=== PATIENT | female | born 1985 | race Caucasian/White ===

== ENCOUNTER → 2017-09-14 14:41 | Outpatient (CLI) | payer OTHER, SELFPAY ==
[2017-09-14 15:27] LABS: hCG Titer Quant., Serum 1 mIU/mL (<9 non-preg)
== END ==
PROVIDERS: Family Provider Family Medicine; PCP Family Medicine; Visit Provider Obstetrics & Gynecology
DX: Z32.00 Encounter for pregnancy test, result unknown (principal); N92.6 Irregular menstruation, unspecified
CPT/HCPCS: 36415; 84702

== ENCOUNTER → 2017-09-17 08:20 | Outpatient (CLI) | payer OTHER, SELFPAY ==
[2017-09-17 09:43] LABS: hCG Titer Quant., Serum 28 mIU/mL (<9 non-preg)
== END ==
PROVIDERS: Family Provider Family Medicine; PCP Family Medicine; Visit Provider Obstetrics & Gynecology
DX: Z34.90 Encounter for supervision of normal pregnancy, unspecified, unspecified trimester (principal)
CPT/HCPCS: 36415; 84702

== ENCOUNTER → 2017-09-19 07:56 | Outpatient (CLI) | payer OTHER, SELFPAY ==
[2017-09-19 08:54] LABS: hCG Titer Quant., Serum 65 mIU/mL (<9 non-preg)
== END ==
PROVIDERS: Family Provider Family Medicine; PCP Family Medicine; Visit Provider Obstetrics & Gynecology
DX: O20.0 Threatened abortion (principal); Z3A.00 Weeks of gestation of pregnancy not specified
CPT/HCPCS: 36415; 84702

== ENCOUNTER → 2017-09-21 10:42 | Outpatient (CLI) | payer OTHER, SELFPAY ==
[2017-09-21 11:10] LABS: hCG Titer Quant., Serum 155 mIU/mL (<9 non-preg)
== END ==
PROVIDERS: Family Provider Family Medicine; PCP Family Medicine; Visit Provider Obstetrics & Gynecology
DX: O20.0 Threatened abortion (principal); Z3A.00 Weeks of gestation of pregnancy not specified
CPT/HCPCS: 36415; 84702

== ENCOUNTER → 2017-10-16 18:34 | Outpatient (CLI) | payer OTHER, SELFPAY ==
[2017-10-16 22:02] LABS: Chlamydia Trachomatis by PCR Negative (Negative); Neisserai gonorrhoeae by PCR Negative (Negative); Probe Check PASS; Sample Adequacy Control PASS; Specimen Processing Control PASS
[2017-10-22 14:04] LABS: HPV APTIMA, High Risk Negative (Negative)
== END ==
PROVIDERS: Family Provider Family Medicine; PCP Family Medicine; Visit Provider Obstetrics & Gynecology
DX: Z34.90 Encounter for supervision of normal pregnancy, unspecified, unspecified trimester (principal); Z12.4 Encounter for screening for malignant neoplasm of cervix
CPT/HCPCS: 87086; 87491; 87591; 88175; G0145

== ENCOUNTER → 2017-10-17 08:15 | Outpatient (CLI) | payer OTHER, SELFPAY | PROVIDERS: Family Provider Family Medicine; PCP Family Medicine; Visit Provider Obstetrics & Gynecology | DX: Z34.90 Encounter for supervision of normal pregnancy, unspecified, unspecified trimester (principal) ==

== ENCOUNTER → 2017-10-19 13:10 | Outpatient (CLI) | payer OTHER, SELFPAY ==
[2017-10-19 14:34] LABS: Absolute Lymphocyte Count 1.97 X10^3/ul (0.83-4.51); Basophil# 0.02 X10^3/uL; Basophil% 0.2 % (0-1); Eosinophil# 0.06 X10^3/uL; Eosinophils% 0.7 % (0-5); Hematocrit 37.3 % (37-47); Lymphocyte # 1.97 X10^3/ul (4.0); Lymphocyte % 22.8 % (19-41); Mean Corp Hgb Conc 34.9 g/gl (32-36); Mean Corpuscular Hgb 31.3 pg (27.0-32.0); Mean Corpuscular Volume 89.9 fL (81-99); Mean Platelet Vol. 9.9 fl (6.2-12.0); Monocyte% 6.9 % (0-10); Neutrophil # 5.99 X10^3/uL (2.7-7.7); Neutrophil % 69.3 % (47-70); Platelet Count 306 K/mm3 (150-450); RBC Distribution Width CV 12.2 % (11.6-14.6); RBC Distribution Width SD 39.6 fl (35.1-43.9); Red Blood Count 4.15 M/mm3 (4.2-5.4); White Blood Count 8.7 K/mm3 (4.4-11.0)
[2017-10-19 15:40] LABS: HIV - WCH Non-Reactive (Nonreactive); Rubella IgG 266.2 IU/mL
[2017-10-19 15:50] LABS: POSITIVE COUNT NO; POSITIVE DIFFERENTIAL NO; POSITIVE MORPHOLOGY NO
[2017-10-20 13:38] LABS: HEPATITIS B SURFACE AG Negative (Negative)
[2017-10-26 02:33] LABS: Rapid Plasmin Reagin (RPR) NONREACTIVE (NONREACTIVE)
== END ==
PROVIDERS: Family Provider Family Medicine; PCP Family Medicine; Visit Provider Obstetrics & Gynecology
DX: Z34.90 Encounter for supervision of normal pregnancy, unspecified, unspecified trimester (principal)
CPT/HCPCS: 36415; 85025; 86592; 86703; 86762; 86850; 86900; 87340

== ENCOUNTER → 2018-01-09 08:45 | Outpatient (CLI) | payer OTHER, SELFPAY ==
--- NOTE | 2018-01-09 08:47 | US_ITS ---
STUDY: SECOND AND THIRD TRIMESTER OBSTETRICAL ULTRASOUND REASON FOR EXAM: Female, 32 years old. Routine survey. LMP: August 22, 2017. TECHNIQUE: Transabdominal PRIOR ULTRASOUND: None. FINDINGS: There is a single intrauterine fetus. The fetus is in a variable presentation. There is demonstrated cardiac activity with a heart rate of 147 bpm. There is a normal amniotic fluid volume. The largest amniotic fluid pocket measures 8.2 cm x 3.4 cm. The amniotic fluid index (WILD) is within normal limits. The placenta is anterior in location and is not low lying. There are Grade 0 placental changes. The cervix measures 3.7 cm in length. The bilateral adnexal regions are normal. BIOMETRY: BPD: 4.41 cm: 19 weeks, 3 days HC: 17.08 cm: 19 weeks, 5 days AC: 15.32 cm: 20 weeks, 4 days FL: 3.3 cm: 20 weeks, 3 days CI: 72% FL/BPD: 75% FL/HC: FL/AC: 22% HC/AC: 1.11 age by current US: 20 weeks, 1 days. PRACHI by current US: May 28, 2018. Estimated weight: 346 grams, +/- 51 grams, 64 %. Age by LMP: 20 weeks, 0 days. PRACHI by LMP: May 29, 2018. ANATOMY: Gender: Female Cranium: Normal lateral ventricles. Normal choroid plexus. Normal cerebellum. Normal cisterna magna. Normal face, nose and lips. Chest: Normal 4-chamber heart. Abdomen/Pelvis: Normal diaphragm. Normal stomach. Normal abdominal wall. Normal cord insertion. Normal 3 vessel cord. Normal kidneys. Normal bladder. Spine: Normal cervical spine. Normal thoracic spine. Normal lumbar spine. Normal sacrum. Extremities: Normal bilateral upper extremities. Normal bilateral lower extremities. US/OB Anatomy Scan IMPRESSION: Single live intrauterine gestation with a mean gestational age of 20 weeks and 1 day. Electronically Signed: Min Orellana MD at 11:02 EDT Tel [phone], Service support ,
== END ==
PROVIDERS: Family Provider Family Medicine; PCP Family Medicine; Visit Provider Obstetrics & Gynecology
DX: Z36.89 Encounter for other specified antenatal screening (principal)
CPT/HCPCS: 76805

== ENCOUNTER → 2018-02-21 09:55 | Outpatient (CLI) | payer OTHER, SELFPAY ==
[2018-02-21 10:49] LABS: Absolute Lymphocyte Count 1.68 X10^3/ul (0.83-4.51); Absolute Neutrophil Count 9.1 X10^3/uL (2.0-7.7); Basophil# 0.02 X10^3/uL; Basophil% 0.2 % (0-1); Eosinophil# 0.07 X10^3/uL; Eosinophils% 0.6 % (0-5); Hematocrit 35.6 % (37-47); Hemoglobin 12.3 g/dl (12.0-15.0); Lymphocyte # 1.68 X10^3/ul (4.0); Lymphocyte % 14.3 % (19-41); Mean Corp Hgb Conc 34.6 g/gl (32-36); Mean Corpuscular Hgb 31.9 pg (27.0-32.0); Mean Corpuscular Volume 92.5 fL (81-99); Mean Platelet Vol. 9.8 fl (6.2-12.0); Monocyte# 0.77 X10^3/uL; Monocyte% 6.6 % (0-10); Neutrophil # 9.11 X10^3/uL (2.7-7.7); Neutrophil % 77.6 % (47-70); Platelet Count 267 K/mm3 (150-450); RBC Distribution Width CV 12.7 % (11.6-14.6); RBC Distribution Width SD 41.6 fl (35.1-43.9); Red Blood Count 3.85 M/mm3 (4.2-5.4); White Blood Count 11.7 K/mm3 (4.4-11.0)
[2018-02-21 10:52] LABS: POSITIVE COUNT NO; POSITIVE DIFFERENTIAL NO; POSITIVE MORPHOLOGY NO
[2018-02-21 11:13] LABS: Glucose Challenge Gest 1H 50g 131 mg/dL (70-140)
== END ==
PROVIDERS: Family Provider Family Medicine; PCP Family Medicine; Visit Provider Obstetrics & Gynecology
DX: Z34.90 Encounter for supervision of normal pregnancy, unspecified, unspecified trimester (principal)
CPT/HCPCS: 36415; 82950; 85025

== ENCOUNTER → 2018-03-01 16:12 | Outpatient (CLI) | payer OTHER, SELFPAY | PROVIDERS: Visit Provider Nurse Practitioner Women's Health | DX: R30.0 Dysuria (principal) | CPT/HCPCS: 87086 ==

== ENCOUNTER → 2018-05-03 18:11 | Outpatient (CLI) | payer OTHER, SELFPAY ==
[2018-05-03 19:56] LABS: Group B Strep DNA By PCR Negative (Negative); Internal Control PASS; Probe Check PASS; Specimen Processing Control PASS
== END ==
PROVIDERS: Family Provider Family Medicine; PCP Family Medicine; Visit Provider Obstetrics & Gynecology
DX: Z34.90 Encounter for supervision of normal pregnancy, unspecified, unspecified trimester (principal)
CPT/HCPCS: 87081; 87653

== ENCOUNTER 2018-05-05 21:14 | Outpatient (CLI) | payer OTHER, SELFPAY ==
[2018-05-05 21:29] VITALS: BMI 27.6
[2018-05-05 22:30] LABS: Hematocrit 31.7 % (37-47); Hemoglobin 10.5 g/dl (12.0-15.0); Mean Corp Hgb Conc 33.1 g/gl (32-36); Mean Corpuscular Hgb 29.6 pg (27.0-32.0); Mean Corpuscular Volume 89.3 fL (81-99); Platelet Count 227 K/mm3 (150-450); RBC Distribution Width CV 13.1 % (11.6-14.6); RBC Distribution Width SD 41.9 fl (35.1-43.9); Red Blood Count 3.55 M/mm3 (4.2-5.4); White Blood Count 9.9 K/mm3 (4.4-11.0)
[2018-05-05 22:32] LABS: Scan Indicated on CBC? Y/N NO
[2018-05-05 22:38] LABS: International Normalized Ratio 0.9; Prothrombin Time (Protime)PT. 12.4 SECONDS (11.7-14.9)
[2018-05-05 22:39] LABS: Protein, Urine (Random) 22.8 mg/dL (<11.9); Protein:Creat Ratio 357 mg/g CRE (0-200)
[2018-05-05 22:47] LABS: AST(SGOT) 24 U/L (15-37); Alanine Aminotransfer ALT/SGPT 22 U/L (13-56); Creatinine, Serum 0.56 mg/dL (0.55-1.02); EST Glomerular Filtration Rate 136 mL/min (>60); Est Glom Filt Rate - Afr Amer 164 mL/min (>60); Estimated Creatinine Clearance 116.18 ml/min; Uric Acid 5.9 mg/dL (2.6-6.0)
[2018-05-06] MEDS: proMETHazine 25 MG Tablet 12.5 MG PO (00:06)
--- NOTE | 2018-05-13 21:21 | OB.TRI.NOTE ---
- Problem List (1) Proteinuria affecting Status: Acute History of Present Illness Date of Service: 05/05/18 Was patient seen by the physician?: Yes Reason For Visit: RULE OUT LABOR History of Present Illness: patient admitted overnight for monitoring or bps due to initial elevation and feeling headache. no blurry vision, denies any visual changes. tylenol didn't relieve eadache but phenergan did. denies any vaginal bleeding or regular ctx. Allergies morphine Allergy (Verified 05/08/18 16:08) Shortness of breath - Pertinent Past Medical History Medical History: Past Medical History (Last Reviewed 05/03/18 @ 15:56 by Vianca Reis) Anxiety and depression IBS (irritable bowel syndrome) Surgical History: Past Surgical History (Last Updated 05/03/18 @ 15:56 by Vianca Reis) History of appendectomy [place] teeth removed Laboratory Studies: Laboratory Tests 05/05/18 05/05/18 05/05/18 Range/Units 22:05 22:05 22:05 WBC (4.4-11.0) K/mm3 RBC (4.2-5.4) M/mm3 Hgb (12.0-15.0) g/dl Hct (37-47) % MCV (81-99) fL MCH (27.0-32.0) pg MCHC (32-36) g/gl RDW (11.6-14.6) % RDW Differential (35.1-43.9) fl Plt Count (150-450) K/mm3 MPV (6.2-12.0) fl PT 12.4 (11.7-14.9) SECONDS INR 0.9 APTT 26.0 (24.1-36.2) Seconds Creatinine 0.56 (0.55-1.02) mg/dL Estim Creat Clear Calc 116.18 ml/min Est GFR (MDRD) Af Amer 164 (>60) mL/min Est GFR (MDRD) Non-Af 136 (>60) mL/min Uric Acid 5.9 (2.6-6.0) mg/dL AST 24 (15-37) U/L ALT 22 (13-56) U/L U Random Total Protein 22.8 H (<11.9) mg/dL Urine Creatinine 63.80 (NO RANGE EST.) mg/dL Protein/Creatinin Ratio 357 H (0-200) mg/g CRE 05/05/18 Range/Units 22:05 WBC 9.9 (4.4-11.0) K/mm3 RBC 3.55 L (4.2-5.4) M/mm3 Hgb 10.5 L (12.0-15.0) g/dl Hct 31.7 L (37-47) % MCV 89.3 (81-99) fL MCH 29.6 (27.0-32.0) pg MCHC 33.1 (32-36) g/gl RDW 13.1 (11.6-14.6) % RDW Differential 41.9 (35.1-43.9) fl Plt Count 227 (150-450) K/mm3 MPV 12.0 (6.2-12.0) fl PT (11.7-14.9) SECONDS INR APTT (24.1-36.2) Seconds Creatinine (0.55-1.02) mg/dL Estim Creat Clear Calc ml/min Est GFR (MDRD) Af Amer (>60) mL/min Est GFR (MDRD) Non-Af (>60) mL/min Uric Acid (2.6-6.0) mg/dL AST (15-37) U/L ALT (13-56) U/L U Random Total Protein (<11.9) mg/dL Urine Creatinine (NO RANGE EST.) mg/dL Protein/Creatinin Ratio (0-200) mg/g CRE Review of Systems Constitutional: Denies: Fever, Malaise Eyes: Denies: Blurred vision, Vision Change HEENT: Reports: Head Aches. Denies: Visual Changes Cardiovascular: Denies: Chest Pain, Palpitations Respiratory: Denies: Cough, Shortness of Breath, Wheezing Gastrointestinal: Denies: Abdominal Pain, Diarrhea, Nausea, Vomiting Genitourinary: Denies: Dysuria, Hematuria Musculoskeletal: Denies: Joint Pain, Muscle pain Skin: Denies: Lesions, Rash Neurological: Reports: Headaches. Denies: Blurred vision, Focal weakness Psychiatric: Denies: Anxiety, Depression Endocrine: Denies: Heat/ Cold Intolerance Hematologic/ Lymphatic: Denies: Easy Bruising, Easy Bleeding Physical Exam General: Alert, Cooperative, No apparent distress HEENT: Atraumatic, Normocephalic. Negative for: Thyromegaly, Lymphadenopathy Cardiovascular: Regular rate Lungs: Normal air movement Abdomen: Soft, Non Tender, Gravid Neurological: Deep Tendon Reflexes 2+/4 and Symmetrical, Neuro grossly intact. 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 Negative for: Vulvar lesions Estimated gestational size: Appropriate for gestational size Presentation: Cephalic Impression/Plan 32 yo @ 36 weeks with proteinuria s/p monitoring for STO for proteinuria rule out preeclampsia- patient stable and bps reassuring, labs normal. recommend close fu as outpatient to monitor bps and urine culture sent due to elevate dprotein.
== END 2018-05-06 08:30 | disposition home or self-care (01) ==
LOC: WPOUT 21:27 → WP 21:27
PROVIDERS: Family Provider Family Medicine; PCP Family Medicine; Referring Provider Obstetrics & Gynecology; Visit Provider Obstetrics & Gynecology
DX: O12.13 Gestational proteinuria, third trimester (principal); O99.89 Other specified diseases and conditions complicating pregnancy, childbirth and the puerperium; R51 Headache; O99.343 Other mental disorders complicating pregnancy, third trimester; F32.9 Major depressive disorder, single episode, unspecified; F41.9 Anxiety disorder, unspecified; Z3A.36 36 weeks gestation of pregnancy
CPT/HCPCS: 36415; 59025; 59050; 82565; 82570; 84156; 84450; 84460; 84550; 85027; 85610; 85730; 87086; 87088; 99218; G0378

== ENCOUNTER → 2018-05-08 12:33 | Outpatient (CLI) | payer OTHER, SELFPAY ==
[2018-05-08 12:58] LABS: Protein, Urine (Random) 9.8 mg/dL (<11.9); Protein:Creat Ratio 311 mg/g CRE (0-200)
== END ==
PROVIDERS: Family Provider Family Medicine; PCP Family Medicine; Visit Provider Nurse Practitioner Women's Health
DX: O16.3 Unspecified maternal hypertension, third trimester (principal); Z3A.00 Weeks of gestation of pregnancy not specified
CPT/HCPCS: 82570; 84156

== ENCOUNTER 2018-05-08 14:54 | Inpatient (IN) | payer OTHER, SELFPAY ==
[2018-05-08] MEDS: Lactated Ringers 1,000 ML 50 ML IV ×2 (15:45→23:47)
[2018-05-08 16:05] VITALS: BMI 27.8
[2018-05-08 16:07] LABS: Hematocrit 30.4 % (37-47); Hemoglobin 10.2 g/dl (12.0-15.0); Mean Corp Hgb Conc 33.6 g/gl (32-36); Mean Corpuscular Hgb 29.9 pg (27.0-32.0); Mean Corpuscular Volume 89.1 fL (81-99); Platelet Count 192 K/mm3 (150-450); RBC Distribution Width CV 12.8 % (11.6-14.6); Red Blood Count 3.41 M/mm3 (4.2-5.4); White Blood Count 8.4 K/mm3 (4.4-11.0)
[2018-05-08 16:08] LABS: Scan Indicated on CBC? Y/N NO
[2018-05-08 16:19] LABS: AST(SGOT) 21 U/L (15-37); Alanine Aminotransfer ALT/SGPT 22 U/L (13-56); Creatinine, Serum 0.51 mg/dL (0.55-1.02); EST Glomerular Filtration Rate 150 mL/min (>60); Est Glom Filt Rate - Afr Amer 182 mL/min (>60); Estimated Creatinine Clearance 127.57 ml/min; Uric Acid 5.7 mg/dL (2.6-6.0)
[2018-05-08 16:27] LABS: International Normalized Ratio 0.9; Partial Thromboplast Time 28.6 Seconds (24.1-36.2); Prothrombin Time (Protime)PT. 12.6 SECONDS (11.7-14.9)
[2018-05-08] MEDS: 0.9% Normal Saline 100 ML IV.SOLN. INTRA-UTER (17:20)
[2018-05-08] MEDS: Oxytocin 30 units/NS 500 ml 30 UNITS/500 ML IV.SOLN IV (17:32)
--- NOTE | 2018-05-08 17:44 | PCM.HP.OB ---
- Problem List (1) Status: Acute Qualifiers: (2) History of prior with IUGR Status: Acute Comment: third trimester growth us (3) Supervision of normal Status: Acute Qualifiers: Comment: PRR PRACHI 05/29/18 PC Milla Altaf History Date of Admission: 11/19/12 Final PRACHI: 05/29/18 Gestational age: 37 Weeks and 0 Days History of this : This is a 32 year-old, , at 37 weeks gestational age presents for induction of labor secondary to pre-clampsia with mild features. Patient presented over the weekend with headache and elevated pressures that resolved but protein was noted to be elevated in the urine. After managing expectantly patient developed elevated pressures in the 140s-150s over 80s throughout the morning and therefore the decision was made for induction of labor secondary to preeclampsia with mild features. She complains of some intermittent headache that has resolved right now and is also had some nausea throughout the morning. She denies any vaginal bleeding or loss of fluid and admits good movement and denies any regular contractions. Medical History: Medical History (Last Reviewed 05/03/18 @ 15:56 by Vianca Reis) Anxiety and depression F41.8 IBS (irritable bowel syndrome) K58.9 Surgical History: Surgical History (Last Updated 05/03/18 @ 15:56 by Vianca Reis) History of appendectomy Z98.890, Z90.49 [place] teeth removed K08.499 Allergies morphine Allergy (Verified 05/08/18 16:08) Shortness of breath Home Medications: Home Medications Vya006/FA/Omega3/Dha/Fish Oil [ Gummies] 1 tab PO DAILY 12/03/16 ranitidine 150 mg tablet 150 mg PO QDAY 02/13/18 Sertraline HCl [Zoloft] 50 mg PO QDAY 05/08/18 Smoking Status: Never smoker Alcohol: None Number of Fetus(es): 1 Heart Tracins moderate variability reactive no decelerations category 1 tracing TOCO Analysis: Irregular contractions History Past Pregnancies: Past Pregnancies previous term vaginal delivery uncomplicated at 37-week induction of labor IUGR Labs: Mom's Labs & Results 05/08/18 05/08/18 05/08/18 15:45 15:45 15:45 WBC 8.4 RBC 3.41 L Hgb 10.2 L Hct 30.4 L MCV 89.1 MCH 29.9 MCHC 33.6 RDW 12.8 RDW Differential 40.0 Plt Count 192 MPV 12.0 PT 12.6 INR 0.9 APTT 28.6 Creatinine Estim Creat Clear Calc Est GFR (MDRD) Af Amer Est GFR (MDRD) Non-Af Uric Acid AST ALT Blood Type A POSITIVE Antibody Screen NEGATIVE 05/08/18 15:45 WBC RBC Hgb Hct MCV MCH MCHC RDW RDW Differential Plt Count MPV PT INR APTT Creatinine 0.51 L Estim Creat Clear Calc 127.57 Est GFR (MDRD) Af Amer 182 Est GFR (MDRD) Non-Af 150 Uric Acid 5.7 AST 21 ALT 22 Blood Type Antibody Screen Course Did the patient receive Yes care? Labs Blood Type: A RH: POSITIVE RPR/VDRL/Syphilis Nonreactive Rubella status Immune HbSAg Negative Date Done: 10/16/17 Chlamydia Negative Gonorrhea Negative HIV/AIDS Non-Reactive Group B Strep: Negative Current Obstetrical History Gestational Diabetes No Incompetent Cervix No Infertility No IUGR No Macrosomia No Hypertension/Pre-eclampsia No Placenta Previa/Abruption No PTL/PROM No Uterine anomaly No Oligohydramnios No Polyhydramnios No Multiple gestation No Past Medical History Asthma No Diabetes No Hypertension No Heart disease No Mitral valve prolapse No Neurologic/Seizure disorder/ No Migraines Kidney disease No Liver disease No Varicosities No Clotting disorders/Hx of DVT No Thyroid Dysfunction No Other medical diseases No Psychiatric disorders Yes: anxiety, depression Major trauma No Abnormal PAP smear Yes: hx colposcopy neg, repeat negative Sleep apnea No Mammogram in the last 2 years No Social History Marital Status: Alleged father Altaf Prabhakar Hx Smoking No Smoking Status Never smoker How long have you used n/a substances (years)? What date/time did you last n/a use any of the above? Have you had any previous n/a inpatient or outpatient treatment Expected Delivery Method: Spontaneous Vaginal Review of Systems Constitutional: Denies: Fever, Malaise Eyes: Denies: Blurred vision, Vision Change HEENT: Reports: Head Aches. Denies: Visual Changes Cardiovascular: Denies: Chest Pain, Palpitations Respiratory: Denies: Cough, Shortness of Breath, Wheezing Gastrointestinal: Denies: Abdominal Pain, Diarrhea, Nausea, Vomiting Genitourinary: Denies: Dysuria, Hematuria Musculoskeletal: Denies: Joint Pain, Muscle pain Skin: Denies: Lesions, Rash Neurological: Reports: Headaches. Denies: Blurred vision, Focal weakness Psychiatric: Denies: Anxiety, Depression Endocrine: Denies: Heat/ Cold Intolerance Hematologic/ Lymphatic: Denies: Easy Bruising, Easy Bleeding Physical Exam General: Alert, Cooperative, No apparent distress HEENT: Atraumatic, Normocephalic. Negative for: Thyromegaly, Lymphadenopathy Cardiovascular: Regular rate Lungs: Normal air movement Abdomen: Soft, Non Tender, Gravid Neurological: Deep Tendon Reflexes 2+/4 and Symmetrical, Neuro grossly intact. 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 Negative for: Vulvar lesions Estimated gestational size: Appropriate for gestational size Presentation: Cephalic Cervix Dilation (cm): 1.5 Station: -1 Effacement (%): 60 Assessment/Plan All Active Problems (Last Reviewed 05/03/18 @ 15:56 by Vianca Reis) (Acute) History of prior with IUGR (Acute) Supervision of normal (Acute) Irregular menses (Resolved) Secondary female infertility (Resolved) This is a 32 year-old, at 37 weeks gestational age presents IOL preeclampsia with mild features. Patient presents IOL, plan expectant management for , pitocin/AROM. Pain management: plans epidural GBS neg. Management of any complications: preeclampsia with mild features I have reviewed the [facility] and made any clinically relevant updates.
--- NOTE | 2018-05-08 17:48 | HP.PCM_ITS ---
- Problem List (1) Status: Acute Qualifiers: (2) History of prior with IUGR Status: Acute Comment: third trimester growth us (3) Supervision of normal Status: Acute Qualifiers: Comment: PRR PRACHI 05/29/18 PC Milla Altaf History Date of Admission: 11/19/12 Final PRACHI: 05/29/18 Gestational age: 37 Weeks and 0 Days History of this : This is a 32 year-old, , at 37 weeks gestational age presents for induction of labor secondary to pre-clampsia with mild features. Patient presented over the weekend with headache and elevated pressures that resolved but protein was noted to be elevated in the urine. After managing expectantly patient developed elevated pressures in the 140s-150s over 80s throughout the morning and therefore the decision was made for induction of labor secondary to preeclampsia with mild features. She complains of some intermittent headache that has resolved right now and is also had some nausea throughout the morning. She denies any vaginal bleeding or loss of fluid and admits good movement and denies any regular contractions. Medical History: Medical History (Last Reviewed 05/03/18 @ 15:56 by Vianca Reis) Anxiety and depression F41.8 IBS (irritable bowel syndrome) K58.9 Surgical History: Surgical History (Last Updated 05/03/18 @ 15:56 by Vianca Reis) History of appendectomy Z98.890, Z90.49 [place] teeth removed K08.499 Allergies morphine Allergy (Verified 05/08/18 16:08) Shortness of breath Home Medications: Home Medications Lfm712/FA/Omega3/Dha/Fish Oil [ Gummies] 1 tab PO DAILY 12/03/16 ranitidine 150 mg tablet 150 mg PO QDAY 02/13/18 Sertraline HCl [Zoloft] 50 mg PO QDAY 05/08/18 Smoking Status: Never smoker Alcohol: None Number of Fetus(es): 1 Heart Tracins moderate variability reactive no decelerations category 1 tracing TOCO Analysis: Irregular contractions History Past Pregnancies: Past Pregnancies previous term vaginal delivery uncomplicated at 37-week induction of labor IUGR Labs: Mom's Labs & Results 05/08/18 05/08/18 05/08/18 15:45 15:45 15:45 WBC 8.4 RBC 3.41 L Hgb 10.2 L Hct 30.4 L MCV 89.1 MCH 29.9 MCHC 33.6 RDW 12.8 RDW Differential 40.0 Plt Count 192 MPV 12.0 PT 12.6 INR 0.9 APTT 28.6 Creatinine Estim Creat Clear Calc Est GFR (MDRD) Af Amer Est GFR (MDRD) Non-Af Uric Acid AST ALT Blood Type A POSITIVE Antibody Screen NEGATIVE 05/08/18 15:45 WBC RBC Hgb Hct MCV MCH MCHC RDW RDW Differential Plt Count MPV PT INR APTT Creatinine 0.51 L Estim Creat Clear Calc 127.57 Est GFR (MDRD) Af Amer 182 Est GFR (MDRD) Non-Af 150 Uric Acid 5.7 AST 21 ALT 22 Blood Type Antibody Screen Course Did the patient receive Yes care? Labs Blood Type: A RH: POSITIVE RPR/VDRL/Syphilis Nonreactive Rubella status Immune HbSAg Negative Date Done: 10/16/17 Chlamydia Negative Gonorrhea Negative HIV/AIDS Non-Reactive Group B Strep: Negative Current Obstetrical History Gestational Diabetes No Incompetent Cervix No Infertility No IUGR No Macrosomia No Hypertension/Pre-eclampsia No Placenta Previa/Abruption No PTL/PROM No Uterine anomaly No Oligohydramnios No Polyhydramnios No Multiple gestation No Past Medical History Asthma No Diabetes No Hypertension No Heart disease No Mitral valve prolapse No Neurologic/Seizure disorder/ No Migraines Kidney disease No Liver disease No Varicosities No Clotting disorders/Hx of DVT No Thyroid Dysfunction No Other medical diseases No Psychiatric disorders Yes: anxiety, depression Major trauma No Abnormal PAP smear Yes: hx colposcopy neg, repeat negative Sleep apnea No Mammogram in the last 2 years No Social History Marital Status: Alleged father Altaf Prabhakar Hx Smoking No Smoking Status Never smoker How long have you used n/a substances (years)? What date/time did you last n/a use any of the above? Have you had any previous n/a inpatient or outpatient treatment Expected Delivery Method: Spontaneous Vaginal Review of Systems Constitutional: Denies: Fever, Malaise Eyes: Denies: Blurred vision, Vision Change HEENT: Reports: Head Aches. Denies: Visual Changes Cardiovascular: Denies: Chest Pain, Palpitations Respiratory: Denies: Cough, Shortness of Breath, Wheezing Gastrointestinal: Denies: Abdominal Pain, Diarrhea, Nausea, Vomiting Genitourinary: Denies: Dysuria, Hematuria Musculoskeletal: Denies: Joint Pain, Muscle pain Skin: Denies: Lesions, Rash Neurological: Reports: Headaches. Denies: Blurred vision, Focal weakness Psychiatric: Denies: Anxiety, Depression Endocrine: Denies: Heat/ Cold Intolerance Hematologic/ Lymphatic: Denies: Easy Bruising, Easy Bleeding Physical Exam General: Alert, Cooperative, No apparent distress HEENT: Atraumatic, Normocephalic. Negative for: Thyromegaly, Lymphadenopathy Cardiovascular: Regular rate Lungs: Normal air movement Abdomen: Soft, Non Tender, Gravid Neurological: Deep Tendon Reflexes 2+/4 and Symmetrical, Neuro grossly intact. 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 Negative for: Vulvar lesions Estimated gestational size: Appropriate for gestational size Presentation: Cephalic Cervix Dilation (cm): 1.5 Station: -1 Effacement (%): 60 Assessment/Plan All Active Problems (Last Reviewed 05/03/18 @ 15:56 by Vianca Reis) (Acute) History of prior with IUGR (Acute) Supervision of normal (Acute) Irregular menses (Resolved) Secondary female infertility (Resolved) This is a 32 year-old, at 37 weeks gestational age presents IOL preeclampsia with mild features. Patient presents IOL, plan expectant management for , pitocin/AROM. Pain management: plans epidural GBS neg. Management of any complications: preeclampsia with mild features I have reviewed the [facility] and made any clinically relevant updates.
[2018-05-09] MEDS: fentaNYL-bupivacaine (epidural) 100 ML BAG EPIDURAL ×2 (00:29→04:24)
[2018-05-09] MEDS: Lactated Ringers 1,000 ML 50 ML IV (04:23)
[2018-05-09] MEDS: Oxytocin 30 units/NS 500 ml 30 UNITS/500 ML IV.SOLN 334 UNITS IV (06:16)
--- NOTE | 2018-05-09 06:45 | PCM.OB.VAG ---
- Problem List (1) Status: Acute Qualifiers: (2) History of prior with IUGR Status: Acute Comment: third trimester growth us (3) Supervision of normal Status: Acute Qualifiers: Comment: PRR PRACHI 05/29/18 PC Milla Altaf Vaginal Delivery Maternal Presentation: Medically Indicated Induction 32-year-old at 37 weeks presents for induction of labor secondary to preeclampsia with mild features Method of Induction: Pitocin, [facility] Reason for Induction: Preeclampsia, eclampsia Amniotic Membrane Rupture Type: Artificial Amniotic Fluid Description: Clear Final PRACHI: 05/29/18 Gestational age: 37 Weeks and 1 Days Date of Procedure: 05/09/18 Pre-Operative Diagnosis: Induction of labor preeclampsia Post-Operative Diagnosis: Name Surgery/ Procedure Performed: Spontaneous Vaginal Delivery Type of Anesthesia: Epidural Description of Procedure: Patient began pushing and delivered the head in the JENNIFER presentation. The head was delivered atraumatically. The anterior and posterior shoulders delivered without complication followed by the rest of the and the infant was placed on the maternal abdomen. Delayed cord clamping was employed for approximately 60 seconds. Cord was clamped and cut and gentle traction was applied to the cord and the placenta delivered spontaneously immediately following it was noted to be intact with three-vessel cord. The perineum and vagina were inspected and noted to have no laceration. EBL was 100 cc. Patient and tolerated delivery well. Presentation: JENNIFER Placental Delivery Description: Spontaneous Placenta Disposition: [facility] Cord Vessel Description: 3 Vessels Cord Entanglement: None Estimated Blood Loss: 100 Infant A gender: Female Episiotomy Description: None Laceration: None Medications given after delivery: IV Pitocin Complications: None
[2018-05-09] MEDS: Oxytocin 30 units/NS 500 ml 30 UNITS/500 ML IV.SOLN 167 UNITS IV (06:46)
[2018-05-09] MEDS: Acetaminophen 325 MG Tablet PO (07:33)
[2018-05-09 08:45] VITALS: BP 129/65; PULSE 70; RESP 18; TEMP 36.9
[2018-05-09 16:05] VITALS: BP 138/81; PULSE 81; RESP 20; TEMP 37.4; O2SAT 99
[2018-05-09] MEDS: Naproxen 250 MG Tablet PO (16:06)
[2018-05-09] MEDS: Prenatal Vits Tablet 1 TABLET PO (16:06)
[2018-05-09] MEDS: Famotidine 20 MG Tablet PO (16:06)
[2018-05-09] MEDS: Sertraline 50 MG Tablet PO (16:07)
[2018-05-09] MEDS: Acetaminophen 500 MG Tablet 1000 MG PO (20:17)
[2018-05-09 20:21] VITALS: BP 147/65; PULSE 68; RESP 16; TEMP 37.1; O2SAT 96
[2018-05-10] MEDS: Naproxen 250 MG Tablet PO (00:24)
[2018-05-10 00:29] VITALS: BP 127/80; PULSE 69; RESP 16; TEMP 36.5; O2SAT 99
[2018-05-10 03:45] VITALS: BP 128/69; PULSE 70; RESP 16; TEMP 36.7; O2SAT 97
--- NOTE | 2018-05-10 08:05 | PN.OBGYN_ITS ---
Subjective: doing well no complaints - Physical Exam General: Alert, Oriented x3 Vital Signs Temp Pulse Resp BP Pulse Ox 98.1 F 70 16 128/69 H 97 05/10/18 03:45 05/10/18 03:45 05/10/18 03:45 05/10/18 03:45 05/10/18 03:45 Oxygen Delivery Method Room Air Weight: 152 lb 9.6 oz Body Mass Index (BMI) 27.8 Intake and Output for Last 24 Hours 05/08/18 05/09/18 05/10/18 23:59 23:59 23:59 Intake Total 2848 / 2848 Output Total 1250 / 1250 Balance 1598 / 1598 Medical Necessity - Tobacco Use Smoking Status: Never smoker Assessment/Plan All Active Problems (Last Reviewed 05/03/18 @ 15:56 by Vianca Reis) (Acute) History of prior with IUGR (Acute) Supervision of normal (Acute) Irregular menses (Resolved) Secondary female infertility (Resolved) s/p routine care [facility]
--- NOTE | 2018-05-10 08:07 | DCINST_ITS ---
Discharge Diet: No Restrictions Discharge Activity: Return to Normal Activity, May not drive while taking narcotic pain medications., May Shower May resume sexual activity in: 4-6 weeks Call your doctor if your incision/area has: Continuous Slow Oozing, Sudden Increased Bleeding, Increased Pain/ Swelling, Increased Redness, Foul Smelling Discharge Additional Instructions: If you experience any of the following, contact your healthcare provider. * Bleeding that soaks a pad every hour for 2 hours * Fever 100.4 or higher * Unrelieved incision or abdominal pain * Swelling, redness, discharge or bleeding from your incision or episiotomy site * Your incision begins to separate * Problems urinating (including inability to urinate or burning while urinating). * Visual changes * Severe headache * Flu-like symptoms * Pain or redness in one of both of your breasts * Pain, warmth, tenderness or swelling in your legs, especially the calf area * Frequent nausea and vomiting * Symptoms of depression or anxiety If you experience any of the following, call 911 or go to the nearest Emergency Room. * Chest pain * Problems breathing * Seizure activity * Partial or complete paralysis of a body part, slurred speech, weakness or drooping of the face, or a sudden inability to walk or hold your balance Allergies/Adverse Reactions: Allergies morphine Allergy (Verified 05/08/18 16:08) Shortness of breath Medications to take at Discharge Qwi978/FA/Omega3/Dha/Fish Oil [ Gummies] 1 tab PO DAILY 12/03/16 ranitidine 150 mg tablet 150 mg PO QDAY 02/13/18 Sertraline HCl [Zoloft] 50 mg PO DAILY 05/08/18 Naproxen [Naprosyn] 250 - 500 mg PO Q8H PRN PRN #30 tablet 05/10/18 The following prescriptions were given: Naproxen [Naprosyn] 250 - 500 mg PO Q8H PRN PRN #30 tablet PRN Reason: MILD PAIN Please Follow Up With: Tatyana Hubbard MD - [phone] When: Call to make an appointment with your doctor in 6 weeks. If you had elevated Blood pressure or 4th degree laceration you will need to be seen in 2 weeks. Primary Care Physician: Sharad Sellers MD [Primary Care Provider] - Test Results: Test results from this visit will be discussed in further detail at your follow- up appointment, if applicable.
[2018-05-10 08:22] VITALS: BP 123/64; PULSE 84; RESP 16; TEMP 37
[2018-05-10] MEDS: Famotidine 20 MG Tablet PO (09:50)
[2018-05-10] MEDS: Sertraline 50 MG Tablet PO (09:50)
[2018-05-10] MEDS: Prenatal Vits Tablet 1 TABLET PO (09:50)
[2018-05-10 14:36] VITALS: BP 145/68; PULSE 66; RESP 16; TEMP 37.1
--- NOTE | 2018-05-15 17:33 | NURSING ---
Follow up phone call made and left a voicemail. Izabela BEAVERS
== END 2018-05-10 18:00 | disposition home or self-care (01) | DRG 807 ==
PROVIDERS: Admitting Provider Obstetrics & Gynecology; Family Provider Family Medicine; PCP Family Medicine; Referring Provider Obstetrics & Gynecology; Visit Provider Obstetrics & Gynecology
DX: O14.03 Mild to moderate pre-eclampsia, third trimester (principal); Z37.0 Single live birth; O99.344 Other mental disorders complicating childbirth; F32.9 Major depressive disorder, single episode, unspecified; F41.9 Anxiety disorder, unspecified; O99.62 Diseases of the digestive system complicating childbirth; K21.9 Gastro-esophageal reflux disease without esophagitis; Z3A.37 37 weeks gestation of pregnancy; Z87.59 Personal history of other complications of pregnancy, childbirth and the puerperium
CPT/HCPCS: 59025; 59050; 82565; 84450; 84460; 84550; 85027; 85610; 85730; 86850; 86900; 99218; J7120; G0378

== ENCOUNTER → 2018-08-12 16:28 | Outpatient (CLI) | payer OTHER, SELFPAY | PROVIDERS: Family Provider Internal Medicine; PCP Internal Medicine; Referring Provider Nurse Practitioner Women's Health; Visit Provider Nurse Practitioner Women's Health | DX: N89.8 Other specified noninflammatory disorders of vagina (principal) | CPT/HCPCS: 87070; 87205 ==

== ENCOUNTER → 2018-10-04 08:56 | Outpatient (CLI) | payer OTHER, SELFPAY ==
[2018-09-05 17:31] VITALS: BMI 22.8
--- NOTE | 2018-10-04 09:09 | RAD_ITS ---
STUDY: X-RAY - LUMBAR SPINE REASON FOR EXAM: Female, 33 years old. Back pain. TECHNIQUE: 3 view(s) of the lumbar spine were obtained. COMPARISON: None FINDINGS: Normal lumbar lordosis. There is no substantial scoliosis. There is a normal alignment of the vertebrae. Normal vertebral bodies and endplates. Normal disc space heights. The soft tissue structures are unremarkable. RAD/Lumbar Spine 2 or 3 Views IMPRESSION: Normal x-ray examination of the lumbar spine. Electronically Signed: Min Orellana, at 15:19 EDT , Service support ,
--- NOTE | 2018-10-04 09:19 | RAD_ITS ---
STUDY: X-RAY - PELVIS REASON FOR EXAM: Female, 33 years old. Pain. TECHNIQUE: One view of the pelvis was obtained. COMPARISON: None. FINDINGS: There is a non-specific bowel gas pattern. Normal visualized soft tissue structures. Normal bilateral iliac wings, sacroiliac joints and visualized sacrum. Normal visualized bilateral superior and inferior pubic rami. Normal pubic symphysis. Normal ischial tuberosities. Normal visualized right femoral head. Normal right acetabulum. Normal right hip joint. Normal visualized left femoral head. Normal left acetabulum. Normal left hip joint. RAD/Pelvis 1 or 2 Views IMPRESSION: Normal x-ray examination of the pelvis. Electronically Signed: Min Orellana, at 15:20 EDT , Service support ,
== END ==
PROVIDERS: Family Provider Internal Medicine; PCP Internal Medicine; Referring Provider Obstetrics & Gynecology; Visit Provider Obstetrics & Gynecology
DX: M54.9 Dorsalgia, unspecified (principal)
CPT/HCPCS: 72100; 72170

== ENCOUNTER → 2018-10-17 13:56 | Outpatient (CLI) | payer OTHER, SELFPAY ==
[2018-09-05 17:31] VITALS: BMI 22.8
[2018-10-17 14:28] LABS: Absolute Lymphocyte Count 1.04 X10^3/ul (0.83-4.51); Absolute Neutrophil Count 10.5 X10^3/uL (2.0-7.7); Basophil# 0.01 X10^3/uL; Basophil% 0.1 % (0-1); Eosinophil# 0.05 X10^3/uL; Eosinophils% 0.4 % (0-5); Hematocrit 37.9 % (37-47); Lymphocyte # 1.04 X10^3/ul (4.0); Lymphocyte % 8.4 % (19-41); Mean Corp Hgb Conc 34.3 g/gl (32-36); Mean Corpuscular Hgb 30.1 pg (27.0-32.0); Mean Corpuscular Volume 87.7 fL (81-99); Mean Platelet Vol. 9.7 fl (6.2-12.0); Monocyte# 0.89 X10^3/uL; Monocyte% 7.1 % (0-10); Neutrophil # 10.45 X10^3/uL (2.7-7.7); Neutrophil % 83.9 % (47-70); Platelet Count 266 K/mm3 (150-450); RBC Distribution Width CV 12.5 % (11.6-14.6); RBC Distribution Width SD 40.3 fl (35.1-43.9); Red Blood Count 4.32 M/mm3 (4.2-5.4); White Blood Count 12.5 K/mm3 (4.4-11.0)
[2018-10-17 14:33] LABS: POSITIVE COUNT NO; POSITIVE DIFFERENTIAL NO; POSITIVE MORPHOLOGY NO
[2018-10-17 14:50] LABS: T4 Free Direct 1.03 ng/dL (0.76-1.46); Thyroid Stim Hormone (TSH) 0.58 uIU/mL (0.358-3.74)
== END ==
PROVIDERS: Family Provider Internal Medicine; PCP Internal Medicine; Referring Provider Nurse Practitioner Women's Health; Visit Provider Nurse Practitioner Women's Health
DX: R53.83 Other fatigue (principal)
CPT/HCPCS: 36415; 84439; 84443; 85025

== ENCOUNTER → 2018-11-06 12:24 | Outpatient (CLI) | payer OTHER, SELFPAY ==
[2018-10-17 16:24] VITALS: BMI 22.6
--- NOTE | 2018-11-06 12:26 | US_ITS ---
STUDY: ABDOMINAL ULTRASOUND - RIGHT UPPER QUADRANT REASON FOR VISIT: Female, 33 years old. Right upper quadrant pain. TECHNIQUE: Ultrasound evaluation of the right upper quadrant was performed with real-time and static rose-scale imaging. TECHNICAL QUALITY: Adequate. COMPARISON: None. FINDINGS: Liver: The liver measures 14.6 cm. There is normal echogenicity of the liver. The bile ducts are within normal limits. There is hepatic color flow. The direction of portal flow is hepatopetal. There is no demonstrated mass lesion. Gallbladder: Normal distended gallbladder. The gallbladder wall measures 3 mm. There is a negative sonographic Silver's sign. There is no pericholecystic fluid. There are no gallstones. Common Bile Duct (C.B.D.): The common bile duct measures 2 mm. Pancreas: Normal size of the head, body and tail of the pancreas. There is normal echogenicity of the pancreas. There is no demonstrated pancreatic mass or cyst. Right Kidney: Normal size of the right kidney. The right kidney measures 9.7 cm. Normal renal cortex. The right cortex measures 1.5 cm. There is no demonstrated renal mass or cyst. There is no right hydronephrosis. US/Abdomen Limited IMPRESSION: Normal abdominal ultrasound. Unremarkable features of the gallbladder, liver and biliary tree. The technologist notes that the patient's tenderness was along the region of the ascending colon. No specific sonographic abnormality was observed in that distribution. Limited characterization. Electronically Signed: Misael Barlow MD at 14:41 EDT Tel , Service support ,
== END ==
PROVIDERS: Family Provider Internal Medicine; PCP Internal Medicine; Referring Provider Nurse Practitioner Women's Health; Visit Provider Nurse Practitioner Women's Health
DX: R10.11 Right upper quadrant pain (principal)
CPT/HCPCS: 76705

== ENCOUNTER → 2019-03-21 13:38 | Outpatient (CLI) | payer OTHER, SELFPAY ==
[2019-01-28 16:58] VITALS: BMI 21.9
--- NOTE | 2019-03-21 13:40 | CT_ITS ---
STUDY: CT BRAIN WITH AND WITHOUT CONTRAST REASON FOR EXAM: Female, 33 years old. Headaches RADIATION DOSAGE (If Supplied By Facility): DLP = ( 1479.73 ) mGycm TECHNIQUE: Transaxial CT imaging of the brain was performed pre and post contrast administration. The examination was performed with intravenous administration of 50ml ml of Isovue 370 contrast material. Individualized dose optimization techniques were used for this CT. COMPARISON: None. FINDINGS: There is no acute bleed or infarct. There are normal white matter tracts. There is no abnormal enhancement following contrast administration. There are no intracranial masses identified. The ventricles are normal in configuration. There is no hydrocephalus. The visualized paranasal sinuses are clear. The mastoid air cells are well aerated. There is no skull fracture. CT/Brain/Head W/WO Contrast IMPRESSION: No acute intracranial abnormality. Electronically Signed: Moshe Peña, at 17:36 EDT Tel , Service support ,
== END ==
PROVIDERS: Family Provider Internal Medicine; PCP Internal Medicine; Referring Provider Nurse Practitioner Family; Visit Provider Nurse Practitioner Family
DX: G43.909 Migraine, unspecified, not intractable, without status migrainosus (principal); R42 Dizziness and giddiness
CPT/HCPCS: 70470; Q9967

== ENCOUNTER → 2019-07-10 13:17 | Outpatient (CLI) | payer OTHER, SELFPAY ==
[2019-07-10 08:36] VITALS: BMI 21.2
[2019-07-15 10:00] LABS: HPV APTIMA, High Risk Negative (Negative)
== END ==
PROVIDERS: Family Provider Internal Medicine; PCP Internal Medicine; Referring Provider Obstetrics & Gynecology; Visit Provider Obstetrics & Gynecology
DX: Z12.4 Encounter for screening for malignant neoplasm of cervix (principal)
CPT/HCPCS: 87624; 88175; G0145

== ENCOUNTER → 2019-07-15 08:16 | Outpatient (CLI) | payer OTHER, SELFPAY ==
[2019-07-10 08:36] VITALS: BMI 21.2
[2019-07-15 09:10] LABS: ALB/GLOB Ratio 0.9 RATIO (0.9-2.4); AST(SGOT) 12 U/L (15-37); Alanine Aminotransfer ALT/SGPT 24 U/L (13-56); Albumin, Serum 3.7 g/dL (3.2-5.0); Alkaline Phosphatase 50 U/L (45-117); Anion Gap 5 (5-15); BUN 9 mg/dL (7-18); BUN/Creat Ratio 12.8 RATIO (10-20); Calcium,Total 8.9 mg/dL (8.5-10.1); Chloride 109 mmol/L (98-107); Cholesterol 214 mg/dL (200); EST Glomerular Filtration Rate 103 mL/min (>60); Est Glom Filt Rate - Afr Amer 124 mL/min (>60); Globulin 4.1 g/dL (2.2-4.2); Glucose 81 mg/dL (74-106); High Density Lipoprotein 77 mg/dL; Potassium 3.9 mmol/L (3.5-5.1); Protein, Total 7.8 g/dL (6.4-8.2); Sodium Level 141 mmol/L (136-145); Triglycerides 140 mg/dL; Very Low Density Lipoprotein 28 mg/dL (5-40)
[2019-07-15 09:18] LABS: Vitamin D,25 Hydroxy 14.4 ng/mL (29.95-100.01)
== END ==
PROVIDERS: Family Provider Internal Medicine; PCP Internal Medicine; Referring Provider Obstetrics & Gynecology; Visit Provider Obstetrics & Gynecology
DX: Z13.220 Encounter for screening for lipoid disorders (principal); Z13.1 Encounter for screening for diabetes mellitus; Z13.21 Encounter for screening for nutritional disorder
CPT/HCPCS: 36415; 80053; 80061; 82306

== ENCOUNTER 2019-08-18 06:57 | Outpatient (RCR) | payer OTHER, SELFPAY ==
[2019-08-07 14:13] VITALS: BMI 21.2
--- NOTE | 2019-08-18 08:09 | HP.PTEVAL ---
Patient's Visit Information BHARAT RICHARD is a 34 year old F referred to Physical Therapy by ISAIAH Kay with a diagnosis of Lumbar Radiculopathy. Date of Evaluation: 08/18/19 Physical Therapist: Michaela Flores DPT - Visit Plan Frequency: 2x /Week Duration: 4 Weeks Plan: Focus on LE and core strength/stabilization- modality of US and dry needling- - Subjective Findings: Has been seeing Dr. Galan since June- threw out back last September and its been on/off since. Had x-rays done and everything was okay. Got a little bit better with chiro but feels its more muscular. Went and saw Ortho- and he thinks she has entrapment from piriformis. Gave her a prednisone dose pack but she did not take it due to reaction to meds- so she has been using ice. Pain is located along the belt line to the hip and to the back of the knee. The pain radiates to the knee. Does have N/T. When she is up and moving it does not hurt. When she is sitting and laying on her side is when it is sharp and shooting. She does not lay on her belly. Has not had an MRI. No change in bowel or bladder- no radiating pain up the back. 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 Sleep: disturbed- wakes her up if she rolls over on it. Is pretty active up and about- 2 kids (8 and 1)- does still carry a kid- left side. Right hand dominate. PMHx: none Meds: control, buspar. - Objective Posture: poor- FH, RS- can correct with verbal and tactile cues but does not maintain. Gait: no deviaton noted- good arm swing and trunk rotation. SLS: 15 sec then LOB bilaterally. ROM: Lumbar: hands to knees, Extn:WNL with pain, SB: WFL painful to the right, Rot: WNL no pain either direction. Hip: left: WNL, Right: flexion: decreased by 25% with pain. Knee: bilaterally WNL, Ankle: WNL. Sensation: WNL Reflex: WNL patellar 2+. Special Test: Dural signs: positive right, SIENNA: positive, Figure 4: positive. Strength: core: poor, Hip: 4-/5 throughout bilaterally, Knee: left: 5/5, Right: 4/5, Ankle: 5/5. Palpation: tender along paraspinals- palpatoin to right gluts recreated symptoms to the right knee - Goals Goal 1:: Patient will be I with HEP and progression Goal Time Frame: 4-6 Weeks Goal 2:: Patient will maintain proper posture t/o tx session to demo increased core s/s Goal Time Frame: 4-6 Weeks Goal 3:: Patient will report no pain down the right left for 1 week. Goal Time Frame: 4-6 Weeks - Rehabilitation Potential Physical Therapy Diagnosis: Patient presents with hypomobility- she has decreased ROM, strength, flex and muscular endurance leading to poor posture and increased pain with ADL's. Rehabilitation Potential: Fair - Anticipated Interventions Patient/Client Instruction: Educate patient on: Benefits of Fitness Program Therapeutic Exercise to Include: Strength training, Endurance training, Body mechanics, Postural training, Flexibilty training, Gait and locomotor training, Neuromotor development, Passive ROM, Active ROM, Dynamic Lumbar Stabilization, John Exercises, Scapular Strength/Stabilization For the Purpose of:: To improve muscle performance and motor function TENS: Yes Cryotherapy (ice pack, ice massage): Yes Thermo therapy (hot pack): Yes Ultrasound (thermal/non thermal): Yes Thank you for the opportunity to evaluate your patient. For Medicare and Medicare HMO plans, please review the plan of care and approve it. It will need to be FAXED BACK to us at [phone] for Medicare purposes. For Medicare only, by signing this I certify the plan of care. Please let me know if there are questions or concerns regarding this plan of care. Physician Signature: Date:
--- NOTE | 2019-11-11 11:18 | HP.PT.NRP ---
BHARAT RICHARD was seen in my office for initial evaluation on 08/18/19. The following Plan of Care was established for this patient: Initial Frequency: 2x /Week Initial Duration: 4 Weeks Patient/Client Instruction: Educate patient on: Benefits of Fitness Program Therapeutic Exercise to Include: Strength training, Endurance training, Body mechanics, Postural training, Flexibilty training, Gait and locomotor training, Neuromotor development, Passive ROM, Active ROM, Dynamic Lumbar Stabilization, John Exercises, Scapular Strength/Stabilization For the Purpose of:: To improve muscle performance and motor function TENS: Yes Cryotherapy (ice pack, ice massage): Yes Thermo therapy (hot pack): Yes Ultrasound (thermal/non thermal): Yes This patient was last seen in our office . Pertinent comments regarding their Physical therapy will appear below: Self Pay DN-dc At this point I will be discontinuing this patient from physical therapy. I would be happy to see this patient again in the future if found appropriate by the physician. Thank you! JENI CarpioT
== END 2019-08-18 19:00 | disposition home or self-care (01) ==
LOC: PT 06:57
PROVIDERS: PCP Internal Medicine; Referring Provider Physician Assistant; Visit Provider Physician Assistant
DX: M54.5 Low back pain (principal); M54.16 Radiculopathy, lumbar region
CPT/HCPCS: 97035; 97162

== ENCOUNTER → 2020-02-09 | Outpatient (CLI) | payer OTHER, SELFPAY ==
[2019-11-12 11:04] VITALS: BMI 21.2
== END | disposition home or self-care (01) ==
PROVIDERS: PCP Internal Medicine; Referring Provider Obstetrics & Gynecology; Visit Provider Obstetrics & Gynecology
DX: R30.0 Dysuria (principal)
CPT/HCPCS: 87086

== ENCOUNTER → 2020-02-19 12:39 | Outpatient (CLI) | payer OTHER, SELFPAY ==
[2019-11-12 11:04] VITALS: BMI 21.2
[2020-02-19 13:13] LABS: hCG Titer Quant., Serum < 1 mIU/mL (1-3)
== END ==
PROVIDERS: PCP Internal Medicine; Referring Provider Obstetrics & Gynecology; Visit Provider Obstetrics & Gynecology
DX: Z32.00 Encounter for pregnancy test, result unknown (principal)
CPT/HCPCS: 36415; 84702

== ENCOUNTER → 2020-03-22 08:19 | Outpatient (CLI) | payer OTHER, SELFPAY ==
[2019-11-12 11:04] VITALS: BMI 21.2
[2020-03-22 08:58] LABS: hCG Titer Quant., Serum 30 mIU/mL (1-3)
[2020-03-22 09:08] LABS: T4 Free Direct 0.92 ng/dL (0.76-1.46); Thyroid Stim Hormone (TSH) 1.73 uIU/mL (0.358-3.74)
== END ==
PROVIDERS: Obstetrics & Gynecology; PCP Internal Medicine; Referring Provider Nurse Practitioner Women's Health; Visit Provider Nurse Practitioner Women's Health
DX: L65.9 Nonscarring hair loss, unspecified (principal); N93.9 Abnormal uterine and vaginal bleeding, unspecified; N92.6 Irregular menstruation, unspecified; R53.83 Other fatigue
CPT/HCPCS: 36415; 84439; 84443; 84702

== ENCOUNTER → 2020-03-24 08:19 | Outpatient (CLI) | payer OTHER, SELFPAY ==
[2019-11-12 11:04] VITALS: BMI 21.2
[2020-03-24 08:43] LABS: Internal QC Validated? YES +Cl - CLEAR BKGD; Pregnancy, Serum, hCG Quali. POSITIVE Negative
[2020-03-24 09:18] LABS: hCG Titer Quant., Serum 94 mIU/mL (1-3)
== END ==
PROVIDERS: PCP Internal Medicine; Referring Provider Nurse Practitioner Women's Health; Visit Provider Nurse Practitioner Women's Health
DX: Z34.90 Encounter for supervision of normal pregnancy, unspecified, unspecified trimester (principal); N91.2 Amenorrhea, unspecified
CPT/HCPCS: 36415; 84702; 84703

== ENCOUNTER → 2020-03-26 08:20 | Outpatient (CLI) | payer OTHER, SELFPAY ==
[2019-11-12 11:04] VITALS: BMI 21.2
[2020-03-26 08:57] LABS: hCG Titer Quant., Serum 272 mIU/mL (1-3)
== END ==
PROVIDERS: Nurse Practitioner Women's Health; PCP Internal Medicine; Referring Provider Obstetrics & Gynecology; Visit Provider Obstetrics & Gynecology
DX: Z34.90 Encounter for supervision of normal pregnancy, unspecified, unspecified trimester (principal)
CPT/HCPCS: 36415; 84702

== ENCOUNTER → 2020-03-29 09:33 | Outpatient (CLI) | payer OTHER, SELFPAY ==
[2019-11-12 11:04] VITALS: BMI 21.2
[2020-03-29 10:35] LABS: hCG Titer Quant., Serum 1133 mIU/mL (1-3)
== END ==
PROVIDERS: PCP Internal Medicine; Referring Provider Obstetrics & Gynecology; Visit Provider Obstetrics & Gynecology
DX: Z34.90 Encounter for supervision of normal pregnancy, unspecified, unspecified trimester (principal)
CPT/HCPCS: 36415; 84702

== ENCOUNTER → 2020-04-22 | Outpatient (CLI) | payer OTHER, SELFPAY ==
[2020-04-22 13:59] VITALS: BMI 21.7
[2020-04-22 18:18] LABS: Amphetamine Urine VISTA NEGATIVE (<1000 ng/mL); Barbiturate Urine VISTA NEGATIVE (< 200 ng/mL); Benzodiazepine Urine VISTA NEGATIVE (< 200 ng/mL); Cocaine Urine VISTA NEGATIVE (< 300 ng/mL); Ecstacy Urine VISTA NEGATIVE (< 500 ng/mL); Methadone Urine VISTA NEGATIVE (< 300 ng/mL); PCP Urine VISTA NEGATIVE (< 25 ng/mL); THC Urine VISTA NEGATIVE (< 50 ng/mL); Vista UDS pH Range 6
[2020-04-27 03:06] LABS: Chlamydia By Nucleic Acid AMP Negative (Negative)
[2020-04-27 12:06] LABS: Gonococcus By Nucleic Acid AMP Negative (Negative)
== END | disposition home or self-care (01) ==
LOC: LABSPEC 16:46
PROVIDERS: PCP Internal Medicine; Referring Provider Obstetrics & Gynecology; Visit Provider Obstetrics & Gynecology
DX: Z34.90 Encounter for supervision of normal pregnancy, unspecified, unspecified trimester (principal); Z11.3 Encounter for screening for infections with a predominantly sexual mode of transmission
CPT/HCPCS: 80307; 87086; 87491; 87591

== ENCOUNTER → 2020-04-26 12:43 | Outpatient (CLI) | payer OTHER, SELFPAY ==
[2020-04-22 13:59] VITALS: BMI 21.7
[2020-04-26 13:05] LABS: Absolute Lymphocyte Count 2.22 X10^3/uL (0.83-4.51); Absolute Neutrophil Count 6.8 X10^3/uL (2.0-7.7); Basophil# 0.03 X10^3/uL; Basophil% 0.3 % (0-1); Eosinophil# 0.04 X10^3/uL; Eosinophils% 0.4 % (0-5); Hemoglobin 13.3 g/dL (12.0-15.0); Lymphocyte # 2.22 X10^3/ul (4.0); Lymphocyte % 22.4 % (19-41); Mean Corpuscular Hgb 31.7 pg (27.0-32.0); Mean Corpuscular Volume 90.7 fL (81-99); Mean Platelet Vol. 9.3 fl (6.2-12.0); Monocyte# 0.81 X10^3/uL; Monocyte% 8.2 % (0-10); NRBC Flagged by Analyzer 0 % (0-5); Neutrophil % 68.4 % (47-70); Platelet Count 350 K/mm3 (150-450); RBC Distribution Width CV 11.9 % (11.6-14.6); RBC Distribution Width SD 39.7 fl (35.1-43.9); Red Blood Count 4.19 M/mm3 (4.2-5.4); White Blood Count 9.9 K/mm3 (4.4-11.0)
[2020-04-26 14:40] LABS: HIV - WCH Non-Reactive (Nonreactive); Hepatitis B Surface Antigen Non-Reactive (Nonreactive); Hepatitis C Antibody Non-Reactive (Nonreactive); Rubella IgG 245.5 IU/mL
[2020-04-29 01:11] LABS: Rapid Plasmin Reagin (RPR) NONREACTIVE (NONREACTIVE)
== END ==
PROVIDERS: PCP Internal Medicine; Referring Provider Obstetrics & Gynecology; Visit Provider Obstetrics & Gynecology
DX: Z34.90 Encounter for supervision of normal pregnancy, unspecified, unspecified trimester (principal)
CPT/HCPCS: 36415; 85025; 86592; 86703; 86762; 86803; 86850; 86900; 86901; 87340

== ENCOUNTER → 2020-05-20 | Outpatient (CLI) | payer OTHER, SELFPAY ==
[2020-05-20 09:05] VITALS: BMI 21.7
[2020-05-20 12:50] LABS: Protein, Urine (Random) 15.5 mg/dL (<11.9); Protein:Creat Ratio 157 mg/g CRE (0-200)
== END | disposition home or self-care (01) ==
LOC: LABSPEC 12:09
PROVIDERS: PCP Internal Medicine; Visit Provider Nurse Practitioner Women's Health
DX: Z34.90 Encounter for supervision of normal pregnancy, unspecified, unspecified trimester (principal); Z87.59 Personal history of other complications of pregnancy, childbirth and the puerperium
CPT/HCPCS: 82570; 84156

== ENCOUNTER → 2020-05-25 11:37 | Outpatient (CLI) | payer OTHER, SELFPAY ==
[2020-05-20 09:05] VITALS: BMI 21.7
[2020-05-25 12:36] LABS: ALB/GLOB Ratio 0.8 RATIO (0.9-2.4); AST(SGOT) 13 U/L (15-37); Alanine Aminotransfer ALT/SGPT 22 U/L (13-56); Albumin, Serum 3.5 g/dL (3.2-5.0); Alkaline Phosphatase 49 U/L (45-117); Anion Gap 7 (5-15); BUN 8 mg/dL (7-18); BUN/Creat Ratio 13.5 RATIO (10-20); Calcium,Total 9.3 mg/dL (8.5-10.1); Chloride 104 mmol/L (98-107); Creatinine, Serum 0.59 mg/dL (0.55-1.02); EST Glomerular Filtration Rate 124 mL/min (>60); Est Glom Filt Rate - Afr Amer 150 mL/min (>60); Globulin 4.3 g/dL (2.2-4.2); Glucose 84 mg/dL (74-106); Potassium 3.4 mmol/L (3.5-5.1); Protein, Total 7.8 g/dL (6.4-8.2); Sodium Level 137 mmol/L (136-145)
== END ==
PROVIDERS: PCP Internal Medicine; Referring Provider Nurse Practitioner Women's Health; Visit Provider Nurse Practitioner Women's Health
DX: Z34.90 Encounter for supervision of normal pregnancy, unspecified, unspecified trimester (principal); Z87.59 Personal history of other complications of pregnancy, childbirth and the puerperium
CPT/HCPCS: 36415; 80053

== ENCOUNTER → 2020-06-18 08:57 | Outpatient (CLI) | payer OTHER, SELFPAY ==
[2020-06-16 11:27] VITALS: BMI 21.9
--- NOTE | 2020-06-18 09:00 | US_ITS ---
STUDY: ABDOMINAL ULTRASOUND - RIGHT UPPER QUADRANT REASON FOR VISIT: Female, 35 years old RUQ PAIN TECHNIQUE: Ultrasound evaluation of the right upper quadrant was performed with real-time and static rose-scale imaging. TECHNICAL QUALITY: Adequate. COMPARISON: Comparison is made with prior examination dated 11/06/2018. FINDINGS: Liver: The liver measures 14.9 cm. There is normal echogenicity of the liver. The bile ducts are within normal limits. There is hepatic color flow. The direction of portal flow is hepatopetal. There is no demonstrated mass lesion. Gallbladder: Normal distended gallbladder. The gallbladder wall measures 2 mm. There is a negative sonographic Silver''s sign. There is no pericholecystic fluid. There are no gallstones. Common Bile Duct (C.B.D.): The common bile duct measures 3 mm. Pancreas: Normal size of the head, body and tail of the pancreas. There is normal echogenicity of the pancreas. There is no demonstrated pancreatic mass or cyst. Right Kidney: Normal size of the right kidney. The right kidney measures 10.1 cm x 5.2 cm x 4.7 cm. Normal renal cortex. The right cortex measures 1.5 cm. There is no demonstrated renal mass or cyst. There is no right hydronephrosis. US/Gallbladder IMPRESSION: Normal right upper quadrant ultrasound examination. Electronically Signed: Min Orellana, at 10:05 EST , Service support ,
== END ==
PROVIDERS: PCP Internal Medicine; Referring Provider Nurse Practitioner Women's Health; Visit Provider Nurse Practitioner Women's Health
DX: O99.891 Other specified diseases and conditions complicating pregnancy (principal); R10.11 Right upper quadrant pain; Z3A.00 Weeks of gestation of pregnancy not specified
CPT/HCPCS: 76705

== ENCOUNTER → 2020-06-30 13:49 | Outpatient (CLI) | payer OTHER, SELFPAY ==
[2020-04-22 13:59] VITALS: BMI 21.7
[2020-06-16 11:27] VITALS: BMI 21.9
--- NOTE | 2020-06-30 13:51 | US_ITS ---
STUDY: SECOND AND THIRD TRIMESTER OBSTETRICAL ULTRASOUND REASON FOR EXAM: Female, 35 years old. Anatomy. LMP: 02/21/2020. TECHNIQUE: Transabdominal TECHNICAL QUALITY: Adequate. PRIOR ULTRASOUND: None. FINDINGS: There is a single intrauterine fetus. The fetus is in a transverse lie with the head on the maternal right side. There is demonstrated cardiac activity with a heart rate of 16 bpm. There is a normal amniotic fluid volume. The largest amniotic fluid pocket measures 4.33 cm. The placenta is anterior in location and is not low lying. There are Grade 0 placental changes. The cervix measures 3.3 cm in length. The adnexal regions are not visualized. BIOMETRY: BPD: 4.02 cm: 18 weeks, 1 days HC: 15.15 cm: 18 weeks, 1 days AC: 13.1 cm: 18 weeks, 4 days FL: 2.83 cm: 18 weeks, 4 days CI: 76.05 FL/BPD: 70.3 FL/HC: 18.65 FL/AC: 21.57 HC/AC: 1.17 age by current US: 18 weeks, 2 days. PRACHI by current US: 2020. Estimated weight: 247 grams, +/- 37 grams, 37 %. Age by LMP: 18 weeks, 4 days. PRACHI by LMP: 11/27/2020. ANATOMY: Gender: Male Cranium: Normal lateral ventricles. Normal choroid plexus. Normal cerebellum. Normal cisterna magna. Normal face, nose and lips. Chest: Normal 4-chamber heart. Abdomen/Pelvis: Normal diaphragm. Normal stomach. Normal abdominal wall. Normal cord insertion. Normal 3 vessel cord. Normal kidneys. Normal bladder. Spine: Normal cervical spine. Normal thoracic spine. Normal lumbar spine. Normal sacrum. Extremities: Normal bilateral upper extremities. Normal bilateral lower extremities. US/OB Anatomy Scan IMPRESSION: 1. Live single intrauterine at 18 weeks, 2 days. PRACHI is 11/29/2020. 2. EFW of 247 g. 3. Adequate amniotic fluid. 4. Anterior grade 0 placenta. 5. Transverse lie with head to the maternal right. 6. No visualized anatomic abnormality. Electronically Signed: Kameron Lott DO at 22:40 EST Tel [phone], Service support ,
== END ==
PROVIDERS: PCP Internal Medicine; Referring Provider Obstetrics & Gynecology; Visit Provider Obstetrics & Gynecology
DX: Z34.92 Encounter for supervision of normal pregnancy, unspecified, second trimester (principal)
CPT/HCPCS: 76805

== ENCOUNTER → 2020-07-08 | Outpatient (CLI) | payer OTHER, SELFPAY ==
[2020-06-16 11:27] VITALS: BMI 21.9
== END | disposition home or self-care (01) ==
LOC: LABSPEC 13:20
PROVIDERS: PCP Internal Medicine; Visit Provider Nurse Practitioner Women's Health
DX: N94.9 Unspecified condition associated with female genital organs and menstrual cycle (principal); R30.9 Painful micturition, unspecified
CPT/HCPCS: 87070; 87086; 87205

== ENCOUNTER → 2020-08-30 11:21 | Outpatient (CLI) | payer OTHER, SELFPAY ==
[2020-08-12 11:40] VITALS: BMI 23.8
[2020-08-30 11:47] LABS: Absolute Lymphocyte Count 2.12 X10^3/uL (0.83-4.51); Absolute Neutrophil Count 7.4 X10^3/uL (2.0-7.7); Basophil# 0.03 X10^3/uL; Basophil% 0.3 % (0-1); Eosinophil# 0.06 X10^3/uL; Eosinophils% 0.6 % (0-5); Hematocrit 34.8 % (37-47); Hemoglobin 11.9 g/dL (12.0-15.0); Lymphocyte # 2.12 X10^3/ul (4.0); Lymphocyte % 20.2 % (19-41); Mean Corp Hgb Conc 34.2 g/dL (32-36); Mean Corpuscular Hgb 32.3 pg (27.0-32.0); Mean Corpuscular Volume 94.6 fL (81-99); Mean Platelet Vol. 9.5 fl (6.2-12.0); Monocyte# 0.76 X10^3/uL; Monocyte% 7.2 % (0-10); NRBC Flagged by Analyzer 0 % (0-5); Neutrophil # 7.43 X10^3/uL (2.7-7.7); Neutrophil % 70.7 % (47-70); Platelet Count 260 K/mm3 (150-450); RBC Distribution Width CV 12.3 % (11.6-14.6); RBC Distribution Width SD 42.7 fl (35.1-43.9); Red Blood Count 3.68 M/mm3 (4.2-5.4); White Blood Count 10.5 K/mm3 (4.4-11.0)
[2020-08-30 11:57] LABS: Glucose Challenge Gest 1H 50g 137 mg/dL (70-140)
== END ==
PROVIDERS: PCP Internal Medicine; Referring Provider Obstetrics & Gynecology; Visit Provider Obstetrics & Gynecology
DX: Z34.90 Encounter for supervision of normal pregnancy, unspecified, unspecified trimester (principal)
CPT/HCPCS: 36415; 82950; 85025

== ENCOUNTER → 2020-10-12 08:59 | Outpatient (CLI) | payer OTHER, SELFPAY ==
[2020-10-07 16:10] VITALS: BMI 25.9
[2020-10-12 09:14] LABS: Absolute Lymphocyte Count 2.51 X10^3/uL (0.83-4.51); Absolute Neutrophil Count 6.8 X10^3/uL (2.0-7.7); Basophil# 0.03 X10^3/uL; Basophil% 0.3 % (0-1); Eosinophil# 0.07 X10^3/uL; Eosinophils% 0.7 % (0-5); Hematocrit 34.1 % (37-47); Hemoglobin 11.3 g/dL (12.0-15.0); Lymphocyte # 2.51 X10^3/ul (4.0); Lymphocyte % 24.1 % (19-41); Mean Corp Hgb Conc 33.1 g/dL (32-36); Mean Corpuscular Hgb 30.9 pg (27.0-32.0); Mean Corpuscular Volume 93.2 fL (81-99); Mean Platelet Vol. 9.9 fl (6.2-12.0); Monocyte# 0.92 X10^3/uL; Monocyte% 8.8 % (0-10); NRBC Flagged by Analyzer 0 % (0-5); Neutrophil # 6.83 X10^3/uL (2.7-7.7); Neutrophil % 65.4 % (47-70); Platelet Count 294 K/mm3 (150-450); RBC Distribution Width SD 41.2 fl (35.1-43.9); Red Blood Count 3.66 M/mm3 (4.2-5.4); White Blood Count 10.4 K/mm3 (4.4-11.0)
[2020-10-12 09:32] LABS: ALB/GLOB Ratio 0.6 RATIO (0.9-2.4); AST(SGOT) 17 U/L (15-37); Alanine Aminotransfer ALT/SGPT 19 U/L (13-56); Albumin, Serum 2.7 g/dL (3.2-5.0); Alkaline Phosphatase 193 U/L (45-117); Anion Gap 8 (5-15); BUN 4 mg/dL (7-18); BUN/Creat Ratio 7.7 RATIO (10-20); Calcium,Total 8.9 mg/dL (8.5-10.1); Chloride 105 mmol/L (98-107); Creatinine, Serum 0.52 mg/dL (0.55-1.02); EST Glomerular Filtration Rate 145 mL/min (>60); Est Glom Filt Rate - Afr Amer 175 mL/min (>60); Globulin 4.2 g/dL (2.2-4.2); Glucose 104 mg/dL (74-106); Potassium 3.7 mmol/L (3.5-5.1); Protein, Total 6.9 g/dL (6.4-8.2); Sodium Level 137 mmol/L (136-145)
[2020-10-12 14:08] LABS: Protein, Urine (Random) 9.8 mg/dL (<11.9); Protein:Creat Ratio 415 mg/g CRE (0-200)
== END ==
PROVIDERS: PCP Internal Medicine; Referring Provider Obstetrics & Gynecology; Visit Provider Obstetrics & Gynecology
DX: R60.9 Edema, unspecified (principal)
CPT/HCPCS: 36415; 80053; 82570; 84156; 85025

== ENCOUNTER → 2020-10-14 12:28 | Outpatient (CLI) | payer OTHER, SELFPAY ==
[2020-10-07 16:10] VITALS: BMI 25.9
[2020-10-14 08:06] VITALS: BMI 26.2
--- NOTE | 2020-10-14 12:32 | US_ITS ---
STUDY: SECOND AND THIRD TRIMESTER OBSTETRICAL ULTRASOUND - LIMITED REASON FOR EXAM: Female, 35 years old history oligo with past - abnormal glucose LMP: 02/21/2020. PRIOR ULTRASOUND: Comparison is made with prior study dated 06/30/2020. TECHNIQUE: Transabdominal TECHNICAL QUALITY: Adequate. FINDINGS: There is a single intrauterine fetus. The fetus is in a footling breech presentation. There is demonstrated cardiac activity with a heart rate of 162 bpm. There is a normal amniotic fluid volume. The largest amniotic fluid pocket measures 5.2 cm. The amniotic fluid index (WILD) is 14.8 cm. The placenta is anterior in location and is not low lying. There are Grade 3 placental changes. The cervix measures 3.3 cm in length. BIOMETRY: BPD: 8.5 cm: 34 weeks, 0 days HC: 31.7 cm: 35 weeks, 4 days AC: 29.7 cm: 33 weeks, 4 days FL: 6.6 cm: 34 weeks, 0 days Age by LMP: 33 weeks, 5 days. PRACHI by LMP: 11/27/2020. age by prior US: 33 weeks, 3 days. PRACHI by prior US: 11/29/2020. age by current US: 34 weeks, 3 days. PRACHI by current US: 11/22/2020. Estimated weight: 2322 grams, +/- 348 grams, 51 percentile. US/OB Limited With Biometrics IMPRESSION: Single intrauterine gestation with a mean gestational age of 33 weeks and 3 days. The measurements obtained today fall within the normal expected range. Electronically Signed: Min Orellana MD at 15:40 EDT , Service support ,
== END ==
PROVIDERS: PCP Internal Medicine; Referring Provider Obstetrics & Gynecology; Visit Provider Obstetrics & Gynecology
DX: O99.810 Abnormal glucose complicating pregnancy (principal); Z3A.33 33 weeks gestation of pregnancy; Z87.59 Personal history of other complications of pregnancy, childbirth and the puerperium
CPT/HCPCS: 76816

== ENCOUNTER → 2020-10-25 10:49 | Outpatient (CLI) | payer OTHER, SELFPAY ==
[2020-10-25 10:49] VITALS: BMI 21.7
[2020-10-25 11:01] LABS: Absolute Neutrophil Count 7.3 X10^3/uL (2.0-7.7); Basophil# 0.04 X10^3/uL; Basophil% 0.4 % (0-1); Eosinophil# 0.05 X10^3/uL; Eosinophils% 0.4 % (0-5); Hematocrit 35.7 % (37-47); Hemoglobin 11.6 g/dL (12.0-15.0); Lymphocyte % 25.1 % (19-41); Mean Corp Hgb Conc 32.5 g/dL (32-36); Mean Corpuscular Hgb 29.7 pg (27.0-32.0); Mean Corpuscular Volume 91.5 fL (81-99); Mean Platelet Vol. 10.6 fl (6.2-12.0); Monocyte# 0.89 X10^3/uL; NRBC Flagged by Analyzer 0 % (0-5); Neutrophil # 7.29 X10^3/uL (2.7-7.7); Neutrophil % 65.4 % (47-70); Platelet Count 324 K/mm3 (150-450); RBC Distribution Width CV 12.3 % (11.6-14.6); RBC Distribution Width SD 40.9 fl (35.1-43.9); White Blood Count 11.2 K/mm3 (4.4-11.0)
[2020-10-25 11:10] LABS: Creatinine, Urine (random) < 13.00 mg/dL (NO RANGE EST.); Protein, Urine (Random) < 6.0 mg/dL (<11.9)
[2020-10-25 11:29] LABS: ALB/GLOB Ratio 0.6 RATIO (0.9-2.4); AST(SGOT) 20 U/L (15-37); Alanine Aminotransfer ALT/SGPT 22 U/L (13-56); Albumin, Serum 2.9 g/dL (3.2-5.0); Alkaline Phosphatase 245 U/L (45-117); Anion Gap 11 (5-15); BUN 4 mg/dL (7-18); Calcium,Total 9.3 mg/dL (8.5-10.1); Chloride 106 mmol/L (98-107); Creatinine, Serum 0.58 mg/dL (0.55-1.02); EST Glomerular Filtration Rate 128 mL/min (>60); Est Glom Filt Rate - Afr Amer 155 mL/min (>60); Globulin 4.5 g/dL (2.2-4.2); Glucose 57 mg/dL (74-106); Potassium 3.6 mmol/L (3.5-5.1); Protein, Total 7.4 g/dL (6.4-8.2); Sodium Level 139 mmol/L (136-145)
== END ==
PROVIDERS: PCP Internal Medicine; Referring Provider Obstetrics & Gynecology; Visit Provider Obstetrics & Gynecology
DX: O16.3 Unspecified maternal hypertension, third trimester (principal); Z3A.00 Weeks of gestation of pregnancy not specified
CPT/HCPCS: 36415; 80053; 82570; 84156; 85025

== ENCOUNTER 2020-10-31 09:50 | Outpatient (CLI) | payer OTHER, SELFPAY ==
[2020-10-28 17:17] VITALS: BMI 21.7
[2020-10-31 09:59] VITALS: BP 129/82; PULSE 109
[2020-10-31 10:02] VITALS: BMI 27.6
[2020-10-31 10:05] VITALS: TEMP 37
[2020-10-31] MEDS: Acetaminophen 500 MG Tablet 1000 MG PO (10:22)
[2020-10-31 10:34] LABS: ROM Internal Control Test YES-OK TO RESULT pt. (Internal QC); ROM Patient Test Negative (Negative)
--- NOTE | 2020-10-31 15:01 | OB.TRI.PN ---
Progress Notes Date of Service: 10/31/20 Progress Note: Patient presents for triage evaluation secondary to vaginal discharge quesitonsable ROM FHT: 140 Moderate variability reactive no decelerations category I tracing [place]: no regular Contractions Assessment and plan: mambranes intact neg rom plus Reactive NST, reassuring maternal and status patient discharged to home to follow-up as scheudled. See problem list details for additional plan information. Laboratory Studies: Laboratory Tests 10/31/20 Range/Units 10:05 Vag Amniotic Fld Detect Negative (Negative) Assessment & Plan Assessment/Plan (1) Intact amniotic membranes: Status: Acute Code(s): Z34.90 - Encounter for supervision of normal , unspecified, unspecified trimester
== END 2020-10-31 10:42 | disposition home or self-care (01) ==
LOC: WPOUT 09:54 → WP 09:55
PROVIDERS: PCP Internal Medicine; Visit Provider Obstetrics & Gynecology
DX: Z34.90 Encounter for supervision of normal pregnancy, unspecified, unspecified trimester (principal)
CPT/HCPCS: 59025; 84112; 99218; G0378

== ENCOUNTER 2020-11-02 09:35 | Outpatient (CLI) | payer OTHER, SELFPAY ==
[2020-11-02] VITALS (13 sets, daily range): BP systolic 128–176; BP diastolic 72–101; PULSE 83–100; BMI 27.6
[2020-11-02] MEDS: Lactated Ringers 1,000 ML 125 ML IV (10:33)
[2020-11-02 10:44] LABS: Hematocrit 33.6 % (37-47); Mean Corp Hgb Conc 32.7 g/dL (32-36); Mean Corpuscular Hgb 29.3 pg (27.0-32.0); Mean Corpuscular Volume 89.6 fL (81-99); Mean Platelet Vol. 10.9 fl (6.2-12.0); Platelet Count 289 K/mm3 (150-450); RBC Distribution Width CV 12.4 % (11.6-14.6); RBC Distribution Width SD 40.3 fl (35.1-43.9); Red Blood Count 3.75 M/mm3 (4.2-5.4); White Blood Count 9.5 K/mm3 (4.4-11.0)
[2020-11-02] MEDS: Terbutaline 1 MG/ML Vial 0.25 MG SC (10:58)
[2020-11-02 10:59] LABS: Protein, Urine (Random) 14.2 mg/dL (<11.9); Protein:Creat Ratio 451 mg/g CRE (0-200)
[2020-11-02] MEDS: Ondansetron 4 MG/2 ML Vial IV (10:59)
[2020-11-02 11:06] LABS: AST(SGOT) 17 U/L (15-37); Alanine Aminotransfer ALT/SGPT 20 U/L (13-56); Creatinine, Serum 0.55 mg/dL (0.55-1.02); EST Glomerular Filtration Rate 135 mL/min (>60); Est Glom Filt Rate - Afr Amer 163 mL/min (>60); Estimated Creatinine Clearance 115.07 ml/min; Uric Acid 5.9 mg/dL (2.6-6.0)
--- NOTE | 2020-11-02 12:23 | OB.TRI.HP_ITS ---
HPI - General HPI Narrative BHARAT RICHARD, is a 35 F who presents due to elevated blood pressures, nausea vomiting and intermittent headache. Patient has had proteinuria and has been monitored and then has also been breech presentation. [facility] Medical History (Updated 11/02/20 @ 14:[address] Tatyana Hubbard MD) Anxiety and depression Bilateral headaches IBS (irritable bowel syndrome) Home Medications valacyclovir 1 gram tablet 1,000 mg PO DAILY #90 tab 02/11/20 [Rx Last Taken 11/02/20 06:00] sertraline 50 mg tablet 50 mg PO QDAY #30 tab 04/22/20 [Rx Last Taken 11/02/20 06:00] vitamin#30 30 mg iron-10 mg iron-folic acid 1 mg-omg3 capsule cap PO 08/12/20 [History Last Taken 11/01/20 06:00] aspirin 81 mg tablet,delayed release 81 mg PO DAILY 10/07/20 [History Last Taken 11/02/20 06:00] cetirizine [Zyrtec] 10 mg PO DAILY PRN 11/02/20 [History Last Taken Unknown] famotidine [Pepcid] 20 mg PO BID 11/02/20 [History Last Taken Unknown] Allergy/AdvReac Type Severity Reaction Status Date / Time morphine Allergy Shortness Verified 11/02/20 09:56 of breath Family History Mother Diabetes Depression Cancer Father Hypertension Grandfather Myocardial infarction Grandfather CVA (cerebral vascular accident) Brother Mental disorder Seizures Surgical History History of appendectomy [place] teeth removed Social History Smoking Status: Never smoker alcohol intake: current details: social substance use type: does not use what type of physical activity do you participate in: none seatbelt use: always do you feel safe at home: Yes additional social history: [employer] at [employer] Patient works at [employer] [employer] History 3 Elective abortions Hx Para 2 Spontaneous abortions Hx # Term Pregnancies Ectopic pregnancies Hx # Pregnancies Multiple births # of living children 2 ROS Constitutional Constitutional: Reports systems reviewed and no addt'l complaints, except as documented, fatigue, headache(s) and malaise Cardiovascular Cardiovascular: Reports systems reviewed and no addt'l complaints, except as documented Respiratory/Chest Respiratory/Chest: Reports systems reviewed and no addt'l complaints, except as documented Gastrointestinal Gastrointestinal: Reports systems reviewed and no addt'l complaints, except as documented, nausea and vomiting Genitourinary Genitourinary: Reports systems reviewed and no addt'l complaints, except as documented Physical Exam Const alert, oriented x3 and no apparent distress HEENT Head and Scalp: normocephalic and atraumatic Eyes EOMs intact bilaterally Neck full ROM Resp normal respiratory effort Cardio regular rate and regular rhythm NST FHR Rate Baby A Baseline: 140 Variability:: Moderate Accelerations:: 15 x 15 Decelerations:: None NST Reactive:: Yes FHR Category:: Category I Uterine Activity:: no regular Assessment & Plan Assessment/Plan (1) Breech presentation: Status: Acute Code(s): O32.1XX0 - Maternal care for breech presentation, not applicable or unspecified Qualifiers: Fetus number: single or unspecified fetus Qualified Code(s): O32.1XX0 - Maternal care for breech presentation, not applicable or unspecified Plan: Attempted external cephalic version on 11/02. Unsuccessful. Consider reattempt after evaluation on 11/04. Plan delivery via primary low transverse at 37 weeks due to preeclampsia unless conversion. (2) Pre-eclampsia: Status: Acute Code(s): O14.90 - Unspecified pre-eclampsia, unspecified trimester
--- NOTE | 2020-11-02 12:23 | OP.PCM_ITS ---
Operative Report Date of Procedure: 11/02/20 Preprocedure diagnosis: Breech presentation Post procedure diagnosis: Persistent breech presentation Procedure: Attempted external cephalic version Surgeon: Tatyana Hubbard EBL: None Complications: None Anesthesia: None Special medications: Terbutaline Seizure details: The fetus was found to be in breech presentation informed by ultrasound. Patient had an IV in place, normal amniotic fluid, no contraindications to a vaginal delivery, and reactive nonstress test prior to the procedure. Patient was placed in the dorsal supine position after the terbutaline was given. Ultrasound gel was applied to the patient's abdomen and using constant upward pressure to elevate the buttocks out of the pelvic inlet constant pressure was applied to the buttocks and to the area behind the back of the neck and head to encourage a forward roll of the fetus. After this was unsuccessful multiple attempts were made at a backwards roll as well as an additional forward roll of which all were unsuccessful due to the head being impacted underneath the right rib cage and the legs also being p ersistently extended. WILD was grossly within normal limits. Was also felt that due to shortened maternal torso this contributed to the unsuccessful attempt. Bedside ultrasound was used to confirm persistent breech presentation and reassuring heart rate. Patient was replaced on the NST and monitored to assure reassuring status. She had 2 isolated severely elevated blood pressures after the procedure that resolved spontaneously. no complications. Procedures Urinary/Genital [id number]: [id number] ECV (Modifier for unsuccessful version. attempted)
[2020-11-02] MEDS: Betamethasone/Betamethasone 30 MG/5 ML Vial 12 MG IM (12:29)
[2020-11-02 13:27] LABS: Group B Strep DNA By PCR Negative (Negative); Internal Control PASS; Probe Check PASS; Specimen Processing Control PASS
== END 2020-11-02 13:45 ==
LOC: WPOUT 09:40 → WP 09:41
PROVIDERS: PCP Internal Medicine; Referring Provider Obstetrics & Gynecology; Visit Provider Obstetrics & Gynecology
DX: O32.1XX0 Maternal care for breech presentation, not applicable or unspecified (principal); O14.90 Unspecified pre-eclampsia, unspecified trimester; O99.619 Diseases of the digestive system complicating pregnancy, unspecified trimester; K58.9 Irritable bowel syndrome, unspecified; O99.340 Other mental disorders complicating pregnancy, unspecified trimester; F32.9 Major depressive disorder, single episode, unspecified; F41.9 Anxiety disorder, unspecified; Z3A.00 Weeks of gestation of pregnancy not specified; Z79.82 Long term (current) use of aspirin; Z79.899 Other long term (current) drug therapy
CPT/HCPCS: 96360; 96361 ×2; 96374; 59025; 59050; 59412; 82565; 82570; 84156; 84450; 84460; 84550; 85027; 87081; 87653; 96372; 99218; J7120; G0378; J0702; J2405

== ENCOUNTER 2020-11-03 12:15 | Outpatient (CLI) | payer OTHER, SELFPAY ==
[2020-11-02 09:54] VITALS: BMI 27.6
[2020-11-03] MEDS: Betamethasone/Betamethasone 30 MG/5 ML Vial 12 MG IM (12:58)
--- NOTE | 2020-11-05 12:19 | OB.TRI.PN ---
Progress Notes Date of Service: 11/03/20 Progress Note: celestone given for prematurity Assessment & Plan Assessment/Plan (1) Pre-eclampsia:
== END 2020-11-03 13:00 ==
LOC: WPOUT 12:20 → WP 12:21
PROVIDERS: PCP Internal Medicine; Referring Provider Obstetrics & Gynecology; Visit Provider Obstetrics & Gynecology
DX: O60.00 Preterm labor without delivery, unspecified trimester (principal); O14.90 Unspecified pre-eclampsia, unspecified trimester; Z3A.00 Weeks of gestation of pregnancy not specified
CPT/HCPCS: 96372; 99218; G0378; J0702

== ENCOUNTER 2020-11-08 10:00 | Inpatient (IN) | payer OTHER, SELFPAY ==
[2020-11-02 09:54] VITALS: BMI 27.6
[2020-11-04 13:55] VITALS: BMI 27.6
--- NOTE | 2020-11-05 12:20 | HP.PCM.OB_ITS ---
HPI - General HPI Narrative BHARAT RICHARD, is a 35 F who presents for primary due to breech presentation and preclampsia with mild features [facility] [place] Medical History (Updated 11/05/20 @ 12:[address] Tatyana Hubbard MD) Anxiety and depression Bilateral headaches IBS (irritable bowel syndrome) Home Medications valacyclovir 1 gram tablet 1,000 mg PO DAILY #90 tab 02/11/20 [Rx Last Taken 11/02/20 06:00] sertraline 50 mg tablet 50 mg PO QDAY #30 tab 04/22/20 [Rx Last Taken 11/02/20 06:00] vitamin#30 30 mg iron-10 mg iron-folic acid 1 mg-omg3 capsule cap PO 08/12/20 [History Last Taken 11/01/20 06:00] aspirin 81 mg tablet,delayed release 81 mg PO DAILY 10/07/20 [History Last Taken 11/02/20 06:00] cetirizine [Zyrtec] 10 mg PO DAILY PRN 11/02/20 [History Last Taken Unknown] famotidine [Pepcid] 20 mg PO BID 11/02/20 [History Last Taken Unknown] Allergy/AdvReac Type Severity Reaction Status Date / Time morphine Allergy Shortness Verified 11/02/20 09:56 of breath Family History Mother Diabetes Depression Cancer Father Hypertension Grandfather Myocardial infarction Grandfather CVA (cerebral vascular accident) Brother Mental disorder Seizures Surgical History History of appendectomy [place] teeth removed Social History Smoking Status: Never smoker alcohol intake: current details: social substance use type: does not use what type of physical activity do you participate in: none seatbelt use: always do you feel safe at home: Yes additional social history: Altaf- [employer] at [employer] Patient works at [employer] History 3 Elective abortions Hx Para 2 Spontaneous abortions Hx # Term Pregnancies Ectopic pregnancies Hx # Pregnancies Multiple births # of living children 2 Past Pregnancies Del. Date Name GA/Weeks Outcome Route Bth Weight Gen Labor Lgth Anes th esia Del Locatn Provider FOB Unknown 2010 [place] 5 lbs Female [facility] Giovanna ll Unknown 05/09/2018 Hay 37 live - full term 5lbs 1 3.5oz Female epidural [facility] Altaf Delivery Date: iugr and oligo Tatyana Hubbard Delivery Date: No notes to display Visit Details Expected Delivery Route/Plan Labor Preferences- CB/BF classes: no labor support person: Altaf labor intervention preferences: [] pain management options preferred: epidural cut cord/dad catch: yes : yes PP control planned: BTO discussed possible routes of delivery and associated risks: [] special requests: [] Plans flu vaccine: given tdap vaccine: yes rhogam: na LARC form signed: yes Problem list reviewed and updated with the most current plan of care details and appropriate orders placed. Relevant counseling for the gestational age provided. Continue routine care and follow up unless otherwise noted in visit notes/problem list details OB Flowsheet Initial Weight: 119 lb Date -?-?-?-?-?-?-?-?-?-?-?-?- EGA Weight BP Urine Prot -?-?-?-?-?-?-?-?-?-?-?-?- Glucose FHR FuHt Pres Dilation -?-?-?-?-?-?--?-?-?-?-?-?- Effaced St Visit Note 04/22/20 -?-?-?-?-?-?-?-?-?-?-?-?- 8w 5d 119 lb (+0 oz) 120/68 -?-?-?-?-?-?-?-?-?-?-?-?- 165 -?-?-?-?-?-?-?-?-?-?-?-?- SM- no vb crampi ng some nausea and anxiety. CRL 1.6cm cons with lmp 05/20/20 -?-?-?-?-?-?-?-?-?-?-?-?- 12w 5d 119 lb 2 oz (+2 oz) 110/70 Negative -?-?-?-?-?-?-?-?-?-?-?-?- Negative 163 -?-?-?-?-?-?-?-?-?-?-?-?- MH-nausea improv ed, was worse with zoloft so holding that for now. Anxiety also better. NO VB, lof. Will get prelabs today. Anatomy US 06/3006/16/20 -?-?-?-?-?-?-?-?-?-?-?-?- 16w 4d 120 lb 2 oz (+1 lb 2 oz) 108/66 Negative -?-?-?-?-?-?-?-?-?-?-?-?- Negative 161 -?-?-?-?-?-?-?-?-?-?-?-?- MH-Doing better, restarted zoloft and now tolerated. No VB, LOF. Anatomy US 06/3007/15/20 -?-?-?-?-?-?-?-?-?-?-?-?- 20w 5d 126 lb (+7 lb) 96/60 Negative -?-?-?-?-?-?-?-?-?-?-?-?- Negative 161 -?-?-?-?-?-?-?-?-?-?-?-?- MH-No VB, LOF. S table mood. Good FM. Normal US. 08/12/20 -?-?-?-?-?-?-?-?-?-?-?-?- 24w 5d 130 lb 4 oz (+11 lb 4 oz) 122/60 -?-?-?-?-?-?-?-?-?-?-?-?- 150 25 -?-?-?-?-?-?-?-?-?-?-?-?- SM- no vb lof go od fm no regular ctx. 09/08/20 -?-?-?-?-?-?-?-?-?-?-?-?- 28w 4d 134 lb 4 oz (+15 lb 4 oz) 100/62 Negative -?-?-?-?-?-?-?-?-?-?-?-?- Negative 154 27 -?-?-?-?-?-?-?-?-?-?-?-?- MH-No VB, LOF. G ood FM. Reviewed normal glucose readings last week after abnormal 1 hr GCT. No further intervention needed. Larc, tdap. 09/23/20 -?-?-?-?-?-?-?-?-?-?-?-?- 30w 5d 139 lb (+20 lb) 108/66 Negative -?-?-?-?-?-?-?-?-?-?-?-?- Negative 145 30 Oblique -?-?-?-?-?-?-?-?-?-?-?-?- SM- no vb lof go od fm no regular ctx. 10/07/20 -?-?-?-?-?-?-?-?-?-?--?-?- 32w 5d 144 lb (+25 lb) 118/58 Negative -?-?-?-?-?-?-?-?-?-?-?-?- Negative 140 32 Oblique -?-?-?-?-?-?-?-?-?-?-?-?- SM SM- no vb lof good fm nor eg ular ctx 10/14/20 -?-?-?-?-?-?-?-?-?-?-?-?- 33w 5d 146 lb (+27 lb) -?-?-?-?-?-?-?-?-?-?-?-?- -?-?-?-?-?-?-?-?-?-?-?-?- 10/22/20 -?-?-?-?-?-?-?-?-?-?-?-?- 34w 6d Negative -?-?-?-?-?-?-?-?-?-?-?-?- 100 g/dL 155 Breech -?-?-?-?-?-?-?-?-?-?-?-?- GP - no LOF, VB, DFM, ctx. Denies complaints. 10/28/20 -?-?-?-?-?-?-?-?-?-?-?-?- 35w 5d 151 lb (+32 lb) 112/72 Negative -?-?-?-?-?-?-?-?-?-?-?-?- 100 g/dL 140 -?-?-?-?-?-?-?-?-?-?-?-?- 11/02/20 -?-?-?-?-?-?-?-?-?-?-?-?- 36w 3d 132/100 Trace -?-?-?-?-?-?-?-?-?-?-?-?- Negative 148 36 Breech 0 -?-?-?-?-?-?-?-?-?-?-?-?- -work in for v evelioon changes. GBS collected. Consult and to L&D for further eval and possible version. 11/04/20 -?-?-?-?-?-?-?-?-?-?-?-?- 36w 5d 152/86 -?-?-?-?-?-?-?-?-?-?-?-?- -?-?-?-?-?-?-?-?-?-?-?-?- 11/08/20 -?-?-?-?-?-?-?-?-?-?-?-?- 37w 2d -?-?-?-?-?-?-?-?-?-?-?-?- -?-?-?-?-?-?-?-?-?-?-?-?- NST FHR Rate Baby A Baseline: 140 ROS Review of Systems ROS Unobtainable: due to mental status and other Constitutional Constitutional: Reports systems reviewed and no addt'l complaints, except as documented; Denies as per HPI, change in weight, fatigue, fever(s), malaise, weakness or other Eyes Eyes: Reports systems reviewed and no addt'l complaints, except as documented; Denies as per HPI, change in vision or other ENT HEENT: Reports as per HPI; Denies dizziness, dry mouth, headache(s), loss taste/smell, nasal congestion, nasal discharge, neck pain, sore throat or other Respiratory/Chest Respiratory/Chest: Reports systems reviewed and no addt'l complaints, except as documented Gastrointestinal Gastrointestinal: Reports systems reviewed and no addt'l complaints, except as documented; Denies abdominal pain, nausea or vomiting Musculoskeletal Musculoskeletal: Reports systems reviewed and no addt'l complaints, except as documented; Denies back pain or joint pain Integumentary Integumentary: Reports systems reviewed and no addt'l complaints, except as documented Neurologic Neurologic: Reports systems reviewed and no addt'l complaints, except as documented Psychiatric Psychiatric: Reports systems reviewed and no addt'l complaints, except as documented Endocrine Endocrinology: Reports systems reviewed and no addt'l complaints, except as documented Hematologic/Lymphatic Hematologic/Lymphatic: Reports systems reviewed and no addt'l complaints, except as documented Physical Exam Const alert, oriented x3 and no apparent distress HEENT normocephalic Head and Scalp: atraumatic Eyes EOMs intact bilaterally and conjunctivae normal Neck full ROM, no lymphadenopathy, supple and thyroid normal General: trachea midline Lymph Lymphatic: no lymphadenopathy noted Chest inspection of chest normal, palpation of chest normal, inspection of breasts normal and palpation of breasts normal Breast/Axilla Inspection: normal inspection of the axillae Breast/Axilla Palpation: normal palpation of the axillae and no axillary lymphadenopathy Resp normal respiratory effort, no retractions, no use of accessory muscles and clear to auscultation bilaterally Cardio regular rate and regular rhythm GI normal to inspection, nondistended, normoactive bowel sounds, soft to palpation, non-tender, non-distended and no masses external exam normal, appearance of the vagina normal, appearance of the cervix normal, bimanual exam normal, adnexae non-tender and no adnexal masses Manual OB Exam: estimated gestational size appropriate and presentation breech Back/Spine no CVA tenderness Extremity normal to inspection Skin no rashes or lesions noted Neuro moves all extremities and deep tendon reflexes 2+ bilaterally Motor Exam: clonus absent Psych mental status grossly normal Assessment & Plan (1) Pre-eclampsia: COMMENT: Blood pressure is mildly elevated on , plan delivery at 37 weeks. Betamethasone given 5?4 and plan on 5?5 (2) Breech presentation: QUALIFIERS: Fetus number: single or unspecified fetus Qualified Code(s): O32.1XX0 - Maternal care for breech presentation, not applicable or unspecified COMMENT: failed ECV plan Primary LTCS at 37 weeks, scheduled 11/08/20 (3) Supervision of normal : QUALIFIERS: Normal : other normal Trimester: third trimester Qualified Code(s): Z34.83 - Encounter for supervision of other normal , third trimester COMMENT: PRR PRACHI 11/27/20 jenny Haque STAN Hay, Milla Altaf (4) : QUALIFIERS: Weeks of gestation: 36 weeks Qualified Code(s): Z3A.36 - 36 weeks gestation of COMMENT: genetic, carrier, and ntd screening declined. nl anatomy (5) Anxiety: COMMENT: zoloft, stable (6) Abnormal glucose affecting : COMMENT: abnl 1 hr. home glucose monitoring normal (7) 32 weeks gestation of : COMMENT: COVID test ordered on 10/06/20 (8) History of tetanus, diphtheria, and acellular pertussis booster vaccination (Tdap): COMMENT: 09/08/20
[2020-11-08] VITALS (14 sets, daily range): BP systolic 90–141; BP diastolic 35–91; PULSE 55–72; RESP 14–18; TEMP 36.1–36.8; O2SAT 96–100; BMI 27.8
[2020-11-08] MEDS: Lactated Ringers 1,000 ML 999 ML IV (10:25)
[2020-11-08 10:57] LABS: Absolute Lymphocyte Count 2.99 X10^3/uL (0.83-4.51); Absolute Neutrophil Count 7.4 X10^3/uL (2.0-7.7); Basophil# 0.03 X10^3/uL; Basophil% 0.3 % (0-1); Eosinophil# 0.06 X10^3/uL; Eosinophils% 0.5 % (0-5); Hematocrit 32.5 % (37-47); Hemoglobin 10.8 g/dL (12.0-15.0); Lymphocyte # 2.99 X10^3/ul (0.83-4.51); Lymphocyte % 26.2 % (19-41); Mean Corp Hgb Conc 33.2 g/dL (32-36); Mean Corpuscular Hgb 29.3 pg (27.0-32.0); Mean Corpuscular Volume 88.3 fL (81-99); Mean Platelet Vol. 11.4 fl (6.2-12.0); Monocyte% 7.9 % (0-10); NRBC Flagged by Analyzer 0 % (0-5); Neutrophil # 7.35 X10^3/uL (2.7-7.7); Neutrophil % 64.3 % (47-70); Platelet Count 331 K/mm3 (150-450); RBC Distribution Width CV 12.5 % (11.6-14.6); RBC Distribution Width SD 40.3 fl (35.1-43.9); Red Blood Count 3.68 M/mm3 (4.2-5.4); White Blood Count 11.4 K/mm3 (4.4-11.0)
[2020-11-08 11:17] LABS: AST(SGOT) 20 U/L (15-37); Alanine Aminotransfer ALT/SGPT 20 U/L (13-56); Creatinine, Serum 0.64 mg/dL (0.55-1.02); EST Glomerular Filtration Rate 114 mL/min (>60); Est Glom Filt Rate - Afr Amer 137 mL/min (>60); Estimated Creatinine Clearance 98.88 ml/min
[2020-11-08] MEDS: Lactated Ringers 1,000 ML 150 ML IV (11:24)
[2020-11-08] MEDS: Sodium Citrate/Citric Acid 30 ML UDC PO (11:57)
[2020-11-08] MEDS: Acetaminophen 500 MG Tablet 1000 MG PO ×2 (11:58→18:24)
[2020-11-08] MEDS: Cefazolin 2 GM in 0.9% Normal Saline 100 ML IV (12:16)
--- NOTE | 2020-11-08 12:21 | FALS_PTH ---
PATIENT: BHARAT RICHARD LOC: [facility] U#:[id number] AGE/SX: 35/F ROOM: WP007 RE11/08/[address]: Dr. Tatyana Hubbard MD : 1985 BED: 1 DIS: 11/10/2020 SPEC #: [id number] RECD: 11/08/20 14:16 STATUS: LEATHA KAMARA #: [id number] RADHA: 11/08/20 12:[address]: Tatyana Hubbard DEPT: SURGICAL PATHOLOGY RECD BY: Shannan Valenzuela ENTERED: 11/09/20 08:32 SP TYPE: FALL TUBES OTHR DR: Dr. Ebony Flores MD Tissues: Fallopian tube Procedures: Surgery Specimen Level II HEADER OPERATION: Tubal ligation PRE-OP DIAGNOSIS: Sterilization TISSUE SUBMITTED: Fallopian tubes MICROSCOPIC DIAGNOSIS Bilateral fallopian tubes, salpingectomy: Bilateral fallopian tubes including fimbrial ends, no pathologic diagnosis. SJ:krishan 11/10/2020 MICROSCOPIC DESCRIPTION Slides are reviewed. GROSS DESCRIPTION Received in fixative is one container labeled with the patient's name and designated bilateral fallopian tubes, right - no suture, left - suture. The specimen consists of bilateral fallopian tubes including fimbrial ends. The right fallopian tube measures 6 cm in length and 0.5 cm in diameter and the left fallopian tube measures 6.5 cm in length and 0.5 cm in diameter. Sections reveal unremarkable cut surfaces. Mc Kay Stitcher sections are submitted in two cassettes as follows: 1 ? right fallopian tube, 2 ? left fallopian tube. / MARITZA:krishan 11/09/20 TC:5 CPT: 18678 x2
[2020-11-08] MEDS: Oxytocin 30 units/NS 500 ml 30 UNITS/500 ML IV.SOLN 167 UNITS IV (13:05)
--- NOTE | 2020-11-08 13:19 | OP.PCM_ITS ---
Maternal Data Information PRACHI Calculator Estimated Delivery Date Method Current WG Current Estimate 11/27/20 LMP (Certain) 37w 2d Other Estimates 11/30/20 Ultrasound #1 36w 6d Final PRACHI Source: LMP Details Operative Information Date of Procedure: 11/08/20 Pre-Operative Diagnosis: breech preeclampsia sterilization request Post-Operative Diagnosis: same Indications for : Desires elective sterilization and Breech Classification: Scheduled Procedure Type: bilateral salpingectomy personnel representative #1: Michel Frias Type of Anesthesia: Spinal Special Medications: none Antibiotic Given: Ancef 2 grams IV x1 Drain: Mckeon to straight drain Estimated Blood Loss: 600 Fluids Replaced: crystalloid Findings Description of Procedure: Spinal anesthesia was placed without difficulty. Mckeon catheter was placed. The patient was placed in the dorsal supine position with leftward tilt. Patient was prepped and draped in the normal sterile fashion. Pfannenstiel skin incision was made with the scalpel and carried through to the underlying layer of fascia with the scalpel. Fascia was nicked in the midline and the incision extended laterally. The rectus bellies were dissected off superiorly and inferiorly with out complication both sharply and bluntly. The peritoneum was entered digitally. The incision was stretched and a low transverse uterine incision was made with the scalpel. The infant's head was delivered atraumatic ally followed by the anterior and posterior shoulders without complication the rest of the infant delivered. The cord was clamped and cut and the infant was handed off to awaiting nurse. The placenta was delivered spontaneously immediately following and was noted to be intact and have a three-vessel cord. The uterus was exteriorized cleared of all clots and debris, and the incision was closed in a single layer closure using #1 Monocryl. The ovaries and fallopian tubes were noted to be within normal limits. Patient had desired sterilization and was counseled preoperatively regarding irreversibility and permanency. Therefore bilateral fallopian tubes were elevated and transected across using a LigaSure device starting proximally to distally without complication the entire fallopian tubes were removed. .The uterus was returned to the maternal abdomen and gutters were cleared of all clots and debris. The peritoneum was closed with 3-0 Monocryl in a running fashion. Gloves were sahra nged prior to fascial closure. Fascia was closed with 0 PDS in a running fashion. Subcutaneous tissue was copiously irrigated and the skin was closed with 3-0 Monocryl in a subcuticular fashion. Mepilex dressing was applied without complication. Patient was taken to recovery in stable condition. Presentation: Positive for Complete Breech Amniotic Membrane Rupture Type: Artificial Amniotic Fluid Description: Clear Placental Delivery Description: Spontaneous Placenta Disposition: [facility] Cord Vessel Description: 3 Vessels Cord Entanglement: None A Gender: Male Delayed Cord Clamping: Yes Complications Risks of Surgery Discussed w/Patient: Bleeding, Infection, Need for Future C- Sections and Injury to surrounding structure(s) including bowel and bladder Admit VTE Documentation VTE Present on Admission: No VTE Mechan Device Prophylaxis: SCD's Procedures Urinary/Genital [id number]: [id number] Delivery global pkg (salpingectomy bilateral)
[2020-11-08] MEDS: Ketorolac 30 MG/ML Syringe IV ×2 (13:45→20:13)
[2020-11-08] MEDS: fentaNYL 100 MCG/2 ML Ampul IV (14:22)
[2020-11-08] MEDS: Lactated Ringers 1,000 ML 100 ML IV (16:26)
[2020-11-08] MEDS: oxyCODONE 5 MG Tablet PO (18:29)
[2020-11-08] MEDS: 0.9% Saline Lock 10 ML Syringe IV (20:13)
[2020-11-08] MEDS: Famotidine 20 MG Tablet PO (21:18)
[2020-11-09] MEDS: oxyCODONE 5 MG Tablet PO ×3 (00:30→08:48)
[2020-11-09] MEDS: Acetaminophen 500 MG Tablet 1000 MG PO ×5 (00:31→23:35)
[2020-11-09 00:35] VITALS: BP 134/79; PULSE 66; RESP 18
[2020-11-09] MEDS: Ketorolac 30 MG/ML Syringe IV ×2 (02:04→07:56)
[2020-11-09] MEDS: 0.9% Saline Lock 10 ML Syringe IV ×2 (02:04→07:56)
[2020-11-09 04:46] VITALS: BP 121/66; PULSE 64; RESP 16; TEMP 36.1
[2020-11-09 05:16] LABS: Hematocrit 29.9 % (37-47); Hemoglobin 9.8 g/dL (12.0-15.0); Mean Corp Hgb Conc 32.8 g/dL (32-36); Mean Corpuscular Hgb 29.3 pg (27.0-32.0); Mean Corpuscular Volume 89.3 fL (81-99); Mean Platelet Vol. 11.1 fl (6.2-12.0); Platelet Count 297 K/mm3 (150-450); RBC Distribution Width CV 12.5 % (11.6-14.6); RBC Distribution Width SD 40.9 fl (35.1-43.9); Red Blood Count 3.35 M/mm3 (4.2-5.4); White Blood Count 16.3 K/mm3 (4.4-11.0)
[2020-11-09 07:47] VITALS: BP 120/76; PULSE 60; RESP 16; TEMP 36.2; O2SAT 97
--- NOTE | 2020-11-09 07:48 | PCM.PN.OB ---
Subjective Subjective: Patient doing well without complaints. Tolerating PO. Ambulating and voiding without difficulty. Breast feeding well. Denies chest pain, shortness of breath, calf pain/swelling, fevers, chills, lightheadedness. Objective Data Objective Data Vital Signs: Vital Signs Temp Pulse Resp BP Pulse Ox 97 F L 64 16 121/66 H 98 11/09/20 04:46 11/09/20 04:46 11/09/20 04:46 11/09/20 04:46 11/08/20 18:58 Oxygen Delivery Method Room Air Weight: 152 lb Body Mass Index (BMI) 27.8 Intake & Output: Intake and Output for Last 24 Hours 11/07/20 11/08/20 11/09/20 23:59 23:59 23:59 Intake Total 2864.17 / 2864.17 0 / 0 Output Total 2024 / 2024 1000 / 1000 Balance 839.17 / 839.17 -1000 / -1000 Lab / Micro Data Result Diagrams: 11/09/20 05:05 11/08/20 10:25 Labs: Laboratory Results - last 24 hr 11/08/20 11/08/20 11/08/20 10:25 10:25 10:25 WBC 11.4 H RBC 3.68 L Hgb 10.8 L Hct 32.5 L MCV 88.3 MCH 29.3 MCHC 33.2 RDW Std Deviation 40.3 RDW Coeff of Myriam 12.5 Plt Count 331 MPV 11.4 Immature Gran % (Auto) 0.800 Neut % (Auto) 64.3 Lymph % (Auto) 26.2 [place] % (Auto) 7.9 Eos % (Auto) 0.5 Baso % (Auto) 0.3 Absolute Neuts (auto) 7.4 Absolute Lymphs (auto) 2.99 Nucleated RBC % 0 Creatinine 0.64 Estim Creat Clear Calc 98.88 Est GFR (MDRD) Af Amer 137 Est GFR (MDRD) Non-Af 114 AST 20 ALT 20 Blood Type A POSITIVE Antibody Screen NEGATIVE 11/09/20 05:05 WBC 16.3 H RBC 3.35 L Hgb 9.8 L Hct 29.9 L MCV 89.3 MCH 29.3 MCHC 32.8 RDW Std Deviation 40.9 RDW Coeff of Myriam 12.5 Plt Count 297 MPV 11.1 Immature Gran % (Auto) Neut % (Auto) Lymph % (Auto) [place] % (Auto) Eos % (Auto) Baso % (Auto) Absolute Neuts (auto) Absolute Lymphs (auto) Nucleated RBC % Creatinine Estim Creat Clear Calc Est GFR (MDRD) Af Amer Est GFR (MDRD) Non-Af AST ALT Blood Type Antibody Screen Micro: Microbiology 11/08/20 10:55 Mucosa - Nose SARS-CoV-2 Antigen (Rapid) - Final ROS Constitutional Constitutional: Reports systems reviewed and no addt'l complaints, except as documented Cardiovascular Cardiovascular: Reports as per HPI Respiratory/Chest Respiratory/Chest: Reports as per HPI Genitourinary Genitourinary: Reports as per HPI Physical Exam Const alert and oriented x3 HEENT normocephalic Eyes PERRL Neck full ROM Resp normal respiratory effort GI soft to palpation GI Narrative: FF below U. Dressing dry and intact Palpation: tender other (appropriately) Assessment & Plan (1) delivery delivered: (2) Breech presentation: QUALIFIERS: Fetus number: single or unspecified fetus Qualified Code(s): O32.1XX0 - Maternal care for breech presentation, not applicable or unspecified COMMENT: failed ECV plan Primary LTCS at 37 weeks, scheduled 11/08/20 (3) Pre-eclampsia: QUALIFIERS: Trimester: third trimester Qualified Code(s): O14.93 - Unspecified pre-eclampsia, third trimester COMMENT: Blood pressure is mildly elevated on , plan delivery at 37 weeks. Betamethasone given 5?4 and plan on 5?5 PLAN: s/p LTCS PPD # 1 1. routine post care 2. breast feeding- support given 3. rh positive 4. rubella immune 5. BP normalized since delivery
[2020-11-09] MEDS: Famotidine 20 MG Tablet PO ×2 (08:48→21:15)
[2020-11-09] MEDS: Senna/Docusate Sodium 1 Tablet PO (08:48)
[2020-11-09] MEDS: Sertraline 50 MG Tablet PO (08:49)
[2020-11-09 12:23] VITALS: BP 117/73; PULSE 72; RESP 16; TEMP 36.2; O2SAT 98
[2020-11-09] MEDS: Naproxen 250 MG Tablet 500 MG PO ×2 (15:27→23:35)
[2020-11-09 15:39] VITALS: BP 128/66; PULSE 67; RESP 16; O2SAT 98
[2020-11-09 21:10] VITALS: BP 142/76; PULSE 74; RESP 16; TEMP 36.4
[2020-11-10 02:35] VITALS: BP 123/69; PULSE 70; RESP 14; TEMP 36.3
--- NOTE | 2020-11-10 05:19 | DS.PCM_ITS ---
Providers Date of Admission: 11/08/20 Primary Care Physician: Dr. Ebony Flores MD Reason For Visit: PRIMARY /DELIVERY Diagnosis Discharge Diagnosis (1) delivery delivered: Status: Resolved Code(s): O82 - Encounter for delivery without indication (2) Breech presentation: Status: Resolved Code(s): O32.1XX0 - Maternal care for breech presentation, not applicable or unspecified Qualifiers: Fetus number: single or unspecified fetus Qualified Code(s): O32.1XX0 - Maternal care for breech presentation, not applicable or unspecified (3) Pre-eclampsia: Status: Resolved Code(s): O14.90 - Unspecified pre-eclampsia, unspecified trimester Qualifiers: Trimester: third trimester Qualified Code(s): O14.93 - Unspecified pre- eclampsia, third trimester Medications at Discharge Home Medications vitamin#30 30 mg iron-10 mg iron-folic acid 1 mg-omg3 capsule cap PO 08/12/20 Zyrtec 10 mg PO DAILY PRN 11/02/20 famotidine [Pepcid] 20 mg PO BID 11/02/20 sertraline [Zoloft] 50 mg PO QDAY 11/08/20 acetaminophen 1,000 mg PO Q6 #0 tab 11/10/20 naproxen 250 - 500 mg PO Q8H PRN PRN #30 tab 11/10/20 oxycodone 5 mg PO Q6H PRN 7 Days #15 cap 11/10/20 Hospital Course Operations section and hysterectomy Summary of Care Provided Hospital Course: Patient presented with preeclampsia and breech presentation therefore was recommended to proceed with a primary low transverse and patient also desired sterilization so bilateral salpingectomy was performed. Postoperatively patient had return of bowel and bladder function and was ambulating well, tolerating adequate p.o., and was stable for discharge to home on postop day #2. Discharge medications naproxen and Percocet. Follow-up in office in 2 weeks for incision check in 6 weeks for visit. Routine post section diet and activity instructions. ABG / Lab / Microbiology Data Result Diagrams: 11/09/20 05:05 11/08/20 10:25 Microbiology: Microbiology 11/08/20 10:55 Mucosa - Nose SARS-CoV-2 Antigen (Rapid) - Final D/C Instructions Discharge Diet: No restrictions Discharge Activity: May Not Drive (for 2 weeks), May not drive while taking narcotic pain medications., May Shower and May Take a Tub Bath (in 7 days) May shower in (days): 0 May resume sexual activity in: 4-6 weeks Weight Bearing Status: Full weight bearing Call your doctor if your incision/area has: Continuous Slow Oozing, Sudden Increased Bleeding, Increased Pain/ Swelling, Increased Redness and Foul Smelling Discharge Call your doctor if you observe: Fever of 101 or Higher and Using more than one pad per hour (for 2 hours) Suture Line Care: Avoid Pulling/Pushing and Avoid Pinching/Bending Cleanse incision/area with: Soap & Water and Keep Dressing Clean & Dry Please Follow Up With: Tatyana Hubbard MD When: Call [phone] to make an appointment for an incision check in 1-2 weeks. Meaningful Use Info Meaningful Use Diagnoses (Choose all that apply): None applicable Discharge Plan Admission Admit Date/Time: 11/08/20 10:00 Primary Reason for Your Visit: Attending Provider: Tatyana Hubbard Primary Care Provider: Ebony Flores Instructions Patient Instructions: After a Discharge Orders/Prescriptions Prescriptions: New naproxen 250 MG tablet 250 - 500 mg PO Q8H PRN PRN (Reason: MILD PAIN) Qty: 30 RF: 1 oxycodone 5 mg capsule 5 mg PO Q6H PRN (Reason: pain) 7 Days Qty: 15 RF: 0 acetaminophen 500 mg Tablet 1,000 mg PO Q6 Qty: 0 RF: 0 Continued vitamin#30 30 mg iron-10 mg iron-folic acid 1 mg-omg3 capsule 30 mg iron-10 mg iron-1 mg capsule PO RF: 0 famotidine [Pepcid] 20 mg Tablet 20 mg PO BID RF: 0 Zyrtec 10 mg Capsule 10 mg PO DAILY PRN (Reason: Allergy Symptoms) RF: 0 sertraline [Zoloft] 50 mg tablet 50 mg PO QDAY RF: 0 Discontinued aspirin [Adult Aspirin Regimen] 81 mg tablet,delayed release (DR/EC) 81 mg PO DAILY RF: 0 valacyclovir 1 gram tablet 1,000 mg PO DAILY RF: 0 Referrals / Follow Up: Ebony Flores MD [Primary Care Provider] - Disposition Disposition (needs filled in before D/C Order can be placed): Home, self care
[2020-11-10] MEDS: Naproxen 250 MG Tablet 500 MG PO (06:34)
[2020-11-10] MEDS: Acetaminophen 500 MG Tablet 1000 MG PO (06:34)
--- NOTE | 2020-11-10 07:57 | PCM.PN.OB ---
Subjective Subjective Patient doing well without complaints. Tolerating PO. Ambulating and voiding without difficulty. Breast feeding well. Denies chest pain, shortness of breath, calf pain/swelling, fevers, chills, lightheadedness. Objective Data Objective Data Vital Signs: Vital Signs Temp Pulse Resp BP Pulse Ox 97.4 F L 70 14 123/69 H 98 11/10/20 02:35 11/10/20 02:35 11/10/20 02:35 11/10/20 02:35 11/09/20 15:39 Oxygen Delivery Method Room Air Weight: 152 lb Body Mass Index (BMI) 27.8 Intake & Output: Intake and Output for Last 24 Hours 11/08/20 11/09/20 11/10/20 23:59 23:59 23:59 Intake Total 2864.17 / 2864.17 0 / 0 800 / 800 Output Total 2024 / 2024 1000 / 1000 Balance 839.17 / 839.17 -1000 / -1000 800 / 800 Lab / Micro Data Result Diagrams: 11/09/20 05:05 11/08/20 10:25 Micro: Microbiology 11/08/20 10:55 Mucosa - Nose SARS-CoV-2 Antigen (Rapid) - Final ROS Constitutional Constitutional: Reports systems reviewed and no addt'l complaints, except as documented Cardiovascular Cardiovascular: Reports as per HPI Respiratory/Chest Respiratory/Chest: Reports as per HPI Genitourinary Genitourinary: Reports as per HPI Physical Exam Const alert and oriented x3 HEENT normocephalic Eyes PERRL Neck full ROM Resp normal respiratory effort GI soft to palpation GI Narrative: FF below U. Dressing dry and intact Palpation: tender other (appropriately) Assessment & Plan (1) delivery delivered: (2) Breech presentation: QUALIFIERS: Fetus number: single or unspecified fetus Qualified Code(s): O32.1XX0 - Maternal care for breech presentation, not applicable or unspecified COMMENT: failed ECV plan Primary LTCS at 37 weeks, scheduled 11/08/20 PLAN: s/p LTCS PPD # 2 1. routine post care 2. breast feeding- support given 3. rh positive 4. rubella immune 5. Considering home later today
[2020-11-10 09:46] VITALS: BP 132/76; PULSE 96; RESP 16; TEMP 36.5; O2SAT 97
[2020-11-10] MEDS: Sertraline 50 MG Tablet PO (10:52)
[2020-11-10] MEDS: Senna/Docusate Sodium 1 Tablet PO (10:52)
--- NOTE | 2020-11-10 14:06 | PCM.DC ---
Discharge Instructions Diet Discharge Diet: No restrictions Activity Discharge Activity: May Not Drive (for 2 weeks), May not drive while taking narcotic pain medications., May Shower and May Take a Tub Bath (in 7 days) May shower in (days): 0 May resume sexual activity in: 4-6 weeks Weight Bearing Status: Full weight bearing Dressing / Incision Call your doctor if your incision/area has: Continuous Slow Oozing, Sudden Increased Bleeding, Increased Pain/ Swelling, Increased Redness and Foul Smelling Discharge Call your doctor if you observe: Fever of 101 or Higher and Using more than one pad per hour (for 2 hours) Suture Line Care: Avoid Pulling/Pushing and Avoid Pinching/Bending Cleanse incision/area with: Soap & Water and Keep Dressing Clean & Dry Follow Up Care Please Follow Up With: Tatyana Hubbard MD When: 2 weeks Test Results: Test results from this visit will be discussed in further detail at your follow-up appointment, if applicable. Discharge Plan Admission Admit Date/Time: 11/08/20 10:00 Primary Reason for Your Visit: Attending Provider: Tatyana Hubbard Primary Care Provider: Ebony Flores Instructions Patient Instructions: After a Discharge Orders/Prescriptions Prescriptions: New naproxen 250 MG tablet 250 - 500 mg PO Q8H PRN PRN (Reason: MILD PAIN) Qty: 30 RF: 1 oxycodone 5 mg capsule 5 mg PO Q6H PRN (Reason: pain) 7 Days Qty: 15 RF: 0 acetaminophen 500 mg Tablet 1,000 mg PO Q6 Qty: 0 RF: 0 Continued vitamin#30 30 mg iron-10 mg iron-folic acid 1 mg-omg3 capsule 30 mg iron-10 mg iron-1 mg capsule PO RF: 0 famotidine [Pepcid] 20 mg Tablet 20 mg PO BID RF: 0 Zyrtec 10 mg Capsule 10 mg PO DAILY PRN (Reason: Allergy Symptoms) RF: 0 sertraline [Zoloft] 50 mg tablet 50 mg PO QDAY RF: 0 Discontinued aspirin [Adult Aspirin Regimen] 81 mg tablet,delayed release (DR/EC) 81 mg PO DAILY RF: 0 valacyclovir 1 gram tablet 1,000 mg PO DAILY RF: 0 Referrals / Follow Up: Ebony Flores MD [Primary Care Provider] - Disposition Disposition (needs filled in before D/C Order can be placed): Home, self care
[2020-11-10 15:06] LABS: Pathology Specimen OB SEE PATHOLOGY REPORT
== END 2020-11-10 13:25 | disposition home or self-care (01) | DRG 785 ==
PROVIDERS: Admitting Provider Obstetrics & Gynecology; PCP Internal Medicine; Visit Provider Obstetrics & Gynecology
PROC: 10D00Z1 Extraction of Products of Conception, Low, Open Approach (ICD-10-PCS; CPT 59514; principal; 2020-11-08 11:45)
DX: O32.1XX0 Maternal care for breech presentation, not applicable or unspecified (principal); O14.04 Mild to moderate pre-eclampsia, complicating childbirth; O99.810 Abnormal glucose complicating pregnancy; O99.344 Other mental disorders complicating childbirth; F32.9 Major depressive disorder, single episode, unspecified; F41.9 Anxiety disorder, unspecified; Z90.49 Acquired absence of other specified parts of digestive tract; Z3A.37 37 weeks gestation of pregnancy; Z37.0 Single live birth; Z79.82 Long term (current) use of aspirin; Z30.2 Encounter for sterilization; Z87.59 Personal history of other complications of pregnancy, childbirth and the puerperium
CPT/HCPCS: 82565; 84450; 84460; 85025; 85027; 86850; 86900; 86901; 87426; 88302; 99218; 99251; J7120; A4216; G0378; G0463; J2405

== ENCOUNTER 2020-11-25 08:00 | Outpatient (RCR) | payer OTHER, SELFPAY ==
[2020-11-08 10:21] VITALS: BMI 27.8
== END 2020-12-30 23:59 ==
LOC: IMMUN 08:00
PROVIDERS: PCP Internal Medicine; Visit Provider Family Medicine
DX: Z23 Encounter for immunization (principal)
CPT/HCPCS: 0001A; 0002A; 91300

== ENCOUNTER 2021-05-31 13:55 | Emergency (ER) | payer OTHER, SELFPAY ==
[2021-05-31 13:56] VITALS: BP 107/73; PULSE 109; RESP 18; TEMP 36.6; O2SAT 100; BMI 22.3
--- NOTE | 2021-05-31 13:59 | EKG12_ITS ---
Test Reason : CP Blood Pressure : / mmHG Vent. Rate : 101 BPM Atrial Rate : 101 BPM P-R Int : 130 ms QRS Dur : 078 ms QT Int : 346 ms P-R-T Axes : 038 049 030 degrees QTc Int : 448 ms Sinus tachycardia Nonspecific ST abnormality Abnormal ECG Confirmed by JERRI RIOS, HARISH ([id number]), film editor supervisor MIGDALIA WREN ([id number]) on 06/02/2021 8:21:45 AM Referred By: FRANCO Confirmed By:HARISH GUTHRIE MD
--- NOTE | 2021-05-31 13:59 | RAD_ITS ---
STUDY: X-RAY CHEST REASON FOR EXAM: Female, 35 years old. Chest pain TECHNIQUE: Single AP portable view of the chest. COMPARISON: None. FINDINGS: The lungs are clear and expanded. There is no demonstrated pleural abnormality. Normal size heart. Normal mediastinum and anton. Normal visualized pulmonary arteries. Normal visualized aortic arch and descending thoracic aorta. Normal visualized thoracic spine. Normal visualized ribs, clavicles, and shoulders. There is no demonstrated abnormality of the visualized soft tissue structures of the upper abdomen. RAD/Chest 1 View (Portable) IMPRESSION: Normal x-ray examination of the chest. Electronically Signed: Min Orellana MD at 14:22 EST , Service support ,
--- NOTE | 2021-05-31 15:40 | EDS_ITS ---
HPI History of Present Illness Chief Complaint: Chest Pain Narrative Narrative: 35-year-old female presenting with chest tightness which is been present for a couple of hours. She admits to a little bit of lightheadedness. She states that it does not feel like pressure or sharp. She states she has a history of anxiety but does not feel anxious. She is unsure why she is having chest pain. She denies fever, chills, change in taste or smell. She does admit to having body aches this morning and took some Aleve. Patient does not have any cardiac risk factors. She states she is not on control. No history of DVT/PE. She did recently fly in March. Patient does not have any nausea or vomiting. No constipation or diarrhea. No urinary complaints. [facility] Medical History (Updated 05/31/21 @ 15:50 by Palmer Nazario) Anxiety and depression Bilateral headaches delivery delivered Depression Generalized anxiety disorder with panic attacks History of prior with IUGR IBS (irritable bowel syndrome) Oligohydramnios depression Pre-eclampsia Home Medications vitamin#30 30 mg iron-10 mg iron-folic acid 1 mg-omg3 capsule cap PO 08/12/20 [History Last Taken 11/08/20] valacyclovir 500 mg tablet 500 mg PO DAILY 11/22/20 [History Last Taken Unknown] buspirone 5 mg tablet 5 mg PO BID #60 tab 03/31/21 [Rx Last Taken Unknown] fluoxetine 20 mg capsule 20 mg PO DAILY #30 cap 05/03/21 [Rx Last Taken Unknown] medroxyprogesterone 10 mg tablet 10 mg PO QDAY #5 tab 05/03/21 [Rx Last Taken Unknown] methylprednisolone 4 mg tablets in a dose pack See Rx Instructions PO PER PKG DIR #21 tab 05/05/21 [Rx Last Taken Unknown] Allergy/AdvReac Type Severity Reaction Status Date / Time morphine Allergy Shortness Verified 05/31/21 13:58 of breath Family History Mother Diabetes Depression Cancer Father Hypertension Grandfather Myocardial infarction Grandfather CVA (cerebral vascular accident) Brother Mental disorder Seizures Surgical History Delivery by section History of appendectomy Kelley teeth extracted Social History Smoking Status: Never smoker alcohol intake: current details: social substance use type: does not use what type of physical activity do you participate in: none seatbelt use: always do you feel safe at home: Yes 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[employer] Patient works at [employer] [facility] ROS ED Constitutional Constitutional ED: Denies fever(s) or subjective Eyes Eyes: Denies blurry vision or change in vision ENT ENT ED: Denies rhinorrhea or sore throat Cardiovascular Cardiovascular: Reports chest pain and palpitations Respiratory/Chest Respiratory/Chest: Denies cough, dyspnea or dyspnea on exertion Gastrointestinal Gastrointestinal: Denies abdominal pain, nausea or vomiting Genitourinary Genitourinary ED: Denies dysuria or hematuria Musculoskeletal Musculoskeletal: Reports myalgias; Denies arthralgias, back pain or neck pain Integumentary Denies rash Neurologic Neurologic: Denies headache(s) or paresthesias Psychiatric Psychiatric: Denies anxiety or depression EXAM Physical Exam Const Vital Signs: 05/31/21 13:56 05/31/21 15:48 05/31/21 16:03 Temperature 98 F Temperature Source Temporal Pulse Rate 109 H 98 Respiratory Rate 18 16 Blood Pressure 107/73 122/72 H Blood Pressure Mean 84 88 Pulse Ox 100 100 Oxygen Delivery Method Room Air Room Air Room Air 05/31/21 18:19 Temperature Temperature Source Pulse Rate 102 H Respiratory Rate 19 H Blood Pressure 117/80 Blood Pressure Mean 92 Pulse Ox 99 Oxygen Delivery Method Room Air Positive well nourished General Appearance ED: NAD; Negative for pallor HEENT normocephalic Eyes PERRL and EOMs intact bilaterally General Eye ED: Negative for pale conjunctiva Chest Wall inspection of chest normal and palpation of chest normal Resp normal respiratory effort and clear to auscultation bilaterally Auscultation: Negative for rales, rhonchi or wheezes Cardio regular rhythm Rate: tachycardic Neuro oriented x3, CN's II-XII intact bilaterally and no sensory deficits noted Sensorium / Orientation: awake and alert Motor Exam: strength 5/5 throughout Psych mental status grossly normal Skin General Skin Exam: Negative for jaundice or pallor Heart Score History: Slightly/Non-Suspicious ECG: Normal Age: </= 45 years Risk Factors: No Risk Factors Troponin: </= Normal Limit Score: 0 MDM MDM MDM Narrative Medical decision making narrative: Patient presenting with chest tightness for the last couple of hours. EKG is obtained and shows a sinus tachycardia with a ventricular rate of 100 bpm without obvious sign of ischemic change on my interpretation. There is a lot of artifact in leads II, 3, aVF. CBC, BMP unremarkable. D-dimer is elevated at 0.58. In addition to recent travel patient did give 2 months ago. I will obtain a CTA of the chest. Initial high-sensitivity troponin is 4. The delta troponin is 3. Chest x-ray on my interpretation shows no acute cardiopulmonary process and radiologist does agree. CTA of the chest is performed and is negative for PE or dissection. There appears to be in no acute findings on the CTA either. Patient's Covid testing is negative. Patient ultimately has a negative work-up for cardiac source and for PE. I feel she is safe to be discharged home at this time. She is given return precautions. Impression: 1. Chest pain noncardiac Lab Data Labs: Laboratory Results - last 24 hr 05/31/21 05/31/21 05/31/21 15:30 15:30 16:10 WBC 7.6 RBC 4.43 Hgb 13.1 Hct 38.1 MCV 86.0 MCH 29.6 MCHC 34.4 RDW Std Deviation 40.3 RDW Coeff of Myriam 12.9 Plt Count 249 MPV 9.6 Immature Gran % (Auto) 0.300 Neut % (Auto) 86.7 H Lymph % (Auto) 6.5 L Dickinson % (Auto) 6.3 Eos % (Auto) 0.1 Baso % (Auto) 0.1 Absolute Neuts (auto) 6.6 Absolute Lymphs (auto) 0.49 L Nucleated RBC % 0 Differential Comment SCANNED D-Dimer Quant (PE/DVT) 0.58 H* Sodium 138 Potassium 3.6 Chloride 106 Carbon Dioxide 27.0 Anion Gap 5 BUN 11 Creatinine 0.63 Estim Creat Clear Calc 95.84 Est GFR (MDRD) Af Amer 139 Est GFR (MDRD) Non-Af 115 BUN/Creatinine Ratio 17.5 Glucose 97 Calcium 9.2 Troponin I High Sens 4 05/31/21 19:00 WBC RBC Hgb Hct MCV MCH MCHC RDW Std Deviation RDW Coeff of Myriam Plt Count MPV Immature Gran % (Auto) Neut % (Auto) Lymph % (Auto) Dickinson % (Auto) Eos % (Auto) Baso % (Auto) Absolute Neuts (auto) Absolute Lymphs (auto) Nucleated RBC % Differential Comment D-Dimer Quant (PE/DVT) Sodium Potassium Chloride Carbon Dioxide Anion Gap BUN Creatinine Estim Creat Clear Calc Est GFR (MDRD) Af Amer Est GFR (MDRD) Non-Af BUN/Creatinine Ratio Glucose Calcium Troponin I High Sens 3 Radiography Diagnostic Testing: Clinical Impression(s) from Imaging Studies Chest X-Ray 05/31/21 13:59 IMPRESSION: Normal x-ray examination of the chest. Electronically Signed: Min Orellana MD at 14:22 EST , Service support , Chest CTA 05/31/21 16:57 IMPRESSION: Negative CTA chest. Individualized dose optimization techniques were used for this CT. at 1733 Reported and signed by: Hector Pride MD Electronically Signed: Hector Pride MD at 17:32 EST Tel , Service support , Discharge Plan Triage Chief Complaint: Chest Pain ED Provider: Kiran Guido Dx/Rx/DC Orders Instructions: ED Chest Pain, Noncardiac Prescriptions: No Action vitamin#30 30 mg iron-10 mg iron-folic acid 1 mg-omg3 capsule 30 mg iron-10 mg iron-1 mg capsule PO RF: 0 valacyclovir [Valtrex] 500 mg tablet 500 mg PO DAILY RF: 0 buspirone 5 mg tablet 5 mg PO BID Qty: 60 RF: 1 medroxyprogesterone [Provera] 10 mg tablet 10 mg PO QDAY Qty: 5 RF: 9 fluoxetine [Prozac] 20 mg capsule 20 mg PO DAILY Qty: 30 RF: 12 methylprednisolone [Medrol (Chase)] 4 mg tablets,dose pack See Rx Instructions PO PER PKG DIR Qty: 21 RF: 0 Primary Care Provider: Ebony Flores Referrals: Ebony Flores MD [Primary Care Provider] - Disposition Disposition: Home, Self Care
[2021-05-31 15:42] LABS: Absolute Lymphocyte Count 0.49 X10^3/uL (0.83-4.51); Absolute Neutrophil Count 6.6 X10^3/uL (2.0-7.7); Basophil# 0.01 X10^3/uL; Basophil% 0.1 % (0-1); Eosinophil# 0.01 X10^3/uL; Eosinophils% 0.1 % (0-5); Hematocrit 38.1 % (37-47); Hemoglobin 13.1 g/dL (12.0-15.0); Lymphocyte # 0.49 X10^3/ul (0.83-4.51); Lymphocyte % 6.5 % (19-41); Mean Corp Hgb Conc 34.4 g/dL (32-36); Mean Corpuscular Hgb 29.6 pg (27.0-32.0); Mean Platelet Vol. 9.6 fl (6.2-12.0); Monocyte# 0.48 X10^3/uL; Monocyte% 6.3 % (0-10); NRBC Flagged by Analyzer 0 % (0-5); Neutrophil # 6.55 X10^3/uL (2.7-7.7); Neutrophil % 86.7 % (47-70); POSITIVE DIFFERENTIAL YES; Platelet Count 249 K/mm3 (150-450); RBC Distribution Width CV 12.9 % (11.6-14.6); RBC Distribution Width SD 40.3 fl (35.1-43.9); Red Blood Count 4.43 M/mm3 (4.2-5.4); White Blood Count 7.6 K/mm3 (4.4-11.0)
[2021-05-31 15:48] LABS: Differential Indicated SCAN CRITERIA MET
[2021-05-31 15:52] LABS: Anion Gap 5 (5-15); BUN 11 mg/dL (7-18); BUN/Creat Ratio 17.5 RATIO (10-20); Calcium,Total 9.2 mg/dL (8.5-10.1); Chloride 106 mmol/L (98-107); Creatinine, Serum 0.63 mg/dL (0.55-1.02); EST Glomerular Filtration Rate 115 mL/min (>60); Est Glom Filt Rate - Afr Amer 139 mL/min (>60); Estimated Creatinine Clearance 95.84 ml/min; Glucose 97 mg/dL (74-106); Potassium 3.6 mmol/L (3.5-5.1); Sodium Level 138 mmol/L (136-145); Troponin-I HS 4 pg/mL (3.0-54.0)
[2021-05-31 16:03] VITALS: BP 122/72; PULSE 98; RESP 16; O2SAT 100
[2021-05-31 16:19] LABS: Differential Comment SCANNED
[2021-05-31 16:37] LABS: D-Dimer Quantitative (DVT/PE) 0.58 FEU/ug/m (0.27-0.49)
--- NOTE | 2021-05-31 16:57 | CT_ITS ---
EXAM: CT ANGIOGRAPHY CHEST WITHOUT AND WITH INTRAVENOUS CONTRAST : 1985 CLINICAL INDICATION: chest pain TECHNIQUE: Helically acquired angiography images were obtained of the chest without and with intravenous contrast. This CT exam was performed using one or more of the following dose reduction techniques: automated exposure control, adjustment of the mA and/or kV according to patient size, and/or use of iterative reconstruction technique. This report was created using [employer] report generation technology. MIP reconstructed images were created and reviewed. CONTRAST: IV 100mL Isovue-370 COMPARISON: None. FINDINGS: PULMONARY ARTERIES: Unremarkable. Normal in caliber. No evidence of pulmonary embolism. AORTA: Unremarkable. Normal in caliber. No evidence of dissection. GREAT VESSELS OF AORTIC ARCH: Unremarkable. Normal in caliber. No evidence of dissection. LUNGS AND PLEURAL SPACES: Unremarkable. No mass. No consolidation or edema. No pleural effusion or thickening. No pneumothorax. HEART: Unremarkable. Heart size is normal. No pericardial effusion. No signs of right heart strain, ratio of right ventricle to left ventricle measures less than 1. MEDIASTINUM: Unremarkable. No mediastinal or hilar adenopathy. Esophagus is unremarkable. No hiatal hernia. THYROID: Unremarkable. No thyroid lesions. BONES/JOINTS: Unremarkable. No suspicious lytic or blastic abnormality. CT/CTA Chest W/WO Contrast IMPRESSION: Negative CTA chest. Individualized dose optimization techniques were used for this CT. at 1733 Reported and signed by: Hector Pride MD Electronically Signed: Hector Pride MD at 17:32 EST Tel , Service support ,
[2021-05-31 18:19] VITALS: BP 117/80; PULSE 102; RESP 19; O2SAT 99
[2021-05-31 19:26] LABS: Troponin-I HS 3 pg/mL (3.0-54.0)
== END 2021-05-31 19:47 | disposition home or self-care (01) ==
PROVIDERS: Emergency Provider Student in an Organized Health Care Education/Training Program; PCP Internal Medicine
DX: R07.89 Other chest pain (principal); Z87.59 Personal history of other complications of pregnancy, childbirth and the puerperium
CPT/HCPCS: 71045; 71275; 80048; 84484; 85025; 85379; 87426; 93005; 99285; Q9967; A4216

== ENCOUNTER 2021-10-13 08:13 | Outpatient (CLI) | payer OTHER, SELFPAY ==
[2021-10-13 12:36] LABS: Anion Gap 5 (5-15); BUN 9 mg/dL (7-18); BUN/Creat Ratio 12.4 RATIO (10-20); Calcium,Total 8.6 mg/dL (8.5-10.1); Chloride 108 mmol/L (98-107); Creatinine, Serum 0.72 mg/dL (0.55-1.02); EST Glomerular Filtration Rate 98 mL/min (>60); Est Glom Filt Rate - Afr Amer 118 mL/min (>60); Glucose 73 mg/dL (74-106); Potassium 3.9 mmol/L (3.5-5.1); Sodium Level 138 mmol/L (136-145); Thyroid Stim Hormone (TSH) 1.64 uIU/mL (0.358-3.74)
== END 2021-10-13 23:59 | disposition home or self-care (01) ==
LOC: BIMLAB 08:14
PROVIDERS: PCP Internal Medicine; Referring Provider Nurse Practitioner Family; Visit Provider Nurse Practitioner Family
DX: Z00.00 Encounter for general adult medical examination without abnormal findings (principal); L70.9 Acne, unspecified
CPT/HCPCS: 36415; 80048; 84443

== ENCOUNTER → 2022-01-06 | Outpatient (CLI) | payer OTHER, SELFPAY ==
[2022-01-11 16:13] LABS: HPV APTIMA, High Risk Negative (Negative)
== END | disposition home or self-care (01) ==
LOC: LAB 16:39 → LABSPEC 16:43
PROVIDERS: PCP Internal Medicine; Visit Provider Obstetrics & Gynecology
DX: Z12.4 Encounter for screening for malignant neoplasm of cervix (principal)
CPT/HCPCS: 87624; 88175; G0145

== ENCOUNTER → 2022-03-29 | Outpatient (CLI) | payer OTHER, SELFPAY ==
[2022-03-29 15:37] LABS: Troponin-I HS 3 pg/mL (3.0-54.0)
== END | disposition home or self-care (01) ==
LOC: BIMLAB 13:57
PROVIDERS: PCP Internal Medicine; Referring Provider Nurse Practitioner Family; Visit Provider Nurse Practitioner Family
DX: R07.9 Chest pain, unspecified (principal)
CPT/HCPCS: 36415; 84484

== ENCOUNTER → 2022-03-29 | Outpatient (CLI) | payer OTHER, SELFPAY ==
--- NOTE | 2022-03-29 14:12 | EKG12_ITS ---
Test Reason : ABD EKG Blood Pressure : / mmHG Vent. Rate : 084 BPM Atrial Rate : 084 BPM P-R Int : 120 ms QRS Dur : 096 ms QT Int : 402 ms P-R-T Axes : 039 053 019 degrees QTc Int : 475 ms Normal sinus rhythm Normal ECG Confirmed by ANDREA RIOS, ANABELLE ([id number]), staff editor MIGDALIA WREN ([id number]) on 03/30/2022 9:49:17 AM Referred By: Peterson Mir Confirmed By:ANABELLE MENDEZ MD
== END | disposition home or self-care (01) ==
LOC: PSN 14:11
PROVIDERS: PCP Internal Medicine; Referring Provider Nurse Practitioner Family; Visit Provider Nurse Practitioner Family
DX: R07.9 Chest pain, unspecified (principal)
CPT/HCPCS: 93005

== ENCOUNTER → 2022-11-08 | Outpatient (CLI) | payer OTHER, SELFPAY ==
--- NOTE | 2022-11-08 09:49 | RAD_ITS ---
STUDY: X-RAY - LUMBAR SPINE REASON FOR EXAM: Female, 37 years old. CHRONIC BACK PAIN TECHNIQUE: 2 view(s) of the lumbar spine were obtained. COMPARISON: 10/04/2018 FINDINGS: Normal lumbar lordosis. There is no substantial scoliosis. There is a normal alignment of the vertebrae. Normal vertebral bodies and endplates. Since prior exam patient has developed moderate narrowing of the disc at L4-L5. Otherwise unremarkable disc space heights. There is no demonstrated fracture. The soft tissue structures are unremarkable. RAD/Lumbar Spine 2 or 3 Views IMPRESSION: Degenerative disc disease at L4-L5 which was not present previously. No acute abnormalities. Electronically Signed: Prabhakar Carreon MD at 17:38 EDT ,
[2022-11-08 12:50] LABS: Vitamin B12 449 pg/mL (211-911); Vitamin D,25 Hydroxy 30.1 ng/mL
== END | disposition home or self-care (01) ==
PROVIDERS: PCP Internal Medicine; Referring Provider Nurse Practitioner Family; Visit Provider Nurse Practitioner Family
DX: E56.9 Vitamin deficiency, unspecified (principal); M51.36 Other intervertebral disc degeneration, lumbar region; G89.29 Other chronic pain
CPT/HCPCS: 36415; 72100; 82306; 82607

== ENCOUNTER → 2023-06-27 | Outpatient (CLI) | payer OTHER, SELFPAY ==
[2023-06-27 11:06] LABS: AST(SGOT) 13 U/L (15-37); Alanine Aminotransfer ALT/SGPT 23 U/L (13-56); Cholesterol 178 mg/dL (200); High Density Lipoprotein 65 mg/dL; Triglycerides 91 mg/dL; Very Low Density Lipoprotein 18 mg/dL (5-40)
== END | disposition home or self-care (01) ==
LOC: LAB 09:50
PROVIDERS: PCP Internal Medicine; Visit Provider Physician Assistant Medical
DX: L70.0 Acne vulgaris (principal); Z79.899 Other long term (current) drug therapy
CPT/HCPCS: 36415; 80061; 84450; 84460

== ENCOUNTER → 2023-09-07 | Outpatient (CLI) | payer OTHER, SELFPAY ==
--- OUTSIDE RECORDS SUMMARY | 2023-09-07 09:48 | XMS RPT_ITS | CCD ---
Author Name Unknown Address [address] [place] [address] Organization [facility] Care Team Providers Care Dock Operations Supervisor Name Role Phone Tatyana Hubbard MD Unavailable [phone] Esther Elias Unavailable Unavailable Amarilys Isaac LPN Unavailable Unavailab dia Dunn ARMHOLE FELLER HANDSTITCHING MACHINE, Lizzy S Unavailable [phone] Amarilys Isaac LPN Unavailable Unavailab Esther Howard Unavailable Unavailable Tatyana Hubbard MD Unavailable [phone] Allergies Allergy Classification Reported Allergen(s) Allergy Type Date of Onset Reaction(s) Facility (17 sources) morphine drug allergy 10-19-2016 [facility] Work Phone: Medications Completed/Discontinued Medications Medication Drug Class(es) Dates Sig (Normalized) Sig (Original) amoxicillin 500 mg oral capsule (20 sources) Penicillin-class Antibacterial Start: 10-19-2016 End: 01-31-2017 AMOXICILLIN 500 MG CAPS 1 capsule 3 times a day AMOXICILLIN [id number] Rangel COLON citalopram 20 mg oral tablet (4 sources) Serotonin Reuptake Inhibitor Start: 04-05-2017 take 1 tablet by mouth once daily CELEXA 20 MG TABS One tablet by mouth daily CITALOPRAM HYDROBROMIDE [id number] Tatyana Hubbard MD DESOGESTREL-ETHINY L ESTRADIOL (20 sources) Progestin, Estrogen Start: 10-19-2016 APRI 0.15-30 MG-MCG TABS take as directed DESOGESTREL-ETHINY L ESTRADIOL [id number] Sis Larson LPN Problems Active Problems Problem Classification Problem Date Documented Da te Episodic/Chronic Menstrual disorders (15 sources) Irregular periods; Translations: [Irregular menstruation, unspecified] Onset: 02-01-2017 02-01-2017 Chronic Other upper respiratory disease (13 sources) Allergic rhinitis; Translations: [Allergic rhinitis, unspecified] Onset: 03-14-2017 03-15-2017 Chronic Past or Other Problems Problem Classification Problem Date Documented Date Episodic/Chronic Abdominal pain (13 sources) Flank pain; Translations: [Unspecified abdominal pain] Onset: 03-14-2017 03-14-2017 Episodic Genitourinary symptoms and ill-defined conditions (20 sources) Blood in urine; Translations: [Dysuria] Onset: 01-31-2017 03-15-2017 Episodic Other female genital disorders (11 sources) Vaginal discharge; Translations: [Other specified noninflammatory disorders of vagina] Onset: 03-16-2017 03-16-2017 Episodic Otitis media and related conditions (17 sources) Otitis media; Translations: [Otitis media, unspecified, unspecified ear] Onset: 10-19-2016 10-19-2016 Episodic Urinary tract infections (17 sources) Urinary tract infectious disease; Translations: [Urinary tract infection, site not specified] Onset: 01-31-2017 01-31-2017 Episodic Results Test Name Value Interpretation Reference Range Facil ity Vital Signs Date Time Vital Sign Value Performing Clinician Gaudencio zendejas 03-14-2017 15:29-0400 BMI (Body Mass Index) 20.85 kg/m2 Esther Cason [facility] Work Phone: 03-14-2017 15:29-0400 Body Temperature 98 [degF] Esther [facility] Work Phone: 03-14-2017 15:29-0400 BP Diastolic 66 mm[Hg] Esther [facility]ason [facility] Work Phone: 03-14-2017 15:29-0400 BP Systolic 106 mm[Hg] Esther [facility]ason [facility] Work Phone: 03-14-2017 15:29-0400 Height 157.48 cm Esther [facility]ason [facility] Work Phone: 03-14-2017 15:29-0400 Pulse (Heart Rate) 80 /min [facility] Work Phone: 03-14-2017 15:29-0400 [facility] 51.71 [facility]: 01-31-2017 07:33-0400 BMI (Body Mass Index) 21.65 kg/m2 Amarilys Isaac LPN [facility] Work Phone: 01-31-2017 07:33-0400 Body Temperature 98.3 [degF] Amarilys Isaac LPN [facility] Work Phone: 01-31-2017 07:33-0400 BP Diastolic 68 mm[Hg] Amarilys Isaac LPN [facility] Work Phone: 01-31-2017 07:33-0400 BP Systolic 104 mm[Hg] Amarilys Isaac LPN [facility] Work Phone: 01-31-2017 07:33-0400 Height 154.94 cm Amarilys Isaac LPN [facility] Work Phone: 01-31-2017 07:33-0400 Pulse (Heart Rate) 84 /min Amarilys Isaac LPN [facility] Work Phone: 01-31-2017 07:33-0400 Respiratory Rate 12 /min Amarilys Isaac LPN [facility] Work Phone: 01-31-2017 07:33-0400 Weight 51.98 kg Amarilys Isaac LPN [facility] Work Phone: Procedures Date Procedure Procedure Detail Performing Clinician Start: 03-16-2017 End: 06-13-2017 Bacteria genital culture Tatyana henao MD Work Phone: Start: 03-15-2017 End: 03-15-2017 Urinalysis Esther Elias Start: 03-14-2017 End: 03-15-2017 Ct abdomen & pelvis w/o contrast material Peterson Mir PLANT PROPAGATOR-C Start: 03-14-2017 End: 03-15-2017 Culture bacterial quanttative colony count urine Peterson A Mir [employer]ANT PROPAGATOR-C Start: 03-14-2017 End: 03-15-2017 Follow Up Appt 1 month Peterson A Mir PLANT PROPAGATOR- C Start: 03-14-2017 End: 03-15-2017 Urinalysis complete panel - Urine Peterson A Mir PLANT PROPAGATOR-C Start: 03-14-2017 End: 03-15-2017 Urography antegrade rs&i Peterson A Mir FN P-C Start: 03-14-2017 End: 03-15-2017 Contrst x-ray, urinary tract Peterson A Mir [employer]ANT PROPAGATOR-C Start: 03-14-2017 End: 03-15-2017 Ct abd & pelvis w/o contrast Peterson A Mir [employer]ANT PROPAGATOR-C Start: 03-14-2017 End: 03-15-2017 Culture bacterial quanttative colony count urine Peterson A Mir [employer] PROP[employer]-C Start: 03-14-2017 End: 03-15-2017 Follow Up Appt 1 month Peterson A Mir PLANT PROPAGATOR- C Start: 03-14-2017 End: 03-15-2017 Urinalysis complete panel - Urine Peterson A Mir [employer]ANT PROP[employer]-C Start: 03-14-2017 End: 03-15-2017 Urine culture, bacteria Peterson A Mir [employer]ANT PROP[employer]ATOR -C Start: 02-01-2017 End: 02-07-2017 Follitropin [Units/volume] in Serum or Plasma Tatyana Hubbard MD Work Phone: Start: 02-01-2017 End: 02-07-2017 Prolactin [Mass/volume] in Serum or Plasma Tatyana Hubbard MD Work Phone: Start: 02-01-2017 End: 02-07-2017 Thyrotropin [Units/volume] in Serum or Plasma Tatyana Hubbard MD Work Phone: Start: 02-01-2017 End: 06-13-2017 Follitropin (FSH) Tatyana Hubbard MD Work Phone: Start: 02-01-2017 End: 06-13-2017 Prolactin Tatyana Hubbard MD Work Phone: Start: 02-01-2017 End: 06-13-2017 Thyroid stimulating hormone (TSH) Tatyana Hubbard MD Work Phone: Start: 01-31-2017 End: 01-31-2017 Urinalysis Amarilys Isaac LPN Plan of Treatment Date Care Activity Detail Author Start: 06-29-2017 End: 06-29-[address] [facility] Start: 06-22-2017 End: 06-22-2017 Appointment Appointment [facility] Start: 03-16-2017 End: 03-16-2017 Bacteria genital culture *CUV - Culture, VAG/CX [facility] Start: 03-16-2017 End: 06-13-2017 Bacteria genital culture *CUV - Culture, VAG/CX [facility] Start: 03-14-2017 End: 03-15-2017 Ct abdomen & pelvis w/o contrast material CT Abdomen and pelvis; without contrast material [facility] Start: 03-14-2017 End: 03-15-2017 Follow Up Appt 1 month Follow Up Appt 1 month [facility] Start: 03-14-2017 End: 03-15-2017 Urinalysis complete panel - Urine *UAC- Urinalysis, Complete w/ Micro [facility] Start: 03-14-2017 End: 03-15-2017 Urine culture, bacteria Urine Culture [facility] Start: 03-14-2017 End: 03-15-2017 Urography antegrade rs&i X-Ray, KUB [facility] Start: 03-14-2017 End: 03-15-2017 Contrst x-ray, urinary tract X-Ray, KUB [facility] Work Phone: Start: 03-14-2017 End: 03-15-2017 Ct abd & pelvis w/o contrast CT Abdomen and pelvis; without contrast material [facility] Work Phone: Start: 03-14-2017 End: 03-15-2017 Follow Up Appt 1 month Follow Up Appt 1 month [facility] Work Phone: Start: 03-14-2017 End: 03-15-2017 Urinalysis complete panel - Urine *UAC- Urinalysis, Complete w/ Micro [facility] Work Phone: Start: 03-14-2017 End: 03-15-2017 Urine culture, bacteria Urine Culture [facility] Work Phone: Start: 02-01-2017 End: 02-07-2017 Follitropin (FSH) *FSH Level [facility] Start: 02-01-2017 End: 02-07-2017 Prolactin *PROL Prolactin [facility] Start: 02-01-2017 End: 02-07-2017 Thyroid stimulating hormone (TSH) *TSH [facility] Start: 02-01-2017 End: 02-07-2017 Follitropin (FSH) *FSH Level [facility] Start: 02-01-2017 End: 02-07-2017 Prolactin *PROL Prolactin [facility] Start: 02-01-2017 End: 02-07-2017 Thyroid stimulating hormone (TSH) *TSH [facility] Start: 01-31-2017 End: 02-06-2017 *UA - Urinalysis w/o Micro *UA - Urinalysis w/o Micro [facility] Start: 01-31-2017 End: 01-31-2017 Appointment Appointment [facility] Work Phone: Start: 01-31-2017 End: 02-06-2017 *UA - Urinalysis w/o Micro *UA - Urinalysis w/o Micro [facility] Work Phone: Patient Education [facility] Work Phone: Additional Source Comments FOR RECORDS PERTAINING TO PATIENTS WHO ARE OR HAVE BEEN ENROLLED IN A CHEMICAL DEPENDENCY/SUBSTANCEABUSE PROGRAM, SOME INFORMATION MAY BE OMITTED. This clinical summary was aggregated from multiple sources. Caution should be exercised in using it in the provision of clinical care. This summary normalizes information from multiple sources, and as a consequence, information in this document may materially change the coding, format and clinical context of patient data. In addition, data may be omitted in some cases. CLINICAL DECISIONS SHOULD BE BASED ON THE PRIMARY CLINICAL RECORDS. [facility]. provides no warranty or guarantee of the accuracy or completeness of information in this document.
[2023-09-07 12:01] LABS: Absolute Lymphocyte Count 2.02 X10^3/uL (0.83-4.51); Absolute Neutrophil Count 2.5 X10^3/uL (2.0-7.7); Basophil# 0.03 X10^3/uL; Basophil% 0.6 % (0-1); Eosinophil# 0.04 X10^3/uL; Eosinophils% 0.8 % (0-5); Hematocrit 38.8 % (37-47); Hemoglobin 13.4 g/dL (12.0-15.0); Lymphocyte # 2.02 X10^3/ul (0.83-4.51); Lymphocyte % 40.2 % (19-41); Mean Corp Hgb Conc 34.5 g/dL (32-36); Mean Corpuscular Hgb 30.3 pg (27.0-32.0); Mean Corpuscular Volume 87.8 fL (81-99); Mean Platelet Vol. 9.6 fl (6.2-12.0); Monocyte# 0.42 X10^3/uL; Monocyte% 8.4 % (0-10); NRBC Flagged by Analyzer 0 % (0-5); Neutrophil % 49.8 % (47-70); Platelet Count 339 K/mm3 (150-450); RBC Distribution Width CV 12.3 % (11.6-14.6); RBC Distribution Width SD 39.7 fl (35.1-43.9); Red Blood Count 4.42 M/mm3 (4.2-5.4)
[2023-09-07 12:18] LABS: Vitamin B12 714 pg/mL (211-911)
[2023-09-07 12:36] LABS: AST(SGOT) 24 U/L (15-37); Alanine Aminotransfer ALT/SGPT 25 U/L (13-56); Alkaline Phosphatase 71 U/L (45-117); Bilirubin, Direct 0.14 mg/dL (0.00-0.30); Cholesterol 229 mg/dL (200); High Density Lipoprotein 73 mg/dL; T4 Free Direct 0.91 ng/dL (0.76-1.46); Thyroid Stim Hormone (TSH) 1.03 uIU/mL (0.358-3.74); Triglycerides 85 mg/dL; Very Low Density Lipoprotein 17 mg/dL (5-40)
[2023-09-07 13:31] LABS: hCG Titer Quant., Serum < 1 mIU/mL (1-3)
== END | disposition home or self-care (01) ==
LOC: MTLAB 09:16
PROVIDERS: PCP Internal Medicine; Referring Provider Nurse Practitioner; Visit Provider Nurse Practitioner
DX: L70.0 Acne vulgaris (principal); Z79.899 Other long term (current) drug therapy
CPT/HCPCS: 36415; 80061; 80076; 82607; 84439; 84443; 84702; 85025

== ENCOUNTER 2024-03-14 18:21 | Emergency (ER) | payer OTHER, SELFPAY ==
[2024-03-14 18:24] VITALS: BP 133/92; PULSE 94; RESP 18; TEMP 36.6; O2SAT 100; BMI 22.7
[2024-03-14] MEDS: 0.9% Normal Saline (1000mL) 1,000 ML 200 ML IV ×2 (18:56→20:49)
[2024-03-14] MEDS: Ondansetron 4 MG/2 ML Vial IV ×2 (18:56→20:49)
[2024-03-14] MEDS: Ketorolac 30 MG/ML Syringe IV (18:56)
[2024-03-14 18:58] LABS: Absolute Lymphocyte Count 3.18 X10^3/uL (0.83-4.51); Absolute Neutrophil Count 3.9 X10^3/uL (2.0-7.7); Basophil# 0.06 X10^3/uL; Basophil% 0.8 % (0-1); Eosinophils% 1.3 % (0-5); Hematocrit 41.2 % (37-47); Lymphocyte # 3.18 X10^3/ul (0.83-4.51); Lymphocyte % 40.5 % (19-41); Mean Corpuscular Volume 88.4 fL (81-99); Mean Platelet Vol. 9.6 fl (6.2-12.0); Monocyte# 0.64 X10^3/uL; Monocyte% 8.2 % (0-10); NRBC Flagged by Analyzer 0 % (0-5); Neutrophil # 3.87 X10^3/uL (2.7-7.7); Neutrophil % 49.2 % (47-70); Platelet Count 332 K/mm3 (150-450); RBC Distribution Width CV 12.2 % (11.6-14.6); RBC Distribution Width SD 39.5 fl (35.1-43.9); Red Blood Count 4.66 M/mm3 (4.2-5.4); White Blood Count 7.9 K/mm3 (4.4-11.0)
[2024-03-14 19:11] LABS: Internal QC Validated? YES +Cl - CLEAR BKGD; Pregnancy, Serum, hCG Quali. NEGATIVE Negative
[2024-03-14 19:12] LABS: Record Kit Lot#, Serum Preg. 772476
[2024-03-14 19:16] LABS: ALB/GLOB Ratio 0.9 RATIO (0.9-2.4); AST(SGOT) 16 U/L (15-37); Alanine Aminotransfer ALT/SGPT 25 U/L (13-56); Albumin, Serum 3.9 g/dL (3.2-5.0); Alkaline Phosphatase 58 U/L (45-117); Anion Gap 7 (5-15); BUN 12 mg/dL (7-18); BUN/Creat Ratio 16.9 RATIO (10-20); Calcium,Total 9.9 mg/dL (8.5-10.1); Chloride 107 mmol/L (98-107); Creatinine, Serum 0.71 mg/dL (0.55-1.02); EST Glomerular Filtration Rate 99 mL/min (>60); Est Glom Filt Rate - Afr Amer 120 mL/min (>60); Estimated Creatinine Clearance 82.66 ml/min; Globulin 4.2 g/dL (2.2-4.2); Glucose 88 mg/dL (74-106); Lipase 65 U/L (13-75); Potassium 3.7 mmol/L (3.5-5.1); Protein, Total 8.1 g/dL (6.4-8.2); Sodium Level 140 mmol/L (136-145)
--- NOTE | 2024-03-14 19:36 | US_ITS ---
INDICATION: pain, n/v EXAMINATION: US Gallbladder (abdomen limited) TECHNIQUE: Vernon-scale and color Doppler imaging was performed of the right upper abdominal quadrant. COMPARISON: None. Findings: The liver is coarse in echotexture, however is homogenous and normal in echogenicity. There is moderate contour nodularity consistent with cirrhosis. No focal hepatic mass is identified. The main portal vein is normal in size and patent demonstrating hepatopetal flow. The gallbladder is unremarkable without evidence of stones, wall thickening or pericholecystic fluid. Sonographic Silver''s tenderness is not appreciated. There is no evidence of intrahepatic biliary ductal dilatation. The CBD is nondilated measuring 2 mm at the level of the pavan hepatis. The visualized portions of the pancreas are unremarkable without evidence of focal or diffuse enlargement. Specifically, the tail is obscured by overlying bowel gas. Right kidney measures 9.4 cm in length. It is normal in echogenicity. No focal renal lesion is identified. There is no evidence of hydronephrosis. US/Gallbladder IMPRESSION: Coarse liver without evidence of contour nodularity. Findings are suggestive of cirrhosis. No evidence of focal hepatic mass. Portal venous hypertension is not manifested on this exam. Remainder of the exam is otherwise unremarkable. . Electronically Signed: Fred Jones MD at 21:01 EDT ,
--- NOTE | 2024-03-14 20:23 | EDS_ITS ---
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 It started to become worse throughout the night and today, has been colicky, radiating to her right shoulder, associated with nausea and vomiting, no fevers, chills, jaundice, confusion. History of appendectomy in the past and a C- section as well as a tubal. No urinary symptoms. The pain is lateral in the right upper quadrant mostly. Never had this before. She has had a very poor appetite all day today because of this. [facility] Medical History Pain of left great toe Injury of left great toe Encounter for preventative adult health care examination Chronic back pain Vitamin deficiency Chest pain Acne Depression Generalized anxiety disorder with panic attacks delivery delivered History of prior with IUGR Oligohydramnios depression Pre-eclampsia Bilateral headaches IBS (irritable bowel syndrome) Anxiety and depression Home Medications ?Medication ?Instructions ?Recorded ?Last Taken ?Type ondansetron 8 mg disintegrating 8 mg PO Q8H PRN nausea and 02/18/24 Unknown Rx tablet vomiting #30 tabs venlafaxine 150 mg 150 mg PO DAILY #30 caps 02/18/24 Unknown Rx capsule,extended release 24 hr desogestrel 0.15 mg-ethinyl 1 tab PO QDAY #28 tabs 03/12/24 Unknown Rx estradiol 0.03 mg tablet (Apri) dicyclomine 20 mg tablet 20 mg PO Q6H PRN PRN abdominal 03/14/24 Unknown Rx discomfort #20 tabs pantoprazole 40 mg tablet,delayed 40 mg PO DAILY #14 tabs 03/14/24 Unknown Rx release promethazine 25 mg tablet 25 mg PO Q6H PRN PRN Nausea #20 03/14/24 Unknown Rx TABLETS Allergy/AdvReac Type Severity Reaction Status Date / Time morphine Allergy Shortness Verified 03/14/24 18:24 of breath Family History Mother Diabetes Depression Cancer Father Hypertension Grandfather Myocardial infarction Grandfather CVA (cerebral vascular accident) Brother Mental disorder Seizures Surgical History Delivery by section Mcgrath teeth extracted History of appendectomy Social History Smoking Status: Never smoker alcohol intake: current details: social substance use type: does not use what type of physical activity do you participate in: none seatbelt use: always do you feel safe at home: Yes additional social history: [employer] at [employer] 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 ROS ROS ED Constitutional Constitutional ED: Denies chills or fever(s) Eyes Eyes: Denies change in vision or diplopia ENT ENT ED: Denies rhinorrhea or sore throat Cardiovascular Cardiovascular: Denies chest pain or palpitations Respiratory/Chest Respiratory/Chest: Denies cough or dyspnea Gastrointestinal Gastrointestinal: Reports abdominal pain, nausea and vomiting; Denies diarrhea or melena Genitourinary Genitourinary ED: Denies dysuria, hematuria or urinary frequency Musculoskeletal Musculoskeletal: Reports back pain; Denies neck pain Integumentary Denies abscess or rash Neurologic Neurologic: Denies headache(s), paresthesias or weakness Psychiatric Psychiatric: Denies anxiety or suicidal thoughts EXAM Physical Exam Const Vital Signs: 03/14/24 18:24 Temperature 97.8 F Temperature Source Temporal Pulse Rate 94 Respiratory Rate 18 Blood Pressure 133/92 H Blood Pressure Mean 105 Pulse Ox 100 Oxygen Delivery Method Room Air Positive well nourished and well developed General Appearance ED: well developed and NAD HEENT Reports moist mucous membranes normocephalic and atraumatic Eyes PERRL and EOMs intact bilaterally Neck full ROM and supple Resp normal respiratory effort and clear to auscultation bilaterally Cardio regular rate, regular rhythm and no murmurs GI non-distended GI Narrative: Right upper quadrant tenderness with Silver's. No other areas of tenderness. Auscultation: normoactive bowel sounds Palpation: soft Back/Spine Back/Spine Narrative: Normal inspection no rash General Back: CVA tenderness right and other FROM Extremity normal to inspection General Extremety ED: Negative for edema, pulses abnormal or tenderness General Extremity: Negative for edema or pulses abnormal Neuro oriented x3, CN's II-XII intact bilaterally and no sensory deficits noted Sensorium / Orientation: awake and alert Motor Exam: strength 5/5 throughout Skin no rashes or lesions noted and no wounds MDM MDM MDM Narrative Medical decision making narrative: Differential here includes biliary colic as well as renal colic, so before ordering imaging testing I did a bedside screening ultrasound. I do not see any hydronephrosis on the right, but she does have a positive sonographic Silver over the gallbladder, which appears to have a thickened wall, possibly some shadowing but difficult to tell if it is a stone in the neck or shadowing from the fraction at the edge of the gallbladder. I see no other signs of stones or shadowing. However, this makes it more suspicious that this is biliary colic. She was given Toradol and Zofran and feels much better on reevaluation. She was sent for an official ultrasound as well as obtaining labs which I reviewed. I reviewed the images and the result which I agree with, it is essentially normal, but the radiologist mentioned that the echogenicity of her liver is consistent with cirrhosis. I do not believe this patient has cirrhosis based on her labs and history. She has a normal bilirubin and normal liver enzymes and normal lipase. I am adding coags to verify that those are normal. Patient is feeling a lot better. The etiology of her pain is unknown. She does not have a leukocytosis. Is possible this is intraluminal intestinal etiology. I offered a CT, she prefers follow-up with her doctor which I think is totally reasonable. Still possible this could be biliary in etiology without stones, for which she would need a HIDA scan. For now are going to treat intraluminal disease with PPI, dicyclomine, prn Phenergan. Lab Data Attestation: I reviewed the patient's lab results. Labs: Laboratory Results - last 24 hr 03/14/24 03/14/24 03/14/24 18:50 21:10 21:26 WBC 7.9 RBC 4.66 Hgb 14.0 Hct 41.2 MCV 88.4 MCH 30.0 MCHC 34.0 RDW Std Deviation 39.5 RDW Coeff of Myriam 12.2 Plt Count 332 MPV 9.6 Immature Gran % (Auto) 0.000 Neut % (Auto) 49.2 Lymph % (Auto) 40.5 [place] % (Auto) 8.2 Eos % (Auto) 1.3 Baso % (Auto) 0.8 Absolute Neuts (auto) 3.9 Absolute Lymphs (auto) 3.18 Nucleated RBC % 0 Sodium 140 Potassium 3.7 Chloride 107 Carbon Dioxide 26.0 Anion Gap 7 BUN 12 Creatinine 0.71 Estim Creat Clear Calc 82.66 Est GFR (MDRD) Af Amer 120 Est GFR (MDRD) Non-Af 99 BUN/Creatinine Ratio 16.9 Glucose 88 Calcium 9.9 Total Bilirubin 0.60 AST 16 ALT 25 Alkaline Phosphatase 58 Total Protein 8.1 Albumin 3.9 Globulin 4.2 Albumin/Globulin Ratio 0.9 Lipase 65 Serum , Qual NEGATIVE Urine Color Cancelled Yellow Urine Clarity Cancelled Clear Urine pH Cancelled 6.5 Ur Specific [place] Cancelled 1.015 U Specif Grav (Refrac) Cancelled Urine Protein Cancelled Negative Urine Glucose (UA) Cancelled Normal Urine Ketones Cancelled 5 H Urine Occult Blood Cancelled 50 H Urine Nitrite Cancelled Negative Urine Bilirubin Cancelled Negative Urine Urobilinogen Cancelled Normal Ur Leukocyte Esterase Cancelled Negative Urine RBC Cancelled Urine WBC Cancelled Ur Squamous Epith Cells Cancelled Ur Transition Epith Cell Cancelled Ur Renal Epithelial Cell Cancelled Calcium Oxalate Crystal Cancelled Uric Acid Crystals Cancelled Triple Phos Crystals Cancelled Other Crystals Cancelled Amorphous Sediment Cancelled Urine Bacteria Cancelled Hyaline Casts Cancelled Fine Granular Casts Cancelled Coarse Granular Casts Cancelled Waxy Casts Cancelled RBC Casts Cancelled WBC Casts Cancelled Urine Mucus Cancelled Urine Trichomonas Cancelled Urine Yeast Cancelled Radiography Diagnostic Testing: Clinical Impression(s) from Imaging Studies Gallbladder Ultrasound 03/14/24 19:36 IMPRESSION: Coarse liver without evidence of contour nodularity. Findings are suggestive of cirrhosis. No evidence of focal hepatic mass. Portal venous hypertension is not manifested on this exam. Remainder of the exam is otherwise unremarkable. . Electronically Signed: Fred Jones MD at 21:01 EDT , Discharge Plan Triage Chief Complaint: Abd Pain ED Provider: Misha Madsen Dx/Rx/DC Orders Clinical Impression: Right upper quadrant abdominal pain Instructions: Abdominal Pain Prescriptions: New pantoprazole 40 mg tablet,delayed release (DR/EC) 40 mg PO DAILY Qty: 14 0RF dicyclomine 20 mg tablet 20 mg PO Q6H PRN PRN (Reason: abdominal discomfort) Qty: 20 0RF promethazine 25 mg tablet 25 mg PO Q6H PRN PRN (Reason: Nausea) Qty: 20 0RF No Action ondansetron 8 mg tablet,disintegrating 8 mg PO Q8H PRN (Reason: nausea and vomiting) Qty: 30 4RF venlafaxine 150 mg capsule,extended release 24hr 150 mg PO DAILY Qty: 30 12RF desogestrel-ethinyl estradiol [Apri] 0.15-0.03 mg tablet 1 tab PO QDAY Qty: 28 12RF Rx Instructions: take only active pills discard inactive start new pack immediately Primary Care Provider: Ebony Flores Referrals: Ebony Flores MD [Primary Care Provider] - As soon as possible Print Language: [place] Verdean Disposition Disposition: Home, Self Care
[2024-03-14 21:35] LABS: Bacteria 0 SEEN /hpf (None Seen); Mucous, Urine 0 SEEN /hpf (<or=2+); White Blood Cells 0 SEEN /hpf (0-5)
[2024-03-14 21:53] LABS: Color, Urine Yellow (Yellow); Glucose, Dipstick Normal (Normal); Ketone-Dipstick 5 mg/dl (Negative); Leukocyte Esterase-Dipstick Negative /ul (Negative); Nitrite-Dipstick Negative (Negative); Occult Blood-Urine 50 /ul (Negative); Protein-Dipstick Negative (Negative); Specific Gravity, Urine 1.015 (1.002-1.030); Urine Bilirubin Dipstick Negative (Negative); Urine Clarity Clear (Clear); Urine Urobilinogen Normal (Normal); Urine pH 6.5 (5.0 - 8.0)
[2024-03-14 22:01] LABS: Red Blood Cells-Urine 0-5 SEEN /hpf (0-5); Squamous Epithelial Cells - UA 0-5 SEEN /hpf (5-10)
[2024-03-14] MEDS: Pantoprazole Sodium 40 MG Tablet PO (22:05)
[2024-03-14 22:09] LABS: Prothrombin Time (Protime)PT. 13.2 SECONDS (11.7-14.9)
== END 2024-03-14 22:16 | disposition home or self-care (01) ==
PROVIDERS: Emergency Provider Emergency Medicine; PCP Internal Medicine; Visit Provider Emergency Medicine
DX: R10.11 Right upper quadrant pain (principal)
CPT/HCPCS: 76705; 80053; 81001; 83690; 84703; 85025; 85610; 85730; 96361; 96374; 96375; 96376; 99283; J7030; J2405

== ENCOUNTER → 2024-04-02 | Outpatient (CLI) | payer OTHER, SELFPAY ==
--- NOTE | 2024-04-02 07:52 | NM_ITS ---
CLINICAL: 38-year-old female with history of right upper quadrant abdominal pain. RADIONUCLIDE HEPATOBILIARY SCINTIGRAPHY COMPARISON: Gallbladder ultrasound report 03/14/2024 FINDINGS: Following the intravenous administration of 5.8 mCi of 99m Tc Mebrofenin, hepatobiliary images reveal: 1. Relatively prompt and homogeneous radiopharmaceutical concentration is noted by a normal sized liver. No parenchymal defects are identified. 2. Gallbladder activity is identified at 10 minutes post radiopharmaceutical administration. 3. Small intestinal tract is observed at 45 minutes following tracer injection. 4. Washout of the radiopharmaceutical by the hepatic parenchyma appears qualitatively normal. Cholecystokinin (0.02 ug/kg) was administered intravenously over a 30-minute period. The post CCK gallbladder ejection fraction calculated at 20 minutes following Cholecystokinin administration was noted to be 50.0 % (normal greater than 35%). During 30 minutes of post CCK imaging, there is no scintigraphic evidence of reflux of the radiotracer into the common hepatic duct or refilling of the gallbladder. GA/Hepatobilliary Img w/Pharm Int IMPRESSION: 1. NORMAL 99m Tc Mebrofenin hepatobiliary imaging examination with Cholecystokinin. A. A gallbladder ejection fraction calculated to be greater than 35% following the administration of Cholecystokinin makes the probability of functional hepatobiliary disease (gallbladder and/or sphincter of Oddi dyskinesia) and/or organic hepatobiliary disease (chronic acalculous cholecystitis and/or cystic duct syndrome) to be low. (Choco Warner et al, Journal of Nuclear Medicine 32:1695, 1991). Electronically Signed: Misael Garcia DO at 11:28 EDT ,
== END | disposition home or self-care (01) ==
LOC: NM 07:52
PROVIDERS: PCP Internal Medicine; Referring Provider Surgery; Visit Provider Surgery
DX: R10.11 Right upper quadrant pain (principal)
CPT/HCPCS: 78227; A9537; J2805

== ENCOUNTER 2025-01-29 21:57 | Outpatient (REF) | payer SELFPAY ==
[2025-01-29 22:03] VITALS: BP 124/72; PULSE 70; RESP 22; TEMP 37.1; O2SAT 99; BMI 23.3
[2025-01-29 22:07] VITALS: BP 124/72; PULSE 70; RESP 22; TEMP 37.1; O2SAT 99
--- OUTSIDE RECORDS SUMMARY | 2025-01-29 22:22 | XMS RPT_ITS | CCD ---
Author Organization [facility] Care Team Providers Care Manager Image Name Role Phone YISSEL PINO Unavailable Unavailable TATYANA AMAYA Unavailable UnavailZENAIDA Seals Unavailable Unavailable Dr. Ebony Flores Primary Care Provider [phone] Dr. Ebony Flores Referring Provider [phone] Clarke BAR TURNER, BAR TURNER-C Peterson Attending Provider [phone] Dr. Ebony Flores Primary Care Provider [phone] Dr. Ebony Flores Referring Provider [phone] Dr. Cherelle Galan Attending Provider [phone] Dr. Tatyana Amaya Attending Provider [phone] Dr. Ebony Flores Primary Care Provider [phone] Dr. Ebony Flores Referring Provider [phone] Dr. Cherelle Galan Attending Provider [phone] ISAIAH Hester Attending Provider Clarke BAR TURNER, BAR TURNER-C Peterson Attending Provider [phone] Dr. Ebony Flores Primary Care Provider [phone] Dr. Ebony Flores Referring Provider Clarke BAR TURNER, BAR TURNER-C Peterson Attending Provider [phone] ISAIAH Iqbal Attending Provider ISAIAH Hester Attending Provider Sarah, Dr. Tokio Attending Provider Dr. Ebony Flores Primary Care Provider [phone] Dr. Ebony Flores Referring Provider [phone] DEBBIE Owens Attending Provider [phone] Oleghe, Efewongbe Primary Care Unavailable Robotham, Nicolasa Attending Unavailable Robotham, Nicolasa Referring Unavailable Oleghe, Efewongbe Primary Care Unavailable Oleghe, Efewongbe Referring Unavailable Robotham, Nicolasa Attending Unavailable Sow, Sraah Attending Unavailable Oleghe, Efewongbe Primary Care Unavailable SowSarah Attending Unavailable Oleghe, Efewongbe Primary Care Unavailable Gia Keller Attending Unavail able Oleghe, Efewongbe Referring Unavailable Oleghe, Efewongbe Primary Care Unavailable Nj Enriquez Attending Unavailable Oleghe, Efewongbe Referring Unavailable Oleghe, Efewongbe Primary Care Unavailable Oleghe, Efewongbe Primary Care Unavailable Oleghe, Efewongbe Referring Unavailable Tatyana Amaya Attending Unavailable Oleghe, Efewongbe Primary Care Unavailable Robotham, Nicolasa Attending Unavailable Robotham, Nicolasa Referring Unavailable Oleghe, Efewongbe Primary Care Unavailable Misha Madsen Attending Unavailable Assessment, Health Risk Referring Unavaila ble Oleghe, Efewongbe Primary Care Unavailable Assessment, Health Risk Attending Unavaila ble Allergies Allergy Classification Reported Allergen(s) Allergy Type Date of Onset Reaction(s) Facility (1 source) MORPHINE AND RELATED; Translations: [MORPHINE AND RELATED] Propensity to adverse reactions to drug (disorder) 6 [facility] (7 sources) Morphine Drug Allergy 2 Shortness of breath [facility] (1 source) Morphine Drug Allergy 5 [facility] Medications Current Medications Medication Drug Class(es) Dates Sig (Normalized) Sig (Original) ISOtretinoin 40 mg oral capsule (1 source) Retinoid Start: 08-14-2023 Isotretinoin (Zenatane) 40 mg capsule Active MG PO August 14, 2023 1:00am omeprazole 20 mg delayed release oral capsule (11 sources) Proton Pump Inhibitor Start: 03-29-2022 End: 08-14-2023 take 20 mg by mouth once daily Omeprazole Active 20 MG PO DAILY August 14, 2023 10:29am ondansetron 8 mg disintegrating oral tablet (2 sources) Serotonin-3 Receptor Antagonist Start: 04-02-2023 take 8 mg by mouth every eight hours Ondansetron Active 8 MG PO Q8H April 02, 2023 12:00am 24 hr venlafaxine 150 mg extended release oral capsule (11 sources) Serotonin and Norepinephrine Reuptake Inhibitor Start: 02-27-2023 take 150 mg by mouth once daily Venlafaxine Active 150 MG PO DAILY February 27, 2023 8:03am Start: 01-29-2023 End: 02-27-2023 take 1 capsule by mouth once daily Venlafaxine (Effexor Xr) 75 mg capsule,extended release 24hr Discontinued 75 MG PO DAILY January 29, 2023 12:00am February 27, 2023 8:04am Start: 02-10-2019 End: 03-30-2019 take 1 capsule by mouth once daily Venlafaxine (Effexor Xr) 37.5 mg capsule,extended release 24hr Discontinued 37.5 MG PO DAILY February 10, 2019 12:00am March 30, 2019 1:24pm Completed/Discontinued Medications Medication Drug Class(es) Dates Sig (Normalized) Sig (Original) acetaminophen 500 mg oral tablet (7 sources) Start: 11-10-2020 End: 11-22-2020 take 1000 mg by mouth every six hours Acetaminophen Discontinued 1000 MG PO EVERY 6 HOURS November 10, 2020 12:00am November 22, 2020 10:13am acetaminophen 300 mg / butalbital 50 mg / caffeine 40 mg oral capsule (14 sources) Barbiturate, Central Nervous System Stimulant, Methylxanthine Start: 03-18-2019 End: 03-30-2019 take 1 capsule by mouth every eight hours Butalbital-Acetami nophen-Caff (Fioricet) 50-300-40 mg capsule Discontinued 1 CAP PO Q8H March 18, 2019 12:00am March 30, 2019 1:24pm Start: 10-02-2018 End: 01-28-2019 take 1 capsule by mouth three times daily Kzbqgrbvmw-Pypxdrgsqbobh-Ghco (Fioricet) 50-300-40 mg capsule Discontinued 1 CAP PO THREE TIMES A DAY October 02, 2018 12:00am January 28, 2019 5:02pm acetaminophen 325 mg / oxyCODONE hydrochloride 5 mg oral tablet (7 sources) Opioid Agonist Start: 10-04-2018 End: 10-09-2018 take 1 tablet by mouth every four hours Oxycodone-Acetaminophen (Percocet) 5-325 mg tablet Discontinued 1 TABLET PO Q4H 14 5 October 04, 2018 October 09, 2018 12:09am amoxicillin 500 mg oral capsule (20 sources) Penicillin-class Antibacterial Start: 02-17-2023 End: 08-14-2023 take 500 mg by mouth twice daily Amoxicillin Discontinued 500 MG PO TWICE A DAY February 17, 2023 12:00am August 14, 2023 10:06am Start: 02-15-2021 End: 02-25-2021 take 500 mg by mouth twice daily Amoxicillin Discontinued 500 MG PO TWICE A DAY 20 04February 15, 2021 12:00am February 25, 2021 12:01am Start: 10-17-2018 End: 10-27-2018 take 1000 mg by mouth twice daily Amoxicillin Discontinued 1000 MG PO TWICE A DAY 40 October 17, 2018 12:00am October 27, 2018 12:07am Start: 08-14-2018 End: 08-24-2018 take 1000 mg by mouth twice daily Amoxicillin Discontinued 1000 MG PO TWICE A DAY 40 August 14, 2018 1:00am August 24, 2018 1:09am aspirin 81 mg delayed release oral tablet (7 sources) Platelet Aggregation Inhibitor, Nonsteroidal Anti-inflammatory Drug Start: 10-07-2020 End: 11-10-2020 take 1 tablet by mouth once daily Aspirin (Adult Aspirin Regimen) 81 mg tablet,delayed release (DR/EC) Discontinued 81 MG PO DAILY October 07, 2020 12:00am November 10, 2020 2:07pm biotin 10 mg oral capsule (7 sources) Start: 12-03-2016 End: 06-29-2017 take 20389 ug by mouth once daily Biotin Discontinued 80186 MCG PO DAILY December 03, 2016 12:00am June 29, 2017 12:15pm Blood-Glucose Meter ([employer] Blood Glucose System) kit (7 sources) Start: 08-30-2020 End: 09-23-2020 Blood-Glucose Meter ([employer] Blood Glucose System) kit Discontinued 0 .ROUTE .MEDSUPPLY August 30, 2020 1:44pm September 23, 2020 11:19am As directed Start: 08-30-2020 End: 09-23-2020 Blood-Glucose Meter ([employer]k Blood Glucose System) kit Discontinued 0 .ROUTE .MEDSUPPLY August 30, 2020 12:00am September 23, 2020 10:19am As directed Start: 08-30-2020 End: 09-23-2020 Blood-Glucose Meter ([employer] ck Blood Glucose System) kit Discontinued 0 .ROUTE .MEDSUPPLY August 30, 2020 1:00am September 23, 2020 11:19am As directed busPIRone hydrochloride 5 mg oral tablet (20 sources) Start: 03-31-2021 End: 09-06-2021 take 5 mg by mouth twice daily Buspirone Discontinued 5 MG PO TWICE A DAY 60 March 31, 2021 12:00am September 06, 2021 5:56pm Start: 01-29-2020 End: 04-22-2020 take 10 mg by mouth once daily Buspirone Discontinued 10 MG PO DAILY 90 January 29, 2020 12:00am April 22, 2020 2:26pm Start: 08-05-2019 End: 01-29-2020 take 7.5 mg by mouth twice daily Buspirone Discontinued 7.5 MG PO TWICE A DAY 180 August 05, 2019 1:00am January 29, 2020 10:34am Start: 07-10-2019 End: 08-05-2019 take 5 mg by mouth twice daily Buspirone Discontinued 5 MG PO TWICE A DAY 60 July 10, 2019 1:00am August 05, 2019 1:08pm cetirizine hydrochloride 10 mg oral capsule (7 sources) Histamine-1 Receptor Antagonist Start: 11-02-2020 End: 11-22-2020 take 1 capsule by mouth once daily Cetirizine (Zyrtec) 10 mg Capsule Discontinued 10 MG PO DAILY November 02, 2020 12:00am November 22, 2020 10:13am ciprofloxacin 500 mg oral tablet (7 sources) Quinolone Antimicrobial Start: 12-03-2016 End: 06-29-2017 take 500 mg by mouth twice daily Ciprofloxacin Hcl Discontinued 500 MG PO TWICE A DAY 14 December 03, 2016 12:00am June 29, 2017 12:16pm cyclobenzaprine hydrochloride 10 mg oral tablet (7 sources) Muscle Relaxant Start: 09-30-2018 End: 03-30-2019 take 5 mg by mouth three times daily Cyclobenzaprine Discontinued 5 MG PO THREE TIMES A DAY September 30, 2018 12:00am March 30, 2019 1:24pm Desogestrel-Ethinyl Estradiol (20 sources) Progestin, Estrogen Start: 01-10-2021 End: 03-31-2021 Desogestrel-Ethinyl Estradiol (Apri) 0.15-0.03 mg tablet Discontinued 1 TABLET PO daily 84 January 10, 2021 2:44pm March 31, 2021 5:08pm Start: 01-10-2021 End: 03-31-2021 Desogestrel-Ethinyl Estradio l (Apri) 0.15-0.03 mg tablet Discontinued 1 TABLET PO daily January 09, 2021 11:00pm March 31, 2021 4:08pm Start: 01-10-2021 End: 03-31-2021 Desogestrel-Ethinyl Estradio l (Apri) 0.15-0.03 mg tablet Discontinued 1 TABLET PO daily January 10, 2021 12:00am March 31, 2021 5:08pm Start: 07-10-2019 End: 04-12-2020 Desogestrel-Ethinyl Estradio l (Apri) 0.15-0.03 mg tablet Discontinued 1 TABLET PO daily July 10, 2019 1:37pm April 12, 2020 9:34am Start: 07-10-2019 End: 04-12-2020 Desogestrel-Ethinyl Estradio l (Apri) 0.15-0.03 mg tablet Discontinued 1 TABLET PO daily July 10, 2019 12:00am April 12, 2020 8:34am Start: 07-10-2019 End: 04-12-2020 Desogestrel-Ethinyl Estradio l (Apri) 0.15-0.03 mg tablet Discontinued 1 TABLET PO daily July 10, 2019 1:00am April 12, 2020 9:34am Start: 06-12-2018 End: 03-30-2019 Desogestrel-Ethinyl Estradio l (Apri) 0.15-0.03 mg tablet Discontinued 1 TABLET PO daily June 12, 2018 10:50am March 30, 2019 1:24pm Start: 06-12-2018 End: 03-30-2019 Desogestrel-Ethinyl Estradio l (Apri) 0.15-0.03 mg tablet Discontinued 1 TABLET PO daily June 12, 2018 12:00am March 30, 2019 12:24pm Start: 06-12-2018 End: 03-30-2019 Desogestrel-Ethinyl Estradio l (Apri) 0.15-0.03 mg tablet Discontinued 1 TABLET PO daily June 12, 2018 1:00am March 30, 2019 1:24pm dextromethorphan hydrobromide 1 mg/ml oral solution (7 sources) Uncompetitive U-eruizb-E-aspartate Receptor Antagonist, Sigma-1 Agonist Start: 09-03-2019 End: 04-12-2020 take 10 mg by mouth every six hours Dextromethorphan Hbr (Vicks Dayquil Cough) 5 mg/5 mL syrup Discontinued 10 MG PO EVERY 6 HOURS September 03, 2019 1:00am April 12, 2020 9:34am Drospirenone-Ethinyl Estradiol (11 sources) Progestin, Estrogen Start: 01-29-2023 End: 01-29-2023 take 1 tablet by mouth once daily Drospirenone-Ethiny l Estradiol Discontinued 1 TABLET PO daily January 29, 2023 12:06pm January 29, 2023 12:07pm Start: 01-29-2023 End: 01-29-2023 take 1 tablet by mouth once daily Drospirenone-Ethinyl Estradiol Discontinued 1 TABLET PO daily January 29, 2023 11:06am January 29, 2023 11:07am Start: 11-09-2022 End: 01-29-2023 take 1 tablet by mouth once daily Drospirenone-Ethinyl Estradiol Discontinued 1 TABLET PO daily November 09, 2022 9:40am January 29, 2023 12:06pm Start: 11-09-2022 End: 01-29-2023 take 1 tablet by mouth once daily Drospirenone-Ethinyl Estradiol Discontinued 1 TABLET PO daily November 09, 2022 8:40am January 29, 2023 11:06am Start: 11-09-2022 take 1 tablet by perry th once daily Drospirenone-Ethinyl Estradiol Active 1 TABLET PO daily November 09, 2022 9:40am Start: 11-03-2021 End: 11-09-2022 take 1 tablet by mouth once daily Drospirenone-Ethinyl Estradiol Discontinued 1 TABLET PO daily November 02, 2021 11:00pm November 09, 2022 8:41am Start: 11-03-2021 End: 11-09-2022 take 1 tablet by mouth once daily Drospirenone-Ethinyl Estradiol Discontinued 1 TABLET PO daily November 03, 2021 12:00am November 09, 2022 9:41am Start: 11-03-2021 take 1 tablet by perry th once daily Drospirenone-Ethinyl Estradiol Active 1 TABLET PO daily November 03, 2021 12:00am escitalopram 10 mg oral tablet (7 sources) Serotonin Reuptake Inhibitor Start: 11-22-2018 End: 01-28-2019 take 1 tablet by mouth once daily Escitalopram Oxalate (Lexapro) 10 mg tablet Discontinued 10 MG PO DAILY November 22, 2018 12:00am January 28, 2019 5:02pm famotidine 20 mg oral tablet (7 sources) Histamine-2 Receptor Antagonist Start: 11-02-2020 End: 11-22-2020 take 1 tablet by mouth twice daily Famotidine (Pepcid) 20 mg Tablet Discontinued 20 MG PO TWICE A DAY November 02, 2020 12:00am November 22, 2020 10:13am fluconazole 150 mg oral tablet (14 sources) Azole Antifungal Start: 07-05-2021 End: 09-06-2021 Fluconazole Discontinued 150 MG PO .COMPLEX 2 July 05, 2021 1:00am September 06, 2021 5:56pm 150 mg PO take one po now and repeat in 3 days Start: 03-25-2019 End: 03-30-2019 Fluconazole Discontinued 150 MG PO .COMPLEX 2 March 25, 2019 12:00am March 30, 2019 1:24pm 150 mg PO take one po now and repeat in 3 days FLUoxetine 10 mg oral capsule (20 sources) Serotonin Reuptake Inhibitor Start: 03-29-2022 End: 11-08-2022 take 20 mg by mouth once daily, then take 30 mg by mouth once daily Fluoxetine Discontinued 10 MG PO DAILY October 24, 2022 9:26am November 08, 2022 8:35am take in conjunction with 20 mg to equal 30 mg a day Start: 05-03-2021 End: 01-29-2023 take 1 capsule by mouth once daily Fluoxetine (Prozac) 20 mg capsule Discontinued 20 MG PO DAILY October 24, 2022 9:26am January 29, 2023 12:05pm ibuprofen 200 mg oral capsule (7 sources) Nonsteroidal Anti-inflammatory Drug Start: 09-03-2019 End: 11-12-2019 take 200 mg by mouth every six hours Ibuprofen Discontinued 200 MG PO EVERY 6 HOURS September 03, 2019 1:00am November 12, 2019 11:12am L.Acidoph, Paracasei,B. Lactis (7 sources) Start: 09-21-2015 End: 06-29-2017 L.Acidoph, Paracasei,B. Lactis Discontinued 1 EACH PO DAILY September 21, 2015 4:38am June 29, 2017 12:15pm Start: 09-21-2015 End: 06-29-2017 L.Acidoph, Paracasei,B. Lact is Discontinued 1 EACH PO DAILY September 20, 2015 11:00pm June 29, 2017 11:15am Start: 09-21-2015 End: 06-29-2017 L.Acidoph, Paracasei,B. Lact is Discontinued 1 EACH PO DAILY September 21, 2015 12:00am June 29, 2017 12:15pm lidocaine hydrochloride 20 mg/ml mucous membrane topical solution (7 sources) Antiarrhythmic, Amide Local Anesthetic Start: 03-28-2019 End: 03-30-2019 Lidocaine Hcl (Lidocaine Viscous) 2 % solution Discontinued 1 APPLIC MUCOUS MEM 2 to 4 times per day March 28, 2019 12:00am March 30, 2019 1:24pm LORazepam 1 mg oral tablet (7 sources) Benzodiazepine Start: 02-15-2021 End: 03-31-2021 take 1 tablet by mouth three times daily Lorazepam (Ativan) 1 mg tablet Discontinued 1 MG PO THREE TIMES A DAY February 15, 2021 12:00am March 31, 2021 5:08pm meclizine hydrochloride 25 mg oral tablet (7 sources) Antiemetic Start: 01-16-2019 End: 03-30-2019 take 25 mg by mouth three times daily Meclizine Discontinued 25 MG PO THREE TIMES A DAY January 16, 2019 12:00am March 30, 2019 1:24pm medroxyPROGESTERone acetate 10 mg oral tablet (7 sources) Progestin Start: 05-03-2021 End: 09-06-2021 Medroxyprogesterone (Provera) 10 mg tablet Discontinued 10 MG PO daily May 03, 2021 12:00am September 06, 2021 5:56pm take for five days if neg preg test and no menses after 35-40 days meloxicam 15 mg oral tablet (3 sources) Nonsteroidal Anti-inflammatory Drug Start: 11-08-2022 End: 08-14-2023 take 7.5-15 mg by mouth once daily Meloxicam Discontinued 7.5 - 15 MG PO DAILY November 08, 2022 12:00am August 14, 2023 10:06am methocarbamol 500 mg oral tablet (7 sources) Muscle Relaxant Start: 11-12-2019 End: 04-22-2020 take 250 mg by mouth at bedtime Methocarbamol Discontinued 250 MG PO AT BEDTIME November 12, 2019 12:00am April 22, 2020 2:26pm methylPREDNISolone 4 mg oral tablet (20 sources) Corticosteroid Start: 05-05-2021 End: 09-06-2021 take 1 tablet by mouth once Methylprednisolone (Medrol (Chase)) 4 mg tablets,dose pack Discontinued 0 PO per package directions May 05, 2021 12:00am September 06, 2021 5:56pm PO PER PKG DIR Start: 03-02-2021 End: 03-31-2021 take 1 tablet by mouth once Methylprednisolone (Medrol (Chase)) 4 mg tablets,dose pack Discontinued 0 PO per package directions March 02, 2021 12:00am March 31, 2021 5:08pm PO PER PKG DIR Start: 08-07-2019 End: 11-12-2019 take 1 tablet by mouth once Methylprednisolone (Medrol (Chase)) 4 mg tablets,dose pack Discontinued 0 PO per package directions August 07, 2019 1:00am November 12, 2019 11:12am PO PER PKG DIR metroNIDAZOLE 500 mg oral tablet (7 sources) Nitroimidazole Antimicrobial Start: 07-05-2017 End: 05-03-2018 take 1 tablet by mouth twice daily Metronidazole (Flagyl) 500 mg tablet Discontinued 500 MG PO TWICE A DAY July 05, 2017 1:00am May 03, 2018 3:55pm naproxen 500 mg oral tablet (20 sources) Nonsteroidal Anti-inflammatory Drug Start: 03-02-2021 End: 03-31-2021 take 500 mg by mouth every twelve hours at mealtime Naproxen Discontinued 500 MG PO Q12H March 02, 2021 12:00am March 31, 2021 5:08pm administer with food or milk Start: 11-10-2020 End: 11-22-2020 take 250-500 mg by mouth every eight hours as needed Naproxen Discontinued 250 - 500 MG PO EVERY 8 HOURS NEEDED November 10, 2020 12:00am November 22, 2020 10:13am Start: 10-04-2018 End: 03-30-2019 take 500 mg by mouth at mealtime Naproxen Discontinued 500 MG PO 2 to 3 times per day 60 October 04, 2018 12:00am March 30, 2019 1:24pm administer with food or milk Start: 05-10-2018 End: 09-05-2018 take 250-500 mg by mouth every eight hours as needed Naproxen Discontinued 250 - 500 MG PO EVERY 8 HOURS NEEDED May 10, 2018 1:00am September 05, 2018 6:32pm nitrofurantoin, macrocrystals 25 mg / nitrofurantoin, monohydrate 75 mg oral capsule (7 sources) Nitrofuran Antibacterial Start: 02-10-2020 End: 02-17-2020 take 1 capsule by mouth twice daily at mealtime Nitrofurantoin Monohyd/M-Cryst (Macrobid) 100 mg capsule Discontinued 100 MG PO TWICE A DAY 14 February 10, 2020 12:00am February 17, 2020 12:02am must administer with a meal/food nystatin 791998 unt/ml topical cream (7 sources) Polyene Antifungal Start: 08-05-2019 End: 04-12-2020 Nystatin Discontinued 1 APPLIC TOPICAL TWICE A DAY 15 August 05, 2019 1:00am April 12, 2020 9:34am apply peasized amount as instructed nystatin 100 unt/mg / triamcinolone acetonide 0.001 mg/mg topical ointment (7 sources) Polyene Antifungal, Corticosteroid Start: 01-14-2019 End: 01-28-2019 Nystatin-Triamcinol one Discontinued 1 APPLIC TOPICAL THREE TIMES A DAY January 14, 2019 12:00am January 28, 2019 5:02pm oseltamivir 75 mg oral capsule (7 sources) Neuraminidase Inhibitor Start: 09-03-2019 End: 09-08-2019 take 75 mg by mouth twice daily Oseltamivir Discontinued 75 MG PO TWICE A DAY 10 September 03, 2019 1:00am September 08, 2019 12:09am oxyCODONE hydrochloride 5 mg oral capsule (7 sources) Opioid Agonist Start: 11-10-2020 End: 11-22-2020 take 5 mg by mouth every six hours Oxycodone Discontinued 5 MG PO EVERY 6 HOURS 13 01November 10, 2020 November 22, 2020 10:13am Pnv 463-Xmgey-Cpgda-3-Fi sh Oil (7 sources) Start: 12-03-2016 End: 08-14-2018 take 1 tablet by mouth once daily Pnv 751-Frjmx-Cefok-3-F jason Oil Discontinued 1 TABLET PO DAILY December 03, 2016 7:38pm August 14, 2018 9:28am Start: 12-03-2016 End: 08-14-2018 take 1 tablet by mouth once daily Pnv 942-Oxxzn-Lhnjf-3-Fish Oil Discontinued 1 TABLET PO DAILY December 02, 2016 11:00pm August 14, 2018 8:28am Start: 12-03-2016 End: 08-14-2018 take 1 tablet by mouth once daily Pnv 846-Fdcwx-Xbdvb-3-Fish Oil Discontinued 1 TABLET PO DAILY December 03, 2016 12:00am August 14, 2018 9:28am polymyxin b 00944 unt/ml / trimethoprim 1 mg/ml ophthalmic solution (3 sources) Dihydrofolate Reductase Inhibitor Antibacterial, Polymyxin-class Antibacterial Start: 11-13-2022 End: 11-20-2022 Polymyxin B Sulf-Trimethoprim (Polytrim) 10,000 unit- 1 mg/mL drops Discontinued 1 DRP OPHTHALMIC Q3H 10 November 13, 2022 12:00am November 20, 2022 12:04am while awake; do not exceed 6 doses in 24 hours predniSONE 10 mg oral tablet (7 sources) Start: 11-12-2019 End: 04-12-2020 Prednisone Discontinued 0 PO daily November 12, 2019 12:00am April 12, 2020 9:35am 3 tabs for 4 days, then 2 tabs for 4 days, then 1 tab for 4 days PO QDAY; administer with food or milk vitamin#30 30 mg iron-10 mg iron-folic acid 1 mg-omg3 capsule (7 sources) Start: 08-12-2020 End: 09-06-2021 vitamin#30 30 mg iron-10 mg iron-folic acid 1 mg-omg3 capsule Discontinued CAP PO August 12, 2020 12:41pm September 06, 2021 5:57pm Start: 08-12-2020 End: 09-06-2021 vitamin#30 30 mg ir on-10 mg iron-folic acid 1 mg-omg3 capsule Discontinued CAP PO August 12, 2020 12:00am September 06, 2021 4:57pm Start: 08-12-2020 End: 09-06-2021 vitamin#30 30 mg ir on-10 mg iron-folic acid 1 mg-omg3 capsule Discontinued CAP PO August 12, 2020 1:00am September 06, 2021 5:57pm raNITIdine 150 mg oral tablet (7 sources) Histamine-2 Receptor Antagonist Start: 02-13-2018 End: 09-05-2018 take 1 tablet by mouth once daily Ranitidine Hcl (Zantac) 150 mg tablet Discontinued 150 MG PO daily February 13, 2018 12:00am September 05, 2018 6:33pm rizatriptan 10 mg oral tablet (7 sources) Serotonin-1b and Serotonin-1d Receptor Agonist Start: 01-28-2019 End: 03-30-2019 take 1 tablet by mouth once daily Rizatriptan (Maxalt) 10 mg tablet Discontinued 0 PO .COMPLEX January 28, 2019 12:00am March 30, 2019 1:24pm take 1 tab at onset of headache; if no relief may repeat 1 tab in 2hr; max = 3 tabs/day (24hr) PO sertraline 50 mg oral tablet (20 sources) Serotonin Reuptake Inhibitor Start: 04-22-2020 End: 03-31-2021 take 1 tablet by mouth once daily Sertraline (Zoloft) 50 mg tablet Discontinued 50 MG PO daily November 08, 2020 10:48am December 22, 2020 1:47pm Start: 04-15-2019 End: 04-12-2020 take 1 tablet by mouth once daily Sertraline (Zoloft) 50 mg tablet Discontinued 50 MG PO DAILY August 05, 2019 1:08pm April 12, 2020 9:35am Start: 05-20-2018 End: 09-05-2018 take 75 mg by mouth once daily Sertraline Discontinued 75 MG PO DAILY May 20, 2018 1:00am September 05, 2018 6:33pm Start: 09-11-2017 End: 05-20-2018 take 50 mg by mouth once daily Sertraline Discontinued 50 MG PO DAILY May 08, 2018 5:09pm May 20, 2018 10:53am spironolactone 50 mg oral tablet (9 sources) Aldosterone Antagonist Start: 01-29-2023 End: 08-14-2023 take 1 tablet by mouth once daily Spironolactone (Aldactone) 50 mg tablet Discontinued 50 MG PO DAILY January 29, 2023 12:00am August 14, 2023 10:06am Start: 09-06-2021 End: 11-03-2021 take 1 tablet by mouth once daily Spironolactone (Aldactone) 25 mg tablet Discontinued 25 MG PO DAILY September 06, 2021 1:00am November 03, 2021 10:53am sulfamethoxazole 800 mg / trimethoprim 160 mg oral tablet (3 sources) Dihydrofolate Reductase Inhibitor Antibacterial, Sulfonamide Antimicrobial Start: 06-16-2022 End: 06-19-2022 take 1 tablet by mouth twice daily Sulfamethoxazole-Trimethoprim (Bactrim Ds) 800-160 mg tablet Discontinued 1 TABLET PO TWICE A DAY 12 02June 16, 2022 1:00am June 19, 2022 1:04am valACYclovir 500 mg oral tablet (20 sources) Herpesvirus Nucleoside Analog DNA Polymerase Inhibitor, Herpes Simplex Virus Nucleoside Analog DNA Polymerase Inhibitor, Herpes Zoster Virus Nucleoside Analog DNA Polymerase Inhibitor Start: 11-22-2020 End: 09-06-2021 take 1 tablet by mouth once daily Valacyclovir (Valtrex) 500 mg tablet Discontinued 500 MG PO DAILY November 22, 2020 12:00am September 06, 2021 5:57pm Start: 02-11-2020 End: 11-10-2020 take 1000 mg by mouth once daily Valacyclovir Discontinued 1000 MG PO DAILY November 08, 2020 10:48am November 10, 2020 2:07pm Start: 09-10-2019 End: 02-11-2020 take 1 tablet by mouth once daily Valacyclovir (Valtrex) 500 mg tablet Discontinued 500 MG PO DAILY September 10, 2019 12:00am February 11, 2020 4:35pm Start: 03-28-2019 End: 03-30-2019 Valacyclovir (Valtrex) 1 gra m tablet Discontinued 1000 MG PO TWICE A DAY 04 05March 28, 2019 12:00am March 30, 2019 1:24pm zolpidem tartrate 12.5 mg extended release oral tablet (7 sources) gamma-Aminobutyric Acid-ergic Agonist Start: 06-27-2019 End: 04-22-2020 take 0.5-1 tablets by mouth at bedtime Zolpidem (Ambien Cr) 12.5 mg tablet,ext release multiphase Discontinued 12.5 MG PO AT BEDTIME June 27, 2019 1:00am April 22, 2020 2:26pm 07/03 - tab Problems Active Problems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 vol] 88.5 fL Normal 81-99 [facility] Comment on above: Performed By: #### L 100.0200, L500.2900 ####[facility] [address] [place], [address] Monocytes/100 WBC (Bld) 9.2 % Normal 0-10 [facility] Comment on above: Performed By: #### L 100.0200, L500.2900 ####[facility] [address] [place], [address] Neutrophils/100 WBC (Bld) 53.7 % Normal 47-70 [facility] Comment on above: Performed By: #### L 100.0200, L500.2900 ####[facility] [address] [place], [address] NRBC # 0.00 10 3/uL Normal 0-5 [facility] Comment on above: Performed By: #### L 100.0200, L500.2900 ####[facility] [address] [place], [address] Nucleated RBC (Bld) [#/Vol] 0 10*3/uL Normal 0-5 [facility] Comment on above: Performed By: #### L 100.0200, L500.2900 ####[facility] [address] [place], [address] Platelet mean volume (Bld) [Entitic vol] 10.4 fL Normal 6.2-12.0 [facility] Comment on above: Performed By: #### L 100.0200, L500.2900 ####[facility] [address] [place], [address] Platelets (Bld) [#/Vol] 307 10*3/uL Normal 150-450 [facility] Comment on above: Performed By: #### L 100.0200, L500.2900 ####[facility] [address] [place], [address] RBC (Bld) [#/Vol] 4.44 10*6/uL Normal 4.2-5.4 [facility] Comment on above: Performed By: #### L 100.0200, L500.2900 ####[facility] [address] [place], [address] RDW SD 39.6 fl Normal 35.1-43.9 [facility] Comment on above: Performed By: #### L 100.0200, L500.2900 ####[facility] [address] [place], [address] WBC (Bld) [#/Vol] 4.7 10*3/uL Normal 4.4-11.0 [facility] Comment on above: Performed By: #### L 100.0200, L500.2900 ####[facility] [address] [place], [address] [employer] 5 Cholesterol in LDL [Mass/Vol] 103 mg/dL Normal 0-130 [facility] Comment on above: Performed By: #### L 100.0200, L500.2900 ####[facility] [address] [place], [address] Hepatobilliary Img w/Pharm I nton 04-02-2024 Hepatobilliary Img w/Pharm Int [facility] [address] [place] [address] Hepatobilliary Img w/Pharm Int MR#: [id number] Acct: [id number] Name: JOSE MANUEL,BHARAT JOSE Rep #: [id number] : 1985 F 38 From: Misael Bruno PCP: Dr. Ebony Flores MD Status: REG CLI Study: Hepatobilliary Img w/Pharm Int Date of Exam: Exam# [id number] Ordering Dr: Nicolasa Lundberg MD [id number] CLINICAL: 38-year-old female with history of right upper quadrant abdominal pain. RADIONUCLIDE HEPATOBILIARY SCINTIGRAPHY COMPARISON: Gallbladder ultrasound report 03/14/2024 FINDINGS: Following the intravenous administration of 5.8 mCi of 99m Tc Mebrofenin, hepatobiliary images reveal: 1. Relatively prompt and homogeneous radiopharmaceutical concentration is noted by a normal sized liver. No parenchymal defects are identified. 2. Gallbladder activity is identified at 10 minutes post radiopharmaceutical administration. 3. Small intestinal tract is observed at 45 minutes following tracer injection. 4. Washout of the radiopharmaceutical by the hepatic parenchyma appears qualitatively normal. Cholecystokinin (0.02 ug/kg) was administered intravenously over a 30-minute period. The post CCK gallbladder ejection fraction calculated at 20 minutes following Cholecystokinin administration was noted to be 50.0 % (normal greater than 35%). During 30 minutes of post CCK imaging, there is no scintigraphic evidence of reflux of the radiotracer into the common hepatic duct or refilling of the gallbladder. NM/Hepatobilliary Img w/Pharm Int IMPRESSION: 1. NORMAL 99m Tc Mebrofenin hepatobiliary imaging examination with Cholecystokinin. A. A gallbladder ejection fraction calculated to be greater than 35% following the administration of Cholecystokinin makes the probability of functional hepatobiliary disease (gallbladder and/or sphincter of Oddi dyskinesia) and/or organic hepatobiliary disease (chronic acalculous cholecystitis and/or cystic duct syndrome) to be low. (Choco Warner et al, Journal of Nuclear Medicine 32:1695, 1990). Electronically Signed: Misael Garcia DO at 11:28 EDT , CC: Dr. Ebony Flores MD; Dr. Nicolasa Lundberg MD Senior Software Development Manager: Signed Normal [facility] Surgery Visit Reporton 03-20 Surgery Visit Report [facility] [address] [place] [address] OFFICE VISIT Date of Service: 03/20/24 MR#: [id number] Acct: [id number] Name: BHARAT SMITH Rep #: [id number] : 1985 Provider: Dr. Nicolasa childs MD Age/Sex: 38/F Location: [facility] Status: Signed Intake Vital Signs 03/14/24 18:24 03/20/24 12:55 Height 5 ft 1 in 5 ft 1 in Weight: 121 lb 2 oz BMI 22.8 BP 127/84 H Blood Pressure Location Rt brachial Position Sitting Respiration 18 Pulse 83 Pulse Source Monitor Temp 97.3 F L Temp Source Temporal Pulse Oximetry (%) 100 Oxygen Delivery Method room air Intake Visit Reasons: ED F/U - RUQ PAIN Chief Complaint: RUQ pain/nausea [employer] Required: No Is patient in pain?: Yes Allergies morphine Allergy (Verified 03/20/24 13:00) Shortness of breath Medications ???Medication ???Instructions ???Recorded ???Confirmed ???Type ondansetron 8 mg disintegrating 8 mg PO Q8H PRN nausea and 02/18/24 03/20/24 Rx tablet vomiting #30 tabs venlafaxine 150 mg 150 mg PO DAILY #30 caps 02/18/24 03/20/24 Rx capsule,extended release 24 hr desogestrel 0.15 mg-ethinyl 1 tab PO QDAY #28 tabs 03/12/24 03/20/24 Rx estradiol 0.03 mg tablet (Apri) dicyclomine 20 mg tablet 20 mg PO Q6H PRN PRN abdominal 03/14/24 03/20/24 Rx discomfort #20 tabs pantoprazole 40 mg tablet,delayed 40 mg PO DAILY #14 tabs 03/14/24 03/20/24 Rx release promethazine 25 mg tablet 25 mg PO Q6H PRN PRN Nausea #20 03/14/24 03/20/24 Rx TABLETS PFSH Medical History Right upper quadrant abdominal pain Pain of left great toe Injury of left great toe Encounter for preventative adult health care examination Chronic back pain Vitamin deficiency Chest pain Acne Depression Generalized anxiety disorder with panic attacks delivery delivered History of prior with IUGR Oligohydramnios depression Pre-eclampsia Bilateral headaches IBS (irritable bowel syndrome) Anxiety and depression Surgical History Delivery by section [place] teeth extracted History of appendectomy Family History Mother Diabetes Depression Cancer Father Hypertension Grandfather Myocardial infarction Grandfather CVA (cerebral vascular accident) Brother Mental disorder Seizures Social History Smoking Status: Never smoker alcohol intake: current details: social substance use type: does not use what type of physical activity do you participate in: none seatbelt use: always do you feel safe at home: Yes additional social history: [employer] at [employer] 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 Patient states she has had this for about 4 to 5 months however it has been constant since last Sunday. Patient states like today she was able to drink a protein drink without issue but she had a smoothie and did have some increased discomfort with that patient did go to the ER last Sunday and had an ultrasound did not show any gallstones normal wall initially the ultrasound read for the liver was cirrhosis however I did review this with our radiologist who did not think that was correct and was going to do an addendum which is not currently done yet to state that the liver appeared normal. Patient had normal white blood count as well as LFTs in the ER. Currently HIDA scan is ordered with CCK. Patient was all sent home on Protonix by the ER as well. ROS General General: Yes fatigue; No weight change, appetite, colon cancer, breast cancer or weakness HEENT HEENT: No difficulty swallowing, eye injury, eye surgery, swollen glands or hoarseness Endo Endocrine: No thyroid disease, diabetes mellitus, thyroid cancer, Hair loss, heat intolerance or cold intolerance Skin Skin: Yes changing moles; No rash Breast Breast: No left breast lump, right breast lump, nipple discharge, breast pain, abnormal mammogram, abnormal US or breast enlargement Musc Musculoskeletal: No back problems, arthritis, rheumatoid arthritis, gout or joint pain Cardio Cardiovascular: No murmur, pacemaker, heart disease, atrial fibrillation, high blood pressure, heart attack, heart stent, palpitations, shortness of breat with exertion or chest pain Psych Psychiatric: Yes depression and anxiety; No hearing voices Resp Respiratory: No shortness of breath, No sleep apnea, No cough, No COPD, No asthma, No emphysema and No wheezing Gastro Gastrointestinal: Yes abdominal pain, Yes nausea or vo (more content not included)... Normal [facility] CBC W/Diff, Automatedon 03-02-2023 Absolute Lymph 3.18 X10 3/uL Normal 0.83-4.51 [facility] Comment on above: Performed By: #### L 700.6800, L501.2450, L100.0100, L500.4050 #### [facility] [address] [place], [address] Absolute Neut 3.9 X10 3/uL Normal 2.0-7.7 [facility] Comment on above: Performed By: #### L 700.6800, L501.2450, L100.0100, L500.4050 #### [facility] [address] [place], [address] Basophils/100 WBC (Bld) 0.8 % Normal 0-1 [facility] Comment on above: Performed By: #### L 700.6800, L501.2450, L100.0100, L500.4050 #### [facility] [address] [place], [address] Eosinophils/100 WBC (Bld) 1.3 % Normal 0-5 [facility] Comment on above: Performed By: #### L 700.6800, L501.2450, L100.0100, L500.4050 #### [facility] [address] [place], [address] Erythrocyte distribution width (RBC) [Ratio] 12.2 % Normal 11.6-14.6 [facility] Comment on above: Performed By: #### L 700.6800, L501.2450, L100.0100, L500.4050 #### [facility] [address] [place], [address] Hematocrit (Bld) [Volume fraction] 41.2 % Normal 37-47 [facility] Comment on above: Performed By: #### L 700.6800, L501.2450, L100.0100, L500.4050 #### [facility] [address] [place], [address] Hemoglobin (Bld) [Mass/Vol] 14.0 g/dL Normal 12.0-15.0 [facility] Comment on above: Performed By: #### L 700.6800, L501.2450, L100.0100, L500.4050 #### [facility] [address] [place], [address] IG% 0.000 Normal 0.0-0.9 [facility] Comment on above: Result Comment: IG% - Immature Granulocytes (promyelocytes, myelocytes and metamyelocytes) > 1% indicates that a LEFT SHIFT is Present. Performed By: #### L 700.6800, L501.2450, L100.0100, L500.4050 #### [facility] [address] [place], [address] Lymphocytes/100 WBC (Bld) 40.5 % Normal 19-41 [facility] Comment on above: Performed By: #### L 700.6800, L501.2450, L100.0100, L500.4050 #### [facility] [address] [place], [address] MCH (RBC) [Entitic mass] 30.0 pg Normal 27.0-32.0 [facility] Comment on above: Performed By: #### L 700.6800, L501.2450, L100.0100, L500.4050 #### [facility] [address] [place], [address] MCHC (RBC) [Mass/Vol] 34.0 g/dL Normal 32-36 [facility] Comment on above: Performed By: #### L 700.6800, L501.2450, L100.0100, L500.4050 #### [facility] [address] [place], [address] MCV (RBC) [Entitic vol] 88.4 fL Normal 81-99 [facility] Comment on above: Performed By: #### L 700.6800, L501.2450, L100.0100, L500.4050 #### [facility] [address] [place], [address] Monocytes/100 WBC (Bld) 8.2 % Normal 0-10 [facility] Comment on above: Performed By: #### L 700.6800, L501.2450, L100.0100, L500.4050 #### [facility] [address] [place], [address] Neutrophils/100 WBC (Bld) 49.2 % Normal 47-70 [facility] Comment on above: Performed By: #### L 700.6800, L501.2450, L100.0100, L500.4050 #### [facility] [address] [place], [address] Nucleated RBC (Bld) [#/Vol] 0 10*3/uL Normal 0-5 [facility] Comment on above: Performed By: #### L 700.6800, L501.2450, L100.0100, L500.4050 #### [facility] [address] [place], [address] Platelet mean volume (Bld) [Entitic vol] 9.6 fL Normal 6.2-12.0 [facility] Comment on above: Performed By: #### L 700.6800, L501.2450, L100.0100, L500.4050 #### [facility] [address] [place], [address] Platelets (Bld) [#/Vol] 332 10*3/uL Normal 150-450 [facility] Comment on above: Performed By: #### L 700.6800, L501.2450, L100.0100, L500.4050 #### [facility] [address] [place], [address] RBC (Bld) [#/Vol] 4.66 10*6/uL Normal 4.2-5.4 [facility] Comment on above: Performed By: #### L 700.6800, L501.2450, L100.0100, L500.4050 #### [facility] [address] [place], [address] RDW SD 39.5 fl Normal 35.1-43.9 [facility] Comment on above: Performed By: #### L 700.6800, L501.2450, L100.0100, L500.4050 #### [facility] [address] [place], [address] WBC (Bld) [#/Vol] 7.9 10*3/uL Normal 4.4-11.0 [facility] Comment on above: Performed By: #### L 700.6800, L501.2450, L100.0100, L500.4050 #### [facility] [address] [place], [address] Comprehensive Metabolic Prof wion 03-14-2024 Albumin [Mass/Vol] 3.9 g/dL Normal 3.2-5.0 [facility] Comment on above: Performed By: #### L 700.6800, L501.2450, L100.0100, L500.4050 #### [facility] [address] [place], [address] Albumin/Globulin [Mass ratio] 0.9 {ratio} Normal 0.9-2.4 [facility] Comment on above: Performed By: #### L 700.6800, L501.2450, L100.0100, L500.4050 #### [facility] [address] [place], [address] ALK P 58 U/L Normal 45-117 [facility] Comment on above: Performed By: #### L 700.6800, L501.2450, L100.0100, L500.4050 #### [facility] [address] [place], [address] ALT [Catalytic activity/Vol] 25 U/L Normal 13-56 [facility] Comment on above: Performed By: #### L 700.6800, L501.2450, L100.0100, L500.4050 #### [facility] [address] [place], [address] AST [Catalytic activity/Vol] 16 U/L Normal 15-37 [facility] Comment on above: Performed By: #### L 700.6800, L501.2450, L100.0100, L500.4050 #### [facility] [address] [place], [address] Bilirubin [Mass/Vol] 0.60 mg/dL Normal 0.20-1.00 [facility] Comment on above: Result Comment: For patients on eltrombopag therapy, use of Dimension Sullivan TBIL is not recommended. Performed By: #### L 700.6800, L501.2450, L100.0100, L500.4050 #### [facility] [address] [place], [address] BUN/CRE 16.9 RATIO Normal 10-20 [facility] Comment on above: Performed By: #### L 700.6800, L501.2450, L100.0100, L500.4050 #### [facility] [address] [place], [address] CA,Total 9.9 mg/dL Normal 8.5-10.1 [facility] Comment on above: Performed By: #### L 700.6800, L501.2450, L100.0100, L500.4050 #### [facility] [address] [place], [address] Chloride [Moles/Vol] 107 mmol/L Normal 98-107 [facility] Comment on above: Performed By: #### L 700.6800, L501.2450, L100.0100, L500.4050 #### [facility] [address] [place], [address] CO2 [Moles/Vol] 26.0 mmol/L Normal 21.0-32.0 [facility] Comment on above: Performed By: #### L 700.6800, L501.2450, L100.0100, L500.4050 #### [facility] [address] [place], [address] Creatinine [Mass/Vol] 0.71 mg/dL Normal 0.55-1.02 [facility] Comment on above: Result Comment: The validity of the calculated GFR GFRAA in patients over 70 years has not been determined. Clinical correlation is essential. Performed By: #### L 700.6800, L501.2450, L100.0100, L500.4050 #### [facility] [address] [place], [address] ECRCL 82.66 ml/min Normal [facility] Comment on above: Performed By: #### L 700.6800, L501.2450, L100.0100, L500.4050 #### [facility] [address] [place], [address] EST GFR - AA 120 mL/min Normal >60 [facility] Comment on above: Result Comment: Afri can Iranian GFR Calc Performed By: #### L 700.6800, L501.2450, L100.0100, L500.4050 #### [facility] [address] [place], [address] GAP 7 Normal 5-15 [facility] Comment on above: Performed By: #### L 700.6800, L501.2450, L100.0100, L500.4050 #### [facility] [address] [place], [address] GFR/1.73 sq M.predicted among non-blacks MDRD (S/P/Bld) [Vol rate/Area] 99 mL/min/{1.73_m2} Normal >60 [facility] Comment on above: Result Comment: Non- GFR Calc Performed By: #### L 700.6800, L501.2450, L100.0100, L500.4050 #### [facility] [address] [place], [address] Globulin (S) [Mass/Vol] 4.2 g/dL Normal 2.2-4.2 [facility] Comment on above: Performed By: #### L 700.6800, L501.2450, L100.0100, L500.4050 #### [facility] [address] [place], [address] Glucose [Mass/Vol] 88 mg/dL Normal 74-106 [facility] Comment on above: Performed By: #### L 700.6800, L501.2450, L100.0100, L500.4050 #### [facility] [address] [place], [address] Potassium [Moles/Vol] 3.7 mmol/L Normal 3.5-5.1 [facility] Comment on above: Performed By: #### L 700.6800, L501.2450, L100.0100, L500.4050 #### [facility] [address] [place], [address] Sodium [Moles/Vol] 140 mmol/L Normal 136-145 [facility] Comment on above: Performed By: #### L 700.6800, L501.2450, L100.0100, L500.4050 #### [facility] [address] [place], [address] T PROT 8.1 g/dL Normal 6.4-8.2 [facility] Comment on above: Performed By: #### L 700.6800, L501.2450, L100.0100, L500.4050 #### [facility] [address] [place], [address] Urea nitrogen [Mass/Vol] 12 mg/dL Normal 7-18 [facility] Comment on above: Performed By: #### L 700.6800, L501.2450, L100.0100, L500.4050 #### [facility] [address] [place], [address] Emergency Department Summary on 03-14-2024 Emergency Department Summary [facility] Medical Records Department [address] [place] [address] Emergency Department Summary 03/14/24 MR#: [id number] Acct: [id number] Name: BHARAT SMITH JOSE Rep #: [id number] : 1985 38 From: Misha Madsen MD PCP: Dr. 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 It started to become worse throughout the night and today, has been colicky, radiating to her right shoulder, associated with nausea and vomiting, no fevers, chills, jaundice, confusion. History of appendectomy in the past and a C- section as well as a tubal. No urinary symptoms. The pain is lateral in the right upper quadrant mostly. Never had this before. She has had a very poor appetite all day today because of this. [facility] Medical History Pain of left great toe Injury of left great toe Encounter for preventative adult health care examination Chronic back pain Vitamin deficiency Chest pain Acne Depression Generalized anxiety disorder with panic attacks delivery delivered History of prior with IUGR Oligohydramnios depression Pre-eclampsia Bilateral headaches IBS (irritable bowel syndrome) Anxiety and depression Home Medications ???Medication ???Instructions ???Recorded ???Last Taken ???Type ondansetron 8 mg disintegrating 8 mg PO Q8H PRN nausea and 02/18/24 Unknown Rx tablet vomiting #30 tabs venlafaxine 150 mg 150 mg PO DAILY #30 caps 02/18/24 Unknown Rx capsule,extended release 24 hr desogestrel 0.15 mg-ethinyl 1 tab PO QDAY #28 tabs 03/12/24 Unknown Rx estradiol 0.03 mg tablet (Apri) dicyclomine 20 mg tablet 20 mg PO Q6H PRN PRN abdominal 03/14/24 Unknown Rx discomfort #20 tabs pantoprazole 40 mg tablet,delayed 40 mg PO DAILY #14 tabs 03/14/24 Unknown Rx release promethazine 25 mg tablet 25 mg PO Q6H PRN PRN Nausea #20 03/14/24 Unknown Rx TABLETS Allergy/AdvReac Type Severity Reaction Status Date / Time morphine Allergy Shortness Verified 03/14/24 18:24 of breath Family History Mother Diabetes Depression Cancer Father Hypertension Grandfather Myocardial infarction Grandfather CVA (cerebral vascular accident) Brother Mental disorder Seizures Surgical History Delivery by section [place] teeth extracted History of appendectomy Social History Smoking Status: Never smoker alcohol intake: current details: social substance use type: does not use what type of physical activity do you participate in: none seatbelt use: always do you feel safe at home: Yes additional social history: [employer]- [employer] at [employer] 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 ROS ROS ED Constitutional Constitutional ED: Denies chills or fever(s) Eyes Eyes: Denies change in vision or diplopia ENT ENT ED: Denies rhinorrhea or sore throat Cardiovascular Cardiovascular: Denies chest pain or palpitations Respiratory/Chest Respiratory/Chest: Denies cough or dyspnea Gastrointestinal Gastrointestinal: Reports abdominal pain, nausea and vomiting; Denies diarrhea or melena Genitourinary Genitourinary ED: Denies dysuria, hematuria or urinary frequency Musculoskeletal Musculoskeletal: Reports back pain; Denies neck pain Integumentary Denies abscess or rash Neurologic Neurologic: Denies headache(s), paresthesias or weakness Psychiatric Psychiatric: Denies anxiety or suicidal thoughts EXAM Physical Exam Const Vital Signs: 03/14/24 18:24 Temperature 97.8 F Temperature Source Temporal Pulse Rate 94 Respiratory Rate 18 Blood Pressure 133/92 H Blood Pressure Mean 105 Pulse Ox 100 Oxygen Delivery Method Room Air Positive well nourished and well developed General Appearance ED: well developed and NAD HEENT Reports moist mucous membranes normocephalic and atraumatic Eyes PERRL and EOMs intact bilaterally Neck full ROM and supple Resp normal respiratory effort and clear to auscultation bilaterally Cardio regular rate, regular rhythm and no murmurs GI non-distended GI Narrative: Right upper quadrant tenderness with Silver's. No other areas of tenderness. Auscultation: normoactive bowel sounds Palpation: soft Back/Spine Back/Spine Narrative: Normal inspection no rash General Back: CVA tenderness right and other FROM Extremity normal to inspection Gen (more content not included)... Normal [facility] Gallbladderon 03-14-2024 Gallbladder [facility] Imaging Services [address] [place], [place] [address] Gallbladder MR#: [id number] Acct: [id number] Name: BHARAT SMITH Rep #: [id number] : 1985 F 38 From: Fred jha MD PCP: Dr. Ebony Flores MD Status: DEP ER Study: Gallbladder Date of Exam: 03/14/24 Exam# [id number] Ordering Dr: Misha Madsen MD ADDENDUM by Dr. Min Orellana MD on 03/21/24 at 0819 ====== ADDENDUM ====== [id number] STUDY: ABDOMINAL ULTRASOUND - RIGHT UPPER QUADRANT REASON FOR VISIT: Female, 38 years old pain, n/v TECHNIQUE: Ultrasound evaluation of the right upper quadrant was performed with real-time and static vernon-scale imaging. TECHNICAL QUALITY: Adequate. COMPARISON: None. FINDINGS: Liver: The liver measures 14.5 cm. There is normal echogenicity of the liver. The bile ducts are within normal limits. There is hepatic color flow. The direction of portal flow is hepatopetal. There is no demonstrated mass lesion. Gallbladder: Normal distended gallbladder. The gallbladder wall measures 1 mm. There is a negative sonographic Silver''s sign. There is no pericholecystic fluid. There are no gallstones. Common Bile Duct (C.B.D.): The common bile duct measures 2 mm. Pancreas: Normal size of the head, body and tail of the pancreas. There is normal echogenicity of the pancreas. There is no demonstrated pancreatic mass or cyst. Right Kidney: Normal size of the right kidney. The right kidney measures 9.4 cm x 6.4 cm x 4 cm. Normal renal cortex. The right cortex measures 1.2 cm. There is no demonstrated renal mass or cyst. There is no right hydronephrosis. 03/21/24 08 Date cc: Dr. Misha Madsen MD; Dr. Ebony Flores MD * Signed ADDENDUM by Dr. Min Orellana MD on 03/21/24 at 0819 US/Gallbladder IMPRESSION: Normal right upper quadrant ultrasound examination. Electronically Signed: Min Orellana MD at 8:19 EDT , 03/21/24 08 Date cc: Dr. Misha Madsen MD; Dr. Ebony Flores MD * Signed [id number] INDICATION: pain, n/v EXAMINATION: US Gallbladder (abdomen limited) TECHNIQUE: Vernon-scale and color Doppler imaging was performed of the right upper abdominal quadrant. COMPARISON: None. Findings: The liver is coarse in echotexture, however is homogenous and normal in echogenicity. There is moderate contour nodularity consistent with cirrhosis. No focal hepatic mass is identified. The main portal vein is normal in size and patent demonstrating hepatopetal flow. The gallbladder is unremarkable without evidence of stones, wall thickening or pericholecystic fluid. Sonographic Silver''s tenderness is not appreciated. There is no evidence of intrahepatic biliary ductal dilatation. The CBD is nondilated measuring 2 mm at the level of the pavan hepatis. The visualized portions of the pancreas are unremarkable without evidence of focal or diffuse enlargement. Specifically, the tail is obscured by overlying bowel gas. Right kidney measures 9.4 cm in length. It is normal in echogenicity. No focal renal lesion is identified. There is no evidence of hydronephrosis. US/Gallbladder IMPRESSION: Coarse liver without evidence of contour nodularity. Findings are suggestive of cirrhosis. No evidence of focal hepatic mass. Portal venous hypertension is not manifested on this exam. Remainder of the exam is otherwise unremarkable. . Electronically Signed: Fred Jones MD at 21:01 EDT , CC: Dr. Misha Madsen MD; Dr. Ebony Flores MD Senior Software Development Manager: Signed Normal [facility] Lipaseon 03-14-2024 Lipase [Catalytic activity/Vol] 65 U/L Normal 13-75 [facility] Comment on above: Result Comment: Anup munguia note: LIPASE revised reference range effective 22. New Lipase methodology. Expected to produce lower values than the previous assay method. NEW Reference Range: 13 - 75 U/L Performed By: #### L 700.6800, L501.2450, L100.0100, L500.4050 #### [facility] [address] [place], [address] Partial Thromboplast Timeon 03-14-2024 aPTT Coag (Bld) [Time] 28.0 s Normal 24.1-36.2 [facility] Comment on above: Performed By: #### L 300.3900, L300.4310 #### [facility] [address] [place], [address] ,Serum,hCG Quali.on 03-14-2024 HCG, SERUM QUAL Negative Normal [facility] Comment on above: Performed By: #### L 700.6800, L501.2450, L100.0100, L500.4050 #### [facility] [address] [place], [address] Prothrombin Time w/INRon INR Coag (PPP) [Relative time] 1.0 {INR} Normal [facility] Comment on above: Performed By: #### L 300.3900, L300.4310 #### [facility] [address] [place], [address] PT Coag (PPP) [Time] 13.2 s Normal 11.7-14.9 [facility] Comment on above: Performed By: #### L 300.3900, L300.4310 #### [facility] [address] [place], [address] Urinalysis, Completeon 03-14 EPI,SQUAMOUS 0-5 SEEN Normal 5-10 [facility] Comment on above: Order Comment: COLLE CTOR TO SPECIFY Performed By: #### L 400.0001 #### [facility] [address] [place], [address] RBC 0-5 SEEN Normal 0-5 [facility] Comment on above: Order Comment: COLLE CTOR TO SPECIFY Performed By: #### L 400.0001 #### [facility] [address] [place], [address] BACTERIA 0 SEEN Normal None Seen [facility] Comment on above: Order Comment: RUBENS CTOR TO SPECIFY Performed By: #### L 400.0001 #### [facility] [address] [place], [address] Mucus Ql (Urine sed) 0 SEEN Normal [facility] Comment on above: Order Comment: COLLE CTOR TO SPECIFY Performed By: #### L 400.0001 #### [facility] [address] [place], [address] WBC 0 SEEN Normal 0-5 [facility] Comment on above: Order Comment: RUBENS CTOR TO SPECIFY Performed By: #### L 400.0001 #### [facility] [address] [place], [address] BACTERIA 0 SEEN Normal None Seen [facility] Comment on above: Order Comment: COLLE CTOR TO SPECIFY Result Comment: WRON G LABELS Performed By: #### L 400.0001 #### [facility] [address], [address] EPI,SQUAMOUS 0 SEEN Normal 5-10 [facility] Comment on above: Order Comment: COLLE CTOR TO SPECIFY Result Comment: WRON G LABELS Performed By: #### L 400.0001 #### [facility] [address] [place], [address] Mucus Ql (Urine sed) 0 SEEN Normal [facility] Comment on above: Order Comment: COLLE CTOR TO SPECIFY Result Comment: WRON G LABELS Performed By: #### L 400.0001 #### [facility] [address] [place], [address] RBC 0 SEEN Normal 0-5 [facility] Comment on above: Order Comment: RUBENS CTOR TO SPECIFY Result Comment: WRON G LABELS Performed By: #### L 400.0001 #### [facility] [address] [place], [address] WBC 0 SEEN Normal 0-5 [facility] Comment on above: Order Comment: COLLE CTOR TO SPECIFY Result Comment: WRON G LABELS Performed By: #### L 400.0001 #### [facility] [address] [place], [address] BILIRUBIN URINE Normal Negative [facility] Comment on above: Order Comment: RUBENS CTOR TO SPECIFY Result Comment: WRON G LABELS Performed By: #### L 400.0001 #### [facility] [address] [place], [address] Clarity (U) Normal Clear [facility] Comment on above: Order Comment: RUBENS CTOR TO SPECIFY Result Comment: WRON G LABELS Performed By: #### L 400.0001 #### [facility] [address] [place], [address] Color (U) Normal Yellow [facility] Comment on above: Order Comment: COLLE CTOR TO SPECIFY Result Comment: WRON G LABELS Performed By: #### L 400.0001 #### [facility] [address] [place], [address] GLUCOSE, UR Normal Normal [facility] Comment on above: Order Comment: COLLE CTOR TO SPECIFY Result Comment: WRON G LABELS Performed By: #### L 400.0001 #### [facility] [address] [place], [address] KETONE UR Normal Negative [facility] Comment on above: Order Comment: COLLE CTOR TO SPECIFY Result Comment: WRON G LABELS Performed By: #### L 400.0001 #### [facility] [address] [place], [address] LEUK ESTERASE Normal Negative [facility] Comment on above: Order Comment: COLLE CTOR TO SPECIFY Result Comment: WRON G LABELS Performed By: #### L 400.0001 #### [facility] [address] [place], [address] Nitrite Ql (U) Normal Negative [facility] Comment on above: Order Comment: COLLE CTOR TO SPECIFY Result Comment: WRON G LABELS Performed By: #### L 400.0001 #### [facility] [address] [place], [address] OCCULT BLOOD-UR Normal Negative [facility] Comment on above: Order Comment: RUBENS CTOR TO SPECIFY Result Comment: WRON G LABELS Performed By: #### L 400.0001 #### [facility] [address] [place], [address] pH UR Normal 5.0 - 8.0 [facility] Comment on above: Order Comment: RUBENS CTOR TO SPECIFY Result Comment: WRON G LABELS Performed By: #### L 400.0001 #### [facility] [address] [place], [address] PROT DIPSTX Normal Negative [facility] Comment on above: Order Comment: COLLE CTOR TO SPECIFY Result Comment: WRON G LABELS Performed By: #### L 400.0001 #### [facility] [address] [place], [address] SP.GR. DIPSTX Normal 1.002-1.030 [facility] Comment on above: Order Comment: COLLE CTOR TO SPECIFY Result Comment: WRON G LABELS Performed By: #### L 400.0001 #### [facility] [address] [place], [address] UR Preservative Normal [facility] Comment on above: Order Comment: COLLE CTOR TO SPECIFY Result Comment: WRON G LABELS Performed By: #### L 400.0001 #### [facility] [address] [place], [address] UROBILI Normal Normal [facility] Comment on above: Order Comment: COLLE CTOR TO SPECIFY Result Comment: WRON G LABELS Performed By: #### L 400.0001 #### [facility] [address] [place], [address] Med Admin Office Visit Reporton 02-18-2024 Med Admin Office Visit Report [facility] [address], [address] [place] [address] OFFICE VISIT Date of Service: 02/18/24 MR#: [id number] Acct: [id number] Name: BHARAT SMITH JOSE Rep #: [id number] : 1985 Provider: Dr. 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) [employer] Required: No Is patient in pain?: No Allergies morphine Allergy (Verified 02/18/24 13:52) Shortness of breath Medications ???Medication ???Instructions ???Recorded ???Confirmed ???Type etonogestrel 0.12 mg-ethinyl 1 vag ring vaginal ONCE 3 weeks #1 02/18/24 02/18/24 Rx estradiol 0.015 mg/24 hr vaginal ea ring (NuvaRing) ondansetron 8 mg disintegrating 8 mg PO Q8H PRN nausea and 02/18/24 02/18/24 Rx tablet vomiting #30 tabs venlafaxine 150 mg 150 mg PO DAILY #30 caps 02/18/24 02/18/24 Rx capsule,extended release 24 hr Is last menstrual period known: Yes Post menopausal: No Patient : No : No [facility] Medical History (Updated 02/18/24 @ 15:[address] Tatyana Amaya MD) Pain of left great toe Injury of left great toe Encounter for preventative adult health care examination Chronic back pain Vitamin deficiency Chest pain Acne Depression Generalized anxiety disorder with panic attacks delivery delivered History of prior with IUGR Oligohydramnios depression Pre-eclampsia Bilateral headaches IBS (irritable bowel syndrome) Anxiety and depression Surgical History Delivery by section [place] teeth extracted History of appendectomy Family History Mother Diabetes Depression Cancer Father Hypertension Grandfather Myocardial infarction Grandfather CVA (cerebral vascular accident) Brother Mental disorder Seizures Social History Smoking Status: Never smoker alcohol intake: current details: social substance use type: does not use what type of physical activity do you participate in: none seatbelt use: always do you feel safe at home: Yes additional social history: [employer] 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 Date Name GA/Weeks Outcome Route Bth Weight Infant Gen Labor Lgth Anesthesia Del Locatn Provider FOB Unknown 2010 [place] 5 lbs Female [facility] Elio Unknown 05/09/2018 Hay 37 live - full term 5lbs 13.5oz Female epi dural [facility] SM Altaf 11/08/20 Gar[place] 37 live - full term Male [facility] Luis Manuel rcanthony Delivery Date: Last Updated by: Tatyana Amaya MD iugr and oligo Delivery Date: 11/08/20 Last Updated by: Gia Cano [facility] BS preeclamspia,breech HPI Encounter for routine gynecological examination Details: BHARAT SMITH is a 38 year old who presents for annual exam. anxiety controlled Last PAP: 2021 History of abnormal PAP: no severe Last mammogram: due at 42 Other preventative health care screenings: Sandra lynn pcp does screening labs Female Reproductive History Cycle Length: 21-35 Bleeding Duration: 5 Associated symptoms: cramping starting with ovulation, relieved with bleeding, nausea with PMS Questions: metorrhagia: No, sexually active: Yes, dyspareunia: No and PCB: No Menopausal Symptoms: No hot flashes, No night sweats, No weight change, No mood changes, No difficulty concentrating, No sleep problems and No change in libido ROS Const Constitutional: Reports as per HPI; Denies fatigue, increased appetite, poor appetite, night sweats, weight gain or weight loss Cardio Card: Denies chest pain Resp Resp: Denies cough or dyspnea GI GI: Reports as per HPI and nausea; Denies abdominal pain, bloating, constipation or vomiting : Reports as per HPI, pelvic pain and other; Denies difficulty voiding, dysuria, hematuria, hot flashes, nipple discharge, prolapse symptoms, urinary frequency, urinary incontinence, urinary urgency, vaginal discharge, vaginal dryness, vaginal odor or vaginal pruritus Skin Skin/Breast: Denies changing lesions, breast mass, breast pain, breast skin changes or nipple discharge Psych Psych: Denies anxiety, change in libido, depression or difficulty concentrating Exam Const General: cooperative, healthy appearing, comfortable, no (more content not included)... Normal [facility] Absolute lymphocyte countOrd ered By: HEALTH ASSESSMENT on 09-07-2023 Lymphocytes Auto (Unsp spec) [#/Vol] 1.96 10*3/uL 0.83-4.51 [facility] Absolute lymphocyte countOrd ered By: Bharat Owens on 09-07-2023 Lymphocytes Auto (Unsp spec) [#/Vol] 2.02 10*3/uL 0.83-4.51 [facility] Automated lymphocyte count a s percentage of total leukocytesOrdered By: Bharat Owens on 09-07-2023 Lymphocytes/100 WBC Auto (Unsp spec) 40.2 % 19-41 [facility] Basophil percentageOrdered B y: HEALTH ASSESSMENT on 09-07-2023 Basophil percentage 3.5 mg/dL 2.5-4.9 [facility] Bilirubin [Mass/Vol] 0.50 mg/dL 0.20-1.00 [facility] Comment on above: For patients on eltr ombopag therapy, use of Dimension Sullivan TBIL is not recommended. Chloride [Moles/Vol] 106 mmol/L 98-107 [facility] Cholesterol [Mass/Vol] 228 mg/dL <200 [facility] Comment on above: <200 mg/dL Desirable 200-240 mg/dL Borderline >240 mg/dL High Risk Glucose [Mass/Vol] 75 mg/dL 74-106 [facility] Hemoglobin (Bld) [Mass/Vol] 13.3 g/dL 12.0-15.0 [facility] LDH [Catalytic activity/Vol] 200 U/L 84-246 [facility] Neutrophils (Bld) [#/Vol] 2.6 10*3/uL 2.0-7.7 [facility] Potassium [Moles/Vol] 4.5 mmol/L 3.5-5.1 [facility] Protein [Mass/Vol] 7.9 g/dL 6.4-8.2 [facility] Sodium [Moles/Vol] 139 mmol/L 136-145 [facility] Triglyceride [Mass/Vol] 86 mg/dL <199 [facility] Comment on above: The drugs N-Acetylcy steine and Metamizole may falsely depress this assay.Serum Triglycerides Reference Interval Normal <150 mg/dL Borderline high 150 - 199 mg/dL High 200 - 499 mg/dL Very High > or = 500 mg/dL WBC (Bld) [#/Vol] 5.1 10*3/uL 4.4-11.0 [facility] Basophil percentageOrdered B y: Bharat Owens on 09-07-2023 Basophils/100 WBC (Bld) 0.6 % 0-1 [facility] Bilirubin [Mass/Vol] 0.50 mg/dL 0.20-1.00 [facility] Comment on above: For patients on eltr ombopag therapy, use of Dimension Sullivan TBIL is not recommended. Cholesterol [Mass/Vol] 229 mg/dL <200 [facility] Comment on above: <200 mg/dL Desirable 200-240 mg/dL Borderline >240 mg/dL High Risk Eosinophils/100 WBC (Bld) 0.8 % 0-5 [facility] Hemoglobin (Bld) [Mass/Vol] 13.4 g/dL 12.0-15.0 [facility] Monocytes/100 WBC (Bld) 8.4 % 0-10 [facility] Neutrophils (Bld) [#/Vol] 2.5 10*3/uL 2.0-7.7 [facility] Neutrophils/100 WBC (Bld) 49.8 % 47-70 [facility] Protein [Mass/Vol] 8.0 g/dL 6.4-8.2 [facility] Triglyceride [Mass/Vol] 85 mg/dL <199 [facility] Comment on above: The drugs N-Acetylcy steine and Metamizole may falsely depress this assay.Serum Triglycerides Reference Interval Normal <150 mg/dL Borderline high 150 - 199 mg/dL High 200 - 499 mg/dL Very High > or = 500 mg/dL WBC (Bld) [#/Vol] 5.0 10*3/uL 4.4-11.0 [facility] Blood band neutrophil count as percentage of total leukocytesOrdered By: HEALTH ASSESSMENT on 09-07-2023 Band form neutrophils/100 WBC (Bld) 50.6 % 47-70 [facility] Blood leukocytes count corre cted for nucleated erythrocytes (number/volume)Ordered By: HEALTH ASSESSMENT on 09-07-2023 WBC corrected for nucl RBC (Bld) [#/Vol] BAR TURNER [facility] Determination of erythrocyte mean corpuscular volume (MCV)Ordered By: HEALTH ASSESSMENT on 09-07-2023 MCV (RBC) [Entitic vol] 88.1 fL 81-99 [facility] Determination of erythrocyte mean corpuscular volume (MCV)Ordered By: Bharat Owens on 09-07-2023 MCV (RBC) [Entitic vol] 87.8 fL 81-99 [facility] Direct bilirubinOrdered By: HEALTH ASSESSMENT on 09-07-2023 Bilirubin.direct [Mass/Vol] 0.10 mg/dL 0.00-0.30 [facility] Direct bilirubinOrdered By: Bharat Owens on 09-07-2023 Bilirubin.direct [Mass/Vol] 0.14 mg/dL 0.00-0.30 [facility] Erythrocyte distribution wid th ratioOrdered By: HEALTH ASSESSMENT on 09-07-2023 Erythrocyte distribution width (RBC) [Ratio] 12.4 % 11.6-14.6 [facility] Erythrocyte distribution wid th ratioOrdered By: Bharat Owens on 09-07-2023 Erythrocyte distribution width (RBC) [Ratio] 12.3 % 11.6-14.6 [facility] Erythrocyte distribution wid th standard deviationOrdered By: [facility] ASSESSMENT on 09-07-2023 Erythrocyte distribution width (RBC) [Entitic vol] 39.3 fL 35.1-43.9 [facility] Erythrocyte distribution wid th standard deviationOrdered By: Bharat Owens on 09-07-2023 Erythrocyte distribution width (RBC) [Entitic vol] 39.7 fL 35.1-43.9 [facility] Hematocrit Auto (Bld) [Volum e fraction]Ordered By: HEALTH ASSESSMENT on 09-07-2023 Hematocrit (Bld) [Volume fraction] 39.1 % 37-47 [facility] Hematocrit Auto (Bld) [Volum e fraction]Ordered By: Bharat Owens on 09-07-2023 Hematocrit (Bld) [Volume fraction] 38.8 % 37-47 [facility] Immature granulocytes/100 WB C Auto (Bld)Ordered By: Bharat Owens on 09-07-2023 Immature granulocytes/100 WBC (Bld) 0.200 % 0.0-0.9 [facility] Comment on above: IG% - Immature Granu locytes (promyelocytes, myelocytes and metamyelocytes) > 1% indicates that a LEFT SHIFT is Present. Laboratory - Chemistry and C hemistry - challengeOrdered By: [facility] ASSESSMENT on 09-07-2023 Albumin/Globulin [Mass ratio] 1.0 {ratio} 0.9-2.4 [facility] ALP [Catalytic activity/Vol] 70 U/L 45-117 [facility] ALT [Catalytic activity/Vol] 25 U/L 13-56 [facility] Cholesterol in HDL [Mass/Vol] 74 mg/dL >40 [facility] Comment on above: The drugs N-Acetylcy steine and Metamizole may falsely depress this assay. Reference Range HDL <40 mg/dL Low HDL Cholesterol HDL >or= 60 mg/dL High HDL Cholesterol Cholesterol in LDL [Mass/Vol] 137 mg/dL 0-130 [facility] Cholesterol.total/Choles terol in HDL [Mass ratio] 3.10 {ratio} [facility] CO2 [Moles/Vol] 29.0 mmol/L 21.0-32.0 [facility] Globulin (S) [Mass/Vol] 3.9 g/dL 2.2-4.2 [facility] Urea nitrogen/Creatinine [Mass ratio] 15.6 mg/mg 10-20 [facility] Laboratory - Chemistry and C hemistry - challengeOrdered By: Bharat Owens on 09-07-2023 ALP [Catalytic activity/Vol] 71 U/L 45-117 [facility] ALT [Catalytic activity/Vol] 25 U/L 13-56 [facility] Cholesterol in HDL [Mass/Vol] 73 mg/dL >40 [facility] Comment on above: The drugs N-Acetylcy steine and Metamizole may falsely depress this assay. Reference Range HDL <40 mg/dL Low HDL Cholesterol HDL >or= 60 mg/dL High HDL Cholesterol Cholesterol in LDL [Mass/Vol] 139 mg/dL 0-130 [facility] Cobalamin (Vitamin B12) [Mass/Vol] 714 pg/mL 211-911 [facility] Globulin (S) [Mass/Vol] 4.0 g/dL 2.2-4.2 [facility] Laboratory - Hematology and Cell countsOrdered By: HEALTH ASSESSMENT on 09-07-2023 MCH (RBC) [Entitic mass] 30.0 pg 27.0-32.0 [facility] MCHC (RBC) [Mass/Vol] 34.0 g/dL 32-36 [facility] Nucleated RBC (Bld) [#/Vol] 0.00 10*3/uL 0-5 [facility] Nucleated RBC/100 WBC (Bld) [Ratio] 0 % 0-5 [facility] Platelet mean volume (Bld) [Entitic vol] 9.7 fL 6.2-12.0 [facility] Platelets (Bld) [#/Vol] 337 10*3/uL 150-450 [facility] Laboratory - Hematology and Cell countsOrdered By: Bharat Owens on 09-07-2023 MCH (RBC) [Entitic mass] 30.3 pg 27.0-32.0 [facility] MCHC (RBC) [Mass/Vol] 34.5 g/dL 32-36 [facility] Nucleated RBC/100 WBC (Bld) [Ratio] 0 % 0-5 [facility] Platelet mean volume (Bld) [Entitic vol] 9.6 fL 6.2-12.0 [facility] Platelets (Bld) [#/Vol] 339 10*3/uL 150-450 [facility] No Panel InformationOrdered By: HEALTH ASSESSMENT on 09-07-2023 Estimated Creatinine Clearance Calc [facility] Estimated GFR (MDRD) Amer 135 mL/min >60 [facility] Comment on above: GFR Calc Estimated GFR (MDRD) Non-Af Amer 112 mL/min >60 [facility] Comment on above: Non- GFR Calc Immature Granulocyte % (Auto) [facility] VLDL Cholesterol 17 mg/dL 5-40 [facility] No Panel InformationOrdered By: Bharat Owens on 09-07-2023 VLDL Cholesterol 17 mg/dL 5-40 [facility] RBC Auto (Bld) [#/Vol]Ordere d By: HEALTH ASSESSMENT on 09-07-2023 RBC (Bld) [#/Vol] 4.44 10*6/uL 4.2-5.4 [facility] RBC Auto (Bld) [#/Vol]Ordere d By: Bharat Owens on 09-07-2023 RBC (Bld) [#/Vol] 4.42 10*6/uL 4.2-5.4 [facility] Review by pathologistOrdered By: HEALTH ASSESSMENT on 09-07-2023 Pathologist review Riki (Unsp spec) [Interp] [facility] Serum or plasma calcium sharon urement (mass/volume)Ordered By: HEALTH ASSESSMENT on 09-07-2023 Calcium [Mass/Vol] 9.4 mg/dL 8.5-10.1 [facility] Serum or plasma choriogonado tropin detectionOrdered By: Bharat Owens on 09-07-2023 HCG ( test) Ql < 1 mIU/mL <4 [facility] Comment on above: hCG levels with Gest ational AgeGestational Age hCG mIU/mL (IU/L)0.2 - 1 week 5 - 501-2 weeks 50 - 5002-3 weeks 100 - 12740-5 weeks 500 - 673715-5 weeks 1000 - 336264-8 weeks 64127 - 100,0006-8 weeks 33173 - 200,0002-3 months 41391 - 100,000 Serum or plasma creatinine m easurement (mass/volume)Ordered By: HEALTH ASSESSMENT on 09-07-2023 Creatinine [Mass/Vol] 0.64 mg/dL 0.55-1.02 [facility] Comment on above: The validity of the calculated GFR & GFRAA in patients over 70 years has not been determined. Clinical correlation is essential. Serum or plasma thyroid stim ulating hormone (TSH) measurement (units/volume)Ordered By: Bharat Owens on 09-07-2023 TSH Qn 1.03 uIU/mL 0.358-3.74 [facility] Serum or plasma urea nitroge n measurement (mass/volume)Ordered By: [facility] ASSESSMENT on 09-07-2023 Urea nitrogen [Mass/Vol] 10 mg/dL 7-18 [facility] Serum or plasma uric acid me asurement (mass/volume)Ordered By: HEALTH ASSESSMENT on 09-07-2023 Urate [Mass/Vol] 4.5 mg/dL 2.6-6.0 [facility] Comment on above: The drugs N-Acetylcy steine and Metamizole may falsely depress this assay. Thin prep Papanicolaou smear with manual screeningOrdered By: HEALTH ASSESSMENT on 09-07-2023 Thin prep Papanicolaou smear with manual screening 4.0 g/dL 3.2-5.0 [facility] Thin prep Papanicolaou smear with manual screening 21 U/L 15-37 [facility] Thin prep Papanicolaou smear with manual screening 4 5-15 [facility] Thin prep Papanicolaou smear with manual screeningOrdered By: Bharat Owens on 09-07-2023 Thin prep Papanicolaou smear with manual screening 4.0 g/dL 3.2-5.0 [facility] Thin prep Papanicolaou smear with manual screening 24 U/L [facility] Thin prep Papanicolaou smear with manual screening 0.91 ng/dL 0.76-1.46 [facility] Basophil percentageOrdered B y: Davis Donovan on 06-27-2023 Cholesterol [Mass/Vol] 178 mg/dL <200 [facility] Comment on above: <200 mg/dL Desirable 200-240 mg/dL Borderline >240 mg/dL High Risk Triglyceride [Mass/Vol] 91 mg/dL <199 [facility] Comment on above: The drugs N-Acetylcy steine and Metamizole may falsely depress this assay.Serum Triglycerides Reference Interval Normal <150 mg/dL Borderline high 150 - 199 mg/dL High 200 - 499 mg/dL Very High > or = 500 mg/dL Laboratory - Chemistry and C hemistry - challengeOrdered By: Davis Donovan on 06-27-2023 ALT [Catalytic activity/Vol] 23 U/L [facility] Serum or plasma cholesterol in HDL measurement (mass/volume)Ordered By: Davis Donovan on 06-27-2023 Cholesterol in HDL [Mass/Vol] 65 mg/dL >40 [facility] Comment on above: The drugs N-Acetylcy steine and Metamizole may falsely depress this assay. Reference Range HDL <40 mg/dL Low HDL Cholesterol HDL >or= 60 mg/dL High HDL Cholesterol Serum or plasma cholesterol in VLDL measurement (mass/volume)Ordered By: Davis Donovan on 06-27-2023 Cholesterol in VLDL [Mass/Vol] 18 mg/dL 5-40 [facility] Serum or plasma low density lipoprotein (LDL) cholesterol measurement (mass/volume)Ordered By: Davis Donovan on 06-27-2023 Cholesterol in LDL [Mass/Vol] 95 mg/dL 0-130 [facility] Thin prep Papanicolaou smear with manual screeningOrdered By: Davis Donovan on 06-27-2023 Thin prep Papanicolaou smear with manual screening 13 U/L [facility] Laboratory - Chemistry and C hemistry - challengeOrdered By: Peterson Mir on 11-08-2022 Cobalamin (Vitamin B12) [Mass/Vol] 449 pg/mL 211-911 [facility] No Panel InformationOrdered By: Peterson Mir on 11-08-2022 Vitamin D 25-Hydroxy 30.1 ng/mL [facility] Comment on above: Vitamin D 25(OH) Sta tus Range Deficiency <20 ng/mL (50nmol/L) Insufficiency 20 - 30 ng/mL (50 - 75 nmol/L) Sufficiency 30 - 100 ng/mL (75 - 250 nmol/L) Toxicity >100 ng/mL (>250 nmol/L) Absolute lymphocyte countOrd ered By: HEALTH ASSESSMENT on 10-24-2022 Lymphocytes Auto (Unsp spec) [#/Vol] 1.96 10*3/uL 0.83-4.51 [facility] Absolute reticulocyte countO rdered By: HEALTH ASSESSMENT on 10-24-2022 Reticulocytes (Bld) [#/Vol] 0.00 10*3/uL 0-5 [facility] Basophil percentageOrdered B y: HEALTH ASSESSMENT on 10-24-2022 Basophil percentage 4.1 mg/dL 2.5-4.9 [facility] Bilirubin [Mass/Vol] 0.50 mg/dL 0.20-1.00 [facility] Comment on above: For patients on eltr ombopag therapy, use of Dimension Sullivan TBIL is not recommended. Chloride [Moles/Vol] 106 mmol/L 98-107 [facility] Cholesterol [Mass/Vol] 195 mg/dL <200 [facility] Comment on above: <200 mg/dL Desirable 200-240 mg/dL Borderline >240 mg/dL High Risk Glucose [Mass/Vol] 74 mg/dL 74-106 [facility] LDH [Catalytic activity/Vol] 163 U/L 84-246 [facility] Neutrophils (Bld) [#/Vol] 2.6 10*3/uL 2.0-7.7 [facility] Potassium [Moles/Vol] 3.8 mmol/L 3.5-5.1 [facility] Protein [Mass/Vol] 7.3 g/dL 6.4-8.2 [facility] Sodium [Moles/Vol] 138 mmol/L 136-145 [facility] Triglyceride [Mass/Vol] 132 mg/dL <199 [facility] Comment on above: The drugs N-Acetylcy steine and Metamizole may falsely depress this assay.Serum Triglycerides Reference Interval Normal <150 mg/dL Borderline high 150 - 199 mg/dL High 200 - 499 mg/dL Very High > or = 500 mg/dL WBC (Bld) [#/Vol] 5.1 10*3/uL 4.4-11.0 [facility] Bilirubin Test strip Ql (U)O rdered By: HEALTH ASSESSMENT on 10-24-2022 Bilirubin Ql (U) Negative Negative [facility] Blood erythrocytes count (nu mber/volume)Ordered By: HEALTH ASSESSMENT on 10-24-2022 RBC (Bld) [#/Vol] 4.30 10*6/uL 4.2-5.4 [facility] Blood hemoglobin measurement (mass/volume)Ordered By: HEALTH ASSESSMENT on 10-24-2022 Hemoglobin (Bld) [Mass/Vol] 13.1 g/dL 12.0-15.0 [facility] Blood platelet mean volumeOr dered By: HEALTH ASSESSMENT on 10-24-2022 Platelet mean volume (Bld) [Entitic vol] 10.3 fL 6.2-12.0 [facility] Determination of erythrocyte mean corpuscular volume (MCV)Ordered By: HEALTH ASSESSMENT on 10-24-2022 MCV (RBC) [Entitic vol] 91.6 fL 81-99 [facility] Direct bilirubinOrdered By: HEALTH ASSESSMENT on 10-24-2022 Bilirubin.direct [Mass/Vol] 0.13 mg/dL 0.00-0.30 [facility] Hematocrit Auto (Bld) [Volum e fraction]Ordered By: HEALTH ASSESSMENT on 10-24-2022 Hematocrit (Bld) [Volume fraction] 39.4 % 37-47 [facility] Ketones Test strip Ql (U)Ord ered By: HEALTH ASSESSMENT on 10-24-2022 Ketones Ql (U) Negative Negative [facility] Laboratory - Chemistry and C hemistry - challengeOrdered By: HEALTH ASSESSMENT on 10-24-2022 ALP [Catalytic activity/Vol] 45 U/L 45-117 [facility] ALT [Catalytic activity/Vol] 23 U/L 13-56 [facility] Cholesterol.total/Choles terol in HDL [Mass ratio] 2.70 {ratio} [facility] CO2 [Moles/Vol] 23.0 mmol/L 21.0-32.0 [facility] Globulin (S) [Mass/Vol] 3.9 g/dL 2.2-4.2 [facility] Urea nitrogen/Creatinine [Mass ratio] 16.3 mg/mg 10-20 [facility] Laboratory - Hematology and Cell countsOrdered By: HEALTH ASSESSMENT on 10-24-2022 Erythrocyte distribution width (RBC) [Entitic vol] 40.5 fL 35.1-43.9 [facility] Erythrocyte distribution width (RBC) [Ratio] 12.1 % 11.6-14.6 [facility] MCH (RBC) [Entitic mass] 30.5 pg 27.0-32.0 [facility] Nucleated RBC/100 WBC (Bld) [Ratio] 0 % 0-5 [facility] MCHC Auto (RBC) [Mass/Vol]Or dered By: HEALTH ASSESSMENT on 10-24-2022 MCHC (RBC) [Mass/Vol] 33.2 g/dL 32-36 [facility] Nitrite Test strip Ql (U)Ord ered By: HEALTH ASSESSMENT on 10-24-2022 Nitrite Ql (U) Negative Negative [facility] No Panel InformationOrdered By: HEALTH ASSESSMENT on 10-24-2022 Estimated GFR (MDRD) Amer 128 mL/min >60 [facility] Comment on above: GFR Calc Estimated GFR (MDRD) Non-Af Amer 106 mL/min >60 [facility] Comment on above: Non- GFR Calc Platelets bldOrdered By: [facility] ASSESSMENT on 10-24-2022 Platelets (Bld) [#/Vol] 279 10*3/uL 150-450 [facility] Protein Test strip Ql (U)Ord ered By: HEALTH ASSESSMENT on 10-24-2022 Protein Ql (U) Negative Negative [facility] Segmented neutrophils/100 WB C Auto (Bld)Ordered By: HEALTH ASSESSMENT on 10-24-2022 Segmented neutrophils/100 WBC (Bld) 49.7 % 47-70 [facility] Serum or plasma albumin sharon urement (mass/volume)Ordered By: HEALTH ASSESSMENT on 10-24-2022 Albumin [Mass/Vol] 3.4 g/dL 3.2-5.0 [facility] Serum or plasma albumin/glob ulin mass ratioOrdered By: HEALTH ASSESSMENT on 10-24-2022 Albumin/Globulin [Mass ratio] 0.9 {ratio} 0.9-2.4 [facility] Serum or plasma calcium sharon urement (mass/volume)Ordered By: HEALTH ASSESSMENT on 10-24-2022 Calcium [Mass/Vol] 9.1 mg/dL 8.5-10.1 [facility] Serum or plasma cholesterol in HDL measurement (mass/volume)Ordered By: HEALTH ASSESSMENT on 10-24-2022 Cholesterol in HDL [Mass/Vol] 72 mg/dL >40 [facility] Comment on above: The drugs N-Acetylcy steine and Metamizole may falsely depress this assay. Reference Range HDL <40 mg/dL Low HDL Cholesterol HDL >or= 60 mg/dL High HDL Cholesterol Serum or plasma cholesterol in VLDL measurement (mass/volume)Ordered By: HEALTH ASSESSMENT on 10-24-2022 Cholesterol in VLDL [Mass/Vol] 26 mg/dL 5-40 [facility] Serum or plasma creatinine m easurement (mass/volume)Ordered By: HEALTH ASSESSMENT on 10-24-2022 Creatinine [Mass/Vol] 0.67 mg/dL 0.55-1.02 [facility] Comment on above: The validity of the calculated GFR & GFRAA in patients over 70 years has not been determined. Clinical correlation is essential. Serum or plasma low density lipoprotein (LDL) cholesterol measurement (mass/volume)Ordered By: HEALTH ASSESSMENT on 10-24-2022 Cholesterol in LDL [Mass/Vol] 97 mg/dL 0-130 [facility] Serum or plasma urea nitroge n measurement (mass/volume)Ordered By: HEALTH ASSESSMENT on 10-24-2022 Urea nitrogen [Mass/Vol] 11 mg/dL 7-18 [facility] Serum or plasma uric acid me asurement (mass/volume)Ordered By: HEALTH ASSESSMENT on 10-24-2022 Urate [Mass/Vol] 4.8 mg/dL 2.6-6.0 [facility] Comment on above: The drugs N-Acetylcy steine and Metamizole may falsely depress this assay. Thin prep Papanicolaou smear with manual screeningOrdered By: HEALTH ASSESSMENT on 10-24-2022 Thin prep Papanicolaou smear with manual screening 13 U/L 15-37 [facility] Thin prep Papanicolaou smear with manual screening 9 5-15 [facility] Urine blood detectionOrdered By: HEALTH ASSESSMENT on 10-24-2022 RBC Ql (U) 10 /ul Negative [facility] Urine clarityOrdered By: HEA LTH ASSESSMENT on 10-24-2022 Clarity (U) Sl. Cloudy Clear [facility] Urine color determinationOrd ered By: HEALTH ASSESSMENT on 10-24-2022 Color (U) Yellow Yellow [facility] Urine glucose detectionOrder ed By: HEALTH ASSESSMENT on 10-24-2022 Glucose Ql (U) Normal mg/dl Normal [facility] Urine leukocyte esterase det ection by dipstickOrdered By: HEALTH ASSESSMENT on 10-24-2022 Leukocyte esterase Test strip Ql (U) 25 /ul Negative [facility] Urine pHOrdered By: HEALTH A SSESSMENT on 10-24-2022 pH (U) 6.5 [pH] 5.0 - 8.0 [facility] Urine specific gravity measu rementOrdered By: HEALTH ASSESSMENT on 10-24-2022 Specific gravity (U) [Rel density] 1.015 1.002-1.030 [facility] Urobilinogen Auto test strip Ql (U)Ordered By: HEALTH ASSESSMENT on 10-24-2022 Urobilinogen Ql (U) Normal mg/dl Normal [facility] No Panel Informationon 03-29 Troponin I High Sensitivity 3 pg/mL 3.0-54.0 [facility] Work Phone: Comment on above: Please Note: New Janel t Units and Gender Specific Reference Ranges. For more information see Policy Stat Procedure Sullivan High Sensitivity Troponin (TNIH) and attachments. Laboratory - Microbiology an d Antimicrobial susceptibilityon 03-15-2022 SARS-CoV-2 (COVID-19) RNA HILTON+probe Ql (Unsp spec) Not detected [facility] Work Phone: No Panel Informationon 03-15 POC Nasal Swab Influenza A,B Not detected [facility] Work Phone: POC Nasal Swab RSV Not detected [facility] Work Phone: Cervical or vagninal specime n microscopic examination by cytology stain (reported ason 01-06-2022 Cytology report Cyto stain Doc (Cvx/Vag) Comment . [facility] Work Phone: Comment on above: The Pap smear is a s creening test designed to aid in thedetection of premalignant and malignant conditions of theuterine cervix. It is not a diagnostic procedure andshould not be used as the sole means of detecting cervicalcancer. Both false-positive and false-negative reports dooccur. Detection in cervical specim en of any of human papilloma virus (HPV) 16, 18, 31, 33,on 01-06-2022 HPV 16+18+31+33+35+39+45+51+ 52+56+58+59+66+68 DNA Probe+sig amp Ql (Cvx) Negative Negative [facility] Work Phone: Comment on above: This nucleic acid am plification test detects fourteen high-risk HPV types (16,18,31,33,35,39,45,51,52,56,58,59,66,68)without differentiation.Performed at: - [facility] [id number] Director: Tania Lopez MD, Phone: [phone] at: =[facility] [id number] Director: Tania Lopez MD, Phone: [phone] Laboratory - Cytologyon Ad Writer Cyto stain Nom (Cvx/Vag) [ID] Comment . [facility] Work Phone: Comment on above: Timothy Smith , Metal Neutralizer (ASCP) Laboratory - Miscellaneous t estson 01-06-2022 Service comment (Unsp spec) [Interp] Comment . [facility] Work Phone: Comment on above: This liquid based Th inPrep(R) pap test was screened withthe use of an image guided system. Service comment (Unsp spec) [Interp] . . [facility] Work Phone: No Panel Informationon 01-06 Pathology report final diagnosis Narrative Comment . [facility] Work Phone: Comment on above: NEGATIVE FOR INTRAEP ITHELIAL LESION OR MALIGNANCY. Basophil percentageon 2021 Chloride [Moles/Vol] 108 mmol/L 98-107 [facility] Work Phone: Glucose [Mass/Vol] 73 mg/dL 74-106 [facility] Work Phone: [phone] Potassium [Moles/Vol] 3.9 mmol/L 3.5-5.1 [facility] Work Phone: Sodium [Moles/Vol] 138 mmol/L 136-145 [facility] Work Phone: Laboratory - Chemistry and C hemistry - challengeon 10-13-2021 CO2 [Moles/Vol] 25.0 mmol/L 21.0-32.0 [facility] Work Phone: Urea nitrogen/Creatinine [Mass ratio] 12.4 mg/mg 10-20 [facility] Work Phone: No Panel Informationon 10-13 Estimated GFR (MDRD) Amer 118 mL/min >60 [facility] Work Phone: Comment on above: GFR Calc Estimated GFR (MDRD) Non-Af Amer 98 mL/min >60 [facility] Work Phone: Comment on above: Non- GFR Calc Thyroid Stimulating Hormone (TSH) 1.64 uIU/mL 0.358-3.74 [facility] Work Phone: Serum or plasma calcium sharon urement (mass/volume)on 10-13-2021 Calcium [Mass/Vol] 8.6 mg/dL 8.5-10.1 [facility] Work Phone: Serum or plasma creatinine m easurement (mass/volume)on 10-13-2021 Creatinine [Mass/Vol] 0.72 mg/dL 0.55-1.02 [facility] Work Phone: Comment on above: The validity of the calculated GFR & GFRAA in patients over 70 years has not been determined. Clinical correlation is essential. Serum or plasma urea nitroge n measurement (mass/volume)on 10-13-2021 Urea nitrogen [Mass/Vol] 9 mg/dL 7-18 [facility] Work Phone: Thin prep Papanicolaou smear with manual screeningon 10-13-2021 Thin prep Papanicolaou smear with manual screening 5 5-15 [facility] [facility] Work Phone: Absolute lymphocyte counton 08-17-2021 Lymphocytes Auto (Unsp spec) [#/Vol] 1.62 10*3/uL 0.83-4.51 [facility] Work Phone: Absolute reticulocyte counto n 08-17-2021 Reticulocytes (Bld) [#/Vol] 0.00 10*3/uL 0-5 [facility] Work Phone: Basophil percentageon 2021 Basophil percentage 3.6 mg/dL 2.5-4.9 [facility] Work Phone: Bilirubin [Mass/Vol] 0.50 mg/dL 0.20-1.00 [facility] Work Phone: Comment on above: For patients on eltr ombopag therapy, use of Dimension Sullivan TBIL is not recommended. Chloride [Moles/Vol] 105 mmol/L 98-107 [facility] Work Phone: Cholesterol [Mass/Vol] 178 mg/dL <200 [facility] Work Phone: Comment on above: <200 mg/dL Desirable 200-240 mg/dL Borderline >240 mg/dL High Risk Glucose [Mass/Vol] 77 mg/dL 74-106 [facility] Work Phone: Neutrophils (Bld) [#/Vol] 3.2 10*3/uL 2.0-7.7 [facility] Work Phone: Potassium [Moles/Vol] 4.0 mmol/L 3.5-5.1 [facility] Work Phone: Protein [Mass/Vol] 7.4 g/dL 6.4-8.2 [facility] Work Phone: [phone] Sodium [Moles/Vol] 139 mmol/L 136-145 [facility] Work Phone: [phone] Triglyceride [Mass/Vol] 51 mg/dL [facility] Work Phone: [phone] Comment on above: The drugs N-Acetylcy steine and Metamizole may falsely depress this assay.Serum Triglycerides Reference Interval Normal <150 mg/dL Borderline high 150 - 199 mg/dL High 200 - 499 mg/dL Very High > or = 500 mg/dL WBC (Bld) [#/Vol] 5.4 10*3/uL 4.4-11.0 [facility] Work Phone: [phone] Bilirubin Test strip Ql (U)o n 08-17-2021 Bilirubin Ql (U) Negative Negative [facility] Work Phone: [phone] Blood erythrocytes count (nu mber/volume)on 08-17-2021 RBC (Bld) [#/Vol] 4.21 10*6/uL 4.2-5.4 [facility] Work Phone: [phone] Blood hemoglobin measurement (mass/volume)on 08-17-2021 Hemoglobin (Bld) [Mass/Vol] 13.0 g/dL 12.0-15.0 [facility] Work Phone: [phone] Blood platelet mean volumeon 08-17-2021 Platelet mean volume (Bld) [Entitic vol] 10.4 fL 6.2-12.0 [facility] Work Phone: [phone] Determination of erythrocyte mean corpuscular volume (MCV)on 08-17-2021 MCV (RBC) [Entitic vol] 90.5 fL 81-99 [facility] Work Phone: [phone] Direct bilirubinon Bilirubin.direct [Mass/Vol] 0.13 mg/dL 0.00-0.30 [facility] Work Phone: [phone] Hematocrit Auto (Bld) [Volum e fraction]on 08-17-2021 Hematocrit (Bld) [Volume fraction] 38.1 % 37-47 [facility] Work Phone: Ketones Test strip Ql (U)on 08-17-2021 Ketones Ql (U) Negative Negative [facility] Work Phone: [phone] Laboratory - Chemistry and C hemistry - challengeon 08-17-2021 ALP [Catalytic activity/Vol] 55 U/L 45-117 [facility] Work Phone: [phone] ALT [Catalytic activity/Vol] 23 U/L 13-56 [facility] Work Phone: [phone] Cholesterol.total/Choles terol in HDL [Mass ratio] 2.70 {ratio} [facility] Work Phone: [phone] CO2 [Moles/Vol] 29.0 mmol/L 21.0-32.0 [facility] Work Phone: [phone] Globulin (S) [Mass/Vol] 3.8 g/dL 2.2-4.2 [facility] Work Phone: [phone] Urea nitrogen/Creatinine [Mass ratio] 18.2 mg/mg 10-20 [facility] Work Phone: [phone] Laboratory - Hematology and Cell countson 08-17-2021 Erythrocyte distribution width (RBC) [Entitic vol] 44.2 fL 35.1-43.9 [facility] Work Phone: [phone] Erythrocyte distribution width (RBC) [Ratio] 13.4 % 11.6-14.6 [facility] Work Phone: [phone] MCH (RBC) [Entitic mass] 30.9 pg 27.0-32.0 [facility] Work Phone: [phone] Nucleated RBC/100 WBC (Bld) [Ratio] 0 % 0-5 [facility] Work Phone: [phone] MCHC Auto (RBC) [Mass/Vol]on 08-17-2021 MCHC (RBC) [Mass/Vol] 34.1 g/dL 32-[address] Work Phone: Nitrite Test strip Ql (U)on 08-17-2021 Nitrite Ql (U) Negative Negative [facility] Work Phone: No Panel Informationon 08-17 Estimated GFR (MDRD) Amer 146 mL/min >60 [facility] Work Phone: Comment on above: GFR Calc Estimated GFR (MDRD) Non-Af Amer 121 mL/min >60 [facility] Work Phone: Comment on above: Non- GFR Calc Platelets bldon 08-17-2021 Platelets (Bld) [#/Vol] 320 10*3/uL 150-450 [facility] Work Phone: Protein Test strip Ql (U)on 08-17-2021 Protein Ql (U) Negative Negative [facility] Work Phone: Segmented neutrophils/100 WB C Auto (Bld)on 08-17-2021 Segmented neutrophils/100 WBC (Bld) 59.9 % 47-70 [facility] Work Phone: Serum or plasma albumin sharon urement (mass/volume)on 08-17-2021 Albumin [Mass/Vol] 3.6 g/dL 3.2-5.0 [facility] Work Phone: Serum or plasma albumin/glob ulin mass ratioon 08-17-2021 Albumin/Globulin [Mass ratio] 0.9 {ratio} 0.9-2.4 [facility] Work Phone: Serum or plasma calcium sharon urement (mass/volume)on 08-17-2021 Calcium [Mass/Vol] 8.3 mg/dL 8.5-10.1 [facility] Work Phone: [phone] Serum or plasma cholesterol in HDL measurement (mass/volume)on 08-17-2021 Cholesterol in HDL [Mass/Vol] 67 mg/dL [facility] Work Phone: Comment on above: The drugs N-Acetylcy steine and Metamizole may falsely depress this assay. Reference Range HDL <40 mg/dL Low HDL Cholesterol HDL >or= 60 mg/dL High HDL Cholesterol Serum or plasma cholesterol in VLDL measurement (mass/volume)on 08-17-2021 Cholesterol in VLDL [Mass/Vol] 10 mg/dL 5-40 [facility] Work Phone: [phone] Serum or plasma creatinine m easurement (mass/volume)on 08-17-2021 Creatinine [Mass/Vol] 0.60 mg/dL 0.55-1.02 [facility] Work Phone: Comment on above: The validity of the calculated GFR & GFRAA in patients over 70 years has not been determined. Clinical correlation is essential. Serum or plasma low density lipoprotein (LDL) cholesterol measurement (mass/volume)on 08-17-2021 Cholesterol in LDL [Mass/Vol] 101 mg/dL 0-130 [facility] Work Phone: [phone] Serum or plasma urea nitroge n measurement (mass/volume)on 08-17-2021 Urea nitrogen [Mass/Vol] 11 mg/dL 7-18 [facility] Work Phone: [phone] Serum or plasma uric acid me asurement (mass/volume)on 08-17-2021 Urate [Mass/Vol] 4.6 mg/dL 2.6-6.0 [facility] Work Phone: Comment on above: The drugs N-Acetylcy steine and Metamizole may falsely depress this assay. Thin prep Papanicolaou smear with manual screeningon 08-17-2021 Thin prep Papanicolaou smear with manual screening 17 U/L 15-37 [facility] Work Phone: [phone] Thin prep Papanicolaou smear with manual screening 5 5-15 [facility] Work Phone: [phone] Thin prep Papanicolaou smear with manual screening 187 U/L 84-246 [facility] Work Phone: [phone] Urine blood detectionon 08-02 RBC Ql (U) 10 /ul Negative [facility] Work Phone: [phone] Urine clarityon 08-17-2021 Clarity (U) Sl. Cloudy Clear [facility] Work Phone: Urine color determinationon 08-17-2021 Color (U) Yellow Yellow [facility] Work Phone: Urine glucose detectionon Glucose Ql (U) Normal mg/dl Normal [facility] Work Phone: Urine leukocyte esterase det ection by dipstickon 08-17-2021 Leukocyte esterase Test strip Ql (U) Negative Negative [facility] Work Phone: Urine pHon 08-17-2021 pH (U) 7.0 [pH] [facility] Work Phone: Urine specific gravity measu rementon 08-17-2021 Specific gravity (U) [Rel density] 1.010 [facility] Work Phone: Urobilinogen Auto test strip Ql (U)on 08-17-2021 Urobilinogen Ql (U) Normal mg/dl Normal [facility] Work Phone: Vital Signs Date Time Vital Sign Value Performing Clinician Faci lity 08-14-2023 09:07-0500 Body height 154.[address] Ebony Flores Work Phone: [facility] 08-14-2023 09:07-0500 Body mass index (BMI) [Ratio] 22.5 kg/m2 Dr. Ebony Flores Work Phone: [facility] 08-14-2023 09:07-0500 Body temperature 97.7 [degF] Dr. Ebony Flores Work Phone: [facility] 08-14-2023 09:07-0500 Body weight 54.[address] Ebony Flores Work Phone: [facility] 08-14-2023 09:07-0500 Diastolic blood pressure 72 mm[Hg] Dr. Ebony Flores Work Phone: [facility] 08-14-2023 09:07-0500 Heart rate 66 /min Dr. Ebony Flores Work Phone: [facility] 08-14-2023 09:07-0500 Respiratory rate 14 /min Dr. Ebony Flores Work Phone: [facility] 08-14-2023 09:07-0500 SaO2% (BldA) [Mass fraction] 99 % Dr. Ebony Flores Work Phone: [facility] 08-14-2023 09:07-0500 Systolic blood pressure 114 mm[Hg] Dr. Ebony Flores Work Phone: [facility] 03-19-2023 09:00-0400 Body temperature 98.2 [degF] PA Rangel Jackson PA Work Phone: [facility] 03-19-2023 09:00-0400 Body weight 54.2 kg PA Rangel Jackson PA Work Phone: [facility] 03-19-2023 09:00-0400 Diastolic blood pressure 73 mm[Hg] PA Rangel Jackson PA Work Phone: [facility] 03-19-2023 09:00-0400 Heart rate 65 /min PA Rangel Jackson PA Work Phone: [facility] 03-19-2023 09:00-0400 Respiratory rate 20 /min PA Rangel Jackson PA Work Phone: [facility] 03-19-2023 09:00-0400 SaO2% (BldA) [Mass fraction] 98 % PA Rangel Jackson PA Work Phone: [facility] 03-19-2023 09:00-0400 Systolic blood pressure 109 mm[Hg] PA Rangel Jackson PA Work Phone: [facility] 11-08-2022 08:40-0400 Body height 154.[address] Ebony Flores Work Phone: [facility] 11-08-2022 08:40-0400 Body mass index (BMI) [Ratio] 22.4 kg/m2 Dr. Ebony Flores Work Phone: [facility] 11-08-2022 08:40-0400 Body temperature 98.5 [degF] Dr. Ebony Flores Work Phone: [facility] 11-08-2022 08:40-0400 Body weight 53.[address] Ebony Flores Work Phone: [facility] 11-08-2022 08:40-0400 Diastolic blood pressure 64 mm[Hg] Dr. Ebony Flores Work Phone: [facility] 11-08-2022 08:40-0400 Heart rate 59 /min Dr. Ebony Flores Work Phone: [facility] 11-08-2022 08:40-0400 Respiratory rate 14 /min Dr. Ebony Flores Work Phone: [facility] 11-08-2022 08:40-0400 SaO2% (BldA) [Mass fraction] 98 % Dr. Ebony Flores Work Phone: [facility] 11-08-2022 08:40-0400 Systolic blood pressure 100 mm[Hg] Dr. Ebony Flores Work Phone: [facility] 03-29-2022 12:59-0400 Body height 154.[address] Ebony Flores Work Phone: [facility] Work Phone: 03-29-2022 12:59-0400 Body mass index (BMI) [Ratio] 20.9 kg/m2 Dr. Ebony Flores Work Phone: [facility] Work Phone: 03-29-2022 12:59-0400 Body temperature 98.1 [degF] Dr. Ebony Flores Work Phone: [facility] Work Phone: 03-29-2022 12:59-0400 Body weight 50.[address] Ebony Flores Work Phone: [facility] Work Phone: 03-29-2022 12:59-0400 Diastolic blood pressure 70 mm[Hg] Dr. Ebony Flores Work Phone: [facility] Work Phone: 03-29-2022 12:59-0400 Heart rate 92 /min Dr. Ebony Flores Work Phone: [facility] Work Phone: 03-29-2022 12:59-0400 Respiratory rate 14 /min Dr. Ebony Flores Work Phone: [facility] Work Phone: 03-29-2022 12:59-0400 SaO2% (BldA) [Mass fraction] 98 % Dr. Ebony Flores Work Phone: [facility] Work Phone: 03-29-2022 12:59-0400 Systolic blood pressure 104 mm[Hg] Dr. Ebony Flores Work Phone: [facility] Work Phone: 01-06-2022 11:50-0400 Body height 154.[address] Ebony Flores Work Phone: [facility] Work Phone: 01-06-2022 11:49-0400 Body mass index (BMI) [Ratio] 20.9 kg/m2 Dr. Ebony Flores Work Phone: [facility] Work Phone: 01-06-2022 11:49-0400 Body weight 50.[address] Ebony Flores Work Phone: [facility] Work Phone: 01-06-2022 11:49-0400 Diastolic blood pressure 60 mm[Hg] Dr. Ebony Flores Work Phone: [facility] Work Phone: 01-06-2022 11:49-0400 Systolic blood pressure 100 mm[Hg] Dr. Ebony Flores Work Phone: [facility] Work Phone: 09-06-2021 16:00-0500 Body height 154.[address] Ebony Flores Work Phone: [facility] Work Phone: 09-06-2021 16:00-0500 Body mass index (BMI) [Ratio] 21.9 kg/m2 Dr. Ebony Flores Work Phone: [facility] Work Phone: 09-06-2021 16:00-0500 Body temperature 98.7 [degF] Dr. Ebony Flores Work Phone: [facility] Work Phone: 09-06-2021 16:00-0500 Body weight 52.[address] Ebony Flores Work Phone: [facility] Work Phone: 09-06-2021 16:00-0500 Diastolic blood pressure 68 mm[Hg] Dr. Ebony Flores Work Phone: [facility] Work Phone: 09-06-2021 16:00-0500 Heart rate 61 /min Dr. Ebony Flores Work Phone: [facility] Work Phone: 09-06-2021 16:00-0500 Respiratory rate 14 /min Dr. Ebony Flores Work Phone: [facility] Work Phone: 09-06-2021 16:00-0500 SaO2% (BldA) [Mass fraction] 99 % Dr. Ebony Flores Work Phone: [facility] Work Phone: 09-06-2021 16:00-0500 Systolic blood pressure 104 mm[Hg] Dr. Ebony Flores Work Phone: [facility] Work Phone: Encounters Encounter Date Encounter Type Care Provider Facility Start: 01-11-2025 End: 01-11-2025 ambulatory Gia COLON Facility:[facility] Start: 12-02-2024 End: 12-02-2024 ambulatory Sarah Magi Facility:[facility] Start: 10-21-2024 End: 10-21-2024 ambulatory Sarah Sow Facility:[facility] Start: 10-10-2024 End: 10-10-2024 ambulatory Nj COLON Facility:[facility] Start: 09-18-2024 ambulatory Health Risk Assessment Facility:[facility] Start: 04-02-2024 End: 04-02-2024 ambulatory Valerybethelkleber Flores Facility:[facility] Start: 03-27-2024 ambulatory Ebony Flores Facili ty:[facility] Start: 03-20-2024 End: 03-20-2024 [facility] Start: 03-14-2024 End: 03-14-2024 Emergency department patient visit Ebony Flores Facility:[facility] Start: 02-18-2024 End: 02-18-2024 ambulatory Ebony Flores Facility:[facility] Start: 09-07-[address] Bladimir Flores Work Phone: [facility] Work Phone: Start: 09-07-2023 End: 09-07-[address] Ebony Flores Work Phone: [facility] Work Phone: Start: 09-07-2023 End: 09-07-[address] Ebony Flores Work Phone: [facility] Work Phone: Start: 08-14-2023 End: 08-14-[address] Ebony Flores Work Phone: [facility] Work Phone: Start: 06-27-2023 End: 06-27-2023 ambulatory ISAIAH COLON Work Phone: [facility] Work Phone: Start: 06-27-2023 End: 06-27-2023 Patient encounter procedure ISAIAH COLON Work Phone: [facility]-Laboratory Work Phone: Start: 03-19-2023 End: 03-19-2023 Patient encounter procedure ISAIAH COLON Work Phone: [facility] Work Phone: Start: 11-13-2022 End: 11-13-[address] Ebony Flores Work Phone: [facility] Start: 11-09-[address] Ebony Flores Work Phone: [facility] Start: 11-08-2022 End: 11-08-[address] Ebony Flores Work Phone: [facility] Work Phone: Start: 11-08-2022 End: 11-08-2022 Encounter for general adult medical examination without abnormal findings Dr. Ebony Flores Work Phone: [facility] Start: 11-08-2022 End: 11-08-[address] Ebony Flores Work Phone: [facility] Start: 10-24-[address] Bladimir Flores Work Phone: [facility] Start: 03-29-2022 End: 03-29-[address] Ebony Flores Work Phone: [facility] Work Phone: Start: 03-29-2022 End: 03-29-[address] Ebony Flores Work Phone: [facility]-Pulmonary Services/Neurology Start: 03-29-2022 End: 03-29-[address] Ebony Flores Work Phone: [facility] Start: 03-15-2022 End: 03-15-[address] Ebony Flores Work Phone: [facility] Start: 03-15-2022 Non-patient / Non-visit Dr. Mark Flores Work Phone: [facility] Start: 01-06-2022 End: 01-06-[address] Ebony Flores Work Phone: [facility]-Laboratory, Specimen Start: 01-06-2022 End: 01-06-[address] Ebony Flores Work Phone: [facility] Start: 01-06-2022 End: 01-06-[address] Ebony Flores Work Phone: [facility] Start: 12-26-2021 End: 12-26-[address] Ebony Flores Work Phone: [facility] Start: 11-21-2021 End: 11-21-[address] Ebony Flores Work Phone: [facility] Start: 11-01-2021 End: 11-01-[address] Ebony Flores Work Phone: [facility] Start: 10-13-2021 End: 10-13-[address] Ebony Flores Work Phone: [facility], [facility] Start: 09-06-2021 End: 09-06-[address] Ebony Flores Work Phone: [facility] Start: 08-17-[address] Bladimir Flores Work Phone: [facility] Start: 03-25-2018 Patient encounter YISSEL Vanessa Bowman [facility] Procedures Date Procedure Procedure Detail Performing Clinician Start: 03-19-2023 Plain X-ray of toe ISAIAH COLON Work Phone: Start: 11-08-2022 X-ray of lumbar spin e, two or three views Dr. Ebony Flores Work Phone: Plan of Treatment Date Care Activity Detail Author Start: 11-08-2022 Patient referral [facility] Work Phone: Start: 03-29-2022 Evaluation of [facility] study results [facility] Work Phone: Start: 01-06-2022 Liquid based cervica l cytology screening [facility] Work Phone: Evaluation of [facility] study results [facility] Work Phone: Path report.final Dx Spec [facility] Work Phone: Patient referral [facility] Work Phone: Troponin I measurement [facility] Work Phone: Immunizations Immunization Date Immunization Notes Care Provider Juni hernandez 04-04-2023 influenza, injectabl e, quadrivalent, preservative free ISAIAH COLON Work Phone: [facility] 04-14-2022 Covid Moderna Bivale nt Booster Dr. Ebony Flores Work Phone: [facility] 03-31-2022 influenza, injectabl e, quadrivalent, preservative free ISAIAH COLON Work Phone: [facility] 03-31-2022 influenza, seasonal, injectable Dr. Ebony Flores Work Phone: [facility] 06-17-2021 Covid (Pfizer) Dr. Ebony Flores Work Phone: [facility] 03-29-2021 influenza, injectabl e, quadrivalent, preservative free ISAIAH COLON Work Phone: [facility] 03-29-2021 influenza, seasonal, injectable Dr. Ebony Flores Work Phone: [facility] 09-08-2020 tetanus toxoid, redu haley diphtheria toxoid, and acellular pertussis vaccine, adsorbed Dr. Ebony Flores Work Phone: [facility] 09-08-2020 diphtheria, tetanus toxoids and acellular pertussis vaccine, unspecified formulation Dr. Ebony Flores Work Phone: [facility] Work Phone: 03-30-2020 influenza, injectabl e, quadrivalent, preservative free ISAIAH COLON Work Phone: [facility] 03-30-2020 influenza, seasonal, injectable Dr. Ebony Flores Work Phone: [facility] 04-22-2019 influenza, injectabl e, quadrivalent, preservative free ISAIAH COLON Work Phone: [facility] 04-22-2019 influenza, seasonal, injectable Dr. Ebony Flores Work Phone: [facility] 03-29-2018 influenza, injectabl e, quadrivalent, preservative free ISAIAH COLON Work Phone: [facility] 03-29-2018 influenza, seasonal, injectable Dr. Ebony Flores Work Phone: [facility] 03-06-2018 tetanus toxoid, redu haley diphtheria toxoid, and acellular pertussis vaccine, adsorbed Dr. Ebony Flores Work Phone: [facility] 03-06-2018 diphtheria, tetanus toxoids and acellular pertussis vaccine, unspecified formulation Dr. Ebony Flores Work Phone: [facility] Work Phone: 03-28-2017 influenza, injectabl e, quadrivalent, preservative free ISAIAH COLON Work Phone: [facility] 03-28-2017 influenza, seasonal, injectable Dr. Ebony Flores Work Phone: [facility] 04-05-2016 influenza, injectabl e, quadrivalent, preservative free ISAIAH COLON Work Phone: [facility] 04-05-2016 influenza, seasonal, injectable Dr. Ebony Flores Work Phone: [facility] Payers Date Payer Category Payer Unknown [id number] 2024 Self-pay [id number] 2023 Unknown [id number] [facility] 2005 Unknown [facility] *DO NOT USE* [id number] 1988 Unknown ANTHEM [id number] Private Health Insurance A00 [id number] Unknown [id number] Unknown [id number] Unknown [id number] Unknown [id number] Unknown [id number] [id number] Unknown [id number] [id number] Unknown [id number] [id number] Unknown [id number] [id number] Unknown [id number] [id number] Unknown [id number] [id number] Unknown [id number] [id number] Unknown [id number] Social History Date Type Detail Facility Start: 09-06-2021 End: 08-14-2023 Tobacco smoking status CAIS Unknown if ever smoked [facility] Start: 05-08-2018 None [facility] Start: 1985 Sex Assigned At Female [facility] Medical Equipment Procedure Code Equipment Code Equipment Origin al Text Equipment Identifier Dates Blood Sugar Diagnostic (Truetrack Test) strip Start: 08-30-2020 End: 09-23-2020 Blood Sugar Diagnostic (Truetrack Test) strip Start: 08-30-2020 End: 09-23-2020 Blood Sugar Diagnostic (Truetrack Test) strip Start: 08-30-2020 End: 09-23-2020 Blood Sugar Diagnostic (Truetrack Test) strip Start: 08-30-2020 End: 09-23-2020 Blood Sugar Diagnostic (Truetrack Test) strip Start: 08-30-2020 End: 09-23-2020 Blood Sugar Diagnostic (Truetrack Test) strip Start: 08-30-2020 End: 09-23-2020 Blood Sugar Diagnostic (Truetrack Test) strip Start: 08-30-2020 End: 09-23-2020 Goals Date Patient Goal Desired Activity /State Clinical Note 01-06-2022 Note Date & Type Note Facility 01-06-2022 Note [facility] Work Phone: Pap Smear Specimen Adequacy January 06, 2022 5:05pm Comment . Satisfactory for evaluation. No endocervical component is identified. Comment on above: Satisfactory for elizabeth luation. No endocervical component is identified. Clinical Note 01-06-2022 Note Date & Type Note Facility 01-06-2022 Note [facility] Work Phone: Pap Smear Specimen Adequacy January 06, 2022 5:05pm Comment . Satisfactory for evaluation. No endocervical component is identified. Comment on above: Satisfactory for elizabeth luation. No endocervical component is identified. Progress note 01-25-2021 Note Date & Type Note Facility 01-25-2021 Note HNO ID: [id number] Author: Aaron Hardy Service: ? Author Type: ? Type: Progress Notes Filed: 01/25/2021 2:27 PM Note Text: POPULATION HEALTH NAVIGATION OUTREACH Action/FYI Left v.m and sent myc Contact made with patient or family member? NO Pt identified by name and : NO Outreach Outcome/Action Unable to reach patient: Left message MyChart message sent Reason for Outreach Care Gap or Scheduling/Wellness visits Payer: Payor: CIGNA / Plan: CIGNA PPO / Product Type: PPO / Care Gap Reviewed:: Annual Wellness visit Reminder: Reminder note to check Health Maintenance for items below Health Maintenance items due: DEPRESSION SCREENING Never done COVID-19 VACCINE(1) Never done HPV TESTING due on 2017 PAP TESTING due on 11/11/2019 DTAP,TDAP,TD(3 - Td or Tdap) due on 01/30/2021 Advanced Directives Completed: Have you ever planned for future healthcare decisions with a power of ip technology transactions attorney, living will, or advance directives? Yes. Have you shared those records with your doctor? No Referrals: N/A Message Sent to Practice: NO Navigation Signature: Aaron Hardy January 25, 2021 2:26 PM [facility] Clinical Note 01-25-2021 Note Date & Type Note Facility 01-25-2021 Note Patient Outreach (ONIEL TNAV) BHARAT SNEED ([id number]) 1985 F Date Time Provider Department 01/25/21 AARON RANDHAWA ([facility]) NETPERRIV During your visit today, we recorded the following information about you: Aaron Randhawa Pss 01/25/2021 2:27 PM Signed POPULATION HEALTH NAVIGATION OUTREACH Action/FYI Lucila jim and sent myc Contact made with patient or family member? NO Pt identified by name and : NO Outreach Outcome/Action Unable to reach patient: Left message Janalakshmihart message sent Reason for Outreach Care Gap or Scheduling/Wellness visits Payer: Payor: CIGNA / Plan: CIGNA PPO / Product Type: PPO / Care Gap Reviewed:: Annual Wellness visit Reminder: Reminder note to check Health Maintenance for items below Health Maintenance items due: DEPRESSION SCREENING Never done COVID-19 VACCINE(1) Never done HPV TESTING due on 2017 PAP TESTING due on 11/11/2019 DTAP,TDAP,TD(3 - Td or Tdap) due on 01/30/2021 Advanced Directives Completed: Have you ever planned for future healthcare decisions with a power of ip technology transactions attorney, living will, or advance directives? Yes. Have you shared those records with your doctor? No Referrals: N/A Message Sent to Practice: NO Navigation Signature: Aaron Randhawa Pss January 25, 2021 2:26 PM Allergies As of Date: 01/25/2021 Noted Allergy Reaction Mirena IUD [Other] 03/23/2011 4 - Hives Comments: Acne flare up MORPHINE 09/22/2013 4 - Hives Comments: Shortness of breath and chest pain MOSQUITOS 03/01/2011 4 - Hives Date Reviewed: 12/20/2016 Reviewed by: Beryl Del Cid Ma - Fully Assessed Reason for Visit: Population Health Navigation Outreach [3910] Cmt: [facility] WOMAN ANNUAL EXAM Prescriptions as of 01/25/2021 - citalopram hydrobromide (CELEXA) 10 mg tablet Take 1 tablet by mouth once daily. - VIT/IRON FUMARATE/FA ( ORAL) Take by mouth. - Desogestrel-Ethinyl Estradiol (APRI) 0.15-0.03 mg per tablet Take 1 tablet by mouth once daily. - Magic Mouthwash (Balmorhea Sol) 8gm tetracycline +8million units nystatin +200mg hydrocortisone +480ml water. 1 tsp swish/swallow three times a day (1 PINT) Problem List As Of Date 01/25/2021 Noted Resolved Routine general medical examination at [facility]03/21/2010 09/26/2010 Class: Chronic Routine gynecological examination [Z01.419] 03/21/2010 09/26/2010 Class: Chronic Abdominal pain, right upper quadrant [R10.11] 09/26/2010 03/07/2011 Abdominal pain, left upper quadrant [R10.12] 09/26/2010 03/07/2011 Backache, unspecified [M54.9] 09/26/2010 03/07/2011 Small for gestational age [P05.10] 10/18/2010 03/07/2011 IUD surveillance [Z30.431] 03/13/2011 03/23/2011 Depression [F32.9] 12/02/2011 Oligomenorrhea [N91.5] 03/04/2013 Anxiety [F41.9] 09/17/2013 Diarrhea [R19.7] 08/19/2014 08/19/2014 Episodic cluster headache, not intractable [G44*07/15/2015 Encounter Status:Closed by AARON AVENDANO on 01/25/21 [facility] Evaluation note Note Date & Type Note Facility Evaluation note Diagnosis Onset Date Acne [facility] Work Phone: Evaluation note Note Date & Type Note Facility Evaluation note Diagnosis Onset Date Segmental and somatic dysfun ction of cervical region acute Segmental and somatic dysfun ction of lumbar region acute Segmental and somatic dysfun ction of pelvic region acute Segmental and somatic dysfun ction of thoracic region acute Segmental and somatic dysfun ction of cervical region acute Segmental and somatic dysfun ction of lumbar region acute Segmental and somatic dysfun ction of pelvic region acute Segmental and somatic dysfun ction of thoracic region acute Segmental and somatic dysfun ction of cervical region acute Segmental and somatic dysfun ction of lumbar region acute Segmental and somatic dysfun ction of pelvic region acute Segmental and somatic dysfun ction of thoracic region acute Anxiety acute Mastalgia acute [id number] noneactive [facility] Work Phone: Evaluation note Note Date & Type Note Facility Evaluation note Diagnosis Onset Date Segmental and somatic dysfun ction of cervical region acute Segmental and somatic dysfun ction of lumbar region acute Segmental and somatic dysfun ction of pelvic region acute Segmental and somatic dysfun ction of thoracic region acute Anxiety acute Mastalgia acute [id number] noneactive Anxiety acute Chest pain acute [facility] Work Phone: Evaluation note Note Date & Type Note Facility Evaluation note Diagnosis Onset Date Encounter for preventative a on [facility] health care examination acute Vitamin deficiency acute Acute bacterial conjunctivitis acute [facility] Work Phone: Evaluation note Note Date & Type Note Facility Evaluation note Diagnosis Onset Date Pain of left great toe acute [facility] Work Phone: Evaluation note Note Date & Type Note Facility Evaluation note Diagnosis Onset Date Anxiety acute GERD (gastroesophageal reflux disease) acute Acne chronic Chronic back pain chronic [facility] Work Phone: Summary Purpose Family History No Family History Records Found Relationship Condition Age at Onset Recorded Date/T alba mother Diabetes mellitus Unknown Depression Unknown Malignant neoplasm Unknown father Hypertension Unknown grandfather Myocardial infarction Unknown grandfather Cerebrovascular accident (CVA) Unknown brother Mental disorder Unknown Seizure Unknown Advance Directives No Advanced Directives Records Found Advance Directive Response Recorded Date/ Time Advance Directives No April 12, 2020 9:34am Living Will No May 31 4:48pm Power of Neurosurgical Nurse Practitioner No May 31, 2021 4:48pm Advance Directive Response Recorded Date/ Time Advance Directives No March 8:50am Living Will No March 29, 2022 8:50am Power of Neurosurgical Nurse Practitioner No March 8:50am Advance Directive Response Recorded Date/ Time Advance Directives No March 7:50am Living Will No March 29, 2022 7:50am Power of Neurosurgical Nurse Practitioner No March 7:50am Chief Complaint and Reason for Visit Chief Complaint employee physical Reason for Visit Acne Chief Complaint Back pain adjustment Back pain est annual ANNUAL PAP Reason for Visit Segmental and somati c dysfunction of cervical region Segmental and somatic dysfunction of lumbar region Segmental and somatic dysfunction of pelvic region Segmental and somatic dysfunction of thoracic region Segmental and somatic dysfunction of cervical region Segmental and somatic dysfunction of lumbar region Segmental and somatic dysfunction of pelvic region Segmental and somatic dysfunction of thoracic region Segmental and somatic dysfunction of cervical region Segmental and somatic dysfunction of lumbar region Segmental and somatic dysfunction of pelvic region Segmental and somatic dysfunction of thoracic region Anxiety Mastalgia [id number] Chief Complaint Back pain est annual ANNUAL PAP 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 CHEST PAIN Reason for Visit Segmental and somati c dysfunction of cervical region Segmental and somatic dysfunction of lumbar region Segmental and somatic dysfunction of pelvic region Segmental and somatic dysfunction of thoracic region Anxiety Mastalgia [id number] Anxiety Chest pain Chief Complaint ANNUAL EORDER FOR XRAY LEFT EYE CONCERN Reason for Visit Encounter for [facility] adult health care examination Vitamin deficiency Acute bacterial conjunctivitis Chief Complaint LEFT GREAT TOE INJUR Y/XRAY XRAY Reason for Visit Pain of left great t oe Chief Complaint medication refills 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 Ebony Flores MD Family Provider Active Dr. Ebony Floers MD Primary Care Provider Active Team Status: Inactive Member Role Status Dates Dr. Ebony Flores MD Primary Care Provider, [facility] Provider Active Peterson Mir BAR TURNER, BAR TURNER-C Attending Provider Active Team Status: Inactive Member Role Status Dates Dr. Ebony Flores MD Primary Care Provider, Refer ring Provider Active Jeff COLON PA Attending Provider Active Team Status: Active Member Role Status Dates Dr. Ebony Flores MD Primary Care Provider Active Health Risk Assessment Attending Provider Active Team Status: Inactive Member Role Status Dates Dr. Ebony Flores MD Primary Care Provider Active Peterson Mir NP, BAR TURNER-C Attending Provider, Referring Prov ider Active Team Status: Inactive Member Role Status Dates Rangel COLON, PA Attending Provider Active Team Status: Inactive Member Role Status Dates Dr. Nahum Smith MD Attending Provider Active Team Status: Inactive Member Role Status Dates Dr. Ebony Flores MD Primary Care Provider Active Davis COLON PA Attending Provider Active Team Status: Inactive Member Role Status Dates Dr. Ebony Flores MD Primary Care Provider, Refer ring Provider Active Bharat Owens NP-Juanpablo Attending Provider Active Team Status: Active Member Role Status Dates Dr. Ebony Flores MD Primary Care Provider Active Health Risk Assessment Attending Provider, Referring P rovider Active Team Status: Inactive Member Role Status Dates Dr. Ebony Flores MD Primary Care Provider Active Bharat Owens NP-C Attending Provider, Referring Pro vider Active Davis COLON PA Other Provider Active FOR RECORDS PERTAINING TO PATIENTS WHO ARE [...] BE BASED ON THE PRIMARY CLINICAL RECORDS. [employer] provides no warranty or guarantee of the accuracy or completeness of information in this document.
--- NOTE | 2025-01-29 22:43 | EX.ED.DYSGE1 ---
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 She states she wears contact lenses. She reports that the patient had his wound packed with coffee. She states she is unsure if it was simply saline and coffee or even potential blood exposure. Secondary to this she presents to the ER for evaluation. [facility] Medical History Depression Wears contact lenses Right upper quadrant abdominal pain Pain of left great toe Injury of left great toe Encounter for preventative adult health care examination Chronic back pain Vitamin deficiency Chest pain Acne Generalized anxiety disorder with panic attacks delivery delivered History of prior with IUGR Oligohydramnios depression Pre-eclampsia Bilateral headaches IBS (irritable bowel syndrome) Anxiety and depression Home Medications ?Medication ?Instructions ?Recorded ?Last Taken ?Type ondansetron 8 mg disintegrating 8 mg PO Q8H PRN nausea and 02/18/24 Unknown Rx tablet vomiting #30 tabs venlafaxine 150 mg 150 mg PO DAILY #30 caps 02/18/24 Unknown Rx capsule,extended release 24 hr desogestrel 0.15 mg-ethinyl 1 tab PO QDAY #28 tabs 03/12/24 Unknown Rx estradiol 0.03 mg tablet (Apri) azelaic acid 15 % topical gel 1 applic topical BID 10/21/24 Unknown History hydroxyzine HCl 10 mg tablet 10 mg PO TID PRN itching #30 tabs 10/21/24 Unknown Rx minocycline 50 mg capsule mg PO 10/21/24 Unknown History buspirone 7.5 mg tablet 7.5 mg PO BID #60 tabs 12/02/24 Unknown Rx Allergy/AdvReac Type Severity Reaction Status Date / Time morphine Allergy Shortness Verified 01/11/25 08:15 of breath Family History Mother Diabetes Depression Cancer Father Hypertension Grandfather Myocardial infarction Grandfather CVA (cerebral vascular accident) Brother Mental disorder Seizures Surgical History Delivery by section [place] teeth extracted History of appendectomy Social History (Reviewed 10/10/24 @ 09:22 by DIANA Buenrostro Smoking Status: Never smoker alcohol intake: current details: social substance use type: does not use what type of physical activity do you participate in: none seatbelt use: always do you feel safe at home: Yes additional social history: [employer] 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 ED Constitutional Constitutional ED: Denies chills or fever(s) Eyes Eyes: Denies blurry vision, change in vision or diplopia ENT ENT ED: Denies sore throat Cardiovascular Cardiovascular: Denies chest pain Respiratory/Chest Respiratory/Chest: Denies cough or dyspnea Gastrointestinal Gastrointestinal: Denies abdominal pain, diarrhea, nausea or vomiting Integumentary Denies rash Neurologic Neurologic: Denies headache(s) EXAM Physical Exam Const Vital Signs: 01/29/25 22:03 01/29/25 22:07 01/29/25 22:07 Temperature 98.7 F 98.7 F Temperature Source Oral Pulse Rate 70 70 Respiratory Rate 22 H 22 H Respiratory Pattern Normal Blood Pressure 124/72 H 124/72 H Blood Pressure Mean 89 89 Pulse Ox 99 99 Oxygen Delivery Method Room Air Positive well nourished and well developed General Appearance ED: well developed; Negative for pallor HEENT HEENT Narrative: Normocephalic atraumatic Eyes PERRL and EOMs intact bilaterally Eyes Narrative: Pupils are equal reactive to light and accommodation and extraocular muscles are intact No scleral injection or discharge noted No retained foreign body, the upper lid was everted Neck supple Resp normal respiratory effort and clear to auscultation bilaterally Cardio regular rate and regular rhythm Extremity normal to inspection Neuro oriented x3, CN's II-XII intact bilaterally and no sensory deficits noted Sensorium / Orientation: alert Motor Exam: strength 5/5 throughout Psych mental status grossly normal Skin no rashes or lesions noted and no wounds General Skin Exam: Negative for jaundice or pallor MDM MDM MDM Narrative Medical decision making narrative: Patient presented to the ER with stable vitals. She had exposure to the eye service with potential foreign object in coffee and blood. The contact was removed and the eye was irrigated. There is no retained foreign object. She has no findings to suggest globe rupture or corneal abrasion. The potential blood-borne pathogen exposure is minimal. Therefore we will draw her labs as well as the source patient but with low concern for infection secondary to this exposure we will hold off on prophylactic treatment. History & Record Review Discussion w/independent historian: Patient Lab Data Attestation: I reviewed the patient's lab results. Labs: Laboratory Results - last 24 hr 01/29/25 22:13 Hep Bs Antigen Nonreactive Hep Bs Antibody REAC Hepatitis C Antibody Nonreactive HIV 1&2 Antibody Nonreactive Discharge Plan Admission Attending Provider: Alan Carolina Primary Care Provider: Ebony Flores Instructions Patient Instructions: Understanding Bloodborne Pathogens Discharge Orders/Prescriptions Prescriptions: No Action ondansetron 8 mg tablet,disintegrating 8 mg PO Q8H PRN (Reason: nausea and vomiting) Qty: 30 4RF venlafaxine 150 mg capsule,extended release 24hr 150 mg PO DAILY Qty: 30 12RF minocycline 50 mg capsule PO azelaic acid 15 % gel 1 applic topical BID hydroxyzine HCl 10 mg tablet 10 mg PO TID PRN (Reason: itching) Qty: 30 2RF buspirone 7.5 mg tablet 7.5 mg PO BID Qty: 60 1RF desogestrel-ethinyl estradiol [Apri] 0.15-0.03 mg tablet 1 tab PO QDAY Qty: 28 12RF Rx Instructions: take only active pills discard inactive start new pack immediately Referrals / Follow Up: Ebony Flores MD [Primary Care Provider] - Disposition Disposition (needs filled in before D/C Order can be placed): Home, Self Care
[2025-01-29 23:04] LABS: HIV Nonreactive (Nonreactive); Hepatitis B Surface Antigen Nonreactive (Nonreactive); Hepatitis C Antibody Nonreactive (Nonreactive)
--- OUTSIDE RECORDS SUMMARY | 2025-01-30 00:59 | XMS RPT_ITS | CCD ---
Author Organization [facility] ion [facility] Care Team Providers Care Cdl Instructor Name Role Phone YISSEL PINO Unavailable Unavailable TATYANA AMAYA Unavailable UnavailZENAIDA Seals Unavailable Unavailable Dr. Ebony Flores Primary Care Provider [phone] Dr. Ebony Flores Referring Provider [phone] Clarke BLEACH TESTER, BLEACH TESTER-C Peterson Attending Provider [phone] Dr. Ebony Flores Primary Care Provider [phone] Dr. Ebony Flores Referring Provider [phone] Dr. Cherelle Galan Attending Provider [phone] Dr. Tatyana Amaya Attending Provider [phone] Dr. Ebony Flores Primary Care Provider [phone] Dr. Ebony Flores Referring Provider [phone] Dr. Cherelle Galan Attending Provider [phone] ISAIAH Hester Attending Provider Clarke BLEACH TESTER, BLEACH TESTER-C Peterson Attending Provider [phone] Dr. Ebony Flores Primary Care Provider [phone] Dr. Ebony Flores Referring Provider Clarke BLEACH TESTER, BLEACH TESTER-C Peterson Attending Provider [phone] ISAIAH Iqbal Attending Provider ISAIAH Hester Attending Provider Sarah, Dr. [place] Attending Provider Dr. Ebony Flores Primary Care Provider [phone] Dr. Ebony Flores Referring Provider [phone] DEBBIE Owens Attending Provider [phone] Oleghe, Efewongbe Primary Care Unavailable Robotham, Nicolasa Attending Unavailable Robotham, Nicolasa Referring Unavailable Oleghe, Efewongbe Primary Care Unavailable Oleghe, Efewongbe Referring Unavailable Robotham, Nicolasa Attending Unavailable Sow, Sarah Attending Unavailable Oleghe, Efewongbe Primary Care Unavailable SowSarah Attending Unavailable Oleghe, Efewongbe Primary Care Unavailable Gia Keller Attending Unavail able Oleghe, Efewongbe Referring Unavailable Oleghe, Efewongbe Primary Care Unavailable Nj Enriqeuz Attending Unavailable Oleghe, Efewongbe Referring Unavailable Oleghe, [...] to adverse reactions to drug (disorder) 6 [facility] Repository (7 sources) Morphine Drug Allergy 2 Shortness of breath [facility] (1 source) Morphine Drug Allergy 5 [facility] Repository Medications Current Medications Medication Drug [...] 1 capsule by mouth three times daily Sycvokdhcf-Qdcgtruwfbzek-Dclv (Fioricet) 50-300-40 mg capsule Discontinued 1 CAP [...] (7 sources) Start: 12-03-2016 End: 06-29-2017 take 60983 ug by mouth once daily Biotin Discontinued 48546 MCG PO DAILY December 03, 2016 12:00am [...] 1 mg/ml oral solution (7 sources) Uncompetitive U-dpqfhz-I-aspartate Receptor Antagonist, Sigma-1 Agonist Start: 09-03-2019 End: [...] 12:02am must administer with a meal/food nystatin 268015 unt/ml topical cream (7 sources) Polyene Antifungal [...] 10, 2020 November 22, 2020 10:13am Pnv 451-Yvvgx-Wovjs-3-Fi sh Oil (7 sources) Start: 12-03-2016 End: 08-14-2018 take 1 tablet by mouth once daily Pnv 267-Ixvpg-Gqjxl-3-F jason Oil Discontinued 1 TABLET PO DAILY December 03, 2016 7:38pm August 14, 2018 9:28am Start: 12-03-2016 End: 08-14-2018 take 1 tablet by mouth once daily Pnv 484-Sltkz-Abtnw-3-Fish Oil Discontinued 1 TABLET PO DAILY December 02, 2016 11:00pm August 14, 2018 8:28am Start: 12-03-2016 End: 08-14-2018 take 1 tablet by mouth once daily Pnv 117-Egztg-Wegdz-3-Fish Oil Discontinued 1 TABLET PO DAILY December 03, 2016 12:00am August 14, 2018 9:28am polymyxin b 74997 unt/ml / trimethoprim 1 mg/ml ophthalmic solution [...] Report [facility] [address] [place] [address] OFFICE VISIT Date of Service: 01/11/25 MR#: [id number] Acct: [id number] Patient: BHARAT SMITH Rep #: [id number] : 1985 Provider: ISAIAH Monet Age/Sex: 39/F [place] [facility] [place] Status: Signed Intake Vital Signs 12/02/24 13:24 01/11/25 08:15 Height 5 ft 2 in BP 110/64 Blood Pressure Location Lt brachial Position Sitting Respiration 15 Pulse 71 Pulse Source NIBP Temp 98.6 F Temp Source Oral Pulse Oximetry (%) 100 Oxygen Delivery Method room air Intake Visit Reasons: BEE STING ON L FOOT Chief Complaint: bee sting Baseball Coach Required: No Is patient in pain?: Yes Allergies morphine Allergy (Verified 01/11/25 08:15) Shortness of breath Is last menstrual period known: No Post menopausal: No Patient : No Have you fallen in the past year?: No Nurse's Note: bee sting between toes on left foot x 3 days ago, continued redness/pain/itching. 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 In going on a trip next weekn with her family to [place] [facility] [facility] [place] and she is excited for this. Reports [...] Insight go (more content not included)... 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 Feels she is in a [...] first onset (more content not included)... Normal [facility] Internal Medicine Office Vis iton 10-10-2024 Internal Medicine Office Visit [facility] [address] [place] [address] OFFICE VISIT Date of Service: 10/10/24 MR#: [id number] Acct: [id number] Name: BHARAT SMITH Rep #: [id number] : 1985 Provider: ISAIAH Kay Age/Sex: 39/F [place] [facility] [place] Status: Signed Intake Vital Signs 03/20/24 12:55 [...] bending left knee. 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 Normal [facility] CBC, Employeeon 09-18-2024 Absolute Lymph 1.58 X10 3/uL Normal 0.83-4.51 [facility] Comment on above: Performed By: #### L 100.0200, L500.2900 ####[facility] [address] [place], [address] Absolute Neut 2.5 X10 3/uL Normal 2.0-7.7 [facility] Comment on above: Performed By: #### L 100.0200, L500.2900 ####[facility] [address] [place], [address] Basophils/100 WBC (Bld) 0.9 % Normal 0-1 [facility] Comment on above: Performed By: #### L 100.0200, L500.2900 ####[facility] [address] [place], [address] Eosinophils/100 WBC (Bld) 2.3 % Normal 0-5 [facility] Comment on above: Performed By: #### L 100.0200, L500.2900 ####[facility] [address] [place], [address] Erythrocyte distribution width (RBC) [Ratio] 12.3 % Normal 11.6-14.6 [facility] Comment on above: Performed By: #### L 100.0200, L500.2900 ####[facility] [address] [place], [address] Hematocrit (Bld) [Volume fraction] 39.3 % Normal 37-47 [facility] Comment on above: Performed By: #### L 100.0200, L500.2900 ####[facility] [address] [place], [address] Hemoglobin (Bld) [Mass/Vol] 13.5 g/dL Normal 12.0-15.0 [facility] Comment on above: Performed By: #### L 100.0200, L500.2900 ####[facility] [address] [place], [address] Lymphocytes/100 WBC (Bld) 33.7 % Normal 19-41 [facility] Comment on above: Performed By: #### L 100.0200, L500.2900 ####[facility] [address] [place], [address] MCH (RBC) [Entitic mass] 30.4 pg Normal 27.0-32.0 [facility] Comment on above: Performed By: #### L 100.0200, L500.2900 ####[facility] [address] [place], [address] MCHC (RBC) [Mass/Vol] 34.4 g/dL Normal 32-36 [facility] Comment on above: Performed By: #### L 100.0200, L500.2900 ####[facility] [address] [place], [address] MCV (RBC) [Entitic vol] 88.5 fL Normal 81-99 [facility] Comment on above: Performed By: #### L 100.0200, L500.2900 ####[facility] [address] [place], [address] Monocytes/100 WBC (Bld) 9.2 % Normal 0-10 [facility] Comment on above: Performed By: #### L 100.0200, L500.2900 ####[facility] [address] [place], [address] Neutrophils/100 WBC (Bld) 53.7 % Normal 47-70 [facility] Comment on above: Performed By: #### L 100.0200, L500.2900 ####[facility] [address] [place], [address] NRBC # 0.00 10 3/uL Normal 0-5 [facility] Comment on above: Performed By: #### L 100.0200, L500.2900 ####[facility] [address] [place], [address] Nucleated RBC (Bld) [#/Vol] 0 10*3/uL Normal 0-5 [facility] Comment on above: Performed By: #### L 100.0200, L500.2900 ####[facility] [address] [place], [address] Platelet mean volume (Bld) [Entitic vol] 10.4 fL Normal 6.2-12.0 [facility] Comment on above: Performed By: #### L 100.0200, L500.2900 ####[facility] [address] [place], [address] Platelets (Bld) [#/Vol] 307 10*3/uL Normal 150-450 [facility] Comment on above: Performed By: #### L 100.0200, L500.2900 ####[facility] [address] [place], [address] RBC (Bld) [#/Vol] 4.44 10*6/uL Normal 4.2-5.[address] [facility] Comment on above: Performed By: #### L 100.0200, L500.2900 ####[facility] [address] [place], [address] RDW SD 39.6 fl Normal 35.1-43.9 [facility] Comment on above: Performed By: #### L 100.0200, L500.2900 ####[facility] [address] [place], [address] WBC (Bld) [#/Vol] 4.7 10*3/uL Normal 4.4-11.0 [facility] Comment on above: Performed By: #### L 100.0200, L500.2900 ####[facility] [address] [place], [address] Employee Profileon 5 Cholesterol in LDL [Mass/Vol] 103 mg/dL Normal 0-130 [facility] Comment on above: Performed By: #### L 100.0200, L500.2900 ####[facility] [address] [place], [address] Hepatobilliary Img w/Pharm I nton 04-02-2024 Hepatobilliary Img w/Pharm Int [facility] [address] [place] [address] Hepatobilliary Img w/Pharm Int MR#: [id number] Acct: [id number] Name: JOSE MANUEL,BHARAT JOSE Rep #: [id number] : 1985 F 38 From: Misael Bruno PCP: Dr. Ebony Flores MD Status: REG CLI Study: Hepatobilliary Img w/Pharm Int Date of Exam: Exam# [id number] Ordering Dr: Nicolasa Lundberg [place] [id number] CLINICAL: 38-year-old female with history of right [...] Ebony Flores MD; Dr. Nicolasa Lundberg MD Chief Customer Officer: Signed Normal [facility] Surgery Visit Reporton 03-20 Surgery Visit Report [facility] [address] [place] [address] OFFICE VISIT Date of Service: 03/20/24 MR#: [id number] Acct: [id number] Name: BHARAT SMITH Rep #: [id number] : 1985 Provider: Dr. 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 Normal [facility] CBC W/Diff, Automatedon 03-02-2023 Absolute Lymph 3.18 X10 3/uL Normal 0.83-4.51 [facility] Comment on above: Performed By: #### L 700.6800, L501.2450, L100.0100, L500.4050 #### [facility] [address] [place], [address] Absolute Neut 3.9 X10 3/uL Normal 2.0-7.7 [facility] Comment on above: Performed By: #### L 700.6800, L501.2450, L100.0100, L500.4050 #### [facility] [address] [place], [address] Basophils/100 WBC (Bld) 0.8 % Normal 0-1 [facility] Comment on above: Performed By: #### L 700.6800, L501.2450, L100.0100, L500.4050 #### [facility] [address] [place], [address] Eosinophils/100 WBC (Bld) 1.3 % Normal 0-5 [facility] Comment on above: Performed By: #### L 700.6800, L501.2450, L100.0100, L500.4050 #### [facility] [address] [place], [address] Erythrocyte distribution width (RBC) [Ratio] 12.2 % Normal 11.6-14.6 [facility] Comment on above: Performed By: #### L 700.6800, L501.2450, L100.0100, L500.4050 #### [facility] [address] [place], [address] Hematocrit (Bld) [Volume fraction] 41.2 % Normal 37-47 [facility] Comment on above: Performed By: #### L 700.6800, L501.2450, L100.0100, L500.4050 #### [facility] [address] [place], [address] Hemoglobin (Bld) [Mass/Vol] 14.0 g/dL Normal 12.0-15.0 [facility] Comment on above: Performed By: #### L 700.6800, L501.2450, L100.0100, L500.4050 #### [facility] [address] [place], [address] IG% 0.000 Normal 0.0-0.9 [facility] Comment on above: Result Comment: IG% - Immature Granulocytes (promyelocytes, myelocytes and metamyelocytes) > 1% indicates that a LEFT SHIFT is Present. Performed By: #### L 700.6800, L501.2450, L100.0100, L500.4050 #### [facility] [address] [place], [address] Lymphocytes/100 WBC (Bld) 40.5 % Normal 19-41 [facility] Comment on above: Performed By: #### L 700.6800, L501.2450, L100.0100, L500.4050 #### [facility] [address] [place], [address] MCH (RBC) [Entitic mass] 30.0 pg Normal 27.0-32.0 [facility] Comment on above: Performed By: #### L 700.6800, L501.2450, L100.0100, L500.4050 #### [facility] [address] [place], [address] MCHC (RBC) [Mass/Vol] 34.0 g/dL Normal 32-36 [facility] Comment on above: Performed By: #### L 700.6800, L501.2450, L100.0100, L500.4050 #### [facility] [address] [place], [address] MCV (RBC) [Entitic vol] 88.4 fL Normal 81-99 [facility] Comment on above: Performed By: #### L 700.6800, L501.2450, L100.0100, L500.4050 #### [facility] [address] [place], [address] Monocytes/100 WBC (Bld) 8.2 % Normal 0-10 [facility] Comment on above: Performed By: #### L 700.6800, L501.2450, L100.0100, L500.4050 #### [facility] [address] [place], [address] Neutrophils/100 WBC (Bld) 49.2 % Normal 47-70 [facility] Comment on above: Performed By: #### L 700.6800, L501.2450, L100.0100, L500.4050 #### [facility] [address] [place], [address] Nucleated RBC (Bld) [#/Vol] 0 10*3/uL Normal 0-5 [facility] Comment on above: Performed By: #### L 700.6800, L501.2450, L100.0100, L500.4050 #### [facility] [address] [place], [address] Platelet mean volume (Bld) [Entitic vol] 9.6 fL Normal 6.2-12.0 [facility] Comment on above: Performed By: #### L 700.6800, L501.2450, L100.0100, L500.4050 #### [facility] [address] [place], [address] Platelets (Bld) [#/Vol] 332 10*3/uL Normal 150-450 [facility] Comment on above: Performed By: #### L 700.6800, L501.2450, L100.0100, L500.4050 #### [facility] [address] [place], [address] RBC (Bld) [#/Vol] 4.66 10*6/uL Normal 4.2-5.[address] [facility] Comment on above: Performed By: #### L 700.6800, L501.2450, L100.0100, L500.4050 #### [facility] [address] [place], [address] RDW SD 39.5 fl Normal 35.1-43.9 [facility] Comment on above: Performed By: #### L 700.6800, L501.2450, L100.0100, L500.4050 #### [facility] [address] [place], [address] WBC (Bld) [#/Vol] 7.9 10*3/uL Normal 4.4-11.0 [facility] Comment on above: Performed By: #### L 700.6800, L501.2450, L100.0100, L500.4050 #### [facility] [address] [place], [address] Comprehensive Metabolic Prof coon 03-14-2024 Albumin [Mass/Vol] 3.9 g/dL Normal 3.2-5.0 [facility] Comment on above: Performed By: #### L 700.6800, L501.2450, L100.0100, L500.4050 #### [facility] [address] [place], [address] Albumin/Globulin [Mass ratio] 0.9 {ratio} Normal 0.9-2.4 [facility] Comment on above: Performed By: #### L 700.6800, L501.2450, L100.0100, L500.4050 #### [facility] [address] [place], [address] ALK P 58 U/L Normal 45-117 [facility] Comment on above: Performed By: #### L 700.6800, L501.2450, L100.0100, L500.4050 #### [facility] [address] [place], [address] ALT [Catalytic activity/Vol] 25 U/L Normal 13-56 [facility] Comment on above: Performed By: #### L 700.6800, L501.2450, L100.0100, L500.4050 #### [facility] [address] [place], [address] AST [Catalytic activity/Vol] 16 U/L Normal 15-37 [facility] Comment on above: Performed By: #### L 700.6800, L501.2450, L100.0100, L500.4050 #### [facility] [address] [place], [address] Bilirubin [Mass/Vol] 0.60 mg/dL Normal 0.20-1.00 [facility] Comment on above: Result Comment: For patients on eltrombopag therapy, use of Dimension [place] TBIL is not recommended. Performed By: #### L 700.6800, L501.2450, L100.0100, L500.4050 #### [facility] [address] [place], [address] BUN/CRE 16.9 RATIO Normal 10-20 [facility] Comment on above: Performed By: #### L 700.6800, L501.2450, L100.0100, L500.4050 #### [facility] [address] [place], [address] CA,Total 9.9 mg/dL Normal 8.5-10.1 [facility] Comment on above: Performed By: #### L 700.6800, L501.2450, L100.0100, L500.4050 #### [facility] [address] [place], [address] Chloride [Moles/Vol] 107 mmol/L Normal 98-107 [facility] Comment on above: Performed By: #### L 700.6800, L501.2450, L100.0100, L500.4050 #### [facility] [address] [place], [address] CO2 [Moles/Vol] 26.0 mmol/L Normal 21.0-32.0 [facility] Comment on above: Performed By: #### L 700.6800, L501.2450, L100.0100, L500.4050 #### [facility] [address] [place], [address] Creatinine [Mass/Vol] 0.71 mg/dL Normal 0.55-1.02 [facility] Comment on above: Result Comment: The validity of the calculated GFR GFRAA in patients over 70 years has not been determined. Clinical correlation is essential. Performed By: #### L 700.6800, L501.2450, L100.0100, L500.4050 #### [facility] [address] [place], [address] ECRCL 82.66 ml/min Normal [facility] Comment on above: Performed By: #### L 700.6800, L501.2450, L100.0100, L500.4050 #### [facility] [address] [place], [address] EST GFR - AA 120 mL/min Normal >60 [facility] Comment on above: Result Comment: Afri can Jamaican GFR Calc Performed By: #### L 700.6800, L501.2450, L100.0100, L500.4050 #### [facility] [address] [place], [address] GAP 7 Normal 5-15 [facility] Comment on above: Performed By: #### L 700.6800, L501.2450, L100.0100, L500.4050 #### [facility] [address] [place], [address] GFR/1.73 sq M.predicted among non-blacks MDRD (S/P/Bld) [Vol rate/Area] 99 mL/min/{1.73_m2} Normal >60 [facility] Comment on above: Result Comment: Non- GFR Calc Performed By: #### L 700.6800, L501.2450, L100.0100, L500.4050 #### [facility] [address] [place], [address] Globulin (S) [Mass/Vol] 4.2 g/dL Normal 2.2-4.2 [facility] Comment on above: Performed By: #### L 700.6800, L501.2450, L100.0100, L500.4050 #### [facility] [address] [place], [address] Glucose [Mass/Vol] 88 mg/dL Normal 74-106 [facility] Comment on above: Performed By: #### L 700.6800, L501.2450, L100.0100, L500.4050 #### [facility] [address] [place], [address] Potassium [Moles/Vol] 3.7 mmol/L Normal 3.5-5.1 [facility] Comment on above: Performed By: #### L 700.6800, L501.2450, L100.0100, L500.4050 #### [facility] [address] [place], [address] Sodium [Moles/Vol] 140 mmol/L Normal 136-145 [facility] Comment on above: Performed By: #### L 700.6800, L501.2450, L100.0100, L500.4050 #### [facility] [address] [place], [address] T PROT 8.1 g/dL Normal 6.4-8.2 [facility] Comment on above: Performed By: #### L 700.6800, L501.2450, L100.0100, L500.4050 #### [facility] [address] [place], [address] Urea nitrogen [Mass/Vol] 12 mg/dL Normal 7-18 [facility] Comment on above: Performed By: #### L 700.6800, L501.2450, L100.0100, L500.4050 #### [facility] [address] [place], [address] Emergency Department Summary on 03-14-2024 Emergency Department Summary [facility] Medical Records Department [address] [place] [address] Emergency Department Summary 03/14/24 MR#: [id number] Acct: [id number] Name: BHARAT SMITH JOSE Rep #: [id number] : 1985 38 From: Misha Madsen MD [...] appetite all day today because of this. 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 No other areas of tenderness. Auscultation: normoactive bowel sounds Palpation: soft Back/Spine Back/Spine Narrative: Normal inspection no rash General Back: CVA tenderness right and other FROM Extremity normal to inspection Gen (more content not included)... Normal [facility] Gallbladderon 03-14-2024 Gallbladder [facility] Imaging Services [address] [place], [place] [address] Gallbladder MR#: [id number] Acct: [id number] Name: BHARAT SMITH Rep #: [id number] : 1985 F 38 From: Fred jha MD PCP: Dr. Ebony Flores MD Status: DEP ER Study: Gallbladder Date of Exam: 03/14/24 Exam# [id number] Ordering Dr: Misha Madsen MD ADDENDUM by Dr. Min Orellana MD on 03/21/24 at 0819 ====== ADDENDUM ====== [id number] STUDY: ABDOMINAL ULTRASOUND - RIGHT UPPER QUADRANT [...] MD; Dr. Ebony Flores MD * Signed [id number] INDICATION: pain, n/v EXAMINATION: US Gallbladder (abdomen [...] Misha Madsen MD; Dr. Ebony Flores MD Chief Customer Officer: Signed Normal [facility] Lipaseon 03-14-2024 Lipase [Catalytic activity/Vol] 65 U/L Normal 13-75 [facility] Comment on above: Result Comment: Anup munguia note: LIPASE revised reference range effective 22. New Lipase methodology. Expected to produce lower values than the previous assay method. NEW Reference Range: 13 - 75 U/L Performed By: #### L 700.6800, L501.2450, L100.0100, L500.4050 #### [facility] [address] [place], [address] Partial Thromboplast Timeon 03-14-2024 aPTT Coag (Bld) [Time] 28.0 s Normal 24.1-36.2 [facility] Comment on above: Performed By: #### L 300.3900, L300.4310 #### [facility] [address] [place], [address] ,Serum,hCG Quali.on 03-14-2024 HCG, SERUM QUAL Negative Normal [facility] Comment on above: Performed By: #### L 700.6800, L501.2450, L100.0100, L500.4050 #### [facility] [address] [place], [address] Prothrombin Time w/INRon INR Coag (PPP) [Relative time] 1.0 {INR} Normal [facility] Comment on above: Performed By: #### L 300.3900, L300.4310 #### [facility] [address], [address] PT Coag (PPP) [Time] 13.2 s Normal 11.7-14.9 [facility] Comment on above: Performed By: #### L 300.3900, L300.4310 #### [facility] [address] [place], [address] Urinalysis, Completeon 03-14 EPI,SQUAMOUS 0-5 SEEN Normal 5-10 [facility] Comment on above: Order Comment: COLLE CTOR TO SPECIFY Performed By: #### L 400.0001 #### [facility] [address] [place], [address] RBC 0-5 SEEN Normal 0-5 [facility] Comment on above: Order Comment: COLLE CTOR TO SPECIFY Performed By: #### L 400.0001 #### [facility] [address] [place], [address] BACTERIA 0 SEEN Normal None Seen [facility] Comment on above: Order Comment: RUBENS CTOR TO SPECIFY Performed By: #### L 400.0001 #### [facility] [address] [place], [address] Mucus Ql (Urine sed) 0 SEEN Normal [facility] Comment on above: Order Comment: COLLE CTOR TO SPECIFY Performed By: #### L 400.0001 #### [facility] [address] [place], [address] WBC 0 SEEN Normal 0-5 [facility] Comment on above: Order Comment: RUBENS CTOR TO SPECIFY Performed By: #### L 400.0001 #### [facility] [address] [place], [address] BACTERIA 0 SEEN Normal None Seen [facility] Comment on above: Order Comment: COLLE CTOR TO SPECIFY Result Comment: WRON G LABELS Performed By: #### L 400.0001 #### [facility] [address] [place], [address] EPI,SQUAMOUS 0 SEEN Normal 5-10 [facility] Comment on above: Order Comment: COLLE CTOR TO SPECIFY Result Comment: WRON G LABELS Performed By: #### L 400.0001 #### [facility] [address] [place], [address] Mucus Ql (Urine sed) 0 SEEN Normal [facility] Comment on above: Order Comment: COLLE CTOR TO SPECIFY Result Comment: WRON G LABELS Performed By: #### L 400.0001 #### [facility] [address] [place], [address] RBC 0 SEEN Normal 0-5 [facility] Comment on above: Order Comment: RUBENS CTOR TO SPECIFY Result Comment: WRON G LABELS Performed By: #### L 400.0001 #### [facility] [address] [place], [address] WBC 0 SEEN Normal 0-5 [facility] Comment on above: Order Comment: COLLE CTOR TO SPECIFY Result Comment: WRON G LABELS Performed By: #### L 400.0001 #### [facility] [address] [place], [address] BILIRUBIN URINE Normal Negative [facility] Comment on above: Order Comment: RUBENS CTOR TO SPECIFY Result Comment: WRON G LABELS Performed By: #### L 400.0001 #### [facility] [address] [place], [address] Clarity (U) Normal Clear [facility] Comment on above: Order Comment: RUBENS CTOR TO SPECIFY Result Comment: WRON G LABELS Performed By: #### L 400.0001 #### [facility] [address] [place], [address] Color (U) Normal Yellow [facility] Comment on above: Order Comment: COLLE CTOR TO SPECIFY Result Comment: WRON G LABELS Performed By: #### L 400.0001 #### [facility] [address] [place], [address] GLUCOSE, UR Normal Normal [facility] Comment on above: Order Comment: COLLE CTOR TO SPECIFY Result Comment: WRON G LABELS Performed By: #### L 400.0001 #### [facility] [address] [place], [address] KETONE UR Normal Negative [facility] Comment on above: Order Comment: COLLE CTOR TO SPECIFY Result Comment: WRON G LABELS Performed By: #### L 400.0001 #### [facility] [address] [place], [address] LEUK ESTERASE Normal Negative [facility] Comment on above: Order Comment: COLLE CTOR TO SPECIFY Result Comment: WRON G LABELS Performed By: #### L 400.0001 #### [facility] [address] [place], [address] Nitrite Ql (U) Normal Negative [facility] Comment on above: Order Comment: COLLE CTOR TO SPECIFY Result Comment: WRON G LABELS Performed By: #### L 400.0001 #### [facility] [address] [place], [address] OCCULT BLOOD-UR Normal Negative [facility] Comment on above: Order Comment: RUBENS CTOR TO SPECIFY Result Comment: WRON G LABELS Performed By: #### L 400.0001 #### [facility] [address] [place], [address] pH UR Normal 5.0 - 8.0 [facility] Comment on above: Order Comment: RUBENS CTOR TO SPECIFY Result Comment: WRON G LABELS Performed By: #### L 400.0001 #### [facility] [address] [place], [address] PROT DIPSTX Normal Negative [facility] Comment on above: Order Comment: COLLE CTOR TO SPECIFY Result Comment: WRON G LABELS Performed By: #### L 400.0001 #### [facility] [address] [place], [address] SP.GR. DIPSTX Normal 1.002-1.030 [facility] Comment on above: Order Comment: COLLE CTOR TO SPECIFY Result Comment: WRON G LABELS Performed By: #### L 400.0001 #### [facility] [address] [place], [address] UR Preservative Normal [facility] Comment on above: Order Comment: COLLE CTOR TO SPECIFY Result Comment: WRON G LABELS Performed By: #### L 400.0001 #### [facility] [address] [place], [address] UROBILI Normal Normal [facility] Comment on above: Order Comment: COLLE CTOR TO SPECIFY Result Comment: WRON G LABELS Performed By: #### L 400.0001 #### [facility] [address] 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 Date Name GA/Weeks Outcome Route Bth Weight Infant Gen Labor Lgth Anesthesia Del Locatn Provider FOB Unknown 2010 [place] 5 lbs Female [facility] Elio Unknown 05/09/2018 Hay 37 live - full term 5lbs 13.5oz Female epi dural [facility] SM Altaf 11/08/20 Gar[place] 37 live - full term Male [facility] Luis Manuel rcanthony Delivery Date: Last Updated by: Tatyana Amaya MD iugr and oligo Delivery Date: 11/08/20 Last Updated by: Gia Cano [facility] BS preeclamspia,breech HPI Encounter for routine gynecological [...] comfortable, no (more content not included)... Normal [facility] Absolute lymphocyte countOrd ered By: HEALTH ASSESSMENT on 09-07-2023 Lymphocytes Auto (Unsp spec) [#/Vol] 1.96 10*3/uL 0.83-4.51 [facility] Absolute lymphocyte countOrd ered By: Bharat Owens on 09-07-2023 Lymphocytes Auto (Unsp spec) [#/Vol] 2.02 10*3/uL 0.83-4.51 [facility] Automated lymphocyte count a s percentage of total leukocytesOrdered By: Bharat Owens on 09-07-2023 Lymphocytes/100 WBC Auto (Unsp spec) 40.2 % 19-41 [facility] Basophil percentageOrdered B y: HEALTH ASSESSMENT on 09-07-2023 Basophil percentage 3.5 mg/dL 2.5-4.[address] [facility] Bilirubin [Mass/Vol] 0.50 mg/dL 0.20-1.00 [facility] Comment on above: For patients on eltr ombopag therapy, use of Dimension [place] TBIL is not recommended. Chloride [Moles/Vol] 106 mmol/L 98-107 [facility] Cholesterol [Mass/Vol] 228 mg/dL <200 [facility] Comment on above: <200 mg/dL Desirable 200-240 mg/dL Borderline >240 mg/dL High Risk Glucose [Mass/Vol] 75 mg/dL 74-106 [facility] Hemoglobin (Bld) [Mass/Vol] 13.3 g/dL 12.0-15.0 [facility] LDH [Catalytic activity/Vol] 200 U/L 84-246 [facility] Neutrophils (Bld) [#/Vol] 2.6 10*3/uL 2.0-7.7 [facility] Potassium [Moles/Vol] 4.5 mmol/L 3.5-5.1 [facility] Protein [Mass/Vol] 7.9 g/dL 6.4-8.2 [facility] Sodium [Moles/Vol] 139 mmol/L 136-145 [facility] Triglyceride [Mass/Vol] 86 mg/dL <199 [facility] Comment on above: The drugs N-Acetylcy steine and Metamizole may falsely depress this assay.Serum Triglycerides Reference Interval Normal <150 mg/dL Borderline high 150 - 199 mg/dL High 200 - 499 mg/dL Very High > or = 500 mg/dL WBC (Bld) [#/Vol] 5.1 10*3/uL 4.4-11.0 [facility] Basophil percentageOrdered B y: Bharat Owens on 09-07-2023 Basophils/100 WBC (Bld) 0.6 % 0-1 [facility] Bilirubin [Mass/Vol] 0.50 mg/dL 0.20-1.00 [facility] Comment on above: For patients on eltr ombopag therapy, use of Dimension [place] TBIL is not recommended. Cholesterol [Mass/Vol] 229 mg/dL <200 [facility] Comment on above: <200 mg/dL Desirable 200-240 mg/dL Borderline >240 mg/dL High Risk Eosinophils/100 WBC (Bld) 0.8 % 0-5 [facility] Hemoglobin (Bld) [Mass/Vol] 13.4 g/dL 12.0-15.0 [facility] Monocytes/100 WBC (Bld) 8.4 % 0-10 [facility] Neutrophils (Bld) [#/Vol] 2.5 10*3/uL 2.0-7.7 [facility] Neutrophils/100 WBC (Bld) 49.8 % 47-70 [facility] Protein [Mass/Vol] 8.0 g/dL 6.4-8.2 [facility] Triglyceride [Mass/Vol] 85 mg/dL <199 [facility] Comment on above: The drugs N-Acetylcy steine and Metamizole may falsely depress this assay.Serum Triglycerides Reference Interval Normal <150 mg/dL Borderline high 150 - 199 mg/dL High 200 - 499 mg/dL Very High > or = 500 mg/dL WBC (Bld) [#/Vol] 5.0 10*3/uL 4.4-11.0 [facility] Blood band neutrophil count as percentage of total leukocytesOrdered By: HEALTH ASSESSMENT on 09-07-2023 Band form neutrophils/100 WBC (Bld) 50.6 % 47-70 [facility] Blood leukocytes count corre cted for nucleated erythrocytes (number/volume)Ordered By: HEALTH ASSESSMENT on 09-07-2023 WBC corrected for nucl RBC (Bld) [#/Vol] BLEACH TESTER [facility] Determination of erythrocyte mean corpuscular volume (MCV)Ordered By: HEALTH ASSESSMENT on 09-07-2023 MCV (RBC) [Entitic vol] 88.1 fL 81-99 [facility] Determination of erythrocyte mean corpuscular volume (MCV)Ordered By: Bharat Owens on 09-07-2023 MCV (RBC) [Entitic vol] 87.8 fL 81-99 [facility] Direct bilirubinOrdered By: HEALTH ASSESSMENT on 09-07-2023 Bilirubin.direct [Mass/Vol] 0.10 mg/dL 0.00-0.30 [facility] Direct bilirubinOrdered By: Bharat Owens on 09-07-2023 Bilirubin.direct [Mass/Vol] 0.14 mg/dL 0.00-0.30 [facility] Erythrocyte distribution wid th ratioOrdered By: HEALTH ASSESSMENT on 09-07-2023 Erythrocyte distribution width (RBC) [Ratio] 12.4 % 11.6-14.6 [facility] Erythrocyte distribution wid th ratioOrdered By: Bharat Owens on 09-07-2023 Erythrocyte distribution width (RBC) [Ratio] 12.3 % 11.6-14.6 [facility] Erythrocyte distribution wid th standard deviationOrdered By: [facility] ASSESSMENT on 09-07-2023 Erythrocyte distribution width (RBC) [Entitic vol] 39.3 fL 35.1-43.9 [facility] Erythrocyte distribution wid th standard deviationOrdered By: Bharat Owens on 09-07-2023 Erythrocyte distribution width (RBC) [Entitic vol] 39.7 fL 35.1-43.9 [facility] Hematocrit Auto (Bld) [Volum e fraction]Ordered By: HEALTH ASSESSMENT on 09-07-2023 Hematocrit (Bld) [Volume fraction] 39.1 % 37-47 [facility] Hematocrit Auto (Bld) [Volum e fraction]Ordered By: Bharat Owens on 09-07-2023 Hematocrit (Bld) [Volume fraction] 38.8 % 37-47 [facility] Immature granulocytes/100 WB C Auto (Bld)Ordered By: Bharat Owens on 09-07-2023 Immature granulocytes/100 WBC (Bld) 0.200 % 0.0-0.9 [facility] Comment on above: IG% - Immature Granu locytes (promyelocytes, myelocytes and metamyelocytes) > 1% indicates that a LEFT SHIFT is Present. Laboratory - Chemistry and C hemistry - challengeOrdered By: [facility] ASSESSMENT on 09-07-2023 Albumin/Globulin [Mass ratio] 1.0 {ratio} 0.9-2.4 [facility] ALP [Catalytic activity/Vol] 70 U/L 45-117 [facility] ALT [Catalytic activity/Vol] 25 U/L 13-56 [facility] Cholesterol in HDL [Mass/Vol] 74 mg/dL >40 [facility] Comment on above: The drugs N-Acetylcy steine and Metamizole may falsely depress this assay. Reference Range HDL <40 mg/dL Low HDL Cholesterol HDL >or= 60 mg/dL High HDL Cholesterol Cholesterol in LDL [Mass/Vol] 137 mg/dL 0-130 [facility] Cholesterol.total/Choles terol in HDL [Mass ratio] 3.10 {ratio} [facility] CO2 [Moles/Vol] 29.0 mmol/L 21.0-32.0 [facility] Globulin (S) [Mass/Vol] 3.9 g/dL 2.2-4.2 [facility] Urea nitrogen/Creatinine [Mass ratio] 15.6 mg/mg 10-20 [facility] - Chemistry and C hemistry - challengeOrdered By: Bharat Owens on 09-07-2023 ALP [Catalytic activity/Vol] 71 U/L 45-117 [facility] ALT [Catalytic activity/Vol] 25 U/L 13-56 [facility] Cholesterol in HDL [Mass/Vol] 73 mg/dL >40 [facility] Comment on above: The drugs N-Acetylcy steine and Metamizole may falsely depress this assay. Reference Range HDL <40 mg/dL Low HDL Cholesterol HDL >or= 60 mg/dL High HDL Cholesterol Cholesterol in LDL [Mass/Vol] 139 mg/dL 0-130 [facility] Cobalamin (Vitamin B12) [Mass/Vol] 714 pg/mL 211-911 [facility] Globulin (S) [Mass/Vol] 4.0 g/dL 2.2-4.2 [facility] Laboratory - Hematology and Cell countsOrdered By: HEALTH ASSESSMENT on 09-07-2023 MCH (RBC) [Entitic mass] 30.0 pg 27.0-32.0 [facility] MCHC (RBC) [Mass/Vol] 34.0 g/dL 32-36 [facility] Nucleated RBC (Bld) [#/Vol] 0.00 10*3/uL 0-5 [facility] Nucleated RBC/100 WBC (Bld) [Ratio] 0 % 0-5 [facility] Platelet mean volume (Bld) [Entitic vol] 9.7 fL 6.2-12.0 [facility] Platelets (Bld) [#/Vol] 337 10*3/uL 150-450 [facility] - Hematology and Cell countsOrdered By: Bharat Owens on 09-07-2023 MCH (RBC) [Entitic mass] 30.3 pg 27.0-32.0 [facility] MCHC (RBC) [Mass/Vol] 34.5 g/dL 32-36 [facility] Nucleated RBC/100 WBC (Bld) [Ratio] 0 % 0-5 [facility] Platelet mean volume (Bld) [Entitic vol] 9.6 fL 6.2-12.0 [facility] Platelets (Bld) [#/Vol] 339 10*3/uL 150-450 [facility] No Panel InformationOrdered By: HEALTH ASSESSMENT on 09-07-2023 Estimated Creatinine Clearance Calc [facility] Estimated GFR (MDRD) Amer 135 mL/min >60 [facility] Comment on above: GFR Calc Estimated GFR (MDRD) Non-Af Amer 112 mL/min >60 [facility] Comment on above: Non- GFR Calc Immature Granulocyte % (Auto) [facility] VLDL Cholesterol 17 mg/dL 5-40 [facility] No Panel InformationOrdered By: Bharat Owens on 09-07-2023 VLDL Cholesterol 17 mg/dL 5-40 [facility] RBC Auto (Bld) [#/Vol]Ordere d By: HEALTH ASSESSMENT on 09-07-2023 RBC (Bld) [#/Vol] 4.44 10*6/uL 4.2-5.[address] [facility] RBC Auto (Bld) [#/Vol]Ordere d By: Bharat Owens on 09-07-2023 RBC (Bld) [#/Vol] 4.42 10*6/uL 4.2-5.[address] [facility] Review by pathologistOrdered By: HEALTH ASSESSMENT on 09-07-2023 Pathologist review Riki (Unsp spec) [Interp] [facility] Serum or plasma calcium sharon urement (mass/volume)Ordered By: HEALTH ASSESSMENT on 09-07-2023 Calcium [Mass/Vol] 9.4 mg/dL 8.5-10.1 [facility] Serum or plasma choriogonado tropin detectionOrdered By: Bharat Owens on 09-07-2023 HCG ( test) Ql < 1 mIU/mL <4 [facility] Comment on above: hCG levels with Gest ational AgeGestational Age hCG mIU/mL (IU/L)0.2 - 1 week 5 - 501-2 weeks 50 - 5002-3 weeks 100 - 84959-9 weeks 500 - 562240-2 weeks 1000 - 420317-9 weeks 06104 - 100,0006-8 weeks 91958 - 200,0002-3 months 61440 - 100,000 Serum or plasma creatinine m easurement (mass/volume)Ordered By: HEALTH ASSESSMENT on 09-07-2023 Creatinine [Mass/Vol] 0.64 mg/dL 0.55-1.02 [facility] Comment on above: The validity of the calculated GFR & GFRAA in patients over 70 years has not been determined. Clinical correlation is essential. Serum or plasma thyroid stim ulating hormone (TSH) measurement (units/volume)Ordered By: Bharat Owens on 09-07-2023 TSH Qn 1.03 uIU/mL 0.358-3.74 [facility] Serum or plasma urea nitroge n measurement (mass/volume)Ordered By: [facility] ASSESSMENT on 09-07-2023 Urea nitrogen [Mass/Vol] 10 mg/dL 7-18 [facility] Serum or plasma uric acid me asurement (mass/volume)Ordered By: HEALTH ASSESSMENT on 09-07-2023 Urate [Mass/Vol] 4.5 mg/dL 2.6-6.0 [facility] Comment on above: The drugs N-Acetylcy steine and Metamizole may falsely depress this assay. Thin prep Papanicolaou smear with manual screeningOrdered By: HEALTH ASSESSMENT on 09-07-2023 Thin prep Papanicolaou smear with manual screening 4.0 g/dL 3.2-5.0 [facility] Thin prep Papanicolaou smear with manual screening 21 U/L 15-37 [facility] Thin prep Papanicolaou smear with manual screening 4 5-15 [facility] Thin prep Papanicolaou smear with manual screeningOrdered By: Bharat Owens on 09-07-2023 Thin prep Papanicolaou smear with manual screening 4.0 g/dL 3.2-5.0 [facility] Thin prep Papanicolaou smear with manual screening 24 U/L [facility] Thin prep Papanicolaou smear with manual screening 0.91 ng/dL 0.76-1.46 [facility] Basophil percentageOrdered B y: Davis Donovan on 06-27-2023 Cholesterol [Mass/Vol] 178 mg/dL <200 [facility] Comment on above: <200 mg/dL Desirable 200-240 mg/dL Borderline >240 mg/dL High Risk Triglyceride [Mass/Vol] 91 mg/dL <199 [facility] Comment on above: The drugs N-Acetylcy steine and Metamizole may falsely depress this assay.Serum Triglycerides Reference Interval Normal <150 mg/dL Borderline high 150 - 199 mg/dL High 200 - 499 mg/dL Very High > or = 500 mg/dL Laboratory - Chemistry and C hemistry - challengeOrdered By: Davis Donovan on 06-27-2023 ALT [Catalytic activity/Vol] 23 U/L [facility] Serum or plasma cholesterol in HDL measurement (mass/volume)Ordered By: Davis Donovan on 06-27-2023 Cholesterol in HDL [Mass/Vol] 65 mg/dL >40 [facility] Comment on above: The drugs N-Acetylcy steine and Metamizole may falsely depress this assay. Reference Range HDL <40 mg/dL Low HDL Cholesterol HDL >or= 60 mg/dL High HDL Cholesterol Serum or plasma cholesterol in VLDL measurement (mass/volume)Ordered By: Davis Donovan on 06-27-2023 Cholesterol in VLDL [Mass/Vol] 18 mg/dL 5-40 [facility] Serum or plasma low density lipoprotein (LDL) cholesterol measurement (mass/volume)Ordered By: Davis Donovan on 06-27-2023 Cholesterol in LDL [Mass/Vol] 95 mg/dL 0-130 [facility] Thin prep Papanicolaou smear with manual screeningOrdered By: Davis Donovan on 06-27-2023 Thin prep Papanicolaou smear with manual screening 13 U/L [facility] Laboratory - Chemistry and C hemistry - challengeOrdered By: Peterson Mir on 11-08-2022 Cobalamin (Vitamin B12) [Mass/Vol] 449 pg/mL 211-911 [facility] No Panel InformationOrdered By: Peterson Mir on 11-08-2022 Vitamin D 25-Hydroxy 30.1 ng/mL [facility] Comment on above: Vitamin D 25(OH) Sta tus Range Deficiency <20 ng/mL (50nmol/L) Insufficiency 20 - 30 ng/mL (50 - 75 nmol/L) Sufficiency 30 - 100 ng/mL (75 - 250 nmol/L) Toxicity >100 ng/mL (>250 nmol/L) Absolute lymphocyte countOrd ered By: HEALTH ASSESSMENT on 10-24-2022 Lymphocytes Auto (Unsp spec) [#/Vol] 1.96 10*3/uL 0.83-4.51 [facility] Absolute reticulocyte countO rdered By: HEALTH ASSESSMENT on 10-24-2022 Reticulocytes (Bld) [#/Vol] 0.00 10*3/uL 0-5 [facility] Basophil percentageOrdered B y: HEALTH ASSESSMENT on 10-24-2022 Basophil percentage 4.1 mg/dL 2.5-4.[address] [facility] Bilirubin [Mass/Vol] 0.50 mg/dL 0.20-1.00 [facility] Comment on above: For patients on eltr ombopag therapy, use of Dimension [place] TBIL is not recommended. Chloride [Moles/Vol] 106 mmol/L 98-107 [facility] Cholesterol [Mass/Vol] 195 mg/dL <200 [facility] Comment on above: <200 mg/dL Desirable 200-240 mg/dL Borderline >240 mg/dL High Risk Glucose [Mass/Vol] 74 mg/dL 74-106 [facility] LDH [Catalytic activity/Vol] 163 U/L 84-246 [facility] Neutrophils (Bld) [#/Vol] 2.6 10*3/uL 2.0-7.7 [facility] Potassium [Moles/Vol] 3.8 mmol/L 3.5-5.1 [facility] Protein [Mass/Vol] 7.3 g/dL 6.4-8.2 [facility] Sodium [Moles/Vol] 138 mmol/L 136-145 [facility] Triglyceride [Mass/Vol] 132 mg/dL <199 [facility] Comment on above: The drugs N-Acetylcy steine and Metamizole may falsely depress this assay.Serum Triglycerides Reference Interval Normal <150 mg/dL Borderline high 150 - 199 mg/dL High 200 - 499 mg/dL Very High > or = 500 mg/dL WBC (Bld) [#/Vol] 5.1 10*3/uL 4.4-11.0 [facility] Bilirubin Test strip Ql (U)O rdered By: HEALTH ASSESSMENT on 10-24-2022 Bilirubin Ql (U) Negative Negative [facility] Blood erythrocytes count (nu mber/volume)Ordered By: HEALTH ASSESSMENT on 10-24-2022 RBC (Bld) [#/Vol] 4.30 10*6/uL 4.2-5.[address] [facility] Blood hemoglobin measurement (mass/volume)Ordered By: HEALTH ASSESSMENT on 10-24-2022 Hemoglobin (Bld) [Mass/Vol] 13.1 g/dL 12.0-15.0 [facility] Blood platelet mean volumeOr dered By: HEALTH ASSESSMENT on 10-24-2022 Platelet mean volume (Bld) [Entitic vol] 10.3 fL 6.2-12.0 [facility] Determination of erythrocyte mean corpuscular volume (MCV)Ordered By: HEALTH ASSESSMENT on 10-24-2022 MCV (RBC) [Entitic vol] 91.6 fL 81-99 [facility] Direct bilirubinOrdered By: HEALTH ASSESSMENT on 10-24-2022 Bilirubin.direct [Mass/Vol] 0.13 mg/dL 0.00-0.30 [facility] Hematocrit Auto (Bld) [Volum e fraction]Ordered By: HEALTH ASSESSMENT on 10-24-2022 Hematocrit (Bld) [Volume fraction] 39.4 % 37-47 [facility] Ketones Test strip Ql (U)Ord ered By: HEALTH ASSESSMENT on 10-24-2022 Ketones Ql (U) Negative Negative [facility] Laboratory - Chemistry and C hemistry - challengeOrdered By: HEALTH ASSESSMENT on 10-24-2022 ALP [Catalytic activity/Vol] 45 U/L 45-117 [facility] ALT [Catalytic activity/Vol] 23 U/L 13-56 [facility] Cholesterol.total/Choles terol in HDL [Mass ratio] 2.70 {ratio} [facility] CO2 [Moles/Vol] 23.0 mmol/L 21.0-32.0 [facility] Globulin (S) [Mass/Vol] 3.9 g/dL 2.2-4.2 [facility] Urea nitrogen/Creatinine [Mass ratio] 16.3 mg/mg 10-20 [facility] Laboratory - Hematology and Cell countsOrdered By: HEALTH ASSESSMENT on 10-24-2022 Erythrocyte distribution width (RBC) [Entitic vol] 40.5 fL 35.1-43.9 [facility] Erythrocyte distribution width (RBC) [Ratio] 12.1 % 11.6-14.6 [facility] MCH (RBC) [Entitic mass] 30.5 pg 27.0-32.0 [facility] Nucleated RBC/100 WBC (Bld) [Ratio] 0 % 0-5 [facility] MCHC Auto (RBC) [Mass/Vol]Or dered By: HEALTH ASSESSMENT on 10-24-2022 MCHC (RBC) [Mass/Vol] 33.2 g/dL 32-36 [facility] Nitrite Test strip Ql (U)Ord ered By: HEALTH ASSESSMENT on 10-24-2022 Nitrite Ql (U) Negative Negative [facility] No Panel InformationOrdered By: HEALTH ASSESSMENT on 10-24-2022 Estimated GFR (MDRD) Amer 128 mL/min >60 [facility] Comment on above: GFR Calc Estimated GFR (MDRD) Non-Af Amer 106 mL/min >60 [facility] Comment on above: Non- GFR Calc Platelets bldOrdered By: [facility] ASSESSMENT on 10-24-2022 Platelets (Bld) [#/Vol] 279 10*3/uL 150-450 [facility] Protein Test strip Ql (U)Ord ered By: HEALTH ASSESSMENT on 10-24-2022 Protein Ql (U) Negative Negative [facility] Segmented neutrophils/100 WB C Auto (Bld)Ordered By: HEALTH ASSESSMENT on 10-24-2022 Segmented neutrophils/100 WBC (Bld) 49.7 % 47-70 [facility] Serum or plasma albumin sharon urement (mass/volume)Ordered By: HEALTH ASSESSMENT on 10-24-2022 Albumin [Mass/Vol] 3.4 g/dL 3.2-5.0 [facility] Serum or plasma albumin/glob ulin mass ratioOrdered By: HEALTH ASSESSMENT on 10-24-2022 Albumin/Globulin [Mass ratio] 0.9 {ratio} 0.9-2.4 [facility] Serum or plasma calcium sharon urement (mass/volume)Ordered By: HEALTH ASSESSMENT on 10-24-2022 Calcium [Mass/Vol] 9.1 mg/dL 8.5-10.1 [facility] Serum or plasma cholesterol in HDL measurement (mass/volume)Ordered By: HEALTH ASSESSMENT on 10-24-2022 Cholesterol in HDL [Mass/Vol] 72 mg/dL >40 [facility] Comment on above: The drugs N-Acetylcy steine and Metamizole may falsely depress this assay. Reference Range HDL <40 mg/dL Low HDL Cholesterol HDL >or= 60 mg/dL High HDL Cholesterol Serum or plasma cholesterol in VLDL measurement (mass/volume)Ordered By: HEALTH ASSESSMENT on 10-24-2022 Cholesterol in VLDL [Mass/Vol] 26 mg/dL 5-40 [facility] Serum or plasma creatinine m easurement (mass/volume)Ordered By: HEALTH ASSESSMENT on 10-24-2022 Creatinine [Mass/Vol] 0.67 mg/dL 0.55-1.02 [facility] Comment on above: The validity of the calculated GFR & GFRAA in patients over 70 years has not been determined. Clinical correlation is essential. Serum or plasma low density lipoprotein (LDL) cholesterol measurement (mass/volume)Ordered By: HEALTH ASSESSMENT on 10-24-2022 Cholesterol in LDL [Mass/Vol] 97 mg/dL 0-130 [facility] Serum or plasma urea nitroge n measurement (mass/volume)Ordered By: HEALTH ASSESSMENT on 10-24-2022 Urea nitrogen [Mass/Vol] 11 mg/dL 7-18 [facility] Serum or plasma uric acid me asurement (mass/volume)Ordered By: HEALTH ASSESSMENT on 10-24-2022 Urate [Mass/Vol] 4.8 mg/dL 2.6-6.0 [facility] Comment on above: The drugs N-Acetylcy steine and Metamizole may falsely depress this assay. Thin prep Papanicolaou smear with manual screeningOrdered By: HEALTH ASSESSMENT on 10-24-2022 Thin prep Papanicolaou smear with manual screening 13 U/L 15-37 [facility] Thin prep Papanicolaou smear with manual screening 9 5-15 [facility] Urine blood detectionOrdered By: HEALTH ASSESSMENT on 10-24-2022 RBC Ql (U) 10 /ul Negative [facility] Urine clarityOrdered By: HEA LTH ASSESSMENT on 10-24-2022 Clarity (U) Sl. Cloudy Clear [facility] Urine color determinationOrd ered By: HEALTH ASSESSMENT on 10-24-2022 Color (U) Yellow Yellow [facility] Urine glucose detectionOrder ed By: HEALTH ASSESSMENT on 10-24-2022 Glucose Ql (U) Normal mg/dl Normal [facility] Urine leukocyte esterase det ection by dipstickOrdered By: HEALTH ASSESSMENT on 10-24-2022 Leukocyte esterase Test strip Ql (U) 25 /ul Negative [facility] Urine pHOrdered By: HEALTH A SSESSMENT on 10-24-2022 pH (U) 6.5 [pH] 5.0 - 8.0 [facility] Urine specific gravity measu rementOrdered By: HEALTH ASSESSMENT on 10-24-2022 Specific gravity (U) [Rel density] 1.015 1.002-1.030 [facility] Urobilinogen Auto test strip Ql (U)Ordered By: HEALTH ASSESSMENT on 10-24-2022 Urobilinogen Ql (U) Normal mg/dl Normal [facility] No Panel Informationon 03-29 Troponin I High Sensitivity 3 pg/mL 3.0-54.0 [facility] Work Phone: Comment on above: Please Note: New Janel t Units and Gender Specific Reference Ranges. For more information see Policy Stat Procedure [place] High Sensitivity Troponin (TNIH) and attachments. Laboratory - Microbiology an d Antimicrobial susceptibilityon 03-15-2022 SARS-CoV-2 (COVID-19) RNA HILTON+probe Ql (Unsp spec) Not detected [facility] Work Phone: No Panel Informationon 03-15 POC Nasal Swab Influenza A,B Not detected [facility] Work Phone: POC Nasal Swab RSV Not detected [facility] Work Phone: Cervical or vagninal specime n microscopic examination by cytology stain (reported ason 01-06-2022 Cytology report Cyto stain Doc (Cvx/Vag) Comment . [facility] Work Phone: Comment on above: The [...] DNA Probe+sig amp Ql (Cvx) Negative Negative [facility] Work Phone: Comment on above: This nucleic acid am plification test detects fourteen high-risk HPV types (16,18,31,33,35,39,45,51,52,56,58,59,66,68)without differentiation.Performed at: - [facility] [id number] Director: Tania Lopez MD, Phone: [phone] at: =[facility] [id number] Director: Tania Lopez MD, Phone: [phone] Laboratory - Cytologyon Electric Melt Operator Cyto stain Nom (Cvx/Vag) [ID] Comment . [facility] Work Phone: Comment on above: Timothy Smith , Machine Folder (ASCP) Laboratory - Miscellaneous t estson 01-06-2022 Service comment (Unsp spec) [Interp] Comment . [facility] Work Phone: Comment on above: This liquid based Th inPrep(R) pap test was screened withthe use of an image guided system. Service comment (Unsp spec) [Interp] . . [facility] Work Phone: No Panel Informationon 01-06 Pathology report final diagnosis Narrative Comment . [facility] Work Phone: Comment on above: NEGATIVE FOR INTRAEP ITHELIAL LESION OR MALIGNANCY. Basophil percentageon 2021 Chloride [Moles/Vol] 108 mmol/L 98-107 [facility] Work Phone: Glucose [Mass/Vol] 73 mg/dL 74-106 [facility] Work Phone: [phone] Potassium [Moles/Vol] 3.9 mmol/L 3.5-5.1 [facility] Work Phone: Sodium [Moles/Vol] 138 mmol/L 136-145 [facility] Work Phone: Laboratory - Chemistry and C hemistry - challengeon 10-13-2021 CO2 [Moles/Vol] 25.0 mmol/L 21.0-32.0 [facility] Work Phone: Urea nitrogen/Creatinine [Mass ratio] 12.4 mg/mg 10-20 [facility] Work Phone: No Panel Informationon 10-13 Estimated GFR (MDRD) Amer 118 mL/min >60 [facility] Work Phone: Comment on above: GFR Calc Estimated GFR (MDRD) Non-Af Amer 98 mL/min >60 [facility] Work Phone: Comment on above: Non- GFR Calc Thyroid Stimulating Hormone (TSH) 1.64 uIU/mL 0.358-3.74 [facility] Work Phone: Serum or plasma calcium sharon urement (mass/volume)on 10-13-2021 Calcium [Mass/Vol] 8.6 mg/dL 8.5-10.1 [facility] Work Phone: Serum or plasma creatinine m easurement (mass/volume)on 10-13-2021 Creatinine [Mass/Vol] 0.72 mg/dL 0.55-1.02 [facility] Work Phone: Comment on above: The validity of the calculated GFR & GFRAA in patients over 70 years has not been determined. Clinical correlation is essential. Serum or plasma urea nitroge n measurement (mass/volume)on 10-13-2021 Urea nitrogen [Mass/Vol] 9 mg/dL 7-18 [facility] Work Phone: Thin prep Papanicolaou smear with manual screeningon 10-13-2021 Thin prep Papanicolaou smear with manual screening 5 5-15 [facility] Work Phone: Absolute lymphocyte counton 08-17-2021 Lymphocytes Auto (Unsp spec) [#/Vol] 1.62 10*3/uL 0.83-4.51 [facility] Work Phone: Absolute reticulocyte counto n 08-17-2021 Reticulocytes (Bld) [#/Vol] 0.00 10*3/uL 0-5 [facility] Work Phone: Basophil percentageon 2021 Basophil percentage 3.6 mg/dL 2.5-4.[address] [facility] Work Phone: Bilirubin [Mass/Vol] 0.50 mg/dL 0.20-1.00 [facility] Work Phone: Comment on above: For patients on eltr ombopag therapy, use of Dimension [place] TBIL is not recommended. Chloride [Moles/Vol] 105 mmol/L 98-107 [facility] Work Phone: Cholesterol [Mass/Vol] 178 mg/dL <200 [facility] Work Phone: Comment on above: <200 mg/dL Desirable 200-240 mg/dL Borderline >240 mg/dL High Risk Glucose [Mass/Vol] 77 mg/dL 74-106 [facility] Work Phone: Neutrophils (Bld) [#/Vol] 3.2 10*3/uL 2.0-7.7 [facility] Work Phone: Potassium [Moles/Vol] 4.0 mmol/L 3.5-5.1 [facility] Work Phone: Protein [Mass/Vol] 7.4 g/dL 6.4-8.2 [facility] Work Phone: [phone] Sodium [Moles/Vol] 139 mmol/L 136-145 [facility] Work Phone: [phone] Triglyceride [Mass/Vol] 51 mg/dL [facility] Work Phone: [phone] Comment on above: The drugs N-Acetylcy steine and Metamizole may falsely depress this assay.Serum Triglycerides Reference Interval Normal <150 mg/dL Borderline high 150 - 199 mg/dL High 200 - 499 mg/dL Very High > or = 500 mg/dL WBC (Bld) [#/Vol] 5.4 10*3/uL 4.4-11.0 [facility] Work Phone: [phone] Bilirubin Test strip Ql (U)o n 08-17-2021 Bilirubin Ql (U) Negative Negative [facility] Work Phone: [phone] Blood erythrocytes count (nu mber/volume)on 08-17-2021 RBC (Bld) [#/Vol] 4.21 10*6/uL 4.2-5.[address] [facility] Work Phone: [phone] Blood hemoglobin measurement (mass/volume)on 08-17-2021 Hemoglobin (Bld) [Mass/Vol] 13.0 g/dL 12.0-15.0 [facility] Work Phone: [phone] Blood platelet mean volumeon 08-17-2021 Platelet mean volume (Bld) [Entitic vol] 10.4 fL 6.2-12.0 [facility] Work Phone: [phone] Determination of erythrocyte mean corpuscular volume (MCV)on 08-17-2021 MCV (RBC) [Entitic vol] 90.5 fL 81-99 [facility] Work Phone: [phone] Direct bilirubinon Bilirubin.direct [Mass/Vol] 0.13 mg/dL 0.00-0.30 [facility] Work Phone: [phone] Hematocrit Auto (Bld) [Volum e fraction]on 08-17-2021 Hematocrit (Bld) [Volume fraction] 38.1 % 37-47 [facility] Work Phone: Ketones Test strip Ql (U)on 08-17-2021 Ketones Ql (U) Negative Negative [facility] Work Phone: [phone] Laboratory - Chemistry and C hemistry - challengeon 08-17-2021 ALP [Catalytic activity/Vol] 55 U/L 45-117 [facility] Work Phone: [phone] ALT [Catalytic activity/Vol] 23 U/L 13-56 [facility] Work Phone: [phone] Cholesterol.total/Choles terol in HDL [Mass ratio] 2.70 {ratio} [facility] Work Phone: [phone] CO2 [Moles/Vol] 29.0 mmol/L 21.0-32.0 [facility] Work Phone: [phone] Globulin (S) [Mass/Vol] 3.8 g/dL 2.2-4.2 [facility] Work Phone: [phone] Urea nitrogen/Creatinine [Mass ratio] 18.2 mg/mg 10-20 [facility] Work Phone: [phone] Laboratory - Hematology and Cell countson 08-17-2021 Erythrocyte distribution width (RBC) [Entitic vol] 44.2 fL 35.1-43.9 [facility] Work Phone: [phone] Erythrocyte distribution width (RBC) [Ratio] 13.4 % 11.6-14.6 [facility] Work Phone: [phone] MCH (RBC) [Entitic mass] 30.9 pg 27.0-32.0 [facility] Work Phone: [phone] Nucleated RBC/100 WBC (Bld) [Ratio] 0 % 0-5 [facility] Work Phone: [phone] MCHC Auto (RBC) [Mass/Vol]on 08-17-2021 MCHC (RBC) [Mass/Vol] 34.1 g/dL 32-36 [facility] Work Phone: Nitrite Test strip Ql (U)on 08-17-2021 Nitrite Ql (U) Negative Negative [facility] Work Phone: No Panel Informationon 08-17 Estimated GFR (MDRD) Amer 146 mL/min >60 [facility] Work Phone: Comment on above: GFR Calc Estimated GFR (MDRD) Non-Af Amer 121 mL/min >60 [facility] Work Phone: Comment on above: Non- GFR Calc Platelets bldon 08-17-2021 Platelets (Bld) [#/Vol] 320 10*3/uL 150-450 [facility] Work Phone: Protein Test strip Ql (U)on 08-17-2021 Protein Ql (U) Negative Negative [facility] Work Phone: Segmented neutrophils/100 WB C Auto (Bld)on 08-17-2021 Segmented neutrophils/100 WBC (Bld) 59.9 % 47-70 [facility] Work Phone: Serum or plasma albumin sharon urement (mass/volume)on 08-17-2021 Albumin [Mass/Vol] 3.6 g/dL 3.2-5.0 [facility] Work Phone: Serum or plasma albumin/glob ulin mass ratioon 08-17-2021 Albumin/Globulin [Mass ratio] 0.9 {ratio} 0.9-2.4 [facility] Work Phone: Serum or plasma calcium sharon urement (mass/volume)on 08-17-2021 Calcium [Mass/Vol] 8.3 mg/dL 8.5-10.1 [facility] Work Phone: [phone] Serum or plasma cholesterol in HDL measurement (mass/volume)on 08-17-2021 Cholesterol in HDL [Mass/Vol] 67 mg/dL [facility] Work Phone: Comment on above: The drugs N-Acetylcy steine and Metamizole may falsely depress this assay. Reference Range HDL <40 mg/dL Low HDL Cholesterol HDL >or= 60 mg/dL High HDL Cholesterol Serum or plasma cholesterol in VLDL measurement (mass/volume)on 08-17-2021 Cholesterol in VLDL [Mass/Vol] 10 mg/dL 5-40 [facility] Work Phone: [phone] Serum or plasma creatinine m easurement (mass/volume)on 08-17-2021 Creatinine [Mass/Vol] 0.60 mg/dL 0.55-1.02 [facility] Work Phone: Comment on above: The validity of the calculated GFR & GFRAA in patients over 70 years has not been determined. Clinical correlation is essential. Serum or plasma low density lipoprotein (LDL) cholesterol measurement (mass/volume)on 08-17-2021 Cholesterol in LDL [Mass/Vol] 101 mg/dL 0-130 [facility] Work Phone: [phone] Serum or plasma urea nitroge n measurement (mass/volume)on 08-17-2021 Urea nitrogen [Mass/Vol] 11 mg/dL 7-18 [facility] Work Phone: [phone] Serum or plasma uric acid me asurement (mass/volume)on 08-17-2021 Urate [Mass/Vol] 4.6 mg/dL 2.6-6.0 [facility] Work Phone: Comment on above: The drugs N-Acetylcy steine and Metamizole may falsely depress this assay. Thin prep Papanicolaou smear with manual screeningon 08-17-2021 Thin prep Papanicolaou smear with manual screening 17 U/L 15-37 [facility] Work Phone: [phone] Thin prep Papanicolaou smear with manual screening 5 5-15 [facility] Work Phone: [phone] Thin prep Papanicolaou smear with manual screening 187 U/L 84-246 [facility] Work Phone: [phone] Urine blood detectionon 08-02 RBC Ql (U) 10 /ul Negative [facility] Work Phone: [phone] Urine clarityon 08-17-2021 Clarity (U) Sl. Cloudy Clear [facility] Work Phone: Urine color determinationon 08-17-2021 Color (U) Yellow Yellow [facility] Work Phone: Urine glucose detectionon Glucose Ql (U) Normal mg/dl Normal [facility] Work Phone: Urine leukocyte esterase det ection by dipstickon 08-17-2021 Leukocyte esterase Test strip Ql (U) Negative Negative [facility] Work Phone: Urine pHon 08-17-2021 pH (U) 7.0 [pH] [facility] Work Phone: Urine specific gravity measu rementon 08-17-2021 Specific gravity (U) [Rel density] 1.010 [facility] Work Phone: Urobilinogen Auto test strip Ql (U)on 08-17-2021 Urobilinogen Ql (U) Normal mg/dl Normal [facility] Work Phone: Vital Signs Date Time Vital Sign Value Performing Clinician Faci lity 08-14-2023 09:07-0500 Body height 154.[address] Ebony Flores Work Phone: [facility] 08-14-2023 09:07-0500 Body mass index (BMI) [Ratio] 22.5 kg/m2 Dr. Ebony Flores Work Phone: [facility] 08-14-2023 09:07-0500 Body temperature 97.7 [degF] Dr. Ebony Flores Work Phone: [facility] 08-14-2023 09:07-0500 Body weight 54.[address] Ebony Flores Work Phone: [facility] 08-14-2023 09:07-0500 Diastolic blood pressure 72 mm[Hg] Dr. Ebony Flores Work Phone: [facility] 08-14-2023 09:07-0500 Heart rate 66 /min Dr. Ebony Flores Work Phone: [facility] 08-14-2023 09:07-0500 Respiratory rate 14 /min Dr. Ebony Flores Work Phone: [facility] 08-14-2023 09:07-0500 SaO2% (BldA) [Mass fraction] 99 % Dr. Ebony Flores Work Phone: [facility] 08-14-2023 09:07-0500 Systolic blood pressure 114 mm[Hg] Dr. Ebony Flores Work Phone: [facility] 03-19-2023 09:00-0400 Body temperature 98.2 [degF] PA Rangel Jackson PA Work Phone: [facility] 03-19-2023 09:00-0400 Body weight 54.2 kg PA Rangel Jackson PA Work Phone: [facility] 03-19-2023 09:00-0400 Diastolic blood pressure 73 mm[Hg] PA Rangel Jackson PA Work Phone: [facility] 03-19-2023 09:00-0400 Heart rate 65 /min PA Rangel Jackson PA Work Phone: [facility] 03-19-2023 09:00-0400 Respiratory rate 20 /min PA Rangel Jackson PA Work Phone: [facility] 03-19-2023 09:00-0400 SaO2% (BldA) [Mass fraction] 98 % PA Rangel Jackson PA Work Phone: [facility] 03-19-2023 09:00-0400 Systolic blood pressure 109 mm[Hg] PA Rangel Jackson PA Work Phone: [facility] 11-08-2022 08:40-0400 Body height 154.[address] Ebony Flores Work Phone: [facility] 11-08-2022 08:40-0400 Body mass index (BMI) [Ratio] 22.4 kg/m2 Dr. Ebony Flores Work Phone: [facility] 11-08-2022 08:40-0400 Body temperature 98.5 [degF] Dr. Ebony Flores Work Phone: [facility] 11-08-2022 08:40-0400 Body weight 53.[address] Ebony Flores Work Phone: [facility] 11-08-2022 08:40-0400 Diastolic blood pressure 64 mm[Hg] Dr. Ebony Flores Work Phone: [facility] 11-08-2022 08:40-0400 Heart rate 59 /min Dr. Ebony Flores Work Phone: [facility] 11-08-2022 08:40-0400 Respiratory rate 14 /min Dr. Ebony Flores Work Phone: [facility] 11-08-2022 08:40-0400 SaO2% (BldA) [Mass fraction] 98 % Dr. Ebony Flores Work Phone: [facility] 11-08-2022 08:40-0400 Systolic blood pressure 100 mm[Hg] Dr. Ebony Flores Work Phone: [facility] 03-29-2022 12:59-0400 Body height 154.[address] Ebony Flores Work Phone: [facility] Work Phone: 03-29-2022 12:59-0400 Body mass index (BMI) [Ratio] 20.9 kg/m2 Dr. Ebony Flores Work Phone: [facility] Work Phone: 03-29-2022 12:59-0400 Body temperature 98.1 [degF] Dr. Ebony Flores Work Phone: [facility] Work Phone: 03-29-2022 12:59-0400 Body weight 50.[address] Ebony Flores Work Phone: [facility] Work Phone: 03-29-2022 12:59-0400 Diastolic blood pressure 70 mm[Hg] Dr. Ebony Flores Work Phone: [facility] Work Phone: 03-29-2022 12:59-0400 Heart rate 92 /min Dr. Ebony Flores Work Phone: [facility] Work Phone: 03-29-2022 12:59-0400 Respiratory rate 14 /min Dr. Ebony Flores Work Phone: [facility] Work Phone: 03-29-2022 12:59-0400 SaO2% (BldA) [Mass fraction] 98 % Dr. Ebony Flores Work Phone: [facility] Work Phone: 03-29-2022 12:59-0400 Systolic blood pressure 104 mm[Hg] Dr. Ebony Flores Work Phone: [facility] Work Phone: 01-06-2022 11:50-0400 Body height 154.[address] Ebony Flores Work Phone: [facility] Work Phone: 01-06-2022 11:49-0400 Body mass index (BMI) [Ratio] 20.9 kg/m2 Dr. Ebony Flores Work Phone: [facility] Work Phone: 01-06-2022 11:49-0400 Body weight 50.[address] Ebony Flores Work Phone: [facility] Work Phone: 01-06-2022 11:49-0400 Diastolic blood pressure 60 mm[Hg] Dr. Ebony Flores Work Phone: [facility] Work Phone: 01-06-2022 11:49-0400 Systolic blood pressure 100 mm[Hg] Dr. Ebony Flores Work Phone: [facility] Work Phone: 09-06-2021 16:00-0500 Body height 154.[address] Ebony Flores Work Phone: [facility] Work Phone: 09-06-2021 16:00-0500 Body mass index (BMI) [Ratio] 21.9 kg/m2 Dr. Ebony Flores Work Phone: [facility] Work Phone: 09-06-2021 16:00-0500 Body temperature 98.7 [degF] Dr. Ebony Flores Work Phone: [facility] Work Phone: 09-06-2021 16:00-0500 Body weight 52.[address] Ebony Flores Work Phone: [facility] Work Phone: 09-06-2021 16:00-0500 Diastolic blood pressure 68 mm[Hg] Dr. Ebony Flores Work Phone: [facility] Work Phone: 09-06-2021 16:00-0500 Heart rate 61 /min Dr. Ebony Flores Work Phone: [facility] Work Phone: 09-06-2021 16:00-0500 Respiratory rate 14 /min Dr. Ebony Flores Work Phone: [facility] Work Phone: 09-06-2021 16:00-0500 SaO2% (BldA) [Mass fraction] 99 % Dr. Ebony Flores Work Phone: [facility] Work Phone: 09-06-2021 16:00-0500 Systolic blood pressure 104 mm[Hg] Dr. Ebony Flores Work Phone: [facility] Work Phone: Encounters Encounter Date Encounter Type Care Provider Facility Start: 01-11-2025 End: 01-11-2025 ambulatory Gia COLON Facility:[facility] Start: 12-02-2024 End: 12-02-2024 ambulatory Sarah Magi Facility:[facility] Start: 10-21-2024 End: 10-21-2024 ambulatory Sarah Sow Facility:[facility] Start: 10-10-2024 End: 10-10-2024 ambulatory Nj COLON Facility:[facility] Start: 09-18-2024 ambulatory Health Risk Assessment Facility:[facility] Start: 04-02-2024 End: 04-02-2024 ambulatory Valeryhiawathakleber Flores Facility:[facility] Start: 03-27-2024 ambulatory Ebony Flores Facili ty:[facility] Start: 03-20-2024 End: 03-20-2024 [facility] Start: 03-14-2024 End: 03-14-2024 Emergency department patient visit Ebony Flores Facility:[facility] Start: 02-18-2024 End: 02-18-2024 ambulatory Ebony Flores Facility:[facility] Start: 09-07-[address] Bladimir Flores Work Phone: [facility] Work Phone: Start: 09-07-2023 End: 09-07-[address] Ebony Flores Work Phone: [facility] Work Phone: Start: 09-07-2023 End: 09-07-[address] Ebony Flores Work Phone: [facility] Work Phone: Start: 08-14-2023 End: 08-14-[address] Ebony Flores Work Phone: [facility] Work Phone: Start: 06-27-2023 End: 06-27-2023 ambulatory ISAIAH COLON Work Phone: [facility] Work Phone: Start: 06-27-2023 End: 06-27-2023 Patient encounter procedure ISAIAH COLON Work Phone: [facility] Work Phone: Start: 03-19-2023 End: 03-19-2023 Patient encounter procedure ISAIAH COLON Work Phone: [facility] Work Phone: Start: 11-13-2022 End: 11-13-[address] Ebony Flores Work Phone: [facility] Start: 11-09-[address] Ebony Flores Work Phone: [facility] Start: 11-08-2022 End: 11-08-[address] Ebony Flores Work Phone: [facility] Work Phone: Start: 11-08-2022 End: 11-08-2022 Encounter for general adult medical examination without abnormal findings Dr. Ebony Flores Work Phone: [facility] Start: 11-08-2022 End: 11-08-[address] Ebony Flores Work Phone: [facility] Start: 10-24-[address] Bladimir Flores Work Phone: [facility] Start: 03-29-2022 End: 03-29-[address] Ebony Flores Work Phone: [facility] Work Phone: Start: 03-29-2022 End: 03-29-[address] Ebony Flores Work Phone: [facility]/Neurology Start: 03-29-2022 End: 03-29-[address] Ebony Flores Work Phone: [facility] Start: 03-15-2022 End: 03-15-[address] Ebony Flores Work Phone: [facility] Start: 03-15-2022 Non-patient / Non-visit Dr. Mark Flores Work Phone: [facility] Start: 01-06-2022 End: 01-06-[address] Ebony Flores Work Phone: [facility]Laboratory, Specimen Start: 01-06-2022 End: 01-06-[address] Ebony Flores Work Phone: [facility] Start: 01-06-2022 End: 01-06-[address] Ebony Flores Work Phone: [facility] Start: 12-26-2021 End: 12-26-[address] Ebony Flores Work Phone: [facility] Start: 11-21-2021 End: 11-21-[address] Ebony Flores Work Phone: [facility] Start: 11-01-2021 End: 11-01-[address] Ebony Flores Work Phone: [facility] Start: 10-13-2021 End: 10-13-[address] Ebony Flores Work Phone: [facility], [facility] Start: 09-06-2021 End: 09-06-[address] Ebony Flores Work Phone: [facility] Start: 08-17-[address] Bladimir Flores Work Phone: [facility] Start: 03-25-2018 Patient encounter YISSEL Vanessa Bowman [facility] Procedures Date Procedure Procedure Detail Performing Clinician Start: 03-19-2023 Plain X-ray of toe ISAIAH COLON Work Phone: Start: 11-08-2022 X-ray of lumbar spin e, two or three views Dr. Ebony Flores Work Phone: Plan of Treatment Date Care Activity Detail Author Start: 11-08-2022 Patient referral [facility] Work Phone: Start: 03-29-[address] [facility] study results [facility] Work Phone: Start: 01-06-2022 Liquid based cervica l cytology screening [facility] Work Phone: Evaluation of [facility] study results [facility] Work Phone: Path report.final Dx Spec [facility] Work Phone: Patient referral [facility] Work Phone: Troponin I measurement [facility] Work Phone: Immunizations Immunization Date Immunization Notes Care Provider Juni hernandez 04-04-2023 influenza, injectabl e, quadrivalent, preservative free ISAIAH COLON Work Phone: [facility] 04-14-2022 Covid Moderna Bivale nt Booster Dr. Ebony Flores Work Phone: [facility] 03-31-2022 influenza, injectabl e, quadrivalent, preservative free ISAIAH COLON Work Phone: [facility] 03-31-2022 influenza, seasonal, injectable Dr. Ebony Flores Work Phone: [facility] 06-17-2021 Covid (Pfizer) Dr. Ebony Flores Work Phone: [facility] 03-29-2021 influenza, injectabl e, quadrivalent, preservative free ISAIAH OCLON Work Phone: [facility] 03-29-2021 influenza, seasonal, injectable Dr. Ebony Flores Work Phone: [facility] 09-08-2020 tetanus toxoid, redu haley diphtheria toxoid, and acellular pertussis vaccine, adsorbed Dr. Ebony Flores Work Phone: [facility] 09-08-2020 diphtheria, tetanus toxoids and acellular pertussis vaccine, unspecified formulation Dr. Ebony Flores Work Phone: [facility] Work Phone: 03-30-2020 influenza, injectabl e, quadrivalent, preservative free ISAIAH COLON Work Phone: [facility] 03-30-2020 influenza, seasonal, injectable Dr. Ebony Flores Work Phone: [facility] 04-22-2019 influenza, injectabl e, quadrivalent, preservative free ISAIAH COLON Work Phone: [facility] 04-22-2019 influenza, seasonal, injectable Dr. Ebony Flores Work Phone: [facility] 03-29-2018 influenza, injectabl e, quadrivalent, preservative free ISAIAH COLON Work Phone: [facility] 03-29-2018 influenza, seasonal, injectable Dr. Ebony Flores Work Phone: [facility] 03-06-2018 tetanus toxoid, redu haley diphtheria toxoid, and acellular pertussis vaccine, adsorbed Dr. Ebony Flores Work Phone: [facility] 03-06-2018 diphtheria, tetanus toxoids and acellular pertussis vaccine, unspecified formulation Dr. Ebony Flores Work Phone: [facility] Work Phone: 03-28-2017 influenza, injectabl e, quadrivalent, preservative free ISAIAH COLON Work Phone: [facility] 03-28-2017 influenza, seasonal, injectable Dr. Ebony Flores Work Phone: [facility] 04-05-2016 influenza, injectabl e, quadrivalent, preservative free ISAIAH COLON Work Phone: [facility] 04-05-2016 influenza, seasonal, injectable Dr. Ebony Flores Work Phone: [facility] Payers Date Payer Category Payer Unknown [id number] 2024 Self-pay [id number] 2023 Unknown [id number] [facility] 2005 Unknown [facility] *DO NOT USE* [id number] 1988 Unknown ANTHEM [id number] Private Health Insurance A00 [id number] Unknown [id number] Unknown [id number] Unknown [id number] Unknown [id number] Unknown [id number] Unknown [id number] Unknown [id number] Unknown [id number] Unknown [id number] Unknown [id number] Unknown [id number] Unknown [id number] Social History Date Type Detail Facility Start: 09-06-2021 End: 08-14-2023 Tobacco smoking status TXIS Unknown if ever smoked [facility] Start: 05-08-2018 None [facility] Start: 1985 Sex Assigned At Female [facility] Medical Equipment Procedure Code Equipment Code [...] Date & Type Note Facility 01-06-2022 Note [facility] Work Phone: Pap Smear Specimen Adequacy January 06, 2022 5:05pm Comment . Satisfactory for evaluation. No endocervical component is identified. Comment on above: Satisfactory for elizabeth luation. No endocervical component is identified. Clinical Note 01-06-2022 Note Date & Type Note Facility 01-06-2022 Note [facility] Work Phone: Pap Smear Specimen Adequacy January 06, 2022 5:05pm Comment . Satisfactory for evaluation. No endocervical component is identified. Comment on above: Satisfactory for elizabeth luation. No endocervical component is identified. Progress note 01-25-2021 Note Date & Type Note Facility 01-25-2021 Note HNO ID: [id number] Author: Aaron Hardy Service: ? Author Type: [...] future healthcare decisions with a power of corporate attorney, living will, or advance directives? Yes. Have you shared those records with your doctor? No Referrals: N/A Message Sent to Practice: NO Navigation Signature: Aaron Hardy January 25, 2021 2:26 PM [facility] Clinical Note 01-25-2021 Note Date & Type Note Facility 01-25-2021 Note Patient Outreach (ONIEL TNAV) BHARAT SNEED ([id number]) 1985 F Date Time Provider Department 01/25/21 AARON RANDHAWA ([facility]) NETPERRIV During your visit today, we recorded the following information about you: Aaron Randhawa Pss 01/25/2021 2:27 PM Signed POPULATION HEALTH NAVIGATION OUTREACH Action/FYI Lucila jim and sent myc Contact made with patient or family member? NO Pt identified by name and : NO Outreach Outcome/Action Unable to reach patient: Left message [employer] message sent Reason for Outreach Care Gap [...] future healthcare decisions with a power of corporate attorney, living will, or advance directives? Yes. [...] Visit: Population Health Navigation Outreach [3910] Cmt: [facility] ANNUAL EXAM Prescriptions as of 01/25/2021 - citalopram hydrobromide (CELEXA) 10 mg tablet Take 1 tablet by mouth once daily. - VIT/IRON FUMARATE/FA ( ORAL) Take by mouth. - Desogestrel-Ethinyl Estradiol (APRI) 0.15-0.03 mg per tablet Take 1 tablet by mouth once daily. - Magic Mouthwash ([place] Sol) 8gm tetracycline +8million units nystatin +200mg hydrocortisone +480ml water. 1 tsp swish/swallow three times a day (1 PINT) Problem List As Of Date 01/25/2021 Noted Resolved Routine general medical examination at [facility]03/21/2010 09/26/2010 Class: Chronic Routine gynecological examination [Z01.419] [...] Encounter Status:Closed by AARON AVENDANO on 01/25/21 [facility] Evaluation note Note Date & Type Note Facility Evaluation note Diagnosis Onset Date Acne [facility] Work Phone: Evaluation note Note Date & [...] thoracic region acute Anxiety acute Mastalgia acute [id number] noneactive [facility] Work Phone: Evaluation note Note Date & Type Note Facility Evaluation note Diagnosis Onset Date Segmental and somatic dysfun ction of cervical region acute Segmental and somatic dysfun ction of lumbar region acute Segmental and somatic dysfun ction of pelvic region acute Segmental and somatic dysfun ction of thoracic region acute Anxiety acute Mastalgia acute [id number] noneactive Anxiety acute Chest pain acute [facility] Work Phone: Evaluation note Note Date & Type Note Facility Evaluation note Diagnosis Onset Date Encounter for preventative a [facility] health care examination acute Vitamin deficiency acute Acute bacterial conjunctivitis acute [facility] Work Phone: Evaluation note Note Date & Type Note Facility Evaluation note Diagnosis Onset Date Pain of left great toe acute [facility] Work Phone: Evaluation note Note Date & Type Note Facility Evaluation note Diagnosis Onset Date Anxiety acute GERD (gastroesophageal reflux disease) acute Acne chronic Chronic back pain chronic [facility] Work Phone: Summary Purpose Family History [...] Will No May 31 4:48pm Power of Medical Staff Coordinator No May 31, 2021 4:48pm Advance Directive Response Recorded Date/ Time Advance Directives No March 8:50am Living Will No March 29, 2022 8:50am Power of Medical Staff Coordinator No March 8:50am Advance Directive Response Recorded Date/ Time Advance Directives No March 7:50am Living Will No March 29, 2022 7:50am Power of Medical Staff Coordinator No March 7:50am Chief Complaint and Reason [...] somatic dysfunction of thoracic region Anxiety Mastalgia [id number] Chief Complaint Back pain est annual ANNUAL PAP 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 CHEST PAIN Reason for Visit Segmental and somati c dysfunction of cervical region Segmental and somatic dysfunction of lumbar region Segmental and somatic dysfunction of pelvic region Segmental and somatic dysfunction of thoracic region Anxiety Mastalgia [id number] Anxiety Chest pain Chief Complaint ANNUAL EORDER FOR XRAY LEFT EYE CONCERN Reason for Visit Encounter for [facility] adult health care examination Vitamin deficiency Acute bacterial conjunctivitis Chief Complaint LEFT GREAT TOE INJUR Y/XRAY XRAY Reason for Visit Pain of left great t oe Chief Complaint medication refills 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 Ebony Flores MD Family Provider Active Dr. Ebony Flores MD Primary Care Provider Active Team Status: Inactive Member Role Status Dates Dr. Ebony Flores MD Primary Care Provider, [facility] Provider Active Peterson Mir BLEACH TESTER, BLEACH TESTER-C Attending Provider Active Team Status: Inactive Member [...] Primary Care Provider Active Peterson Mir NP, BLEACH TESTER-C Attending Provider, Referring Prov ider Active Team [...] BE BASED ON THE PRIMARY CLINICAL RECORDS. [employer] provides no warranty or guarantee of the accuracy or completeness of information in this document.
== END 2025-01-29 22:48 | disposition home or self-care (01) ==
LOC: ED 21:57
PROVIDERS: PCP Internal Medicine; Visit Provider Emergency Medicine
DX: Z77.21 Contact with and (suspected) exposure to potentially hazardous body fluids (principal)
CPT/HCPCS: 86703; 86706; 86803; 87340

== ENCOUNTER → 2025-02-02 | Outpatient (CLI) | payer OTHER, SELFPAY ==
[2025-02-02 12:49] LABS: Vitamin D,25 Hydroxy 36.9 ng/mL (30-100)
== END | disposition home or self-care (01) ==
PROVIDERS: PCP Internal Medicine; Referring Provider Nurse Practitioner Women's Health; Visit Provider Nurse Practitioner Women's Health
DX: Z13.29 Encounter for screening for other suspected endocrine disorder (principal); R53.83 Other fatigue; L65.9 Nonscarring hair loss, unspecified; R23.2 Flushing
CPT/HCPCS: 36415; 82306; 84439; 84443; 86376

== ENCOUNTER → 2025-02-06 | Outpatient (CLI) | payer OTHER, SELFPAY ==
--- NOTE | 2025-02-06 14:58 | US_ITS ---
PROCEDURE: THYROID 02/06/2025 REASON FOR EXAM: ENLARGED THYROID TECHNIQUE: THYROID COMPARISON: None FINDINGS: Right thyroid lobe size: 3.6 cm 1.2 cm 1.3 cm Left thyroid lobe size: 4.5 cm 1.3 cm 1.2 cm Isthmus: 0.2 cm Background parenchymal echotexture is homogeneous. Nodules: . Lobe: Right, Location: Posterior medial mid, Size: 0.8 cm x 0.6 cm x 0.6 cm, Stability: N/A Composition: Echogenicity: Hypoechoic (+2) Margin: Smooth (+0) Shape: Wider than tall (+0) Echogenic Foci: None (+0) TI-RADS: 4 . Lobe: Left, Location: Mid, Size: 0.6 cm 0.6 cm x 0.4 cm, Stability: N/A Composition: Cystic or mostly cystic (+0) Echogenicity: Anechoic (+0) Margin: Smooth (+0) Shape: Wider than tall (+0) Echogenic Foci: None (+0) TI-RADS: 0 US/Thyroid IMPRESSION: 8 mm x 6 mm x 6 mm hypoechoic solid nodule in the posterior medial midportion o f the right lobe of the thyroid. 12 month follow-up recommended. RECOMMENDATION: Based on most suspicious nodule. Nodule size = largest diameter Only evaluate nodule if =>5 mm. Growth > 20% in 2 dimensions = worsening. Follow up to 4 nodules. Recommend biopsy for no more than 2 nodules. Reading Location: [place] [id number]
== END | disposition home or self-care (01) ==
LOC: US 14:47
PROVIDERS: PCP Internal Medicine; Referring Provider Nurse Practitioner Women's Health; Visit Provider Nurse Practitioner Women's Health
DX: E04.9 Nontoxic goiter, unspecified (principal)
CPT/HCPCS: 76536